=== PATIENT | female | born 1970 | race Two or more races ===

== ENCOUNTER 2022-06-27 11:02 | Outpatient (REF) | payer OTHER, SELFPAY ==
--- NOTE | ~2022-06-27 | MR_ITS ---
EXAMINATION: MR BRAIN WITHOUT CONTRAST CLINICAL INFORMATION: Headaches and left-sided weakness with numbness. COMPARISON: None. TECHNIQUE: Multiplanar, multisequence imaging of the brain was performed without contrast. FINDINGS: No diffusion abnormalities are identified to suggest an acute infarct. The ventricles are normal in size. No mass effect or midline shift is seen. Minimal signal changes in the left frontal centrum semiovale are nonspecific. No extra-axial fluid collections are seen. The brainstem and cerebellum are normal. The gradient refocused acquisition is normal. The craniovertebral junction, marrow signal, and midline structures are normal. The major intracranial flow voids at the level of the hopi of Javed are preserved. The dural venous sinus flow voids are maintained. The mastoid air cells are well aerated. There is mild mucosal thickening in the left maxillary antrum and in the ethmoid air cells. MR/MR head/brain wo con IMPRESSION: No acute process. Very mild nonspecific mild signal changes in the left frontal centrum semiovale. Otherwise, relatively normal MRI of the brain.
== END 2022-06-27 11:03 | disposition home or self-care (01) ==
LOC: HO.MRI 11:02
PROVIDERS: Visit Provider Psychiatry & Neurology Neurology
DX: G20 Parkinson's disease (principal)
CPT/HCPCS: 70551

== ENCOUNTER 2022-12-02 07:35 | Outpatient (REF) | payer OTHER, SELFPAY ==
[2022-12-02 09:34] LABS: Albumin Level 3.8 g/dL (3.5-5.0); Calcium 9.3 mg/dL (8.4-10.2); Phosphorus 3.7 mg/dL (2.7-4.5)
[2022-12-02 09:56] LABS: Free T4 (Free Thyroxine) 1.38 ng/dL (0.71-1.85); Thyroid Stimulating Hormone 1.08 uIU/mL (0.32-4.0); Vitamin D 25-OH Total 19.3 ng/mL (>30)
[2022-12-03 13:28] LABS: Thyroglobulin Antibodies <1 IU/mL (< or = 1); Thyroid Peroxidase Antibodies 1 IU/mL (<9)
[2022-12-03 16:25] LABS: Calcium (PTHI) 9.2 mg/dL (8.6-10.4); PTHI 90 pg/mL (16-77)
[2022-12-06 18:18] LABS: Thyroid Stimulating Immunoglob <89 % baseline (<140)
[2022-12-06 19:08] LABS: Thyrotropin Receptor Antibody <1.00 IU/L (<=2.00)
== END 2022-12-02 07:36 | disposition home or self-care (01) ==
LOC: HO.LAB 07:35
PROVIDERS: PCP Hospitalist; Visit Provider Internal Medicine
DX: E04.2 Nontoxic multinodular goiter (principal); E55.9 Vitamin D deficiency, unspecified
CPT/HCPCS: 36415; 82040; 82306; 82310; 83520; 83970; 84100; 84439; 84443; 84445; 86376; 86800; 99202

== ENCOUNTER 2022-12-19 13:59 | Outpatient (REF) | payer OTHER, SELFPAY ==
--- NOTE | ~2022-12-19 | CT_ITS ---
EXAMINATION: CT SOFT TISSUE NECK WITH CONTRAST CLINICAL INFORMATION: Nontoxic multinodular goiter COMPARISON: None. TECHNIQUE: Following the administration of 100 mL of Omnipaque 300 intravenous contrast, helical imaging was performed in the axial plane with generation of coronal and sagittal reformatted images. This CT examination was performed using dose optimization techniques as appropriate, variously including the following: *Automated exposure control. *Adjustment of mA and/or kV according to patient size (this includes techniques or standardized protocols for targeted exams where dose is matched to indication/reason for exam; i.e. extremities or head). *Use of iterative reconstruction technique. DLP: 454.93 mGy-cm FINDINGS: Enlarged, heterogeneous, multinodular appearance of the thyroid gland compatible with known history of goiter. Substernal extension into the anterior mediastinum abutting the proximal great vessels. There is associated mass effect with mild luminal narrowing of the lower cervical/upper thoracic trachea. No definite extracapsular extension within the limitations of motion artifact. Enlarged symmetric bilateral level 2A and left level 1B lymph nodes without morphologically suspicious features, probably reactive. Mild likely reactive adenoidal tonsillar hyperplasia. Partially imaged right frontal sinus mucosal disease with opacified right frontal sinus drainage outflow tract and otherwise mild scattered paranasal sinus mucosal disease, most pronounced and polypoid within the left maxillary sinus alveolar recesses. The temporomandibular joints are normal. Carious posterior left mandibular molar. Unerupted left mandibular canine versus supernumerary tooth within the parasymphyseal left mandible with adjacent 8 mm heterogeneously sclerotic/lucent lesion along the medial aspect of the supernumerary tooth within the parasymphyseal left mandible may reflect an odontoma or other benign fibro-osseous lesion. Left palatine tonsillolith. The unenhanced oral cavity and hypopharynx are unremarkable. Motion artifact from patient swallowing during image acquisition limits assessment of the larynx however no gross abnormality is seen. The unenhanced submandibular and parotid glands are normal. The partially visualized lung apices are clear. Indeterminate though benign-appearing 5 mm lucent lesion within the posterior left T2 vertebral body with thin peripheral sclerotic margin. The imaged portions of the brain parenchyma are unremarkable. Bilateral lens extractions. CT/CT soft tissue neck wo IV con IMPRESSION: 1. Enlarged, heterogeneous, multinodular appearance of the thyroid gland compatible with known history of goiter. Substernal extension into the anterior mediastinum abutting the proximal great vessels. There is associated mass effect with mild luminal narrowing of the lower cervical/upper thoracic trachea. No definite extracapsular extension within the limitations of motion artifact. 2. Indeterminate though benign-appearing 5 mm lucent lesion within the posterior left T2 vertebral body with thin peripheral sclerotic margin. Consider follow-up with CT in 6-12 months to assess stability or further evaluation with contrast-enhanced MRI. 3. Partially imaged right frontal sinus mucosal disease with opacified right frontal sinus drainage outflow tract and otherwise mild scattered paranasal sinus mucosal disease, most pronounced and polypoid within the left maxillary sinus alveolar recess.
== END 2022-12-19 14:00 | disposition home or self-care (01) ==
LOC: HO.CT 13:59
PROVIDERS: Visit Provider Internal Medicine
DX: E04.2 Nontoxic multinodular goiter (principal)
CPT/HCPCS: 70490

== ENCOUNTER 2023-03-27 10:41 | Outpatient (REF) | payer OTHER, SELFPAY ==
--- NOTE | ~2023-03-27 | US_ITS ---
PROCEDURE: US BIOPSY THYROID CLINICAL INFORMATION: Multinodular thyroid COMPARISON: CT neck 12/19/2022 TECHNIQUE/FINDINGS: The patient was placed supine in the ultrasound procedure table. Preprocedure ultrasound imaging demonstrates numerous heterogeneous nodules bilaterally and within the isthmus in concordance with prior imaging. The neck was sterilely prepped and draped. 1% lidocaine was administered for local anesthesia. We began with the right mid pole thyroid nodule. The nodule was accessed with a 22-gauge needle and FNA was performed. 3 samples were obtained. We then moved onto the largest nodule within the isthmus. The nodule was accessed with a 22-gauge needle and FNA was performed. 2 samples were obtained. We then moved onto the largest nodule on the left thyroid gland. The nodule was accessed with a 22-gauge needle and FNA was performed. 3 samples were obtained. Hemostasis was readily achieved and a dressing was applied. Postprocedure imaging does not demonstrate any evidence of bleeding or other complication. The patient tolerated procedure well. US/US biopsy thyroid IMPRESSION: Ultrasound-guided FNA of right thyroid nodule, thyroid isthmic nodule and left thyroid nodule as above
--- NOTE | ~2023-03-27 | US_ITS ---
PROCEDURE: US BIOPSY THYROID CLINICAL INFORMATION: Multinodular thyroid COMPARISON: CT neck 12/19/2022 TECHNIQUE/FINDINGS: The patient was placed supine in the ultrasound procedure table. Preprocedure ultrasound imaging demonstrates numerous heterogeneous nodules bilaterally and within the isthmus in concordance with prior imaging. The neck was sterilely prepped and draped. 1% lidocaine was administered for local anesthesia. We began with the right mid pole thyroid nodule. The nodule was accessed with a 22-gauge needle and FNA was performed. 3 samples were obtained. We then moved onto the largest nodule within the isthmus. The nodule was accessed with a 22-gauge needle and FNA was performed. 2 samples were obtained. We then moved onto the largest nodule on the left thyroid gland. The nodule was accessed with a 22-gauge needle and FNA was performed. 3 samples were obtained. Hemostasis was readily achieved and a dressing was applied. Postprocedure imaging does not demonstrate any evidence of bleeding or other complication. The patient tolerated procedure well. US/US guided fine needle asp add IMPRESSION: Ultrasound-guided FNA of right thyroid nodule, thyroid isthmic nodule and left thyroid nodule as above
--- NOTE | ~2023-03-27 | US_ITS ---
PROCEDURE: US BIOPSY THYROID CLINICAL INFORMATION: Multinodular thyroid COMPARISON: CT neck 12/19/2022 TECHNIQUE/FINDINGS: The patient was placed supine in the ultrasound procedure table. Preprocedure ultrasound imaging demonstrates numerous heterogeneous nodules bilaterally and within the isthmus in concordance with prior imaging. The neck was sterilely prepped and draped. 1% lidocaine was administered for local anesthesia. We began with the right mid pole thyroid nodule. The nodule was accessed with a 22-gauge needle and FNA was performed. 3 samples were obtained. We then moved onto the largest nodule within the isthmus. The nodule was accessed with a 22-gauge needle and FNA was performed. 2 samples were obtained. We then moved onto the largest nodule on the left thyroid gland. The nodule was accessed with a 22-gauge needle and FNA was performed. 3 samples were obtained. Hemostasis was readily achieved and a dressing was applied. Postprocedure imaging does not demonstrate any evidence of bleeding or other complication. The patient tolerated procedure well. US/US guided fine needle asp add IMPRESSION: Ultrasound-guided FNA of right thyroid nodule, thyroid isthmic nodule and left thyroid nodule as above
[2023-03-27] MEDS: Lidocaine HCl 1 % MPF 5 ML VIAL SUBCUT (13:10)
== END 2023-03-27 10:42 | disposition home or self-care (01) ==
LOC: HO.US 10:41
PROVIDERS: PCP Hospitalist; Visit Provider Internal Medicine
DX: E04.2 Nontoxic multinodular goiter (principal)
CPT/HCPCS: 10005; 10006; 88172; 88173; 88305

== ENCOUNTER → 2023-03-27 10:45 | Outpatient (BNV) | payer OTHER, SELFPAY | PROVIDERS: PCP Hospitalist; Visit Provider Student in an Organized Health Care Education/Training Program | DX: E04.2 Nontoxic multinodular goiter (principal) | CPT/HCPCS: 10005; 10006 ==

== ENCOUNTER 2023-04-09 12:48 | Outpatient (REF) | payer OTHER, SELFPAY ==
[2023-04-09 14:58] LABS: Albumin Level 3.5 g/dL (3.5-5.0)
[2023-04-09 15:21] LABS: Vitamin D 25-OH Total 24.2 ng/mL (>30)
[2023-04-10 12:04] LABS: PTHI 100 pg/mL (16-77)
== END 2023-04-09 12:49 | disposition home or self-care (01) ==
LOC: HO.LAB 12:48
PROVIDERS: PCP Hospitalist; Visit Provider Internal Medicine Endocrinology, Diabetes & Metabolism
DX: E04.2 Nontoxic multinodular goiter (principal); E55.9 Vitamin D deficiency, unspecified
CPT/HCPCS: 36415; 82040; 82306; 83970; 99212

== ENCOUNTER 2023-04-09 12:48 | Outpatient (AMB) | payer OTHER, SELFPAY ==
--- NOTE | 2023-04-09 13:05 | A.OFFVIS_ITS ---
Intake Vital Signs 04/09/23 13:06 Height 5 ft 6 in Weight 220 lb 3.869 oz BMI 35.5 BP 90/40 L Blood Pressure Location Lt brachial Position Sitting Pulse 64 Pulse Source Pulse Oximeter Intake Visit Reasons: Follow up FNA/LVM Intake Note: Patient present for FNA results. New patient to Dr. Christopher, previously followed by Dr. Castaneda. Jockey Agent Required: No Accompanied by: Spouse Allergies moxifloxacin Allergy (Mild, Verified 04/09/23 13:12) Unknown rifabutin Allergy (Mild, Verified 04/09/23 13:12) Unknown HPI HPI Comments History of Present Illness Details 53 YO Female with a PMHx of Grave's Dise ase now S/P I131 ablation in 2010 and a multinodular thyroid who is seen in consultation at the request of her PCP. She reports in 2010 she was diagnosed with Grave's disease as well as a large multinodular thyroid. She was followed by Dr. Henderson at [place], [place]. She reports she was treated with I131 ablation, which did cure the hyperthyroidism. She remained euthyroid thereafter. She also reports she had FNA biopsy a the time of diagnosis, but does not recall the results or which nodules were biopsied. She has been complaining of compressive symptoms with dysphagia as well as hoarseness of voice. She reports pressure in her neck while lying flat. She also reports occasional tenderness in the neck. She reports tremors but otherwise denies any symptoms fo hyper or hypothyroidism. She underwent jessica en y gastric bypass in early 2022. No pertinent labs to review today. She is status post FNA on 03/27/2023 with benign cytology of right, isthmus and left thyroid nodule A. Thyroid, right, fine needle aspiration: Benign ([place] category II). COMMENT: Review of the cytology preparation demonstrates a cellular specimen composed of groups of benign appearing follicular cells arranged in a macrofollicular pattern, few oncocytes and abundant histiocytes, in keeping with a benign follicular nodule. The cell block shows similar findings. B. Thyroid, isthmus, fine needle aspiration: Benign ([place] category II). COMMENT: Review of the cytology preparation demonstrates a cellular specimen composed of groups of benign appearing follicular cells arranged in a macrofollicular pattern and abundant histiocytes, in keeping with a benign follicular nodule. The cell block shows similar findings. C. Thyroid, left, fine needle aspiration: Benign ([place] category II). COMMENT: Review of the cytology preparation demonstrates a cellular specimen composed of groups of benign appearing follicular cells arranged in a macrofollicular pattern, oncocytes/Hurthle cells and histiocytes, in keeping with a benign follicular nodule. The cell block shows similar findings. Saw Dr. Short . Plan is for total thyroidectomy several months She also has secondary hyperparathyroidism and is currently on vitamin-D ergocalciferol 50,000-units once a week. She has had a history of bariatric surgery PFSH Medical History Asthma History of Graves' disease Multinodular thyroid Vitamin D deficiency Surgical History Hx of section Hx of cholecystectomy Hx of gastric bypass Hx of hand surgery Family History Father Medical history unknown Mother Medical history unknown Social History Alcohol intake: never Patient Tobacco Use Status: Never used Tobacco Physical Exam Const Other: Thyroid gland is large in size weighs about 100 g. There are no discrete nodules palpated. There is positive Bri sign Assessment & Plan Assessment & Plan (1) Vitamin D deficiency: Code(s): E55.9 - Vitamin D deficiency, unspecified Plan: History of secondary hyperparathyroidism due to vitamin-D deficiency after bariatric surgery. Currently on high-dose vitamin-D replacement. Plan is to check 25 hydroxy vitamin-D, calcium, albumin, PTH adjust vitamin-D accordingly (2) Multinodular thyroid: Code(s): E04.2 - Nontoxic multinodular goiter Plan: This is 53-year-old female with history of multinodular goiter status post FNA of left, right and isthmus nodule benign cytology. She appears to be clinically biochemically euthyroid. Plan is for proceed with total thyroidectomy Orders: Orders Vitamin D 25-OH Total Today E55.9 - Vitamin D deficiency, unspecified PTHI Today E55.9 - Vitamin D deficiency, unspecified Albumin Level Today E55.9 - Vitamin D deficiency, unspecified Coding Level of Care Code Est Pt Level 3 (62681) Diagnoses Vitamin D deficiency E55.9 Multinodular thyroid E04.2
[2023-04-09 13:06] VITALS: BP 90/40; PULSE 64; BMI 35.5
== END 2023-04-09 13:20 | disposition home or self-care (01) ==
PROVIDERS: PCP Hospitalist; Visit Provider Internal Medicine Endocrinology, Diabetes & Metabolism
DX: E55.9 Vitamin D deficiency, unspecified (principal); E04.2 Nontoxic multinodular goiter
CPT/HCPCS: 99213

== ENCOUNTER 2025-06-01 14:19 | Outpatient (AMB) | payer OTHER, SELFPAY ==
--- OUTSIDE RECORDS SUMMARY | 2025-02-10 08:30 | XMS_ITS ---
Author Organization [facility] Address [address] [place] [id number] Care Team Providers Care Floor Scraper Name Role Phone RAMON LEWIS Primary Care Provider [phone] Petey Preston Unavailable [phone] REASON FOR VISIT WM f/up Encounters Encounter Location Date Provider Diagnosis [address] [address] 02/10/2025 Petey Preston Plan Of Treatment Next Appt Details Provider Name:Petey valentine, 06/02/2025 01:00:00 PM, [address] [place] [address], [phone], Provider Name:Petey Bereketloida valentine, 06/21/2025 01:00:00 PM, [address] [place] [address], [phone], Progress Notes * Parul GUILLAUMEbDOB:1970 (55 yo F)Acc No.[id number]:02/10/2025 Patient: Karyn Romana NEWTON Appointment Provider: Linda Preston :1970 A ge:54 Y S ex:Female Date:02/10/2025 Address:[address] [place], [place] [id number] Pcp:RAMON LEWIS Subjective: * Chief Complaints: * 1 . WM f/up. * Medical History: Objective: * Vitals: Assessment: Plan: * Treatment: * Procedure Codes: N OSHO NO SHOW FEE * Images: * Electronic signature of Cassi Preston PA-C on 06/01/2025 at 05:44 PM EST Sign off status: Pending * Appointment Provider: Linda Preston Date: 0 02/10/2025 Generated for Gabriela howe/Hanna/Jeremiah on: 1 08/01/2024 05:44 PM EST
--- NOTE | 2025-06-01 14:50 | MHC.OFFVIS ---
Intake Visit Reasons: 6 mo f/u PD migraine Allergies moxifloxacin Allergy (Mild, Verified 04/09/23 13:12) Unknown rifabutin Allergy (Mild, Verified 04/09/23 13:12) Unknown HPI Comments Details: 55 years old woman with h/o obesity s/p gastric by-pass surgery, Parkinson disease and migraine headaches. She is presenting wtih an episode of dizziness and palpitations. She experienced symptoms beginning two days ago, primarily involving dizziness severe enough to make her feel faint and needing assistance from her to seek medical evaluation. She additionally noted palpitations, describing them as her heart beating too rapidly. She also perceived her visual field as yellow-tinted during the episode, indicating the severity of her disorientation. While she went to urgent care, she offered no detailed account of the medical interventions or specific diagnoses given during that visit. She mentioned a belief that her sinus may have been discussed, but did not elaborate on details or relevance to her current symptoms. The patient denies prior heart disease, expressed concern about potential thyroid issues, and has an upcoming appointment with her primary care physician for further investigation. [facility] Medical History Asthma History of Graves' disease Multinodular thyroid Vitamin D deficiency Surgical History Hx of hand surgery Hx of gastric bypass Hx of section Hx of cholecystectomy Family History Father Medical history unknown Mother Medical history unknown Social History Alcohol intake: never Patient Tobacco Use Status: Never used Tobacco Review of Systems Narrative - Cardiovascular: Reports palpitations. - Neurological: Reports dizziness and near-fainting episodes. - Visual: Reports perception of a yellow tint to her surroundings during episodes. - Respiratory: Denies symptoms. - Endocrine: Reports potential thyroid concerns without prior diagnosis. Physical Exam Neuro Other: Mental Status: Alert and oriented to person, place, and time. Normal attention. Normal spontaneous speech, fluency, and comprehension. No obvious issues with mood and memory. Affect is appropriate. Cranial Nerves: CN II: Visual keith full to confrontation, visual acuity intact. CN III, IV, : Pupils equal, round, reactive to light and accommodation. Extraocular movements are normal. CN V: Facial sensation is normal. CN VII: Facial movements symmetrical. CN VIII: Hearing intact to bedside conversation is normal. CN IX, X: Palate elevates symmetrically. CN XI: Shoulder shrug and head turn symmetrical. CN XII: Tongue midline without atrophy or fasciculations. Extrapyramidal: Full facial expressions and blinking. No rigidity. Movements are appropriate with no tremor or abnormality. Speech: Normal; no dysarthria or tremor. 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 01/12/24. MRI brain WO at [facility] in Jun 2022: minimal atrophy, minimal MVD EMG/NCS UEs at [facility] in Aug 2019: Mild left med neuropathy across CT, mild R lower radiculopathy MRI LS at [facility] in 2014: Mild degen disease Code(s): G20 - Parkinson's disease Category: Medical (2) Migraine without aura: Code(s): G43.009 - Migraine without aura, not intractable, without status migrainosus Category: Medical Qualifiers: Status migrainosus presence: without status migrainosus Intractability: not intractable Qualified Code(s): G43.009 - Migraine without aura, not intractable, without status migrainosus Plan Impression: 1. Parkinson's disease 2. Migraine without aura 3. Syncope Recommendations: 1. Carbidopa/levodopa extended release 50/200 mg, 1 tablet at bedtime 2. Carbidopa/levodopa 25/100, 1 tablet, 3 times a day 3. Amantadine 100 mg tablet, 1 twice a day morning and noontime 4. Sumatriptan 50 mg 1 a day as needed for headaches 5. Amitriptyline 10 mg at bedtime for migraine control 6. She is advised to see her PCP for cardiac testing to investigate syncope. I am also ordering an EEG. Orders: Orders EEG Routine Today R55 - Syncope and collapse Coding Level of Care Code Est Pt Level 3 (25409) Diagnoses Parkinson disease G20 Migraine without aura and without status migrainosus, not intractable G43.009 Status migrainosus presence: without status migrainosus Intractability: not intractable
--- OUTSIDE RECORDS SUMMARY | 2025-06-01 17:44 | XMS_ITS | Data Portability ---
Author Organization [place] - [facility] Formerly [facility], Allergy Address [address] [place] [id number] Care Team Providers Care Campaign Specialist Name Role Phone RAMON LEWIS Primary Care Provider [phone] Assessment Encounter Date Assessment Date Assessment LastModified by Organization Details LastModified Time 05/18/2024 05/18/2024 Physical examination today is benign. I do not believe she has any acute sinus infection despite her sensation between the eyes. Her intranasal examination showed no significant edema. She has no additional Flonase or loratadine at home and we discussed holding these medications for a bit longer as they may have been part of the discomfort she was experiencing in the nose. Her pulmonary condition has been better controlled and she may resume SCIT. I will see her again in 6 months [email or web address] Not available 05/18/2024 14:30:59 11/16/2024 11/16/2024 Patient describes left-sided facial headaches along with posterior neck pain on the left side radiating to shoulder. 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 She has tenderness to palpation with crepitus of her left TMJ. Suspect she is experiencing tension headaches. Discussed use of warm compress, gentle massage. She has difficulty tolerating anti-inflammato ry secondary to her previous stomach surgeries. Secondary concern of fluctuating nasal congestion is likely related to blood flow consistent with vasomotor rhinitis. Nasal endoscopy was performed with no evidence of sinus infection, nasal polyps. Reassurance was given [email or web address] Not available 11/16/2024 13:25:16 Plan of Treatment Reminders Order Date Submit Date Provider Last Modified By Organization Details Last Modified Time Details Appointments None record ed. Lab None record ed. Referral None record ed. Procedures None record ed. Surgeries None record ed. Imaging None record ed. Medication Orders None record ed. Patient TargetsNo targets recorded. Patient InstructionsNo instructions recorded. Reason for Referral None Reported. 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 Active 2013 [facility] Unilatera lly; Note: Date Diagnosed : 04/26/2014 4:29 PM (389.15) Not Available [facility] 4 03:09:00 Otalgia 07147971 Active 2014 Otalgia; Note: Date Diagnosed : 12/19/2014 3:57 PM (388.70) Not Available [facility] 4 03:08:59 Nasal congestio n 10588080 Active 2018 Nasal congestio n; Note: Date Diagnosed : 9 11:23 AM (R09.81) Not Available [facility] 4 03:09:01 Bleeding from nose 200441988 Active 2019 Epistaxis ; Note: Date Diagnosed : 08/18/2019 1:30 PM (R04.0) Not Available [facility] 4 03:08:59 History of SARS-CoV- 2 [id number] 0725501 Active 2021 Personal history of COVID-19; Note: Date Diagnosed : 12/13/2021 2:30 PM (Z86.16) Not Available [facility] 4 03:09:00 Uncomplic ated severe persisten t asthma 571141915 Active 2021 Severe persisten t asthma, uncomplic ated; Note: Date Diagnosed : 2 4:18 PM (J45.50) Not Available [facility] 4 03:09:00 Cough 61746294 Active 2021 Cough, unspecifi ed; Note: Changed from R05 to R05.9 ( 2 12:11 PM) , Date Diagnosed : 2 4:17 PM (R05) Not Available [facility] 4 03:09:01 Tension-t ype headache 520019027 Active 2022 Tension headache NOS; Note: Date Diagnosed : 10/24/2022 2:11 PM (G44.209) Not Available [facility] 4 03:09:00 Allergic rhinitis 84070372 Active 2022 SCIT 09/2019-, resumed 10/2022, then break from 11/14/22- resumed 12/19/22- ISABEL RENE MD [address] [facility],[place] [address], [place], [phone] , [facility] - [facility] 4 09:23:47 Acute maxillary sinusitis 11276150 Active 2022 Acute maxillary sinusitis , unspecifi ed; Note: Date Diagnosed : 04/22/2023 2:26 PM (J01.00) Not Available [facility] 4 03:08:59 Vasomotor rhinitis 0408748 Active 2024 ISABEL RENE MD [address] [facility],[place] [address], [place], [phone] , [facility] 5 13:23:30 Problem Notes None recorded. Procedures Surgical History Date Name Laterality Status Provider Name and Address Organization Details Recorded Time 11/16/2024 NasalEndos copy_DP completed ISABEL RENE MD [address] [place] [address],[place] [address], [place], [phone], [facility] 11/16/2024 13:23:11 Imaging Results None recorded. Procedure Notes None recorded. Medical Equipment None Reported. Medications Name Sig Start Date Stop Date Status Note LastModified by Organization Details LastModified Time Prescript ion - Prior Authoriza tion Request active Script Copy/Neena or Auth^Scr ipt Copy/Neena or Auth_ [id number] Not Available Not Available Not Available amantadin e HCl 100 mg tablet TAKE 1 TABLET BY MOUTH MORNING AND NOONTIME active Not Available Not Available No t Available celecoxib 200 mg capsule 05/20 completed Medicati on ID: [id number] D uration Value: 30 Brand Name: celecoxi b Send Method: E-Prescr ibed Sub s Allowed: subs OK Speci al Instruct ion: TAKE 1 CAPSULE BY MOUTH TWICE A DAY NEEDED Baljit [place] Name: celecoxi b Not Available Not Available Not Available cyclobenz aprine 10 mg tablet TAKE 1 TABLET BY MOUTH TWICE A DAY NEEDED FOR MUSCLE SPASM active Not Available Not Available No t Available venlafaxi ne ER 37.5 mg capsule,e xtended release 24 hr TAKE 1 CAPSULE BY MOUTH DAILY NEEDED FOR PAIN. active Not Available Not Available No t Available Saline Mist 0.65 % nasal spray aerosol 11/16 completed Medicati on ID: [id number] B rand Name: Saline Mist Sen d Method: E-Prescr ibed Sub s Allowed: subs OK Medic ationGen ericName : Saline Mist Not Available Not Available Not Available ammonium lactate 12 % lotion APPLY TO SOLES OF FEET DAILY. AT NIGHT WEAR SOCKS TO BED *NC BY INS* active Not Available Not Available No t Available polyethyl ramses glycol 3350 17 gram oral powder packet TAKE 1 PACKET BY MOUTH DAILY NEEDED FOR CONSTIPA TION FOR UP TO 14 DAYS. active Not Available Not Available No t Available sucralfat e 100 mg/mL oral suspensio n TAKE 10 ML (1 G TOTAL) 3 (THREE) TIMES A DAY BEFORE MEALS. TAKE 1 HOUR BEFORE MEALS AND AT BEDTIME active Not Available Not Available No t Available ondansetr on HCl 4 mg tablet TAKE 1 TABLET (4MG TOTAL) BY MOUTH EVERY 8 HOURS NEEDED FOR NAUSEA active Not Available Not Available No t Available prednison e 20 mg tablet TAKE 1 TABLET BY MOUTH DAILY FOR 3 DAYS THEN A 1/2 TABLET DAILY X6 DAYS active Not Available Not Available No t Available propranol ol ER 60 mg capsule,2 4 hr,extend ed release TAKE 1 CAPSULE (60 MG) BY MOUTH AT BEDTIME active Not Available Not Available No t Available carbidopa ER 50 mg-levodo pa 200 mg tablet,ex tended release TAKE 1 TABLET BY MOUTH EVERYDAY AT BEDTIME active Not Available Not Available No t Available phentermi ne 15 mg capsule TAKE 1 CAPSULE BY MOUTH EVERY DAY FOR 30 DAYS active Not Available Not Available No t Available sumatript an 50 mg tablet TAKE 1 TABLET BY MOUTH EVERY DAY NEEDED active Not Available Not Available No t Available topiramat e 25 mg tablet TAKE 1 TABLET BY MOUTH EVERY DAY AT BEDTIME FOR 90 DAYS active Not Available Not Available No t Available phentermi ne 37.5 mg tablet TAKE 1 TABLET BY MOUTH EVERY DAY BEFORE BREAKFAS T active Not Available Not Available No t Available valacyclo vir 500 mg tablet 11/16 completed Medicati on ID: [id number] B rand Name: valacycl ovir Sen d Method: E-Prescr ibed Sub s Allowed: subs OK Medic ationGen ericName : valacycl ovir Not Available Not Available Not Available acetamino phen 500 mg tablet 05/18 completed Medicati on ID: [id number] B rand Name: acetamin ophen Se nd Method: E-Prescr ibed Sub s Allowed: subs OK Medic ationGen ericName : acetamin ophen Not Available Not Available Not Available phentermi ne 30 mg capsule TAKE 1 CAPSULE BY MOUTH EVERY DAY FOR 30 DAYS active Not Available Not Available No t Available acetamino phen ER 650 mg tablet,ex tended release TAKE 2 TABLETS BY MOUTH EVERY 8 HOURS NEEDED active Not Available Not Available No t Available meloxicam 7.5 mg tablet 11/16 completed Medicati on ID: [id number] B rand Name: meloxica m Send Method: E-Prescr ibed Sub s Allowed: subs OK Medic ationGen ericName : meloxica m Not Available Not Available Not Available hydrocort isone 2.5 % topical cream with perineal applicato r APPLY 1 APPLICAT ION TWICE A DAY FOR 30 DAYS active Not Available Not Available No t Available prednisol one acetate 1 % eye drops,viridiana pension INSTILL 1 DROP INTO LEFT EYE EVERY EVENING DIRECTED active Not Available Not Available No t Available vitamin A 3,000 mcg (10,000 unit) capsule TAKE 1 CAPSULE BY MOUTH EVERY DAY active Not Available Not Available No t Available zinc gluconate 30 mg tablet TAKE 1 TABLET BY MOUTH EVERY DAY active Not Available Not Available No t Available lorazepam 0.5 mg tablet PLEASE TAKE 1 TO 2 TABLETS BY MOUTH 1 HOUR BEFORE MRI, SEE ADMINIST RATION INSTRUCT IONS FOR 1 DAY active Not Available Not Available No t Available trazodone 100 mg tablet TAKE 1 TABLETS (100 MG) BY MOUTH DAILY AT BEDTIME active Not Available Not Available No t Available baclofen 10 mg tablet TAKE 1 TABLET BY MOUTH TWICE A DAY active Not Available Not Available No t Available pantopraz ole 40 mg tablet,de layed release TAKE 1 TABLET BY MOUTH 2 TIMES A DAY BEFORE MEALS. active Not Available Not Available No t Available trazodone 150 mg tablet TAKE 2 TABLET BY MOUTH EVERY DAY AT BEDTIME ORALLY ONCE A DAY 90 DAYS 05/18 completed Not Available Not Available Not Available olopatadi ne 0.1 % eye drops Instill 1 drop twice a day 2023 active Medicati on ID: [id number] B rand Name: Patanol Send Method: E-Prescr ibed Sub s Allowed: subs OK Medic ationGen ericName : Patanol Not Available Not Available Not Available lidocaine 5 % topical patch APPLY 1 PATCH ONCE DAILY FOR 12 HOURS AND REMOVE FOR 12 HOURS active Not Available Not Available No t Available Advair Diskus 250 mcg-50 mcg/dose powder for inhalatio n 11/16 completed Medicati on ID: [id number] B rand Name: Advair Diskus S end Method: E-Prescr ibed Sub s Allowed: subs OK Medic ationGen ericName : Advair Diskus Not Available Not Available Not Available Gas Relief Extra Strength 125 mg capsule TAKE 1 CAPSULE BY MOUTH 4 TIMES DAILY NEEDED (ABDOMIN AL BLOATING ). active Not Available Not Available No t Available gabapenti n 300 mg capsule 11/16 completed Medicati on ID: [id number] B rand Name: gabapent in Send Method: E-Prescr ibed Sub s Allowed: subs OK Medic ationGen ericName : gabapent in Not Available Not Available Not Available monteluka st 10 mg tablet 11/16 completed Medicati on ID: [id number] B rand Name: monteluk ast Send Method: E-Prescr ibed Sub s Allowed: subs OK Medic ationGen ericName : monteluk ast Not Available Not Available Not Available topiramat e 200 mg tablet 11/16 completed Medicati on ID: [id number] B rand Name: topirama te Send Method: E-Prescr ibed Sub s Allowed: subs OK Medic ationGen ericName : topirama te Not Available Not Available Not Available mupirocin 2 % topical ointment 1 a small amount 05/18 completed Medicati on ID: [id number] D uration Value: 14 Prescri bed By Name: EVA Abreu nd Name: fabienbernardinopietro n Send Method: E-Prescr ibed Sub s Allowed: subs OK Medic ationGen ericName : eli n Not Available Not Available Not Available diclofena c sodium 50 mg tablet,de layed release 11/16 completed Medicati on ID: [id number] B rand Name: diclofen ac sodium S end Method: E-Prescr ibed Sub s Allowed: subs OK Medic ationGen ericName : diclofen ac sodium Not Available Not Available Not Available ergocalci ferol (vitamin D2) 1,250 mcg (50,000 unit) capsule TAKE 1 CAPSULE BY MOUTH WEEKLY FOR 30 DAYS active Not Available Not Available No t Available lorazepam 1 mg tablet TAKE 1 TAB, 1 HOUR PRIOR TO MRI SCAN, MAY REPEAT ONCE active Not Available Not Available No t Available epinephri ne 0.3 mg/0.3 mL injection , auto-inje ctor INJECT 1 PEN INJECTOR SINGLE DOSE NEEDED active Not Available Not Available No t Available estradiol 0.01% (0.1 mg/gram) vaginal cream active Medicati on ID: [id number] B rand Name: estradio l Send Method: E-Prescr ibed Sub s Allowed: subs OK Medic ationGen ericName : estradio l Not Available Not Available Not Available zolpidem 10 mg tablet TAKE 1 TABLET BY MOUTH EVERY DAY AT BEDTIME NEEDED active Not Available Not Available No t Available propranol ol 20 mg tablet active Medicati on ID: [id number] B rand Name: proprano lol Send Method: E-Prescr ibed Sub s Allowed: subs OK Medic ationGen ericName : proprano lol Not Available Not Available Not Available carbidopa 25 mg-levodo pa 100 mg tablet TAKE 1 TABLET BY MOUTH THREE TIMES A DAY FOR 30 DAYS active Not Available Not Available No t Available fluoxetin e 20 mg capsule TAKE 2 CAPSULES BY MOUTH EVERY DAY 05/18 completed Not Available Not Available Not Available fluticaso ne propionat e 50 mcg/actua tion nasal spray,viridiana pension INSTILL 2 SPRAYS IN EACH NOSTRIL TWICE A DAY active Not Available Not Available No t Available clotrimaz ole 1 % topical cream APPLY TO SKIN AND TOENAILS DAILY FOR 12 WEEKS active Not Available Not Available No t Available dicyclomi ne 10 mg capsule TAKE 1 CAPSULE (10 MG TOTAL) BY MOUTH 3 (THREE) TIMES A DAY IF NEEDED FOR ABDOMINA L PAIN active Not Available Not Available No t Available loratadin e 10 mg tablet TAKE 1 TABLET BY MOUTH EVERY DAY FOR 30 DAYS active Not Available Not Available No t Available amoxicill in 875 mg-potass ium clavulana te 125 mg tablet by mouth 11/16 completed Medicati on ID: [id number] Mansoor swiftrideidre [place] By Name: Daxa Green nd Name: amoxicil janey-pot clavulan ate Send Method: E-Prescr ibed Sub s Allowed: subs OK Speci al Instruct ion: Take 1 tablet by mouth every 12 hours Me dication GenericN cheryl: amoxicil janey-pot clavulan ate Not Available Not Available Not Available Ventolin HFA 90 mcg/actua tion aerosol inhaler INHALE TWO PUFFS INTO THE LUNGS EVERY 4 HOURS NEEDED FOR WHEEZING FOR UP TO 30 DAYS active Not Available Not Available No t Available simethico ne 80 mg chewable tablet CHEW 1 TABLET BY MOUTH EVERY 6 HOURS NEEDED FOR FLATULEN CE FOR UP TO 30 DAYS. active Not Available Not Available No t Available oxycodone 5 mg tablet TAKE 1 TABLET BY MOUTH EVERY DAY NEEDED active Not Available Not Available No t Available Laxative (bisacody l) 5 mg tablet,de layed release TAKE 2 TABLETS BY MOUTH RIGHT BEFORE BEGINNIN G BOWEL PREP. SEE INSTRUCT IONS PROVIDED BY THE OFFICE active Not Available Not Available No t Available magnesium 200 mg tablet 11/16 completed Medicati on ID: [id number] Ashleigh rand Name: judy valentine Send Method: E-Prescr ibed Sub s Allowed: subs OK Medic ationGen ericName : judy valentine Not Available Not Available Not Available Restasis 0.05 % eye drops in a dropperet te INSTILL 1 DROP INTO BOTH EYES TWICE A DAY DIRECTED 05/18 completed Not Available Not Available Not Available Symbicort 160 mcg-4.5 mcg/actua tion HFA aerosol inhaler PLEASE SEE ATTACHED FOR DETAILED DIRECTIO NS active Not Available Not Available No t Available Flovent Diskus 50 mcg/actua tion powder for inhalatio n 2023 active Medicati on ID: [id number] B rand Name: Flonase Send Method: E-Prescr ibed Sub s Allowed: subs OK Speci al Instruct ion: 2 spray each nostril BID Medi cationGe nericNam e: Flonase Not Available Not Available Not Available diclofena c 1 % topical gel APPLY 1 APPLICAT ION TOPICALL Y ON THE SKIN TWICE A DAY NEEDED active Not Available Not Available No t Available cholecalc iferol (vitamin D3) 50 mcg (2,000 unit) capsule TAKE 1 CAPSULE (2,000 UNITS TOTAL) BY MOUTH ONCE DAILY active Not Available Not Available No t Available GaviLyte- G 236 gram-22.7 4 gram-6.74 gram-5.86 gram oral solution PLEASE SEE ATTACHED FOR DETAILED DIRECTIO NS active Not Available Not Available No t Available lidocaine 5 % topical ointment APPLY TOPICALL Y IF NEEDED FOR MILD PAIN (APPLY TO PERIANAL SKIN NEEDED FOR PAIN). active Not Available Not Available No t Available Linzess 72 mcg capsule TAKE 1 CAPSULE BY MOUTH EVERY DAY active Not Available Not Available No t Available albuterol sulf 90 mcg/actua tion breath activated powder inhaler,s ensor 11/16 completed Medicati on ID: [id number] B rand Name: ProAir HFA Send Method: E-Prescr ibed Sub s Allowed: subs OK Medic ationGen ericName : ProAir HFA Not Available Not Available Not Available Vitals Date Recorded Body height Provider Name an d Address Organization Details Last Updated DateTime 11/16/2024 167.64 cm FABIO CEBALLOS [place] [facility] 11/16/2024 13:00:52 Date Recorded Body height Body mass index (BMI) Body weight Provider Name and Address Organization Details Last Updated DateTime 05/18/2024 167.64 cm 29.1 kg/m2 52795.63 g Swapna Adler [place] - [facility] 05/18/2024 14:06:43 Social History None recorded. Functional Status None recorded. Mental Status None recorded. Family History Nothing Reported. Medical History No medical history recorded. Gynecological HistoryNo gynecological history recorded. Obstetrics History GPAL:G 0 P 0 0 0 0 Past Encounters Encounter ID Performer Location Encounter Start Date Encounter Closed Date Diagnosis/Indication Diagnosis SNOMED-CT Code Diagnosis ICD10 Code Diagnosis IMO Codes Diagnosis Note [id number] ISABEL RENE MD [facility] [address] [address] 05/18/2024 13:54:09 05/18/2024 14:43:42 Allergic rhinitis 35804374 J30.89 [id number] ISABEL RENE MD [facility] [address] [address] 11/16/2024 12:58:50 11/16/2024 13:26:24 Tension-type headache 052829587 G44.209 Vasomotor rhinitis 66009 03 J30.0 Health Concerns Section Related Observation LastModified by Organization Detai ls LastModified Time None Recorded Concern Status LastModified by Organization Details LastModified Time None Recorded Advance Directives Directive None Recorded Payers Insurance Date Sequence Insurance Name Policy Number Policy Ortiz Covered Member ID Ortiz Member ID Guarantor Name 11/13/2024 1 [facility] - HEALTH NET PLAN (MEDICAID HMO) [id number] Romana Sun [id number] Romana Sun Notes Date Note Type Note Provider Name and Address Organization Details Recorded Time 05/18/2024 text/html ROS as noted in the HPI SCIT 09/2019-05/2022, resumed 10/2022, then break from 11/14/22-12/19/22 resumed 12/19/22-04/17/23epipe n feels lungs are better controlledBP has been low with weight loss - not on any HTN medsfeels some pain between eyes onset early Aprildry nose lost 150 pounds since 10/2022 PV 11/17/23 Pl[place] - hold SCIT due to bronchitis since 03/2023. manage allergy sx with patanol, flonase ISABEL RENE MD [address] [place] [address], [phone], [facility] - [facility] 05/18/2024 14:31:11 11/16/2024 text/html ROS as noted in the HPI left side facial and scalp headacheonset 1 month agogets fluctuating nasal congestionhx of frozen shoulder on left sidetylenol with temporary reliefgets sx daily and worse at nightno nasal discharge SCIT 09/2019-05/2022, resumed 10/2022, then break from 11/14/22-12/19/22 resumed 12/19/22-04/17/23epipe n lost 150 pounds since 3pulm arranging for CPAP PV 11/17/23 [place] - hold SCIT due to bronchitis since 03/2023. manage allergy sx with patanol, flonasePV 05/18/24 [place] - headache between eyes, no sign of infection. OK to resume SCIT ISABEL RENE MD [address] [place] [address], [place], [address], [place] [facility] 11/16/2024 13:25:30 OBGyn Episode No OBEpisode recorded.
--- OUTSIDE RECORDS SUMMARY | 2025-06-01 17:45 | XMS_ITS | Patient Health Record ---
Author Organization [employer] Address [address] [place] [address] Care Team Providers Care Carpet Inspector Finished Name Role Phone JOSHUA RAMON Primary Care Provider [phone] Petey Preston Unavailable [phone] Allergies Allergen (clinical drug ingredient) Drug/Non Drug Allergy documented on EMR Reaction Allergy Type Onset Date Status moxifloxacin Moxifloxacin HCl stomach pain Drug Allergy Active rifabutin Rifabutin stomach pain Drug Allergy Acti ve liraglutide Saxenda stomach upset Drug Allergy A ctive semaglutide Wegovy Unknown Drug Allergy Activ e Results Component Value Reference Range Notes CT CHEST WO CONTRAST Reviewed date:01/13/2025 01:51:07 PM Interpretation: Performing Lab: Notes/Report: Note See Note [facility], a member of [facility] Patient Name: ROMANA GUILLAUME Date of : 1970 Reason for Exam: Abnormal x-ray Exam Date: 12/22/2024 [id number] EST Report Status: Final Ordering Provider: DARIUSZ SARKAR PCP: RAMON LEWIS History: Abnormal ch est radiograph suggesting tracheal narrowing at the thoracic inlet. Comparison: Two-view chest 09/26/24 Technique: Helical volumetric imaging of the thorax was performed without IV contrast. DLP: 191.98 mGy/cm VisibleGainser Iterative reconstruc tion technique Findings: There is diffuse, multinodular enlargement of the thyroid gland, the cephalad aspect of which is excluded from the [id number]. The isthmus is thickened to at least 28 mm (normal up to 5 mm) and the transverse diameters of the left and right lobes are greater than 4 cm (normal less than 2 cm). There is associated narrowing of the transverse diameter of the trachea, accounting for the radiographic findings, with the trachea measuring approximately 9 mm at its narrowest which is at the level of the thoracic inlet. The AP diameter is preserved. The central bronchia l tree is patent. No airspace consolidations or suspicious pulmonary nodules are seen. No pleural or perica rdial effusions are identified. The heart is normal in size. Minimal atherosclerotic calcification is seen in the aortic arch. No thoracic lymphadenopathy is identified. A biopsy marker is s een in the right breast. A small portion of t he upper abdomen included on the lowest images through the thorax is remarkable for sleeve gastrectomy and cholecystectomy sequela. Minimal thoracic vertebral endplate spurring is noted. IMPRESSION: Impression: Diffusely enlarged, multinodular thyroid gland, partially imaged, associated with narrowing of the transverse diameter of the trachea at the level of the thoracic inlet, accounting for the radiographic findings reported recently. This most likely represents multinodular goiter. (Based on multiple prior chest radiographs dating back to 2018, the findings appear new from 2018 and have progressed since 2022.) Thyroid ultrasound is recommended for further evaluation. [employer] MITCHELL ([id number]) An [employer] message has b eecaren communicated to the office of DARIUSZ SARKAR via the [employer] on 12/23/2024 9:53 AM, Message ID [id number]. -------- FINAL REPOR T -------- Dictated By: Celsa Venegas i Dictated Date: 12/23 09:36 ET Assigned Physician: Celsa Shore Reviewed and Electronically Signed By: Celsa Shore Signed Date: 025 09:53 ET Workstation ID: [id number] Transcribed By: Self Edit Transcribed Date: 12/23/2024 09:36 ET THYROID STIMULATING HORMONE WITH REFLEX TO FREE T4 AND FREE T3 Reviewed date:12/01/2024 06:30:28 PM Interpretation: Performing Lab: Notes/Report: TSH 1.72 0.40-4.00 mcIU/mL COMPREHENSIVE METABOLIC PANE L Reviewed date:12/01/2024 06:30:36 PM Interpretation: Performing Lab: Notes/Report: Sodium 145 133-145 mmol/L Potassium 4.2 3.5-5.5 mmol/L Chloride 112 96-110 mmol/L CO2 31 21-32 mmol/L Anion Gap 2 3-11 Glucose 93 70-100 mg/dL BUN 11 5-25 mg/dL Creatinine 0.67 0.50-1.10 mg/dL eGFR 104 >=60 mL/min/1.73m2 Calculation based on the Chronic Kidney Disease Epidemiology Collaboration (CKD-EPI) equation refit without adjustment for race. BUN/Creatinine Ratio 16.4 Calcium 9.4 8.5-10.5 mg/dL AST (SGOT) 18 10-42 unit/L ALT (SGPT) 23 10-60 unit/L Alkaline Phosphatase 104 42-121 unit/L Total Protein 6.3 6.0-8.0 g/dL Albumin 3.5 3.2-5.0 g/dL Total Bilirubin 0.6 0.0-1.4 mg/dL CBC WITH AUTO DIFFERENTIAL Reviewed date:12/01/2024 06:30:40 PM Interpretation: Performing Lab: Notes/Report: WBC 6.0 4.8-10.8 K/mcL RBC 4.30 3.80-4.80 M/mcL Hemoglobin 13.5 11.5-16.0 g/dL Hematocrit 42.7 35.0-47.0 % MCV 99.1 79.0-98.0 FL MCH 31.3 27.0-32.0 pcg MCHC 31.6 32.0-37.0 g/dL RDW 13.7 11.0-15.0 % Platelets 213 130-400 K/mcL MPV 12.1 7.0-11.0 FL NRBC 0.0 <1.0 % NRBC Absolute 0.00 <0.10 K/mcL Neutrophils Relative 51.7 Lymphocytes Relative 39.1 Monocytes Relative 7.7 Eosinophils Relative 0.7 Basophils Relative 0.5 Immature Granulocytes Relative 0.3 Neutrophils Absolute 3.10 1.50-7.00 K/mcL Lymphocytes Absolute 2.34 1.00-5.00 K/mcL Monocytes Absolute 0.46 0.20-1.00 K/mcL Eosinophils Absolute 0.04 0.00-0.50 K/mcL Basophils Absolute 0.03 0.00-0.20 K/mcL Immature Granulocytes Absolute 0.02 0.00-0.03 K/mcL XR CHEST 2 VIEWS Reviewed date:11/26/2024 02:49:09 PM Interpretation: Performing Lab: Notes/Report: Note See Note [facility], a member of [facility] Patient Name: ROMANA GUILLAUME Date of : 1970 Reason for Exam: dyspnea Exam Date: 11/26/2024 [id number] EST Report Status: Final Ordering Provider: DARIUSZ SARKAR PCP: RAMON LEWIS EXAMINATION: CHEST CLINICAL INFORMATION: Dyspnea. Shortness o f breath COMPARISON: Frontal view 07/26/24 TECHNIQUE: 2 views of the chest FINDINGS: There is some narrow ing of the trachea at the level of the thoracic inlet. The upper mediastinum is prominent. The cardiac size is not enlarged. There is no hilar mass or vascular congestion. There is no consolidation or major zone of atelectasis. There is no pleural fluid or pneumothorax. There are surgical c lips in the abdomen. IMPRESSION: Suggestion of narrow ing of the trachea at the thoracic inlet with some fullness of the upper mediastinum. Correlate with any physical findings or clinical evidence of thyroid enlargement. The findings are not specific. -------- FINAL REPOR T -------- Dictated By: Joe Martínez Dictated Date: 11/26 13:47 ET Assigned Physician: Joe Ang Reviewed and Electronically Signed By: Joe Ang Signed Date: 025 13:50 ET Workstation ID: [id number] Transcribed By: Self Edit Transcribed Date: 11/26/2024 13:47 ET MG MAMMO DIGITAL SCREENING W MOOSE BILAT Reviewed date:09/30/2024 07:42:48 AM Interpretation: Performing Lab: Notes/Report: Note See Note [facility], a member of [facility] Patient Name: ROMANA GUILLAUME Date of : 1970 Reason for Exam: Exam Date: 09/29/2024 [id number] EST Report Status: Final Ordering Provider: SELF REFERRAL SPPL PCP: RAMON LEWIS EXAM: SCREENING MAMMOGRAPHY, BILATERAL HISTORY: SCREENING. No additional history. COMPARISON: 09/30/19 24, 04/07/2020 TECHNIQUE: Synthesiz ed CC and MLO projections of each breast. Tomosynthesis of each breast in the CC and MLO projections. ADDITIONAL IMAGING: None Computer-aided detec tion was employed with the iCAD [employer] AI 3-D. TISSUE DENSITY: Ther e are scattered areas of fibroglandular density. (BI-RADS category B) FINDINGS: RIGHT BREAST: No suspicious mass. No suspicious calcification. No distortion. No additional suspicious right breast findings LEFT BREAST: No suspicious mass. No suspicious calcification. No distortion. No additional suspicious left breast findings IMPRESSION: No mammographic evid ence of malignancy. No suspicious interv al change. A negative mammogram in the presence of a clinically suspicious palpable abnormality does not preclude the possibility of malignancy or alter the indications for biopsy. ASSESSMENT: BI-RADS 1: NEGATIVE RECOMMENDATION(S): 1: Routine screening mammogram BILATERAL in 1 year. Mammography location: [facility] at [address], [address] -------- FINAL REPOR T -------- Dictated By: Joe Martínez Dictated Date: 09/29 17:32 ET Assigned Physician: Joe Ang Reviewed and Electronically Signed By: Joe Ang Signed Date: 025 17:37 ET Workstation ID: [id number] Transcribed By: Self Edit Transcribed Date: 09/29/2024 17:32 ET VITAMIN A Reviewed date:08/24/2024 07:51:23 AM Interpretation: Performing Lab: Notes/Report: Vitamin A 28 38-106 ug/dL This test was developed and the performance characteristics determined by [facility]. It has not been cleared or approved by the FDA. The laboratory is regulated under CLIA as qualified to perform high-complexity testing. This test is used for patient testing purposes. It should not be regarded as investigational or for research. Test performed at [facility], [address] , [place] [address] Maryan Trevizo MD, PhD - [employer] COPPER, SERUM Reviewed date:08/24/2024 07:51:06 AM Interpretation: Performing Lab: Notes/Report: Copper 1638 379-1177 ug/L Copper values may be elevated to twice the normal levels in . Elevated results may be due to sample collected in a non-certified trace element-free tube. This test was developed and the performance characteristics determined by [facility]. It has not been cleared or approved by the FDA. The laboratory is regulated under CLIA as qualified to perform high-complexity testing. This test is used for patient testing purposes. It should not be regarded as investigational or for research. Test performed at [facility], [address] , [place] [address] Maryan Trevizo MD, PhD - [employer] ZINC Reviewed date:08/23/2024 05:02:10 PM Interpretation: Performing Lab: Notes/Report: Zinc 102 60-130 ug/dL Elevated results may be due to sample collected in a non-certified trace element-free tube. This test was developed and the performance characteristics determined by [facility]. It has not been cleared or approved by the FDA. The laboratory is regulated under CLIA as qualified to perform high-complexity testing. This test is used for patient testing purposes. It should not be regarded as investigational or for research. Test performed at [facility], [address] [place] [address] Maryan Trevizo MD, PhD - [employer] HEPATIC FUNCTION PANEL Reviewed date:07/29/2024 07:57:43 AM Interpretation: Performing Lab: Notes/Report: Total Protein 6.9 6.0-8.0 g/dL Albumin 3.9 3.2-5.0 g/dL Total Bilirubin 0.7 0.0-1.4 mg/dL Bilirubin, Direct 0.2 0.0-0.3 mg/dL Bilirubin, Indirect 0.5 0.0-1.1 mg/dL ALT (SGPT) 13 10-60 unit/L AST (SGOT) 12 10-42 unit/L Alkaline Phosphatase 102 42-121 unit/L XR CHEST 2 VIEWS Reviewed date:07/27/2024 05:42:24 PM Interpretation: Performing Lab: Notes/Report: Note See Note [facility], a member of [facility] Patient Name: ROMANA GUILLAUME Date of : 1970 Reason for Exam: cough Exam Date: 07/26/2024 [id number] EST Report Status: Final Ordering Provider: DARIUSZ SARKAR PCP: RAMON LEWIS History: Productive cough for several weeks. Comparison: 11/18/22 Findings: PA and lateral views . The cardiomediastinal silhouette, hilar contours and pulmonary vascularity are within normal limits. The lungs are clear. The costophrenic angles are sharp. Thoracic vertebral endplate spurring is seen. Cholecystectomy clips are noted. IMPRESSION: Impression: Stable radiographic appearance of the chest. No active pulmonary process identified. [employer] [place] ([id number]) -------- FINAL REPOR T -------- Dictated By: Celsa Venegas i Dictated Date: 07/26 14:18 ET Assigned Physician: Celsa Shore Reviewed and Electronically Signed By: Celsa Shore Signed Date: 025 14:19 ET Workstation ID: [id number] Transcribed By: Self Edit Transcribed Date: 07/26/2024 14:18 ET HEPATITIS B VIRUS MOLECULAR STUDY QUANTITATIVE Reviewed date:05/26/2025 08:27:25 AM Interpretation: Performing Lab: Notes/Report: Hepatitis B Virus DNA Qualitative DETECTED Not detected Hepatitis B Virus DNA, Quantitative 1,843 <10 IU/mL Log Hepatitis B Virus DNA 3.27 <1.00 Log (10) IU/mL This procedure utilizes a real-time polymerase chain reaction test from [employer]. The amplification target is a conserved region in the terminal third of the hepatitis B surface antigen gene. The lower limit of quantitation is 10 IU/mL (1.00 Log IU/mL) and the uppper limit of quantitation is 1 billion IU/mL (9.00 Log IU/mL). The qualitative limit of detection is 10 IU/mL (1.00 Log IU/mL). A Not detected result does not rule out infection. Test performed at [facility], [address], [place] [address] Maryan Trevizo MD, PhD - [employer] HEPATIC FUNCTION PANEL Reviewed date:05/23/2025 05:07:35 PM Interpretation: Performing Lab: Notes/Report: Total Protein 6.4 6.0-8.0 g/dL Albumin 3.5 3.2-5.0 g/dL Total Bilirubin 0.8 0.0-1.4 mg/dL Bilirubin, Direct 0.2 0.0-0.3 mg/dL Bilirubin, Indirect 0.6 0.0-1.1 mg/dL ALT (SGPT) 13 10-60 unit/L AST (SGOT) 12 10-42 unit/L Alkaline Phosphatase 93 42-121 unit/L HEPATITIS B VIRUS MOLECULAR STUDY QUANTITATIVE Reviewed date:08/05/2024 09:54:26 AM Interpretation: Performing Lab: Notes/Report: Hepatitis B Virus DNA Qualitative DETECTED Not detected Hepatitis B Virus DNA, Quantitative 2,024 <10 IU/mL Log Hepatitis B Virus DNA 3.31 <1.00 Log (10) IU/mL This procedure utilizes a real-time polymerase chain reaction test from [employer]. The amplification target is a conserved region in the terminal third of the hepatitis B surface antigen gene. The lower limit of quantitation is 10 IU/mL (1.00 Log IU/mL) and the uppper limit of quantitation is 1 billion IU/mL (9.00 Log IU/mL). The qualitative limit of detection is 10 IU/mL (1.00 Log IU/mL). A Not detected result does not rule out infection. Test performed at [facility], [facility] [place] [address] Maryan Trevizo MD, PhD - Slurry Man SELENIUM SERUM Reviewed date:08/27/2024 09:05:21 AM Interpretation: Performing Lab: Notes/Report: Selenium 82 63-160 mcg/L (Note) This test was developed and its analytical performance characteristics have been determined by [employer]. It has not been cleared or approved by the FDA. This assay has been validated pursuant to the CLIA regulations and is used for clinical purposes. [facility] [address] [address],[address] [facility] [address] Martina Neely MD, PhD Test Performed at: [facility] [address], [address] [place] [address] Troy Neely MD, PhD VITAMIN B6 Reviewed date:08/24/2024 03:26:12 PM Interpretation: Performing Lab: Notes/Report: Vitamin B6 (Pyridoxine) Level 9 5-50 ug/L This test was developed and the performance characteristics determined by [facility]. It has not been cleared or approved by the FDA. The laboratory is regulated under CLIA as qualified to perform high-complexity testing. This test is used for patient testing purposes. It should not be regarded as investigational or for research. Test performed at [facility], [address] , [place] [address] Maryan Trevizo MD, PhD - [employer] VITAMIN B1 Reviewed date:08/24/2024 03:26:20 PM Interpretation: Performing Lab: Notes/Report: Vitamin B1 Whole Blood 82 38-122 ug/L This test was developed and the performance characteristics determined by [facility]. It has not been cleared or approved by the FDA. The laboratory is regulated under CLIA as qualified to perform high-complexity testing. This test is used for patient testing purposes. It should not be regarded as investigational or for research. Test performed at [facility], [address], [place] [address] Maryan Trevizo MD, PhD - [employer] XR UGI W SINGLE CONTRAST Reviewed date:01/31/2025 05:22:26 PM Interpretation: Performing Lab: Notes/Report: Note See Note [facility], a member of [employer] Patient Name: ROMANA GUILLAUME Date of : 1970 Reason for Exam: Abd pain, unspecified Exam Date: 01/31/2025 [id number] EST Report Status: Final Ordering Provider: EVENS LUNSFORD PCP: RAMON LEWIS FINDINGS: Double con trast UGI performed. COMPARISON: Upper GI imaging September 22, 2023 HISTORY: Patient is a 54-year-old female with history of generalized abdominal discomfort, gastric bypass in November 2022. FIELD SECRETARY radiographs: S cout AP radiograph of the abdomen obtained. Bowel gas pattern is nonobstructive. Visualized lung bases appear clear. There are surgical suture chains noted in the left upper quadrant, consistent with known history of gastric bypass. Cholecystectomy clips are noted in the right upper quadrant. There is levoscoliosis of the lumbar spine. There is a 5 mm rounded, radiopaque opacity overlying the area of the left kidney which may represent nonobstructing renal calculi also seen on CT abdomen and pelvis imaging from August 2020. FINDINGS: Effervesce nt crystals were administered orally. Thick and thin barium was then administered orally under fluoroscopic control. Esophagus: Mild esophageal dysmotility, improved when compared to prior. Normal distensibility and mucosal pattern. There is no evidence of obstruction or hiatal hernia. Stomach: Gastric estefany kira is consistent with history of bypass. Widely patent gastrojejunal anastomosis. Prompt passage of contrast from the stomach into the jejunum. No grossly evident gastric mass or ulceration. Visualization of proximal small bowel is within normal limits. Gastroesophageal ref lux: Not visualized DAP: 6.79 Gycm^2 IMPRESSION: Mild esophageal dysmotility, improved when compared to prior imaging from September 22, 2023. Otherwise, unremarkable single contrast UGI exam status post gastric bypass. -------- FINAL REPOR T -------- Dictated By: Lesa De Leon Dictated Date: 01/31 12:59 ET Assigned Physician: Marcella Weeks Reviewed and Electronically Signed By: Marcella Weeks Signed Date: 025 15:18 ET Workstation ID: [id number] Transcribed By: Self Edit Transcribed Date: 01/31/2025 13:15 ET Resident/PA/WINDOWS VMWARE ENGINEER: Lesa Ramirez HEAD NECK SOFT TISSUE Reviewed date:01/31/2025 08:03:08 AM Interpretation: Performing Lab: Notes/Report: Note See Note [facility], a member of [employer] Patient Name: ROMANA GUILLAUME Date of : 1970 Reason for Exam: dyspnea Exam Date: 01/27/2025 [id number] EST Report Status: Final Ordering Provider: DARIUSZ SARKAR PCP: RAMON LEWIS HISTORY: Multinodula r goiter TECHNIQUE: Grayscale assessment of the thyroid was performed with a high frequency linear transducer. COMPARISON: Portions of chest CT 12/22/24 FINDINGS: The thyroid is marke dly enlarged and heterogeneous. The right lobe of th e thyroid measures: Approximately 8.3 x 4.5 x 3.8 cm Previous measurement : No previous available Right lobe contour: Lobular Right lobe echogenic ity: Markedly heterogeneous Right lobe vasculari ty: Hypervascular The left lobe of the thyroid measures: Approximately 8.1 x 4.4 x 4.7 cm Previous measurement : No previous available Left lobe contour: Lobular Left lobe echogenici ty: Markedly heterogeneous Left lobe vascularit y: Hypervascular Isthmus measures (AP ): Approximately 1.9 cm Previous measurement : No previous available Isthmus contour: Lobular Isthmus echogenicity : Heterogeneous Isthmus vascularity: Hypervascular Masses: Markedly enlarged heterogeneous gland makes assessment for individual nodules difficult. A fairly reproducibl e slightly echogenic mostly solid nodule in the periphery of the upper pole measures 2.0 x 1.4 x 1.7 cm I suspect innumerabl e essentially confluent/adjacent nodules throughout the gland. There are cystic components. OTHER: Extrathyroidal exten daly: None Regional lymph nodes : No enlarged lymph nodes demonstrated IMPRESSION: Markedly enlarged heterogeneous thyroid Suspect innumerable nearly confluent nodules bilaterally. This may be causing respiratory symptoms. I cannot confirm long-term stability. Consider tissue diag nosis of one of the larger areas of altered echotexture on each side TI-RADS Assessment (updated October 2016) Composition: cystic or spongiform : 0 pt mixed cystic and nila id: 1 pt solid or almost completely solid: 2 pts Echogenicity: anechoic: 0 pt hyperechoic or isoec hoic: 1 pt hypoechoic: 2 pts very hypoechoic: 3 pt Shape: wider than tall: 0 pt taller than wide: 3 pts Margin: smooth: 0 pt ill-defined: 0 pt lobulated/irregular: 2 pts extra-thyroidal extension: 3 pts Echogenic foci none or large comet tail artifact: 0 pt macro-calcification: 1 pt peripheral/rim ca++: 2 pts punctate echogenic f oci: 3 pts TR1: 0 pts; benign; no follow-up TR2: 2 pts; not suspicious; no FNA TR3: 3 pts; mildly suspicious; < or = 1.5 cm f/u; > or = 2.5 cm FNA TR4: 4-6 pts; modera tely suspicious; < or = 1.0 cm follow-up; 1.5 cm FNA TR5: 7 or > pts; hig hly suspicious; .5-.9 cm f/u; 1.0 cm or > FNA -------- FINAL REPOR T -------- Dictated By: Joe Martínez Dictated Date: 01/28 08:21 ET Assigned Physician: Joe Ang Reviewed and Electronically Signed By: Joe Ang Signed Date: 08:33 ET Workstation ID: [id number] Transcribed By: Self Edit Transcribed Date: 01/28/2025 08:21 ET US ABDOMEN COMPLETE Reviewed date:09/07/2024 07:46:31 AM Interpretation: Performing Lab: Notes/Report: Note See Note [facility], a member of [facility] Patient Name: ROMANA GUILLAUME Date of : 1970 Reason for Exam: chronic hep B Exam Date: 09/03/2024 [id number] EST Report Status: Final Ordering Provider: EVENS LUNSFORD PCP: RAMON LEWIS CLINICAL HISTORY: ch ronic hep B. TECHNIQUE: US ABDOME N COMPLETE. COMPARISON: No prior imaging available for comparison.. FINDINGS: Pancreas: Partially obscured by bowel gas however visualized portions are within normal limits. Liver: The liver callie ears homogeneous without evidence for focal mass lesion or biliary duct dilatation. Hepatopedal flow in the main portal vein. Gallbladder: Status post cholecystectomy. Common bile duct: 10 mm Kidneys: In greatest length, the RIGHT kidney measures 11.1 cm. No focal renal mass lesions, hydronephrosis or calculi are seen. Spleen: The spleen s hows a normal homogeneous appearance and is normal in size, measuring 10.4 cm in greatest dimension. IVC: Within normal limits. Additional: There is no evidence of ascites IMPRESSION: No liver mass sonographically evident. -------- FINAL REPOR T -------- Dictated By: Anneliese Griffin Dictated Date: 09/06 17:38 ET Assigned Physician: Anneliese Griffin Reviewed and Electronically Signed By: Anneliese Griffin Signed Date: 17:40 ET Workstation ID: [id number] Transcribed By: Self Edit Transcribed Date: 09/06/2024 17:38 ET PARATHYROID HORMONE INTACT Reviewed date:08/19/2024 07:45:26 AM Interpretation: Performing Lab: Notes/Report: PTH 144.6 18.5-88.0 pcg/mL IRON AND TIBC Reviewed date:08/19/2024 07:45:38 AM Interpretation: Performing Lab: Notes/Report: Iron 84 40-150 mcg/dL TIBC 284 250-450 mcg/dL Iron Saturation 30 15-50 % VITAMIN D 25 HYDROXY Reviewed date:08/19/2024 07:45:34 AM Interpretation: Performing Lab: Notes/Report: Vit D, 25-Hydroxy 23.5 30.0-80.0 ng/mL COMPREHENSIVE METABOLIC PANE L Reviewed date:08/19/2024 07:45:14 AM Interpretation: Performing Lab: Notes/Report: Sodium 140 133-145 mmol/L Potassium 4.2 3.5-5.5 mmol/L Chloride 109 96-110 mmol/L CO2 28 21-32 mmol/L Anion Gap 3 3-11 Glucose 97 70-100 mg/dL BUN 13 5-25 mg/dL Creatinine 0.60 0.50-1.10 mg/dL eGFR 107 >=60 mL/min/1.73m2 Calculation based on the Chronic Kidney Disease Epidemiology Collaboration (CKD-EPI) equation refit without adjustment for race. BUN/Creatinine Ratio 21.7 Calcium 9.0 8.5-10.5 mg/dL AST (SGOT) 13 10-42 unit/L ALT (SGPT) 14 10-60 unit/L Alkaline Phosphatase 94 42-121 unit/L Total Protein 6.4 6.0-8.0 g/dL Albumin 3.6 3.2-5.0 g/dL Total Bilirubin 0.7 0.0-1.4 mg/dL FOLATE Reviewed date:08/19/2024 07:45:03 AM Interpretation: Performing Lab: Notes/Report: Folate 19.3 2.8-17.0 ng/ml VITAMIN B12 Reviewed date:08/19/2024 07:45:07 AM Interpretation: Performing Lab: Notes/Report: Vitamin B-12 585 250-900 pcg/mL Reason For Referral Reason LEFT HAND PAIN - ATI RUSSELL Diagnosis 1 Pain in left hand (M 79.642) Referral Organization [facility] Referring Provider First Name RAMON Referring Provider Last Name JOSHUA Referring Provider Speciality Internal M edicine Referred Provider Specialty Occupational Medicine General Notes Referral faxed to [facility] . 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 Referring Provider First Name Petey Referring Provider Last Name Kary Referred Provider Specialty Ophthalmolog y General Notes Referral faxed to [facility]. Please call patient to schedule.Samira Christy 09/10/2024 11:02:27 AM > Referral Priority Urgent Reason Please evaluate and treat Diagnosis 1 Unspecified viral he patitis B without hepatic coma (B19.10) Referral Organization [facility] Referring Provider First Name NAVARRO Referring Provider Last Name [facility] Referring Provider Speciality Internal M edicine Referred Provider Specialty Gastroentero logy General Notes Referral faxed to [facility]. Please contact the patient to schedule., Marimar Watson 08/05/2024 09:49:01 AM > Referral Priority Routine Reason Please evaluate and treat Dr. Rl Tatum Please evaluate and treat Dr. Rl Tatum Diagnosis 1 Other seasonal aller gic rhinitis (J30.2) Referral Organization [facility] Referring Provider First Name Petey Referring Provider Last Name Kary Referred Provider Specialty Ear, nose an d throat surgeon General Notes Please call the [facility] to schedule the appointment. Referral Priority Routine Reason please evaluate and treat Please evaluate and treat Diagnosis 1 Polyosteoarthritis, unspecified (M15.9) Referral Organization [facility] Referring Provider First Name Petey Referring Provider Last Name Kary Referred Provider Specialty Pain Medicin e General Notes Please call the [facility] ent to schedule the appointment, Encounter created and SMS sent to the pt.Nawaf Charmain 02/18/2025 01:36:34 PM > Referral Priority Routine Medications Medication SIG (Take, Route, Frequency, Duration) Notes Start Date End Date Status Amoxicillin 500 MG 1 capsule Orally eliza ry 8 hrs; Duration: 7 days 05/12/2025 Active predniSONE 20 MG 1 tablet Orally Once a day; Duration: 7 days 05/12/2025 Active Ketorolac Tromethamine Not-Taking Oxymetazoline HCl 0.05 % 2 sprays in eac h nostril as needed Nasally Once a day; Duration: 3 Not-Taking Carbidopa-Levodopa ER 50-200 MG 1 tablet as needed Orally once a day 04/16/2023 Active Saline Nasal [place] 0.65 % 2 sprays in ea ch nostril as needed Nasally every 2 hrs; Duration: 20 Active Fluticasone Propionate 50 MCG/ACT 1 spray in each nostril Nasally Twice a day; Duration: 30 days 10/12/2024 Active Tylenol 8 Hour Arthritis Pain 650 MG 2 tablets as needed Orally every 8 hrs; Duration: 30 days Active Phentermine HCl 37.5 MG 1 tablet before breakfast Orally Once a day; Duration: 30 days 09/14/2024 Not-Taking Albuterol Sulfate HFA 108 (90 Base) MCG/ACT 2 puffs as needed Inhalation every 6 hrs; Duration: 25 Active Phentermine HCl 30 MG 1 capsule Orally O nce a day; Duration: 30 days 05/12/2025 Active clonazePAM 0.5 MG 1 tablet at bedtime Orally Once a day; Duration: 5 days PSYCH 08/30/2020 Active Tylenol 8 Hour Arthritis Pain 650 MG 2 tablets as needed Orally every 8 hrs; Duration: 30 days 12/16/2023 Active Amantadine HCl 100 MG 1 capsule Orally t wice a day 04/16/2023 Active FLUoxetine HCl 20 MG 2 tablet in the morning Orally Once a day; Duration: 30 day(s) Active Claritin 10 MG 1 tablet Orally Once a day; Duration: 30 day(s) Active Vitamin D 2000 UNIT 1 tablet Orally Once a day Active buPROPion HCl ER (XL) 150 MG 1 tablet in the morning Orally Once a day; Duration: 30 days 02/17/2025 Active Visine 0.05 % 1 drop into affected eye as needed Ophthalmic Four times a day; Duration: 28 days 01/06/2019 Active Metoclopramide HCl 5 MG 1 tablet before meals Orally three times a day; Duration: 30 day(s) Active Symbicort 160-4.5 MCG/ACT 2 puffs Inhala tion Twice a day Active Dicyclomine HCl 10 MG 1 capsule Orally T hree times a day; Duration: 30 day(s) Not-Taking Restasis 0.05 % 1 drop into each eye Ophthalmic Twice a day Active traZODone HCl 150 MG TAKE 2 TABLET BY [facility] EVERY DAY AT BEDTIME Orally Once a day; Duration: 90 days Not-Taking EPINEPHrine (Anaphylaxis) Active Pantoprazole Sodium 40 MG 1 tablet Orall y Once a day Not-Taking SUMAtriptan Succinate 100 MG 1 tablet as needed Orally Once a day Active Gas Relief 80 MG 1 tablet after meals and at bedtime as needed Orally Four times a day; Duration: 30 Active Cyclobenzaprine HCl 5 MG 1 tablet at bed time as needed Orally 3 times a day; Duration: 30 days 05/12/2025 Active Sucralfate 1 GM/10ML TAKE 10 ML BY MOUTH ON AN EMPTY STOMACH TWICE A DAY FOR 30 DAYS; Duration: 30 Not-Taking Omeprazole 40 MG 1 capsule 1/2 to 1 hour before morning meal Orally Once a day; Duration: 30 days 06/22/2024 Not-Takin g Carbidopa-Levodopa 25-100 MG 1 tablet as needed Orally Three times a day Active Phentermine HCl 30 MG 1 capsule Orally O nce a day; Duration: 30 days 07/20/2024 Not-Taking Propranolol HCl 20 MG 1 tablet Orally On ce a day Not-Taking Anusol-HC 2.5 % 1 application Externally Twice a day; Duration: 30 days 01/07/2023 Not-Takdixon g Immunizations Vaccine Route Administration Date Status Comme nts COVID 19 Pfizer Unknown 09/28/2020 Administered COVID 19 Pfizer Unknown 10/19/2020 Administered Flu Shot Unknown 04/11/2018 Administered Fluzone QD IM Intramuscular 05/20/2023 Administered Fluzone QD IM Intramuscular 04/14/2025 Administered TDAP ID Intradermal 05/25/2024 Administered Social History Tobacco Use: Social History Observation Description Date Details (start date - stop date) Never Smoker NA - NA Tobacco Use/Smoking Question Answer Notes Are you a nonsmoker Alcohol Screen (Audit-C) Question Answer Notes Did you have a drink containing alcohol in the p ast year? 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 Problem Viral hepatitis B without hepatic coma (162448908) Unspecified viral hepatitis B without hepatic coma (B19.10) Active confirmed Problem Tinea cruris (043415068) Tinea cruris (B35.6) Active confirmed Problem Pernicious anemia (05539996) Vitamin B12 deficiency anemia due to intrinsic factor deficiency (D51.0) Active confirmed Problem Non-toxic multinodular goiter (31892729) Nontoxic multinodular goiter (E04.2) Active confirmed Problem Vitamin D deficiency (18473085) Vitamin D deficiency, unspecified (E55.9) Active confirmed Problem Morbid obesity (disorder) (636527035) Morbid (severe) obesity due to excess calories (E66.01) Active confirmed Problem Obesity due to excess calories (842029790) Other obesity due to excess calories (E66.09) Active confirmed Problem Mixed hyperlipidemia (638171167) Mixed hyperlipidemia (E78.2) Active confirmed Problem Generalized anxiety disorder (38255666) Generalized anxiety disorder (F41.1) Active confirmed Problem Parkinson's disease (44412601) Parkinson's disease (G20) Active confirmed Problem Chronic migraine without aura, non-refractory (disorder) (300110421209264) Migraine without aura, not intractable, without status migrainosus (G43.009) Active confirmed Problem Obstructive sleep apnea syndrome (disorder) (87025287) Obstructive sleep apnea (adult) (pediatric) (G47.33) Active confirmed Problem Carpal tunnel syndrome (55549118) Carpal tunnel syndrome, left upper limb (G56.02) Active confirmed Problem Chronic pain syndrome (245341680) Chronic pain syndrome (G89.4) Active confirmed Problem Pain co-occurrent and due to varicose veins of bilateral legs (9715953078339488 0) Varicose veins of bilateral lower extremities with pain (I83.813) Active confirmed Problem Seasonal allergic rhinitis (838185869) Other seasonal allergic rhinitis (J30.2) Active confirmed Problem Uncomplicated moderate persistent asthma (922410695) Moderate persistent asthma, uncomplicated (J45.40) Active confirmed Problem Uncomplicated asthma (disorder) (150636528) Unspecified asthma, uncomplicated (J45.909) Active confirmed Problem Gastro-esophageal reflux disease without esophagitis (883084482) Gastro-esophageal reflux disease without esophagitis (K21.9) Active confirmed Problem Dermatitis (462206726) Dermatitis, unspecified (L30.9) Active confirmed Problem Polyarthritis (679459739) Other polyosteoarthritis (M15.8) Active confirmed Problem Osteoarthritis (240687112) Polyosteoarthritis, unspecified (M15.9) Active confirmed Problem Calculus of kidney (32869046) Calculus of kidney (N20.0) Active confirmed Problem Paresthesia (finding) (28145658) Paresthesia of skin (R20.2) Active confirmed Problem Abnormal gait (07094642) Unsteadiness on feet (R26.81) Active confirmed Problem Impaired fasting glucose (629591496) Impaired fasting glucose (R73.01) Active confirmed Problem History of bariatric surgical procedure (091638395) Bariatric surgery status (Z98.84) Active confirmed Problem Irritable bowel syndrome characterized by constipation (285515211) Irritable bowel syndrome with constipation (K58.1) Active confirmed Problem Body mass index 30.00 to 34.99 (681578706121907) Body mass index [BMI] 33.0-33.9, adult (Z68.33) Active confirmed Problem Hepatitis B carrier (374442821) Hepatitis B carrier (B18.1) Active confirmed Problem History of disease caused by Severe acute respiratory syndrome coronavirus 2 (situation) (3012212822307829 05) Personal history of COVID-19 (Z86.16) Active confirmed Problem Chronic fqai-UZSDA-53 syndrome (disorder) (7982341398) 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 Vital Signs Heart Rate 90 /min 05/12/2025 Temperature 97.3 degrees Fahrenheit 05/12/2025 Blood pressure diastolic 70 mm Hg 05/12/2025 Oximetry 98 % 05/12/2025 Height 65.51 in 05/12/2025 Blood pressure systolic 100 mm Hg 05/12/2025 Weight 183.8 lbs 05/12/2025 BMI 30.11 kg/m2 05/12/2025 Encounters Encounter Location Date Provider Diagnosis [address] [address] 02/10/2025 Petey Preston [address] [address] 06/22/2024 RAMON DIXONL Other obesity due to excess calories E66.09 ; Dietary counseling and surveillance Z71.3 and Gastro-esophageal reflux disease without esophagitis K21.[address] [address] 07/20/2024 Petey Preston Other obesity due to excess calories E66.09 and Dietary counseling and surveillance Z71.[address] [address] 08/17/2024 Ghadeer Mazloum Other obesity due to excess calories E66.09 ; Dietary counseling and surveillance Z71.3 and Other hemorrhoids K64.[address] [place] [address] 09/14/2024 Ghadeer Mazloum Other seasonal allergic rhinitis J30.2 ; Other obesity due to excess calories E66.09 and Dietary counseling and surveillance Z71.[address] [place] [address] 10/12/2024 Ghadeer Mazloum Other obesity due to excess calories E66.09 ; Other seasonal allergic rhinitis J30.2 and Dietary counseling and surveillance Z71.[address] [place] [address] 11/09/2024 Ghadeer Mazloum Other obesity due to excess calories E66.09 and Dietary counseling and surveillance Z71.[address] [place] [address] 12/16/2024 Ghadeer Mazloum Other obesity due to excess calories E66.09 and Dietary counseling and surveillance Z71.[address] [place] [address] 01/13/2025 Ghadeer Mazloum Other obesity due to excess calories E66.09 ; Dietary counseling and surveillance Z71.3 ; Nontoxic multinodular goiter E04.2 ; Obstructive sleep apnea (adult) (pediatric) G47.33 and Moderate persistent asthma, uncomplicated J45.[address] [place] [address] 02/17/2025 Ghadeer Mazloum Other obesity due to excess calories E66.09 ; Dietary counseling and surveillance Z71.3 ; Nontoxic multinodular goiter E04.2 ; Obstructive sleep apnea (adult) (pediatric) G47.33 ; Moderate persistent asthma, uncomplicated J45.40 and Polyosteoarthritis, unspecified M15.[address] [place] [address] 03/17/2025 Ghadeer Mazloum Other obesity due to excess calories E66.09 ; Dietary counseling and surveillance Z71.3 ; Nontoxic multinodular goiter E04.2 ; Obstructive sleep apnea (adult) (pediatric) G47.33 ; Moderate persistent asthma, uncomplicated J45.40 and Polyosteoarthritis, unspecified M15.[address] [place] [address] 04/14/2025 Ghadeer Mazloum Other obesity due to excess calories E66.09 ; Dietary counseling and surveillance Z71.3 ; Nontoxic multinodular goiter E04.2 ; Obstructive sleep apnea (adult) (pediatric) G47.33 ; Moderate persistent asthma, uncomplicated J45.40 ; Polyosteoarthritis, unspecified M15.9 and Encounter for immunization Z23 [address] [place] [address] 05/12/2025 Ghadeer Bereketloum Other obesity due to excess calories E66.09 ; Dietary counseling and surveillance Z71.3 ; Nontoxic multinodular goiter E04.2 ; Obstructive sleep apnea (adult) (pediatric) G47.33 ; Moderate persistent asthma, uncomplicated J45.40 ; Polyosteoarthritis, unspecified M15.9 and Acute maxillary sinusitis, unspecified J01.[address] [place] [address] 06/10/2024 NAVARRO GUL Other obesity due to excess calories E66.[address] [place] [address] 06/11/2024 NAVARRO GUL Other obesity due to excess calories E66.[address] [place] [address] 07/12/[address] [place] [address] 08/02/[address] [place] [address] 08/05/[address] [place] [address] 09/10/2024 [facility] [address] [place] [address] 11/03/2024 [facility] [address] [place] [address] 02/10/2025 Petey Preston [facility] [address] [place] [address] 02/18/2025 [facility] [address] [place] [address] 05/31/2025 [facility] Assessments Encounter Date Diagnosis (ICD Code) Assessment Notes Treatment Notes Treatment Clinical Notes Section Notes 06/10/2024 Other obesity due to excess calories (ICD-10 - E66.09) 06/11/2024 Other obesity due to excess calories (ICD-10 - E66.09) CancelRx Response got Denied on 2024-07-20 14:36:50 for 'Phentermine HCl 15 MG Capsule'Pharmac y Notes: Prescription not found. Contact Pharmacy by other means 06/22/2024 Other obesity due to excess calories (ICD-10 - E66.09) Mrs. Guillaume is a 54-year-old lady here for follow up. S/p bariatric surgery in November 2022. We saw her in May. She lost 100 lbs in total and no weight loss since last visit. Plan is as follows: Bariatric surgery status. She is status post gastric bypass by Dr. Goodman last November 25. Continue taking vitamins. Avoid NSAIDs as much as possible. Dietary recommendations. Food recall was done today and patient advised to be on low calorie, low carbohydrate diet. Restrict calories to less than 1500 kcal in 24 hours. Low glycemic index foods and encouraged. Meal replacements were recommended. Advised to use gzjk-vqa-cytdneu multivitamins and vitamin D. Advised to use calorie counter and adhere to portion control. Monthly goal is to lose 4-6 pounds Pharmacotherapy. Continue Phentermine 15 MG once a day. Exercise. Patient encouraged to increase frequency, intensity and duration of exercise. Encouraged to burn at least 250-500 kcal in one session. Also encouraged to do weight training Assess. Different risk factors discussed with the patient and addressed Advise. Patient was given clear And specific advise that she will comply with Low-calorie diet and try not to exceed more than 1300 kcal in 24 hours. Agree. Mutually agreed to work together to achieve appropriate goals Assist. Motivational interviewing done. Arrange. Follow-up appointment arranged. Counseling. 15 minutes spent Face to face with the patient more than 50% of time was spent counseling Gait instability. Referred to Physical therapy. Scribe services used to formulate this note under HIPAA compliance and under [place] law mandated for scribe services. Patient aware of service. Verbal consent and written consent taken from the patient. Patient understands and verbalizes understanding of the scribes services and all questions answered regarding scribes services. Patient agrees to use of scribes services. 06/22/2024 Dietary counseling and surveillance (ICD-10 - Z71.3) Mrs. Guillaume is a 54-year-old lady here for follow up. S/p bariatric surgery in November 2022. We saw her in May. She lost 100 lbs in total and no weight loss since last visit. Plan is as follows: Bariatric surgery status. She is status post gastric bypass by Dr. Goodman last November 25. Continue taking vitamins. Avoid NSAIDs as much as possible. Dietary recommendations. Food recall was done today and patient advised to be on low calorie, low carbohydrate diet. Restrict calories to less than 1500 kcal in 24 hours. Low glycemic index foods and encouraged. Meal replacements were recommended. Advised to use osfp-afz-pwcjhxe multivitamins and vitamin D. Advised to use calorie counter and adhere to portion control. Monthly goal is to lose 4-6 pounds Pharmacotherapy. Continue Phentermine 15 MG once a day. Exercise. Patient encouraged to increase frequency, intensity and duration of exercise. Encouraged to burn at least 250-500 kcal in one session. Also encouraged to do weight training Assess. Different risk factors discussed with the patient and addressed Advise. Patient was given clear And specific advise that she will comply with Low-calorie diet and try not to exceed more than 1300 kcal in 24 hours. Agree. Mutually agreed to work together to achieve appropriate goals Assist. Motivational interviewing done. Arrange. Follow-up appointment arranged. Counseling. 15 minutes spent Face to face with the patient more than 50% of time was spent counseling Gait instability. Referred to Physical therapy. Scribe services used to formulate this note under HIPAA compliance and under [place] law mandated for scribe services. Patient aware of service. Verbal consent and written consent taken from the patient. Patient understands and verbalizes understanding of the scribes services and all questions answered regarding scribes services. Patient agrees to use of scribes services. 07/20/2024 Other obesity due to excess calories (ICD-10 - E66.09) Mrs. Guillaume is a 54-year-old lady here for follow up. S/p bariatric surgery in November 2022. We saw her in May. She lost 103 lbs in total and 3 lbs since the last visit. Plan is as follows: Bariatric surgery status. She is status post gastric bypass by Dr. Goodman last November 25. Continue taking vitamins. Avoid NSAIDs as much as possible. Dietary recommendations. Food recall was done today and patient advised to be on low calorie, low carbohydrate diet. Restrict calories to less than 1500 kcal in 24 hours. Low glycemic index foods and encouraged. Meal replacements were recommended. Advised to use yfro-zye-fbndbix multivitamins and vitamin D. Advised to use calorie counter and adhere to portion control. Monthly goal is to lose 4-6 pounds Pharmacotherapy. Increased Phentermine 30 MG once a day. Exercise. Patient encouraged to increase frequency, intensity and duration of exercise. Encouraged to burn at least 250-500 kcal in one session. Also encouraged to do weight training Assess. Different risk factors discussed with the patient and addressed Advise. Patient was given clear And specific advise that she will comply with Low-calorie diet and try not to exceed more than 1300 kcal in 24 hours. Agree. Mutually agreed to work together to achieve appropriate goals Assist. Motivational interviewing done. Arrange. Follow-up appointment arranged. Counseling. 15 minutes spent Face to face with the patient more than 50% of time was spent counseling Herpes Simplex keratitis: [facility] I have rendered the services for this patient under direct supervision of Dr. Lewis, who did not see the patient but was available upon request 07/20/2024 Dietary counseling and surveillance (ICD-10 - Z71.3) Mrs. Guillaume is a 54-year-old lady here for follow up. S/p bariatric surgery in November 2022. We saw her in May. She lost 103 lbs in total and 3 lbs since the last visit. Plan is as follows: Bariatric surgery status. She is status post gastric bypass by Dr. Goodman last November 25. Continue taking vitamins. Avoid NSAIDs as much as possible. Dietary recommendations. Food recall was done today and patient advised to be on low calorie, low carbohydrate diet. Restrict calories to less than 1500 kcal in 24 hours. Low glycemic index foods and encouraged. Meal replacements were recommended. Advised to use gpve-jtd-hmgxesy multivitamins and vitamin D. Advised to use calorie counter and adhere to portion control. Monthly goal is to lose 4-6 pounds Pharmacotherapy. Increased Phentermine 30 MG once a day. Exercise. Patient encouraged to increase frequency, intensity and duration of exercise. Encouraged to burn at least 250-500 kcal in one session. Also encouraged to do weight training Assess. Different risk factors discussed with the patient and addressed Advise. Patient was given clear And specific advise that she will comply with Low-calorie diet and try not to exceed more than 1300 kcal in 24 hours. Agree. Mutually agreed to work together to achieve appropriate goals Assist. Motivational interviewing done. Arrange. Follow-up appointment arranged. Counseling. 15 minutes spent Face to face with the patient more than 50% of time was spent counseling Herpes Simplex keratitis: - [facility] I have rendered the services for this patient under direct supervision of Dr. Lewis, who did not see the patient but was available upon request 08/17/2024 Other obesity due to excess calories (ICD-10 - E66.09) Mrs. Guillaume is a 54-year-old lady here for follow up. S/p bariatric surgery in November 2022. We saw her in May. She lost 103 lbs in total, his weight has been stable since the last visit. Plan is as follows: Bariatric surgery status. She is status post gastric bypass by Dr. Goodman last November 25. Continue taking vitamins. Avoid NSAIDs as much as possible. Dietary recommendations. Food recall was done today and patient advised to be on low calorie, low carbohydrate diet. Restrict calories to less than 1500 kcal in 24 hours. Low glycemic index foods and encouraged. Meal replacements were recommended. Advised to use xjjd-laq-fglqazp multivitamins and vitamin D. Advised to use calorie counter and adhere to portion control. Monthly goal is to lose 4-6 pounds Pharmacotherapy. Increased Phentermine 37.5 MG once a day. Exercise. Patient encouraged to increase frequency, intensity and duration of exercise. Encouraged to burn at least 250-500 kcal in one session. Also encouraged to do weight training Assess. Different risk factors discussed with the patient and addressed Advise. Patient was given clear And specific advise that she will comply with Low-calorie diet and try not to exceed more than 1300 kcal in 24 hours. Agree. Mutually agreed to work together to achieve appropriate goals Assist. Motivational interviewing done. Arrange. Follow-up appointment arranged. Counseling. 15 minutes spent Face to face with the patient more than 50% of time was spent counseling Hemorrhoids - She states that she felt the hemorrhoid protruding. No BRPR. Could not appreciate internal hemorrhoid as patient was in pain. She has history of internal hemorrhoids due to constipation. Started patient on anusol, sitz baths, Miralax and increase fiber recommended. Patient is to follow-up with GI. She has an appt tomorrow I have rendered the services for this patient under direct supervision of Dr. Lewis, who did not see the patient but was available upon request 08/17/2024 Dietary counseling and surveillance (ICD-10 - Z71.3) Mrs. Guillaume is a 54-year-old lady here for follow up. S/p bariatric surgery in November 2022. We saw her in May. She lost 103 lbs in total, his weight has been stable since the last visit. Plan is as follows: Bariatric surgery status. She is status post gastric bypass by Dr. Goodman last November 25. Continue taking vitamins. Avoid NSAIDs as much as possible. Dietary recommendations. Food recall was done today and patient advised to be on low calorie, low carbohydrate diet. Restrict calories to less than 1500 kcal in 24 hours. Low glycemic index foods and encouraged. Meal replacements were recommended. Advised to use sksu-jhr-hsdvftv multivitamins and vitamin D. Advised to use calorie counter and adhere to portion control. Monthly goal is to lose 4-6 pounds Pharmacotherapy. Increased Phentermine 37.5 MG once a day. Exercise. Patient encouraged to increase frequency, intensity and duration of exercise. Encouraged to burn at least 250-500 kcal in one session. Also encouraged to do weight training Assess. Different risk factors discussed with the patient and addressed Advise. Patient was given clear And specific advise that she will comply with Low-calorie diet and try not to exceed more than 1300 kcal in 24 hours. Agree. Mutually agreed to work together to achieve appropriate goals Assist. Motivational interviewing done. Arrange. Follow-up appointment arranged. Counseling. 15 minutes spent Face to face with the patient more than 50% of time was spent counseling Hemorrhoids - She states that she felt the hemorrhoid protruding. No BRPR. Could not appreciate internal hemorrhoid as patient was in pain. She has history of internal hemorrhoids due to constipation. Started patient on anusol, sitz baths, Miralax and increase fiber recommended. Patient is to follow-up with GI. She has an appt tomorrow I have rendered the services for this patient under direct supervision of Dr. Lewis, who did not see the patient but was available upon request 09/14/2024 Other obesity due to excess calories (ICD-10 - E66.09) Mrs. Guillaume is a 54-year-old lady here for follow up. S/p bariatric surgery in November 2022. We saw her in May. She lost 103 lbs in total, Lost 4 pounds since her last visit. Plan is as follows: Bariatric surgery status. She is status post gastric bypass by Dr. Goodman last November 25. Continue taking vitamins. Avoid NSAIDs as much as possible. Dietary recommendations. Food recall was done today and patient advised to be on low calorie, low carbohydrate diet. Restrict calories to less than 1500 kcal in 24 hours. Low glycemic index foods and encouraged. Meal replacements were recommended. Advised to use cjty-jii-sgypfkm multivitamins and vitamin D. Advised to use calorie counter and adhere to portion control. Monthly goal is to lose 4-6 pounds Pharmacotherapy. Continue on Phentermine 37.5 MG once a day. Side effects have been discussed Exercise. Patient encouraged to increase frequency, intensity and duration of exercise. Encouraged to burn at least 250-500 kcal in one session. Also encouraged to do weight training Assess. Different risk factors discussed with the patient and addressed Advise. Patient was given clear And specific advise that she will comply with Low-calorie diet and try not to exceed more than 1300 kcal in 24 hours. Agree. Mutually agreed to work together to achieve appropriate goals Assist. Motivational interviewing done. Arrange. Follow-up appointment arranged. Counseling. 15 minutes spent Face to face with the patient more than 50% of time was spent counseling Allergic rhinitis - She currently follows with [facility], however she would like a second opinion for the [facility] practice. Referred patient. I have rendered the services for this patient under direct supervision of Dr. Lewis, who did not see the patient but was available upon request 09/14/2024 Other seasonal allergic rhinitis (ICD-10 - J30.2) Mrs. Guillaume is a 54-year-old lady here for follow up. S/p bariatric surgery in November 2022. We saw her in May. She lost 103 lbs in total, Lost 4 pounds since her last visit. Plan is as follows: Bariatric surgery status. She is status post gastric bypass by Dr. Goodman last November 25. Continue taking vitamins. Avoid NSAIDs as much as possible. Dietary recommendations. Food recall was done today and patient advised to be on low calorie, low carbohydrate diet. Restrict calories to less than 1500 kcal in 24 hours. Low glycemic index foods and encouraged. Meal replacements were recommended. Advised to use fiug-wxs-eanwtib multivitamins and vitamin D. Advised to use calorie counter and adhere to portion control. Monthly goal is to lose 4-6 pounds Pharmacotherapy. Continue on Phentermine 37.5 MG once a day. Side effects have been discussed Exercise. Patient encouraged to increase frequency, intensity and duration of exercise. Encouraged to burn at least 250-500 kcal in one session. Also encouraged to do weight training Assess. Different risk factors discussed with the patient and addressed Advise. Patient was given clear And specific advise that she will comply with Low-calorie diet and try not to exceed more than 1300 kcal in 24 hours. Agree. Mutually agreed to work together to achieve appropriate goals Assist. Motivational interviewing done. Arrange. Follow-up appointment arranged. Counseling. 15 minutes spent Face to face with the patient more than 50% of time was spent counseling Allergic rhinitis - She currently follows with [facility], however she would like a second opinion for the [facility] practice. Referred patient. I have rendered the services for this patient under direct supervision of Dr. Lewis, who did not see the patient but was available upon request 10/12/2024 Other obesity due to excess calories (ICD-10 - E66.09) Mrs. Guillaume is a 54-year-old lady here for follow up. S/p bariatric surgery in November 2022. We saw her in May. She lost 103 lbs in total, gained 1 pound since her last visit. Plan is as follows: Bariatric surgery status. She is status post gastric bypass by Dr. Goodman last November 25. Continue taking vitamins. Avoid NSAIDs as much as possible. Dietary recommendations. Food recall was done today and patient advised to be on low calorie, low carbohydrate diet. Restrict calories to less than 1500 kcal in 24 hours. Low glycemic index foods and encouraged. Meal replacements were recommended. Advised to use nlor-lwa-vbusayz multivitamins and vitamin D. Advised to use calorie counter and adhere to portion control. Monthly goal is to lose 4-6 pounds Pharmacotherapy. She has been experiencing dry eyes and mouth with the increased dosage of phentermine. Decreased to phentermine 30mg. Side effects have been discussed Exercise. Patient encouraged to increase frequency, intensity and duration of exercise. Encouraged to burn at least 250-500 kcal in one session. Also encouraged to do weight training Assess. Different risk factors discussed with the patient and addressed Advise. Patient was given clear And specific advise that she will comply with Low-calorie diet and try not to exceed more than 1300 kcal in 24 hours. Agree. Mutually agreed to work together to achieve appropriate goals Assist. Motivational interviewing done. Arrange. Follow-up appointment arranged. Counseling. 15 minutes spent Face to face with the patient more than 50% of time was spent counseling Allergic rhinitis - Refilled claritin, she can also start taking flonase as needed. I have rendered the services for this patient under direct supervision of Dr. Lewis, who did not see the patient but was available upon request 10/12/2024 Other seasonal allergic rhinitis (ICD-10 - J30.2) Mrs. Guillaume is a 54-year-old lady here for follow up. S/p bariatric surgery in November 2022. We saw her in May. She lost 103 lbs in total, gained 1 pound since her last visit. Plan is as follows: Bariatric surgery status. She is status post gastric bypass by Dr. Goodman last November 25. Continue taking vitamins. Avoid NSAIDs as much as possible. Dietary recommendations. Food recall was done today and patient advised to be on low calorie, low carbohydrate diet. Restrict calories to less than 1500 kcal in 24 hours. Low glycemic index foods and encouraged. Meal replacements were recommended. Advised to use qzhl-pvd-wrdgwom multivitamins and vitamin D. Advised to use calorie counter and adhere to portion control. Monthly goal is to lose 4-6 pounds Pharmacotherapy. She has been experiencing dry eyes and mouth with the increased dosage of phentermine. Decreased to phentermine 30mg. Side effects have been discussed Exercise. Patient encouraged to increase frequency, intensity and duration of exercise. Encouraged to burn at least 250-500 kcal in one session. Also encouraged to do weight training Assess. Different risk factors discussed with the patient and addressed Advise. Patient was given clear And specific advise that she will comply with Low-calorie diet and try not to exceed more than 1300 kcal in 24 hours. Agree. Mutually agreed to work together to achieve appropriate goals Assist. Motivational interviewing done. Arrange. Follow-up appointment arranged. Counseling. 15 minutes spent Face to face with the patient more than 50% of time was spent counseling Allergic rhinitis - Refilled claritin, she can also start taking flonase as needed. I have rendered the services for this patient under direct supervision of Dr. Lewis, who did not see the patient but was available upon request 11/09/2024 Other obesity due to excess calories (ICD-10 - E66.09) Mrs. Guillaume is a 54-year-old lady here for follow up. S/p bariatric surgery in November 2022. We saw her in May. She lost 103 lbs in total, losy 3lbs pound since her last visit. Plan is as follows: Bariatric surgery status. She is status post gastric bypass by Dr. Goodman last November 25. Continue taking vitamins. Avoid NSAIDs as much as possible. Dietary recommendations. Food recall was done today and patient advised to be on low calorie, low carbohydrate diet. Restrict calories to less than 1500 kcal in 24 hours. Low glycemic index foods and encouraged. Meal replacements were recommended. Advised to use khmw-iky-fkirsmg multivitamins and vitamin D. Advised to use calorie counter and adhere to portion control. Monthly goal is to lose 4-6 pounds Pharmacotherapy. Continue on phentermine 30mg. Side effects have been discussed Exercise. Patient encouraged to increase frequency, intensity and duration of exercise. Encouraged to burn at least 250-500 kcal in one session. Also encouraged to do weight training Assess. Different risk factors discussed with the patient and addressed Advise. Patient was given clear And specific advise that she will comply with Low-calorie diet and try not to exceed more than 1300 kcal in 24 hours. Agree. Mutually agreed to work together to achieve appropriate goals Assist. Motivational interviewing done. Arrange. Follow-up appointment arranged. Counseling. 15 minutes spent Face to face with the patient more than 50% of time was spent counseling I have rendered the services for this patient under direct supervision of Dr. Lewis, who did not see the patient but was available upon request 12/16/2024 Other obesity due to excess calories (ICD-10 - E66.09) Mrs. Guillaume is a 54-year-old lady here for follow up. S/p bariatric surgery in November 2022. We saw her in May. She lost 103 lbs in total, gained 5lbs since her last visit. Plan is as follows: Bariatric surgery status. She is status post gastric bypass by Dr. Goodman last November 25. Continue taking vitamins. Avoid NSAIDs as much as possible. Dietary recommendations. Food recall was done today and patient advised to be on low calorie, low carbohydrate diet. Restrict calories to less than 1500 kcal in 24 hours. Low glycemic index foods and encouraged. Meal replacements were recommended. Advised to use nfxa-lzl-btpsjsb multivitamins and vitamin D. Advised to use calorie counter and adhere to portion control. Monthly goal is to lose 4-6 pounds Pharmacotherapy. Continue on phentermine 30mg. Side effects have been discussed Exercise. Patient encouraged to increase frequency, intensity and duration of exercise. Encouraged to burn at least 250-500 kcal in one session. Also encouraged to do weight training Assess. Different risk factors discussed with the patient and addressed Advise. Patient was given clear And specific advise that she will comply with Low-calorie diet and try not to exceed more than 1300 kcal in 24 hours. Agree. Mutually agreed to work together to achieve appropriate goals Assist. Motivational interviewing done. Arrange. Follow-up appointment arranged. Counseling. 15 minutes spent Face to face with the patient more than 50% of time was spent counseling I have rendered the services for this patient under direct supervision of Dr. Lewis, who did not see the patient but was available upon request 01/13/2025 Other obesity due to excess calories (ICD-10 - E66.09) Mrs. Guillaume is a 54-year-old lady here for follow up. S/p bariatric surgery in November 2022. We saw her in May. She lost 103 lbs in total, gained 2lbs since her last visit. Plan is as follows: Bariatric surgery status. She is status post gastric bypass by Dr. Goodman last November 25. Continue taking vitamins. Avoid NSAIDs as much as possible. Dietary recommendations. Food recall was done today and patient advised to be on low calorie, low carbohydrate diet. Restrict calories to less than 1500 kcal in 24 hours. Low glycemic index foods and encouraged. Meal replacements were recommended. Advised to use vqub-ecm-jtxuvnt multivitamins and vitamin D. Advised to use calorie counter and adhere to portion control. Monthly goal is to lose 4-6 pounds Pharmacotherapy. Continue on phentermine 30mg. Side effects have been discussed Exercise. Patient encouraged to increase frequency, intensity and duration of exercise. Encouraged to burn at least 250-500 kcal in one session. Also encouraged to do weight training Assess. Different risk factors discussed with the patient and addressed Advise. Patient was given clear And specific advise that she will comply with Low-calorie diet and try not to exceed more than 1300 kcal in 24 hours. Agree. Mutually agreed to work together to achieve appropriate goals Assist. Motivational interviewing done. Arrange. Follow-up appointment arranged. Counseling. 15 minutes spent Face to face with the patient more than 50% of time was spent counseling She recently had a CT of the chest by her Pulmonolgist and Enlarged goiter is noted, patient was referred to endocrinology and awaiting surgical consult. Sleep apnea. Per record, patient is holding off on Sleep study until resolution of the goiter. Moderate Persistent asthma: Continue with Symbicort 160/4.5, 2 puff BID and albuterol. Latent TB: Stable. Continues to monitor with [employer] Cutting Machine Operator. I have rendered the services for this patient under direct supervision of Dr. Lewis, who did not see the patient but was available upon request 02/17/2025 Other obesity due to excess calories (ICD-10 - E66.09) Mrs. Guillaume is a 54-year-old lady here for follow up. S/p bariatric surgery in November 2022. We saw her in May. She lost 103 lbs in total, gained 2lbs since her last visit. Plan is as follows: Bariatric surgery status. She is status post gastric bypass by Dr. Goodman last November 25. Continue taking vitamins. Avoid NSAIDs as much as possible. Dietary recommendations. Food recall was done today and patient advised to be on low calorie, low carbohydrate diet. Restrict calories to less than 1500 kcal in 24 hours. Low glycemic index foods and encouraged. Meal replacements were recommended. Advised to use majk-btx-ezfxyyg multivitamins and vitamin D. Advised to use calorie counter and adhere to portion control. Monthly goal is to lose 4-6 pounds Pharmacotherapy. Continue on phentermine 30mg. I have added Wellbutrin. Side effects have been discussed Exercise. Patient encouraged to increase frequency, intensity and duration of exercise. Encouraged to burn at least 250-500 kcal in one session. Also encouraged to do weight training Assess. Different risk factors discussed with the patient and addressed Advise. Patient was given clear And specific advise that she will comply with Low-calorie diet and try not to exceed more than 1300 kcal in 24 hours. Agree. Mutually agreed to work together to achieve appropriate goals Assist. Motivational interviewing done. Arrange. Follow-up appointment arranged. Counseling. 15 minutes spent Face to face with the patient more than 50% of time was spent counseling She recently had a CT of the chest by her Pulmonolgist and Enlarged goiter is noted, She does follow with [facility] and she has a surgery consultation on March 04. Sleep apnea. Per record, patient is holding off on Sleep study until resolution of the goiter. Moderate Persistent asthma: Continue with Symbicort 160/4.5, 2 puff BID and albuterol. Latent TB: Stable. Continues to monitor with Fur Cutting Machine Operator. I have rendered the services for this patient under direct supervision of Dr. Lewis, who did not see the patient but was available upon request 03/17/2025 Other obesity due to excess calories (ICD-10 - E66.09) Mrs. Guillaume is a 54-year-old lady here for follow up. S/p bariatric surgery in November 2022. We saw her in May. She lost 103 lbs in total, lost 2lbs since her last visit. Plan is as follows: Bariatric surgery status. She is status post gastric bypass by Dr. Goodman last November 25. Continue taking vitamins. Avoid NSAIDs as much as possible. Dietary recommendations. Food recall was done today and patient advised to be on low calorie, low carbohydrate diet. Restrict calories to less than 1500 kcal in 24 hours. Low glycemic index foods and encouraged. Meal replacements were recommended. Advised to use llpo-ooe-ztsazeq multivitamins and vitamin D. Advised to use calorie counter and adhere to portion control. Monthly goal is to lose 4-6 pounds Pharmacotherapy. Continue on phentermine 30mg. I have added Wellbutrin. Side effects have been discussed Exercise. Patient encouraged to increase frequency, intensity and duration of exercise. Encouraged to burn at least 250-500 kcal in one session. Also encouraged to do weight training Assess. Different risk factors discussed with the patient and addressed Advise. Patient was given clear And specific advise that she will comply with Low-calorie diet and try not to exceed more than 1300 kcal in 24 hours. Agree. Mutually agreed to work together to achieve appropriate goals Assist. Motivational interviewing done. Arrange. Follow-up appointment arranged. Counseling. 15 minutes spent Face to face with the patient more than 50% of time was spent counseling She recently had a CT of the chest by her Pulmonolgist and Enlarged goiter is noted, She is a surgery coming up in August 2024 Sleep apnea. Per record, patient is holding off on Sleep study until resolution of the goiter. Moderate Persistent asthma: Continue with Symbicort 160/4.5, 2 puff BID and albuterol. Latent TB: Stable. Continues to monitor with Fur Cutting Machine Operator. I have rendered the services for this patient under direct supervision of Dr. Lewis, who did not see the patient but was available upon request 04/14/2025 Other obesity due to excess calories (ICD-10 - E66.09) Mrs. Guillaume is a 54-year-old lady here for follow up. S/p bariatric surgery in November 2022. We saw her in May. She lost 99 lbs in total, gained 4lbs since her last visit. Plan is as follows: Bariatric surgery status. She is status post gastric bypass by Dr. Goodman last November 25. Continue taking vitamins. Avoid NSAIDs as much as possible. Dietary recommendations. Food recall was done today and patient advised to be on low calorie, low carbohydrate diet. Restrict calories to less than 1500 kcal in 24 hours. Low glycemic index foods and encouraged. Meal replacements were recommended. Advised to use efve-fez-elvbvbl multivitamins and vitamin D. Advised to use calorie counter and adhere to portion control. Monthly goal is to lose 4-6 pounds Pharmacotherapy. Continue on phentermine 30mg. I have added Wellbutrin. Side effects have been discussed Exercise. Patient encouraged to increase frequency, intensity and duration of exercise. Encouraged to burn at least 250-500 kcal in one session. Also encouraged to do weight training Assess. Different risk factors discussed with the patient and addressed Advise. Patient was given clear And specific advise that she will comply with Low-calorie diet and try not to exceed more than 1300 kcal in 24 hours. Agree. Mutually agreed to work together to achieve appropriate goals Assist. Motivational interviewing done. Arrange. Follow-up appointment arranged. Counseling. 15 minutes spent Face to face with the patient more than 50% of time was spent counseling Enlarged goiter is noted, She is a surgery coming up in August 2024 Sleep apnea. Per record, patient is holding off on Sleep study until resolution of the goiter. Moderate Persistent asthma: Continue with Symbicort 160/4.5, 2 puff BID and albuterol. Latent TB: Stable. PFTs were repeated after the thyroid surgery, Continues to monitor with [employer] Cutting Machine Operator. Plantar fasciitis/chronic Dermatophytosis: patient is to continue on clotrimazole and ammonium lactate prescribed by the electrical and instrument technician. Osteoarthritis. She has an appointment for a consultation with pain management next month. Flu vaccine is given in the office today I have rendered the services for this patient under direct supervision of Dr. Lewis, who did not see the patient but was available upon request 05/12/2025 Other obesity due to excess calories (ICD-10 - E66.09) Mrs. Guillaume is a 55-year-old lady here for follow up. S/p bariatric surgery in November 2022. We saw her in May. She lost 99 lbs in total, gained 1lbs since her last visit. Plan is as follows: Bariatric surgery status. She is status post gastric bypass by Dr. Goodman last November 25. Continue taking vitamins. Avoid NSAIDs as much as possible. Dietary recommendations. Food recall was done today and patient advised to be on low calorie, low carbohydrate diet. Restrict calories to less than 1500 kcal in 24 hours. Low glycemic index foods and encouraged. Meal replacements were recommended. Advised to use qlxe-suj-opcvayr multivitamins and vitamin D. Advised to use calorie counter and adhere to portion control. Monthly goal is to lose 4-6 pounds Pharmacotherapy. Continue on phentermine 30mg. I have added Wellbutrin. Side effects have been discussed Exercise. Patient encouraged to increase frequency, intensity and duration of exercise. Encouraged to burn at least 250-500 kcal in one session. Also encouraged to do weight training Assess. Different risk factors discussed with the patient and addressed Advise. Patient was given clear And specific advise that she will comply with Low-calorie diet and try not to exceed more than 1300 kcal in 24 hours. Agree. Mutually agreed to work together to achieve appropriate goals Assist. Motivational interviewing done. Arrange. Follow-up appointment arranged. Counseling. 15 minutes spent Face to face with the patient more than 50% of time was spent counseling Enlarged goiter is noted, She is a surgery coming up in August 2024 Sleep apnea. Per record, patient is holding off on Sleep study until resolution of the goiter. Moderate Persistent asthma: Continue with Symbicort 160/4.5, 2 puff BID and albuterol. Latent TB: Stable. PFTs were repeated after the thyroid surgery, Continues to monitor with Fur Cutting Machine Operator. Plantar fasciitis/chronic Dermatophytosis: patient is to continue on clotrimazole and ammonium lactate prescribed by the electrical and instrument technician. Osteoarthritis. She has an appointment for a consultation with pain management next month. Acute sinuisits. Will start patient on prednisone and amoxicillin. Continue using flonase and tylenol as needed I have rendered the services for this patient under direct supervision of Dr. Lewis, who did not see the patient but was available upon request 05/12/2025 Dietary counseling and surveillance (ICD-10 - Z71.3) Mrs. Guillaume is a 55-year-old lady here for follow up. S/p bariatric surgery in November 2022. We saw her in May. She lost 99 lbs in total, gained 1lbs since her last visit. Plan is as follows: Bariatric surgery status. She is status post gastric bypass by Dr. Goodman last November 25. Continue taking vitamins. Avoid NSAIDs as much as possible. Dietary recommendations. Food recall was done today and patient advised to be on low calorie, low carbohydrate diet. Restrict calories to less than 1500 kcal in 24 hours. Low glycemic index foods and encouraged. Meal replacements were recommended. Advised to use qalo-xlv-kualrcs multivitamins and vitamin D. Advised to use calorie counter and adhere to portion control. Monthly goal is to lose 4-6 pounds Pharmacotherapy. Continue on phentermine 30mg. I have added Wellbutrin. Side effects have been discussed Exercise. Patient encouraged to increase frequency, intensity and duration of exercise. Encouraged to burn at least 250-500 kcal in one session. Also encouraged to do weight training Assess. Different risk factors discussed with the patient and addressed Advise. Patient was given clear And specific advise that she will comply with Low-calorie diet and try not to exceed more than 1300 kcal in 24 hours. Agree. Mutually agreed to work together to achieve appropriate goals Assist. Motivational interviewing done. Arrange. Follow-up appointment arranged. Counseling. 15 minutes spent Face to face with the patient more than 50% of time was spent counseling Enlarged goiter is noted, She is a surgery coming up in August 2024 Sleep apnea. Per record, patient is holding off on Sleep study until resolution of the goiter. Moderate Persistent asthma: Continue with Symbicort 160/4.5, 2 puff BID and albuterol. Latent TB: Stable. PFTs were repeated after the thyroid surgery, Continues to monitor with [employer] Cut[employer] Operator. Plantar fasciitis/chronic Dermatophytosis: patient is to continue on clotrimazole and ammonium lactate prescribed by the electrical and instrument technician. Osteoarthritis. She has an appointment for a consultation with pain management next month. Acute sinuisits. Will start patient on prednisone and amoxicillin. Continue using flonase and tylenol as needed I have rendered the services for this patient under direct supervision of Dr. Lewis, who did not see the patient but was available upon request 04/14/2025 Dietary counseling and surveillance (ICD-10 - Z71.3) Mrs. Guillaume is a 54-year-old lady here for follow up. S/p bariatric surgery in November 2022. We saw her in May. She lost 99 lbs in total, gained 4lbs since her last visit. Plan is as follows: Bariatric surgery status. She is status post gastric bypass by Dr. Goodman last November 25. Continue taking vitamins. Avoid NSAIDs as much as possible. Dietary recommendations. Food recall was done today and patient advised to be on low calorie, low carbohydrate diet. Restrict calories to less than 1500 kcal in 24 hours. Low glycemic index foods and encouraged. Meal replacements were recommended. Advised to use clba-yma-jfgdqmf multivitamins and vitamin D. Advised to use calorie counter and adhere to portion control. Monthly goal is to lose 4-6 pounds Pharmacotherapy. Continue on phentermine 30mg. I have added Wellbutrin. Side effects have been discussed Exercise. Patient encouraged to increase frequency, intensity and duration of exercise. Encouraged to burn at least 250-500 kcal in one session. Also encouraged to do weight training Assess. Different risk factors discussed with the patient and addressed Advise. Patient was given clear And specific advise that she will comply with Low-calorie diet and try not to exceed more than 1300 kcal in 24 hours. Agree. Mutually agreed to work together to achieve appropriate goals Assist. Motivational interviewing done. Arrange. Follow-up appointment arranged. Counseling. 15 minutes spent Face to face with the patient more than 50% of time was spent counseling Enlarged goiter is noted, She is a surgery coming up in August 2024 Sleep apnea. Per record, patient is holding off on Sleep study until resolution of the goiter. Moderate Persistent asthma: Continue with Symbicort 160/4.5, 2 puff BID and albuterol. Latent TB: Stable. PFTs were repeated after the thyroid surgery, Continues to monitor with [employer] Cutting Machine Operator. Plantar fasciitis/chronic Dermatophytosis: patient is to continue on clotrimazole and ammonium lactate prescribed by the electrical and instrument technician. Osteoarthritis. She has an appointment for a consultation with pain management next month. Flu vaccine is given in the office today I have rendered the services for this patient under direct supervision of Dr. Lewis, who did not see the patient but was available upon request 05/12/2025 Nontoxic multinodular goiter (ICD-10 - E04.2) Mrs. Guillaume is a 55-year-old lady here for follow up. S/p bariatric surgery in November 2022. We saw her in May. She lost 99 lbs in total, gained 1lbs since her last visit. Plan is as follows: Bariatric surgery status. She is status post gastric bypass by Dr. Goodman last November 25. Continue taking vitamins. Avoid NSAIDs as much as possible. Dietary recommendations. Food recall was done today and patient advised to be on low calorie, low carbohydrate diet. Restrict calories to less than 1500 kcal in 24 hours. Low glycemic index foods and encouraged. Meal replacements were recommended. Advised to use sszq-dzu-ozvucug multivitamins and vitamin D. Advised to use calorie counter and adhere to portion control. Monthly goal is to lose 4-6 pounds Pharmacotherapy. Continue on phentermine 30mg. I have added Wellbutrin. Side effects have been discussed Exercise. Patient encouraged to increase frequency, intensity and duration of exercise. Encouraged to burn at least 250-500 kcal in one session. Also encouraged to do weight training Assess. Different risk factors discussed with the patient and addressed Advise. Patient was given clear And specific advise that she will comply with Low-calorie diet and try not to exceed more than 1300 kcal in 24 hours. Agree. Mutually agreed to work together to achieve appropriate goals Assist. Motivational interviewing done. Arrange. Follow-up appointment arranged. Counseling. 15 minutes spent Face to face with the patient more than 50% of time was spent counseling Enlarged goiter is noted, She is a surgery coming up in August 2024 Sleep apnea. Per record, patient is holding off on Sleep study until resolution of the goiter. Moderate Persistent asthma: Continue with Symbicort 160/4.5, 2 puff BID and albuterol. Latent TB: Stable. PFTs were repeated after the thyroid surgery, Continues to monitor with [employer] Cutting Machine Operator. Plantar fasciitis/chronic Dermatophytosis: patient is to continue on clotrimazole and ammonium lactate prescribed by the electrical and instrument technician. Osteoarthritis. She has an appointment for a consultation with pain management next month. Acute sinuisits. Will start patient on prednisone and amoxicillin. Continue using flonase and tylenol as needed I have rendered the services for this patient under direct supervision of Dr. Lewis, who did not see the patient but was available upon request 02/17/2025 Dietary counseling and surveillance (ICD-10 - Z71.3) Mrs. Guillaume is a 54-year-old lady here for follow up. S/p bariatric surgery in November 2022. We saw her in May. She lost 103 lbs in total, gained 2lbs since her last visit. Plan is as follows: Bariatric surgery status. She is status post gastric bypass by Dr. Goodman last November 25. Continue taking vitamins. Avoid NSAIDs as much as possible. Dietary recommendations. Food recall was done today and patient advised to be on low calorie, low carbohydrate diet. Restrict calories to less than 1500 kcal in 24 hours. Low glycemic index foods and encouraged. Meal replacements were recommended. Advised to use ubog-hvc-qpeyase multivitamins and vitamin D. Advised to use calorie counter and adhere to portion control. Monthly goal is to lose 4-6 pounds Pharmacotherapy. Continue on phentermine 30mg. I have added Wellbutrin. Side effects have been discussed Exercise. Patient encouraged to increase frequency, intensity and duration of exercise. Encouraged to burn at least 250-500 kcal in one session. Also encouraged to do weight training Assess. Different risk factors discussed with the patient and addressed Advise. Patient was given clear And specific advise that she will comply with Low-calorie diet and try not to exceed more than 1300 kcal in 24 hours. Agree. Mutually agreed to work together to achieve appropriate goals Assist. Motivational interviewing done. Arrange. Follow-up appointment arranged. Counseling. 15 minutes spent Face to face with the patient more than 50% of time was spent counseling She recently had a CT of the chest by her Pulmonolgist and Enlarged goiter is noted, She does follow with stunt man and she has a surgery consultation on March 04. Sleep apnea. Per record, patient is holding off on Sleep study until resolution of the goiter. Moderate Persistent asthma: Continue with Symbicort 160/4.5, 2 puff BID and albuterol. Latent TB: Stable. Continues to monitor with [employer] Cutting Machine Operator. I have rendered the services for this patient under direct supervision of Dr. Lewis, who did not see the patient but was available upon request 03/17/2025 Dietary counseling and surveillance (ICD-10 - Z71.3) Mrs. Guillaume is a 54-year-old lady here for follow up. S/p bariatric surgery in November 2022. We saw her in May. She lost 103 lbs in total, lost 2lbs since her last visit. Plan is as follows: Bariatric surgery status. She is status post gastric bypass by Dr. Goodman last November 25. Continue taking vitamins. Avoid NSAIDs as much as possible. Dietary recommendations. Food recall was done today and patient advised to be on low calorie, low carbohydrate diet. Restrict calories to less than 1500 kcal in 24 hours. Low glycemic index foods and encouraged. Meal replacements were recommended. Advised to use idlv-beb-jcplxon multivitamins and vitamin D. Advised to use calorie counter and adhere to portion control. Monthly goal is to lose 4-6 pounds Pharmacotherapy. Continue on phentermine 30mg. I have added Wellbutrin. Side effects have been discussed Exercise. Patient encouraged to increase frequency, intensity and duration of exercise. Encouraged to burn at least 250-500 kcal in one session. Also encouraged to do weight training Assess. Different risk factors discussed with the patient and addressed Advise. Patient was given clear And specific advise that she will comply with Low-calorie diet and try not to exceed more than 1300 kcal in 24 hours. Agree. Mutually agreed to work together to achieve appropriate goals Assist. Motivational interviewing done. Arrange. Follow-up appointment arranged. Counseling. 15 minutes spent Face to face with the patient more than 50% of time was spent counseling She recently had a CT of the chest by her Pulmonolgist and Enlarged goiter is noted, She is a surgery coming up in August 2024 Sleep apnea. Per record, patient is holding off on Sleep study until resolution of the goiter. Moderate Persistent asthma: Continue with Symbicort 160/4.5, 2 puff BID and albuterol. Latent TB: Stable. Continues to monitor with [employer] Cutting Machine Operator. I have rendered the services for this patient under direct supervision of Dr. Lewis, who did not see the patient but was available upon request 01/13/2025 Dietary counseling and surveillance (ICD-10 - Z71.3) Mrs. Guillaume is a 54-year-old lady here for follow up. S/p bariatric surgery in November 2022. We saw her in May. She lost 103 lbs in total, gained 2lbs since her last visit. Plan is as follows: Bariatric surgery status. She is status post gastric bypass by Dr. Goodman last November 25. Continue taking vitamins. Avoid NSAIDs as much as possible. Dietary recommendations. Food recall was done today and patient advised to be on low calorie, low carbohydrate diet. Restrict calories to less than 1500 kcal in 24 hours. Low glycemic index foods and encouraged. Meal replacements were recommended. Advised to use arye-uca-lqijuzk multivitamins and vitamin D. Advised to use calorie counter and adhere to portion control. Monthly goal is to lose 4-6 pounds Pharmacotherapy. Continue on phentermine 30mg. Side effects have been discussed Exercise. Patient encouraged to increase frequency, intensity and duration of exercise. Encouraged to burn at least 250-500 kcal in one session. Also encouraged to do weight training Assess. Different risk factors discussed with the patient and addressed Advise. Patient was given clear And specific advise that she will comply with Low-calorie diet and try not to exceed more than 1300 kcal in 24 hours. Agree. Mutually agreed to work together to achieve appropriate goals Assist. Motivational interviewing done. Arrange. Follow-up appointment arranged. Counseling. 15 minutes spent Face to face with the patient more than 50% of time was spent counseling She recently had a CT of the chest by her Pulmonolgist and Enlarged goiter is noted, patient was referred to endocrinology and awaiting surgical consult. Sleep apnea. Per record, patient is holding off on Sleep study until resolution of the goiter. Moderate Persistent asthma: Continue with Symbicort 160/4.5, 2 puff BID and albuterol. Latent TB: Stable. Continues to monitor with [employer] Cutting Machine Operator. I have rendered the services for this patient under direct supervision of Dr. Lewis, who did not see the patient but was available upon request 12/16/2024 Dietary counseling and surveillance (ICD-10 - Z71.3) Mrs. Guillaume is a 54-year-old lady here for follow up. S/p bariatric surgery in November 2022. We saw her in May. She lost 103 lbs in total, gained 5lbs since her last visit. Plan is as follows: Bariatric surgery status. She is status post gastric bypass by Dr. Goodman last November 25. Continue taking vitamins. Avoid NSAIDs as much as possible. Dietary recommendations. Food recall was done today and patient advised to be on low calorie, low carbohydrate diet. Restrict calories to less than 1500 kcal in 24 hours. Low glycemic index foods and encouraged. Meal replacements were recommended. Advised to use vnkx-dhi-jtvqfme multivitamins and vitamin D. Advised to use calorie counter and adhere to portion control. Monthly goal is to lose 4-6 pounds Pharmacotherapy. Continue on phentermine 30mg. Side effects have been discussed Exercise. Patient encouraged to increase frequency, intensity and duration of exercise. Encouraged to burn at least 250-500 kcal in one session. Also encouraged to do weight training Assess. Different risk factors discussed with the patient and addressed Advise. Patient was given clear And specific advise that she will comply with Low-calorie diet and try not to exceed more than 1300 kcal in 24 hours. Agree. Mutually agreed to work together to achieve appropriate goals Assist. Motivational interviewing done. Arrange. Follow-up appointment arranged. Counseling. 15 minutes spent Face to face with the patient more than 50% of time was spent counseling I have rendered the services for this patient under direct supervision of Dr. Lewis, who did not see the patient but was available upon request 11/09/2024 Dietary counseling and surveillance (ICD-10 - Z71.3) Mrs. Guillaume is a 54-year-old lady here for follow up. S/p bariatric surgery in November 2022. We saw her in May. She lost 103 lbs in total, losy 3lbs pound since her last visit. Plan is as follows: Bariatric surgery status. She is status post gastric bypass by Dr. Goodman last November 25. Continue taking vitamins. Avoid NSAIDs as much as possible. Dietary recommendations. Food recall was done today and patient advised to be on low calorie, low carbohydrate diet. Restrict calories to less than 1500 kcal in 24 hours. Low glycemic index foods and encouraged. Meal replacements were recommended. Advised to use vyls-woe-okpfgul multivitamins and vitamin D. Advised to use calorie counter and adhere to portion control. Monthly goal is to lose 4-6 pounds Pharmacotherapy. Continue on phentermine 30mg. Side effects have been discussed Exercise. Patient encouraged to increase frequency, intensity and duration of exercise. Encouraged to burn at least 250-500 kcal in one session. Also encouraged to do weight training Assess. Different risk factors discussed with the patient and addressed Advise. Patient was given clear And specific advise that she will comply with Low-calorie diet and try not to exceed more than 1300 kcal in 24 hours. Agree. Mutually agreed to work together to achieve appropriate goals Assist. Motivational interviewing done. Arrange. Follow-up appointment arranged. Counseling. 15 minutes spent Face to face with the patient more than 50% of time was spent counseling I have rendered the services for this patient under direct supervision of Dr. Lewis, who did not see the patient but was available upon request 10/12/2024 Dietary counseling and surveillance (ICD-10 - Z71.3) Mrs. Guillaume is a 54-year-old lady here for follow up. S/p bariatric surgery in November 2022. We saw her in May. She lost 103 lbs in total, gained 1 pound since her last visit. Plan is as follows: Bariatric surgery status. She is status post gastric bypass by Dr. Goodman last November 25. Continue taking vitamins. Avoid NSAIDs as much as possible. Dietary recommendations. Food recall was done today and patient advised to be on low calorie, low carbohydrate diet. Restrict calories to less than 1500 kcal in 24 hours. Low glycemic index foods and encouraged. Meal replacements were recommended. Advised to use osdh-aie-gxfvxzb multivitamins and vitamin D. Advised to use calorie counter and adhere to portion control. Monthly goal is to lose 4-6 pounds Pharmacotherapy. She has been experiencing dry eyes and mouth with the increased dosage of phentermine. Decreased to phentermine 30mg. Side effects have been discussed Exercise. Patient encouraged to increase frequency, intensity and duration of exercise. Encouraged to burn at least 250-500 kcal in one session. Also encouraged to do weight training Assess. Different risk factors discussed with the patient and addressed Advise. Patient was given clear And specific advise that she will comply with Low-calorie diet and try not to exceed more than 1300 kcal in 24 hours. Agree. Mutually agreed to work together to achieve appropriate goals Assist. Motivational interviewing done. Arrange. Follow-up appointment arranged. Counseling. 15 minutes spent Face to face with the patient more than 50% of time was spent counseling Allergic rhinitis - Refilled claritin, she can also start taking flonase as needed. I have rendered the services for this patient under direct supervision of Dr. Lewis, who did not see the patient but was available upon request 09/14/2024 Dietary counseling and surveillance (ICD-10 - Z71.3) Mrs. Guillaume is a 54-year-old lady here for follow up. S/p bariatric surgery in November 2022. We saw her in May. She lost 103 lbs in total, Lost 4 pounds since her last visit. Plan is as follows: Bariatric surgery status. She is status post gastric bypass by Dr. Goodman last November 25. Continue taking vitamins. Avoid NSAIDs as much as possible. Dietary recommendations. Food recall was done today and patient advised to be on low calorie, low carbohydrate diet. Restrict calories to less than 1500 kcal in 24 hours. Low glycemic index foods and encouraged. Meal replacements were recommended. Advised to use etrq-kcf-ehyviqz multivitamins and vitamin D. Advised to use calorie counter and adhere to portion control. Monthly goal is to lose 4-6 pounds Pharmacotherapy. Continue on Phentermine 37.5 MG once a day. Side effects have been discussed Exercise. Patient encouraged to increase frequency, intensity and duration of exercise. Encouraged to burn at least 250-500 kcal in one session. Also encouraged to do weight training Assess. Different risk factors discussed with the patient and addressed Advise. Patient was given clear And specific advise that she will comply with Low-calorie diet and try not to exceed more than 1300 kcal in 24 hours. Agree. Mutually agreed to work together to achieve appropriate goals Assist. Motivational interviewing done. Arrange. Follow-up appointment arranged. Counseling. 15 minutes spent Face to face with the patient more than 50% of time was spent counseling Allergic rhinitis - She currently follows with [facility], however she would like a second opinion for the for practice. Referred patient. I have rendered the services for this patient under direct supervision of Dr. Lewis, who did not see the patient but was available upon request 08/17/2024 Other hemorrhoids (ICD-10 - K64.8) Mrs. Guillaume is a 54-year-old lady here for follow up. S/p bariatric surgery in November 2022. We saw her in May. She lost 103 lbs in total, his weight has been stable since the last visit. Plan is as follows: Bariatric surgery status. She is status post gastric bypass by Dr. Goodman last November 25. Continue taking vitamins. Avoid NSAIDs as much as possible. Dietary recommendations. Food recall was done today and patient advised to be on low calorie, low carbohydrate diet. Restrict calories to less than 1500 kcal in 24 hours. Low glycemic index foods and encouraged. Meal replacements were recommended. Advised to use qviy-gag-jsbimrs multivitamins and vitamin D. Advised to use calorie counter and adhere to portion control. Monthly goal is to lose 4-6 pounds Pharmacotherapy. Increased Phentermine 37.5 MG once a day. Exercise. Patient encouraged to increase frequency, intensity and duration of exercise. Encouraged to burn at least 250-500 kcal in one session. Also encouraged to do weight training Assess. Different risk factors discussed with the patient and addressed Advise. Patient was given clear And specific advise that she will comply with Low-calorie diet and try not to exceed more than 1300 kcal in 24 hours. Agree. Mutually agreed to work together to achieve appropriate goals Assist. Motivational interviewing done. Arrange. Follow-up appointment arranged. Counseling. 15 minutes spent Face to face with the patient more than 50% of time was spent counseling Hemorrhoids - She states that she felt the hemorrhoid protruding. No BRPR. Could not appreciate internal hemorrhoid as patient was in pain. She has history of internal hemorrhoids due to constipation. Started patient on anusol, sitz baths, Miralax and increase fiber recommended. Patient is to follow-up with GI. She has an appt tomorrow I have rendered the services for this patient under direct supervision of Dr. Lewis, who did not see the patient but was available upon request 06/22/2024 Gastro-esophagea l reflux disease without esophagitis (ICD-10 - K21.9) Mrs. Guillaume is a 54-year-old lady here for follow up. S/p bariatric surgery in November 2022. We saw her in May. She lost 100 lbs in total and no weight loss since last visit. Plan is as follows: Bariatric surgery status. She is status post gastric bypass by Dr. Goodman last November 25. Continue taking vitamins. Avoid NSAIDs as much as possible. Dietary recommendations. Food recall was done today and patient advised to be on low calorie, low carbohydrate diet. Restrict calories to less than 1500 kcal in 24 hours. Low glycemic index foods and encouraged. Meal replacements were recommended. Advised to use yynk-xct-uzhpnrs multivitamins and vitamin D. Advised to use calorie counter and adhere to portion control. Monthly goal is to lose 4-6 pounds Pharmacotherapy. Continue Phentermine 15 MG once a day. Exercise. Patient encouraged to increase frequency, intensity and duration of exercise. Encouraged to burn at least 250-500 kcal in one session. Also encouraged to do weight training Assess. Different risk factors discussed with the patient and addressed Advise. Patient was given clear And specific advise that she will comply with Low-calorie diet and try not to exceed more than 1300 kcal in 24 hours. Agree. Mutually agreed to work together to achieve appropriate goals Assist. Motivational interviewing done. Arrange. Follow-up appointment arranged. Counseling. 15 minutes spent Face to face with the patient more than 50% of time was spent counseling Gait instability. Referred to Physical therapy. Scribe services used to formulate this note under HIPAA compliance and under [place] law mandated for scribe services. Patient aware of service. Verbal consent and written consent taken from the patient. Patient understands and verbalizes understanding of the scribes services and all questions answered regarding scribes services. Patient agrees to use of scribes services. 01/13/2025 Nontoxic multinodular goiter (ICD-10 - E04.2) Mrs. Guillaume is a 54-year-old lady here for follow up. S/p bariatric surgery in November 2022. We saw her in May. She lost 103 lbs in total, gained 2lbs since her last visit. Plan is as follows: Bariatric surgery status. She is status post gastric bypass by Dr. Goodman last November 25. Continue taking vitamins. Avoid NSAIDs as much as possible. Dietary recommendations. Food recall was done today and patient advised to be on low calorie, low carbohydrate diet. Restrict calories to less than 1500 kcal in 24 hours. Low glycemic index foods and encouraged. Meal replacements were recommended. Advised to use qmlu-adt-cphuust multivitamins and vitamin D. Advised to use calorie counter and adhere to portion control. Monthly goal is to lose 4-6 pounds Pharmacotherapy. Continue on phentermine 30mg. Side effects have been discussed Exercise. Patient encouraged to increase frequency, intensity and duration of exercise. Encouraged to burn at least 250-500 kcal in one session. Also encouraged to do weight training Assess. Different risk factors discussed with the patient and addressed Advise. Patient was given clear And specific advise that she will comply with Low-calorie diet and try not to exceed more than 1300 kcal in 24 hours. Agree. Mutually agreed to work together to achieve appropriate goals Assist. Motivational interviewing done. Arrange. Follow-up appointment arranged. Counseling. 15 minutes spent Face to face with the patient more than 50% of time was spent counseling She recently had a CT of the chest by her Pulmonolgist and Enlarged goiter is noted, patient was referred to endocrinology and awaiting surgical consult. Sleep apnea. Per record, patient is holding off on Sleep study until resolution of the goiter. Moderate Persistent asthma: Continue with Symbicort 160/4.5, 2 puff BID and albuterol. Latent TB: Stable. Continues to monitor with Fur Cutting Machine Operator. I have rendered the services for this patient under direct supervision of Dr. Lewis, who did not see the patient but was available upon request 02/17/2025 Nontoxic multinodular goiter (ICD-10 - E04.2) Mrs. Guillaume is a 54-year-old lady here for follow up. S/p bariatric surgery in November 2022. We saw her in May. She lost 103 lbs in total, gained 2lbs since her last visit. Plan is as follows: Bariatric surgery status. She is status post gastric bypass by Dr. Goodman last November 25. Continue taking vitamins. Avoid NSAIDs as much as possible. Dietary recommendations. Food recall was done today and patient advised to be on low calorie, low carbohydrate diet. Restrict calories to less than 1500 kcal in 24 hours. Low glycemic index foods and encouraged. Meal replacements were recommended. Advised to use mftb-uod-ixbwuxc multivitamins and vitamin D. Advised to use calorie counter and adhere to portion control. Monthly goal is to lose 4-6 pounds Pharmacotherapy. Continue on phentermine 30mg. I have added Wellbutrin. Side effects have been discussed Exercise. Patient encouraged to increase frequency, intensity and duration of exercise. Encouraged to burn at least 250-500 kcal in one session. Also encouraged to do weight training Assess. Different risk factors discussed with the patient and addressed Advise. Patient was given clear And specific advise that she will comply with Low-calorie diet and try not to exceed more than 1300 kcal in 24 hours. Agree. Mutually agreed to work together to achieve appropriate goals Assist. Motivational interviewing done. Arrange. Follow-up appointment arranged. Counseling. 15 minutes spent Face to face with the patient more than 50% of time was spent counseling She recently had a CT of the chest by her Pulmonolgist and Enlarged goiter is noted, She does follow with stunt man and she has a surgery consultation on March 04. Sleep apnea. Per record, patient is holding off on Sleep study until resolution of the goiter. Moderate Persistent asthma: Continue with Symbicort 160/4.5, 2 puff BID and albuterol. Latent TB: Stable. Continues to monitor with Fur Cutting Machine Operator. I have rendered the services for this patient under direct supervision of Dr. Lewis, who did not see the patient but was available upon request 04/14/2025 Nontoxic multinodular goiter (ICD-10 - E04.2) Mrs. Guillaume is a 54-year-old lady here for follow up. S/p bariatric surgery in November 2022. We saw her in May. She lost 99 lbs in total, gained 4lbs since her last visit. Plan is as follows: Bariatric surgery status. She is status post gastric bypass by Dr. Goodman last November 25. Continue taking vitamins. Avoid NSAIDs as much as possible. Dietary recommendations. Food recall was done today and patient advised to be on low calorie, low carbohydrate diet. Restrict calories to less than 1500 kcal in 24 hours. Low glycemic index foods and encouraged. Meal replacements were recommended. Advised to use iilf-gzn-wywidyz multivitamins and vitamin D. Advised to use calorie counter and adhere to portion control. Monthly goal is to lose 4-6 pounds Pharmacotherapy. Continue on phentermine 30mg. I have added Wellbutrin. Side effects have been discussed Exercise. Patient encouraged to increase frequency, intensity and duration of exercise. Encouraged to burn at least 250-500 kcal in one session. Also encouraged to do weight training Assess. Different risk factors discussed with the patient and addressed Advise. Patient was given clear And specific advise that she will comply with Low-calorie diet and try not to exceed more than 1300 kcal in 24 hours. Agree. Mutually agreed to work together to achieve appropriate goals Assist. Motivational interviewing done. Arrange. Follow-up appointment arranged. Counseling. 15 minutes spent Face to face with the patient more than 50% of time was spent counseling Enlarged goiter is noted, She is a surgery coming up in August 2024 Sleep apnea. Per record, patient is holding off on Sleep study until resolution of the goiter. Moderate Persistent asthma: Continue with Symbicort 160/4.5, 2 puff BID and albuterol. Latent TB: Stable. PFTs were repeated after the thyroid surgery, Continues to monitor with Fur Cutting Machine Operator. Plantar fasciitis/chronic Dermatophytosis: patient is to continue on clotrimazole and ammonium lactate prescribed by the electrical and instrument technician. Osteoarthritis. She has an appointment for a consultation with pain management next month. Flu vaccine is given in the office today I have rendered the services for this patient under direct supervision of Dr. Lewis, who did not see the patient but was available upon request 03/17/2025 Nontoxic multinodular goiter (ICD-10 - E04.2) Mrs. Guillaume is a 54-year-old lady here for follow up. S/p bariatric surgery in November 2022. We saw her in May. She lost 103 lbs in total, lost 2lbs since her last visit. Plan is as follows: Bariatric surgery status. She is status post gastric bypass by Dr. Goodman last November 25. Continue taking vitamins. Avoid NSAIDs as much as possible. Dietary recommendations. Food recall was done today and patient advised to be on low calorie, low carbohydrate diet. Restrict calories to less than 1500 kcal in 24 hours. Low glycemic index foods and encouraged. Meal replacements were recommended. Advised to use kalw-kvn-msjnuou multivitamins and vitamin D. Advised to use calorie counter and adhere to portion control. Monthly goal is to lose 4-6 pounds Pharmacotherapy. Continue on phentermine 30mg. I have added Wellbutrin. Side effects have been discussed Exercise. Patient encouraged to increase frequency, intensity and duration of exercise. Encouraged to burn at least 250-500 kcal in one session. Also encouraged to do weight training Assess. Different risk factors discussed with the patient and addressed Advise. Patient was given clear And specific advise that she will comply with Low-calorie diet and try not to exceed more than 1300 kcal in 24 hours. Agree. Mutually agreed to work together to achieve appropriate goals Assist. Motivational interviewing done. Arrange. Follow-up appointment arranged. Counseling. 15 minutes spent Face to face with the patient more than 50% of time was spent counseling She recently had a CT of the chest by her Pulmonolgist and Enlarged goiter is noted, She is a surgery coming up in August 2024 Sleep apnea. Per record, patient is holding off on Sleep study until resolution of the goiter. Moderate Persistent asthma: Continue with Symbicort 160/4.5, 2 puff BID and albuterol. Latent TB: Stable. Continues to monitor with Fur Cutting Machine Operator. I have rendered the services for this patient under direct supervision of Dr. Lewis, who did not see the patient but was available upon request 05/12/2025 Obstructive sleep apnea (adult) (pediatric) (ICD-10 - G47.33) Mrs. Guillaume is a 55-year-old lady here for follow up. S/p bariatric surgery in November 2022. We saw her in May. She lost 99 lbs in total, gained 1lbs since her last visit. Plan is as follows: Bariatric surgery status. She is status post gastric bypass by Dr. Goodman last November 25. Continue taking vitamins. Avoid NSAIDs as much as possible. Dietary recommendations. Food recall was done today and patient advised to be on low calorie, low carbohydrate diet. Restrict calories to less than 1500 kcal in 24 hours. Low glycemic index foods and encouraged. Meal replacements were recommended. Advised to use gjvr-wxf-vyeiptb multivitamins and vitamin D. Advised to use calorie counter and adhere to portion control. Monthly goal is to lose 4-6 pounds Pharmacotherapy. Continue on phentermine 30mg. I have added Wellbutrin. Side effects have been discussed Exercise. Patient encouraged to increase frequency, intensity and duration of exercise. Encouraged to burn at least 250-500 kcal in one session. Also encouraged to do weight training Assess. Different risk factors discussed with the patient and addressed Advise. Patient was given clear And specific advise that she will comply with Low-calorie diet and try not to exceed more than 1300 kcal in 24 hours. Agree. Mutually agreed to work together to achieve appropriate goals Assist. Motivational interviewing done. Arrange. Follow-up appointment arranged. Counseling. 15 minutes spent Face to face with the patient more than 50% of time was spent counseling Enlarged goiter is noted, She is a surgery coming up in August 2024 Sleep apnea. Per record, patient is holding off on Sleep study until resolution of the goiter. Moderate Persistent asthma: Continue with Symbicort 160/4.5, 2 puff BID and albuterol. Latent TB: Stable. PFTs were repeated after the thyroid surgery, Continues to monitor with Fur Cutting Machine Operator. Plantar fasciitis/chronic Dermatophytosis: patient is to continue on clotrimazole and ammonium lactate prescribed by the electrical and instrument technician. Osteoarthritis. She has an appointment for a consultation with pain management next month. Acute sinuisits. Will start patient on prednisone and amoxicillin. Continue using flonase and tylenol as needed I have rendered the services for this patient under direct supervision of Dr. Lewis, who did not see the patient but was available upon request 05/12/2025 Moderate persistent asthma, uncomplicated (ICD-10 - J45.40) Mrs. Guillaume is a 55-year-old lady here for follow up. S/p bariatric surgery in November 2022. We saw her in May. She lost 99 lbs in total, gained 1lbs since her last visit. Plan is as follows: Bariatric surgery status. She is status post gastric bypass by Dr. Goodman last November 25. Continue taking vitamins. Avoid NSAIDs as much as possible. Dietary recommendations. Food recall was done today and patient advised to be on low calorie, low carbohydrate diet. Restrict calories to less than 1500 kcal in 24 hours. Low glycemic index foods and encouraged. Meal replacements were recommended. Advised to use xnih-aku-awmampd multivitamins and vitamin D. Advised to use calorie counter and adhere to portion control. Monthly goal is to lose 4-6 pounds Pharmacotherapy. Continue on phentermine 30mg. I have added Wellbutrin. Side effects have been discussed Exercise. Patient encouraged to increase frequency, intensity and duration of exercise. Encouraged to burn at least 250-500 kcal in one session. Also encouraged to do weight training Assess. Different risk factors discussed with the patient and addressed Advise. Patient was given clear And specific advise that she will comply with Low-calorie diet and try not to exceed more than 1300 kcal in 24 hours. Agree. Mutually agreed to work together to achieve appropriate goals Assist. Motivational interviewing done. Arrange. Follow-up appointment arranged. Counseling. 15 minutes spent Face to face with the patient more than 50% of time was spent counseling Enlarged goiter is noted, She is a surgery coming up in August 2024 Sleep apnea. Per record, patient is holding off on Sleep study until resolution of the goiter. Moderate Persistent asthma: Continue with Symbicort 160/4.5, 2 puff BID and albuterol. Latent TB: Stable. PFTs were repeated after the thyroid surgery, Continues to monitor with Fur Cutting Machine Operator. Plantar fasciitis/chronic Dermatophytosis: patient is to continue on clotrimazole and ammonium lactate prescribed by the electrical and instrument technician. Osteoarthritis. She has an appointment for a consultation with pain management next month. Acute sinuisits. Will start patient on prednisone and amoxicillin. Continue using flonase and tylenol as needed I have rendered the services for this patient under direct supervision of Dr. Lewis, who did not see the patient but was available upon request 04/14/2025 Obstructive sleep apnea (adult) (pediatric) (ICD-10 - G47.33) Mrs. Guillaume is a 54-year-old lady here for follow up. S/p bariatric surgery in November 2022. We saw her in May. She lost 99 lbs in total, gained 4lbs since her last visit. Plan is as follows: Bariatric surgery status. She is status post gastric bypass by Dr. Goodman last November 25. Continue taking vitamins. Avoid NSAIDs as much as possible. Dietary recommendations. Food recall was done today and patient advised to be on low calorie, low carbohydrate diet. Restrict calories to less than 1500 kcal in 24 hours. Low glycemic index foods and encouraged. Meal replacements were recommended. Advised to use jlpj-oah-zfwecfz multivitamins and vitamin D. Advised to use calorie counter and adhere to portion control. Monthly goal is to lose 4-6 pounds Pharmacotherapy. Continue on phentermine 30mg. I have added Wellbutrin. Side effects have been discussed Exercise. Patient encouraged to increase frequency, intensity and duration of exercise. Encouraged to burn at least 250-500 kcal in one session. Also encouraged to do weight training Assess. Different risk factors discussed with the patient and addressed Advise. Patient was given clear And specific advise that she will comply with Low-calorie diet and try not to exceed more than 1300 kcal in 24 hours. Agree. Mutually agreed to work together to achieve appropriate goals Assist. Motivational interviewing done. Arrange. Follow-up appointment arranged. Counseling. 15 minutes spent Face to face with the patient more than 50% of time was spent counseling Enlarged goiter is noted, She is a surgery coming up in August 2024 Sleep apnea. Per record, patient is holding off on Sleep study until resolution of the goiter. Moderate Persistent asthma: Continue with Symbicort 160/4.5, 2 puff BID and albuterol. Latent TB: Stable. PFTs were repeated after the thyroid surgery, Continues to monitor with Fur Cutting Machine Operator. Plantar fasciitis/chronic Dermatophytosis: patient is to continue on clotrimazole and ammonium lactate prescribed by the electrical and instrument technician. Osteoarthritis. She has an appointment for a consultation with pain management next month. Flu vaccine is given in the office today I have rendered the services for this patient under direct supervision of Dr. Lewis, who did not see the patient but was available upon request 03/17/2025 Obstructive sleep apnea (adult) (pediatric) (ICD-10 - G47.33) Mrs. Guillaume is a 54-year-old lady here for follow up. S/p bariatric surgery in November 2022. We saw her in May. She lost 103 lbs in total, lost 2lbs since her last visit. Plan is as follows: Bariatric surgery status. She is status post gastric bypass by Dr. Goodman last November 25. Continue taking vitamins. Avoid NSAIDs as much as possible. Dietary recommendations. Food recall was done today and patient advised to be on low calorie, low carbohydrate diet. Restrict calories to less than 1500 kcal in 24 hours. Low glycemic index foods and encouraged. Meal replacements were recommended. Advised to use pthu-juo-urzwlhd multivitamins and vitamin D. Advised to use calorie counter and adhere to portion control. Monthly goal is to lose 4-6 pounds Pharmacotherapy. Continue on phentermine 30mg. I have added Wellbutrin. Side effects have been discussed Exercise. Patient encouraged to increase frequency, intensity and duration of exercise. Encouraged to burn at least 250-500 kcal in one session. Also encouraged to do weight training Assess. Different risk factors discussed with the patient and addressed Advise. Patient was given clear And specific advise that she will comply with Low-calorie diet and try not to exceed more than 1300 kcal in 24 hours. Agree. Mutually agreed to work together to achieve appropriate goals Assist. Motivational interviewing done. Arrange. Follow-up appointment arranged. Counseling. 15 minutes spent Face to face with the patient more than 50% of time was spent counseling She recently had a CT of the chest by her Pulmonolgist and Enlarged goiter is noted, She is a surgery coming up in August 2024 Sleep apnea. Per record, patient is holding off on Sleep study until resolution of the goiter. Moderate Persistent asthma: Continue with Symbicort 160/4.5, 2 puff BID and albuterol. Latent TB: Stable. Continues to monitor with Fur Cutting Machine Operator. I have rendered the services for this patient under direct supervision of Dr. Lewis, who did not see the patient but was available upon request 02/17/2025 Obstructive sleep apnea (adult) (pediatric) (ICD-10 - G47.33) Mrs. Guillaume is a 54-year-old lady here for follow up. S/p bariatric surgery in November 2022. We saw her in May. She lost 103 lbs in total, gained 2lbs since her last visit. Plan is as follows: Bariatric surgery status. She is status post gastric bypass by Dr. Goodman last November 25. Continue taking vitamins. Avoid NSAIDs as much as possible. Dietary recommendations. Food recall was done today and patient advised to be on low calorie, low carbohydrate diet. Restrict calories to less than 1500 kcal in 24 hours. Low glycemic index foods and encouraged. Meal replacements were recommended. Advised to use dhaa-cqq-imhtitj multivitamins and vitamin D. Advised to use calorie counter and adhere to portion control. Monthly goal is to lose 4-6 pounds Pharmacotherapy. Continue on phentermine 30mg. I have added Wellbutrin. Side effects have been discussed Exercise. Patient encouraged to increase frequency, intensity and duration of exercise. Encouraged to burn at least 250-500 kcal in one session. Also encouraged to do weight training Assess. Different risk factors discussed with the patient and addressed Advise. Patient was given clear And specific advise that she will comply with Low-calorie diet and try not to exceed more than 1300 kcal in 24 hours. Agree. Mutually agreed to work together to achieve appropriate goals Assist. Motivational interviewing done. Arrange. Follow-up appointment arranged. Counseling. 15 minutes spent Face to face with the patient more than 50% of time was spent counseling She recently had a CT of the chest by her Pulmonolgist and Enlarged goiter is noted, She does follow with stunt man and she has a surgery consultation on March 04. Sleep apnea. Per record, patient is holding off on Sleep study until resolution of the goiter. Moderate Persistent asthma: Continue with Symbicort 160/4.5, 2 puff BID and albuterol. Latent TB: Stable. Continues to monitor with Fur Cutting Machine Operator. I have rendered the services for this patient under direct supervision of Dr. Lewis, who did not see the patient but was available upon request 01/13/2025 Obstructive sleep apnea (adult) (pediatric) (ICD-10 - G47.33) Mrs. Guillaume is a 54-year-old lady here for follow up. S/p bariatric surgery in November 2022. We saw her in May. She lost 103 lbs in total, gained 2lbs since her last visit. Plan is as follows: Bariatric surgery status. She is status post gastric bypass by Dr. Goodman last November 25. Continue taking vitamins. Avoid NSAIDs as much as possible. Dietary recommendations. Food recall was done today and patient advised to be on low calorie, low carbohydrate diet. Restrict calories to less than 1500 kcal in 24 hours. Low glycemic index foods and encouraged. Meal replacements were recommended. Advised to use pctl-yqa-tsymiiz multivitamins and vitamin D. Advised to use calorie counter and adhere to portion control. Monthly goal is to lose 4-6 pounds Pharmacotherapy. Continue on phentermine 30mg. Side effects have been discussed Exercise. Patient encouraged to increase frequency, intensity and duration of exercise. Encouraged to burn at least 250-500 kcal in one session. Also encouraged to do weight training Assess. Different risk factors discussed with the patient and addressed Advise. Patient was given clear And specific advise that she will comply with Low-calorie diet and try not to exceed more than 1300 kcal in 24 hours. Agree. Mutually agreed to work together to achieve appropriate goals Assist. Motivational interviewing done. Arrange. Follow-up appointment arranged. Counseling. 15 minutes spent Face to face with the patient more than 50% of time was spent counseling She recently had a CT of the chest by her Pulmonolgist and Enlarged goiter is noted, patient was referred to endocrinology and awaiting surgical consult. Sleep apnea. Per record, patient is holding off on Sleep study until resolution of the goiter. Moderate Persistent asthma: Continue with Symbicort 160/4.5, 2 puff BID and albuterol. Latent TB: Stable. Continues to monitor with Fur Cutting Machine Operator. I have rendered the services for this patient under direct supervision of Dr. Lewis, who did not see the patient but was available upon request 01/13/2025 Moderate persistent asthma, uncomplicated (ICD-10 - J45.40) Mrs. Guillaume is a 54-year-old lady here for follow up. S/p bariatric surgery in November 2022. We saw her in May. She lost 103 lbs in total, gained 2lbs since her last visit. Plan is as follows: Bariatric surgery status. She is status post gastric bypass by Dr. Goodman last November 25. Continue taking vitamins. Avoid NSAIDs as much as possible. Dietary recommendations. Food recall was done today and patient advised to be on low calorie, low carbohydrate diet. Restrict calories to less than 1500 kcal in 24 hours. Low glycemic index foods and encouraged. Meal replacements were recommended. Advised to use joqb-jnp-whlfsft multivitamins and vitamin D. Advised to use calorie counter and adhere to portion control. Monthly goal is to lose 4-6 pounds Pharmacotherapy. Continue on phentermine 30mg. Side effects have been discussed Exercise. Patient encouraged to increase frequency, intensity and duration of exercise. Encouraged to burn at least 250-500 kcal in one session. Also encouraged to do weight training Assess. Different risk factors discussed with the patient and addressed Advise. Patient was given clear And specific advise that she will comply with Low-calorie diet and try not to exceed more than 1300 kcal in 24 hours. Agree. Mutually agreed to work together to achieve appropriate goals Assist. Motivational interviewing done. Arrange. Follow-up appointment arranged. Counseling. 15 minutes spent Face to face with the patient more than 50% of time was spent counseling She recently had a CT of the chest by her Pulmonolgist and Enlarged goiter is noted, patient was referred to endocrinology and awaiting surgical consult. Sleep apnea. Per record, patient is holding off on Sleep study until resolution of the goiter. Moderate Persistent asthma: Continue with Symbicort 160/4.5, 2 puff BID and albuterol. Latent TB: Stable. Continues to monitor with Fur Cutting Machine Operator. I have rendered the services for this patient under direct supervision of Dr. Lewis, who did not see the patient but was available upon request 02/17/2025 Moderate persistent asthma, uncomplicated (ICD-10 - J45.40) Mrs. Guillaume is a 54-year-old lady here for follow up. S/p bariatric surgery in November 2022. We saw her in May. She lost 103 lbs in total, gained 2lbs since her last visit. Plan is as follows: Bariatric surgery status. She is status post gastric bypass by Dr. Goodman last November 25. Continue taking vitamins. Avoid NSAIDs as much as possible. Dietary recommendations. Food recall was done today and patient advised to be on low calorie, low carbohydrate diet. Restrict calories to less than 1500 kcal in 24 hours. Low glycemic index foods and encouraged. Meal replacements were recommended. Advised to use uydk-lcr-iayjuul multivitamins and vitamin D. Advised to use calorie counter and adhere to portion control. Monthly goal is to lose 4-6 pounds Pharmacotherapy. Continue on phentermine 30mg. I have added Wellbutrin. Side effects have been discussed Exercise. Patient encouraged to increase frequency, intensity and duration of exercise. Encouraged to burn at least 250-500 kcal in one session. Also encouraged to do weight training Assess. Different risk factors discussed with the patient and addressed Advise. Patient was given clear And specific advise that she will comply with Low-calorie diet and try not to exceed more than 1300 kcal in 24 hours. Agree. Mutually agreed to work together to achieve appropriate goals Assist. Motivational interviewing done. Arrange. Follow-up appointment arranged. Counseling. 15 minutes spent Face to face with the patient more than 50% of time was spent counseling She recently had a CT of the chest by her Pulmonolgist and Enlarged goiter is noted, She does follow with stunt man and she has a surgery consultation on March 04. Sleep apnea. Per record, patient is holding off on Sleep study until resolution of the goiter. Moderate Persistent asthma: Continue with Symbicort 160/4.5, 2 puff BID and albuterol. Latent TB: Stable. Continues to monitor with Fur Cutting Machine Operator. I have rendered the services for this patient under direct supervision of Dr. Lewis, who did not see the patient but was available upon request 03/17/2025 Moderate persistent asthma, uncomplicated (ICD-10 - J45.40) Mrs. Guillaume is a 54-year-old lady here for follow up. S/p bariatric surgery in November 2022. We saw her in May. She lost 103 lbs in total, lost 2lbs since her last visit. Plan is as follows: Bariatric surgery status. She is status post gastric bypass by Dr. Goodman last November 25. Continue taking vitamins. Avoid NSAIDs as much as possible. Dietary recommendations. Food recall was done today and patient advised to be on low calorie, low carbohydrate diet. Restrict calories to less than 1500 kcal in 24 hours. Low glycemic index foods and encouraged. Meal replacements were recommended. Advised to use jxbv-ktz-jsvkljm multivitamins and vitamin D. Advised to use calorie counter and adhere to portion control. Monthly goal is to lose 4-6 pounds Pharmacotherapy. Continue on phentermine 30mg. I have added Wellbutrin. Side effects have been discussed Exercise. Patient encouraged to increase frequency, intensity and duration of exercise. Encouraged to burn at least 250-500 kcal in one session. Also encouraged to do weight training Assess. Different risk factors discussed with the patient and addressed Advise. Patient was given clear And specific advise that she will comply with Low-calorie diet and try not to exceed more than 1300 kcal in 24 hours. Agree. Mutually agreed to work together to achieve appropriate goals Assist. Motivational interviewing done. Arrange. Follow-up appointment arranged. Counseling. 15 minutes spent Face to face with the patient more than 50% of time was spent counseling She recently had a CT of the chest by her Pulmonolgist and Enlarged goiter is noted, She is a surgery coming up in August 2024 Sleep apnea. Per record, patient is holding off on Sleep study until resolution of the goiter. Moderate Persistent asthma: Continue with Symbicort 160/4.5, 2 puff BID and albuterol. Latent TB: Stable. Continues to monitor with Fur Cutting Machine Operator. I have rendered the services for this patient under direct supervision of Dr. Lewis, who did not see the patient but was available upon request 04/14/2025 Moderate persistent asthma, uncomplicated (ICD-10 - J45.40) Mrs. Guillaume is a 54-year-old lady here for follow up. S/p bariatric surgery in November 2022. We saw her in May. She lost 99 lbs in total, gained 4lbs since her last visit. Plan is as follows: Bariatric surgery status. She is status post gastric bypass by Dr. Goodman last November 25. Continue taking vitamins. Avoid NSAIDs as much as possible. Dietary recommendations. Food recall was done today and patient advised to be on low calorie, low carbohydrate diet. Restrict calories to less than 1500 kcal in 24 hours. Low glycemic index foods and encouraged. Meal replacements were recommended. Advised to use jmug-pab-wvsenbw multivitamins and vitamin D. Advised to use calorie counter and adhere to portion control. Monthly goal is to lose 4-6 pounds Pharmacotherapy. Continue on phentermine 30mg. I have added Wellbutrin. Side effects have been discussed Exercise. Patient encouraged to increase frequency, intensity and duration of exercise. Encouraged to burn at least 250-500 kcal in one session. Also encouraged to do weight training Assess. Different risk factors discussed with the patient and addressed Advise. Patient was given clear And specific advise that she will comply with Low-calorie diet and try not to exceed more than 1300 kcal in 24 hours. Agree. Mutually agreed to work together to achieve appropriate goals Assist. Motivational interviewing done. Arrange. Follow-up appointment arranged. Counseling. 15 minutes spent Face to face with the patient more than 50% of time was spent counseling Enlarged goiter is noted, She is a surgery coming up in August 2024 Sleep apnea. Per record, patient is holding off on Sleep study until resolution of the goiter. Moderate Persistent asthma: Continue with Symbicort 160/4.5, 2 puff BID and albuterol. Latent TB: Stable. PFTs were repeated after the thyroid surgery, Continues to monitor with Fur Cutting Machine Operator. Plantar fasciitis/chronic Dermatophytosis: patient is to continue on clotrimazole and ammonium lactate prescribed by the electrical and instrument technician. Osteoarthritis. She has an appointment for a consultation with pain management next month. Flu vaccine is given in the office today I have rendered the services for this patient under direct supervision of Dr. Lewis, who did not see the patient but was available upon request 05/12/2025 Polyosteoarthrit is, unspecified (ICD-10 - M15.9) Mrs. Guillaume is a 55-year-old lady here for follow up. S/p bariatric surgery in November 2022. We saw her in May. She lost 99 lbs in total, gained 1lbs since her last visit. Plan is as follows: Bariatric surgery status. She is status post gastric bypass by Dr. Goodman last November 25. Continue taking vitamins. Avoid NSAIDs as much as possible. Dietary recommendations. Food recall was done today and patient advised to be on low calorie, low carbohydrate diet. Restrict calories to less than 1500 kcal in 24 hours. Low glycemic index foods and encouraged. Meal replacements were recommended. Advised to use mlic-btc-wnzclcf multivitamins and vitamin D. Advised to use calorie counter and adhere to portion control. Monthly goal is to lose 4-6 pounds Pharmacotherapy. Continue on phentermine 30mg. I have added Wellbutrin. Side effects have been discussed Exercise. Patient encouraged to increase frequency, intensity and duration of exercise. Encouraged to burn at least 250-500 kcal in one session. Also encouraged to do weight training Assess. Different risk factors discussed with the patient and addressed Advise. Patient was given clear And specific advise that she will comply with Low-calorie diet and try not to exceed more than 1300 kcal in 24 hours. Agree. Mutually agreed to work together to achieve appropriate goals Assist. Motivational interviewing done. Arrange. Follow-up appointment arranged. Counseling. 15 minutes spent Face to face with the patient more than 50% of time was spent counseling Enlarged goiter is noted, She is a surgery coming up in August 2024 Sleep apnea. Per record, patient is holding off on Sleep study until resolution of the goiter. Moderate Persistent asthma: Continue with Symbicort 160/4.5, 2 puff BID and albuterol. Latent TB: Stable. PFTs were repeated after the thyroid surgery, Continues to monitor with Fur Cutting Machine Operator. Plantar fasciitis/chronic Dermatophytosis: patient is to continue on clotrimazole and ammonium lactate prescribed by the electrical and instrument technician. Osteoarthritis. She has an appointment for a consultation with pain management next month. Acute sinuisits. Will start patient on prednisone and amoxicillin. Continue using flonase and tylenol as needed I have rendered the services for this patient under direct supervision of Dr. Lewis, who did not see the patient but was available upon request 05/12/2025 Acute maxillary sinusitis, unspecified (ICD-10 - J01.00) Mrs. Guillaume is a 55-year-old lady here for follow up. S/p bariatric surgery in November 2022. We saw her in May. She lost 99 lbs in total, gained 1lbs since her last visit. Plan is as follows: Bariatric surgery status. She is status post gastric bypass by Dr. Goodman last November 25. Continue taking vitamins. Avoid NSAIDs as much as possible. Dietary recommendations. Food recall was done today and patient advised to be on low calorie, low carbohydrate diet. Restrict calories to less than 1500 kcal in 24 hours. Low glycemic index foods and encouraged. Meal replacements were recommended. Advised to use hpnf-cog-nantgkq multivitamins and vitamin D. Advised to use calorie counter and adhere to portion control. Monthly goal is to lose 4-6 pounds Pharmacotherapy. Continue on phentermine 30mg. I have added Wellbutrin. Side effects have been discussed Exercise. Patient encouraged to increase frequency, intensity and duration of exercise. Encouraged to burn at least 250-500 kcal in one session. Also encouraged to do weight training Assess. Different risk factors discussed with the patient and addressed Advise. Patient was given clear And specific advise that she will comply with Low-calorie diet and try not to exceed more than 1300 kcal in 24 hours. Agree. Mutually agreed to work together to achieve appropriate goals Assist. Motivational interviewing done. Arrange. Follow-up appointment arranged. Counseling. 15 minutes spent Face to face with the patient more than 50% of time was spent counseling Enlarged goiter is noted, She is a surgery coming up in August 2024 Sleep apnea. Per record, patient is holding off on Sleep study until resolution of the goiter. Moderate Persistent asthma: Continue with Symbicort 160/4.5, 2 puff BID and albuterol. Latent TB: Stable. PFTs were repeated after the thyroid surgery, Continues to monitor with Fur Cutting Machine Operator. Plantar fasciitis/chronic Dermatophytosis: patient is to continue on clotrimazole and ammonium lactate prescribed by the electrical and instrument technician. Osteoarthritis. She has an appointment for a consultation with pain management next month. Acute sinuisits. Will start patient on prednisone and amoxicillin. Continue using flonase and tylenol as needed I have rendered the services for this patient under direct supervision of Dr. Lewis, who did not see the patient but was available upon request 04/14/2025 Polyosteoarthrit is, unspecified (ICD-10 - M15.9) Mrs. Guillaume is a 54-year-old lady here for follow up. S/p bariatric surgery in November 2022. We saw her in May. She lost 99 lbs in total, gained 4lbs since her last visit. Plan is as follows: Bariatric surgery status. She is status post gastric bypass by Dr. Goodman last November 25. Continue taking vitamins. Avoid NSAIDs as much as possible. Dietary recommendations. Food recall was done today and patient advised to be on low calorie, low carbohydrate diet. Restrict calories to less than 1500 kcal in 24 hours. Low glycemic index foods and encouraged. Meal replacements were recommended. Advised to use uqhd-pjm-xrazrpp multivitamins and vitamin D. Advised to use calorie counter and adhere to portion control. Monthly goal is to lose 4-6 pounds Pharmacotherapy. Continue on phentermine 30mg. I have added Wellbutrin. Side effects have been discussed Exercise. Patient encouraged to increase frequency, intensity and duration of exercise. Encouraged to burn at least 250-500 kcal in one session. Also encouraged to do weight training Assess. Different risk factors discussed with the patient and addressed Advise. Patient was given clear And specific advise that she will comply with Low-calorie diet and try not to exceed more than 1300 kcal in 24 hours. Agree. Mutually agreed to work together to achieve appropriate goals Assist. Motivational interviewing done. Arrange. Follow-up appointment arranged. Counseling. 15 minutes spent Face to face with the patient more than 50% of time was spent counseling Enlarged goiter is noted, She is a surgery coming up in August 2024 Sleep apnea. Per record, patient is holding off on Sleep study until resolution of the goiter. Moderate Persistent asthma: Continue with Symbicort 160/4.5, 2 puff BID and albuterol. Latent TB: Stable. PFTs were repeated after the thyroid surgery, Continues to monitor with Fur Cutting Machine Operator. Plantar fasciitis/chronic Dermatophytosis: patient is to continue on clotrimazole and ammonium lactate prescribed by the electrical and instrument technician. Osteoarthritis. She has an appointment for a consultation with pain management next month. Flu vaccine is given in the office today I have rendered the services for this patient under direct supervision of Dr. Lewis, who did not see the patient but was available upon request 03/17/2025 Polyosteoarthrit is, unspecified (ICD-10 - M15.9) Mrs. Guillaume is a 54-year-old lady here for follow up. S/p bariatric surgery in November 2022. We saw her in May. She lost 103 lbs in total, lost 2lbs since her last visit. Plan is as follows: Bariatric surgery status. She is status post gastric bypass by Dr. Goodman last November 25. Continue taking vitamins. Avoid NSAIDs as much as possible. Dietary recommendations. Food recall was done today and patient advised to be on low calorie, low carbohydrate diet. Restrict calories to less than 1500 kcal in 24 hours. Low glycemic index foods and encouraged. Meal replacements were recommended. Advised to use xapz-pzf-cejmbwv multivitamins and vitamin D. Advised to use calorie counter and adhere to portion control. Monthly goal is to lose 4-6 pounds Pharmacotherapy. Continue on phentermine 30mg. I have added Wellbutrin. Side effects have been discussed Exercise. Patient encouraged to increase frequency, intensity and duration of exercise. Encouraged to burn at least 250-500 kcal in one session. Also encouraged to do weight training Assess. Different risk factors discussed with the patient and addressed Advise. Patient was given clear And specific advise that she will comply with Low-calorie diet and try not to exceed more than 1300 kcal in 24 hours. Agree. Mutually agreed to work together to achieve appropriate goals Assist. Motivational interviewing done. Arrange. Follow-up appointment arranged. Counseling. 15 minutes spent Face to face with the patient more than 50% of time was spent counseling She recently had a CT of the chest by her Pulmonolgist and Enlarged goiter is noted, She is a surgery coming up in August 2024 Sleep apnea. Per record, patient is holding off on Sleep study until resolution of the goiter. Moderate Persistent asthma: Continue with Symbicort 160/4.5, 2 puff BID and albuterol. Latent TB: Stable. Continues to monitor with Fur Cutting Machine Operator. I have rendered the services for this patient under direct supervision of Dr. Lewis, who did not see the patient but was available upon request 02/17/2025 Polyosteoarthrit is, unspecified (ICD-10 - M15.9) Mrs. Guillaume is a 54-year-old lady here for follow up. S/p bariatric surgery in November 2022. We saw her in May. She lost 103 lbs in total, gained 2lbs since her last visit. Plan is as follows: Bariatric surgery status. She is status post gastric bypass by Dr. Goodman last November 25. Continue taking vitamins. Avoid NSAIDs as much as possible. Dietary recommendations. Food recall was done today and patient advised to be on low calorie, low carbohydrate diet. Restrict calories to less than 1500 kcal in 24 hours. Low glycemic index foods and encouraged. Meal replacements were recommended. Advised to use qfce-tqb-uolyqfn multivitamins and vitamin D. Advised to use calorie counter and adhere to portion control. Monthly goal is to lose 4-6 pounds Pharmacotherapy. Continue on phentermine 30mg. I have added Wellbutrin. Side effects have been discussed Exercise. Patient encouraged to increase frequency, intensity and duration of exercise. Encouraged to burn at least 250-500 kcal in one session. Also encouraged to do weight training Assess. Different risk factors discussed with the patient and addressed Advise. Patient was given clear And specific advise that she will comply with Low-calorie diet and try not to exceed more than 1300 kcal in 24 hours. Agree. Mutually agreed to work together to achieve appropriate goals Assist. Motivational interviewing done. Arrange. Follow-up appointment arranged. Counseling. 15 minutes spent Face to face with the patient more than 50% of time was spent counseling She recently had a CT of the chest by her Pulmonolgist and Enlarged goiter is noted, She does follow with stunt man and she has a surgery consultation on March 04. Sleep apnea. Per record, patient is holding off on Sleep study until resolution of the goiter. Moderate Persistent asthma: Continue with Symbicort 160/4.5, 2 puff BID and albuterol. Latent TB: Stable. Continues to monitor with Fur Cutting Machine Operator. I have rendered the services for this patient under direct supervision of Dr. Lewis, who did not see the patient but was available upon request 04/14/2025 Encounter for immunization (ICD-10 - Z23) Mrs. Guillaume is a 54-year-old lady here for follow up. S/p bariatric surgery in November 2022. We saw her in May. She lost 99 lbs in total, gained 4lbs since her last visit. Plan is as follows: Bariatric surgery status. She is status post gastric bypass by Dr. Goodman last November 25. Continue taking vitamins. Avoid NSAIDs as much as possible. Dietary recommendations. Food recall was done today and patient advised to be on low calorie, low carbohydrate diet. Restrict calories to less than 1500 kcal in 24 hours. Low glycemic index foods and encouraged. Meal replacements were recommended. Advised to use jvef-bth-kmbxlje multivitamins and vitamin D. Advised to use calorie counter and adhere to portion control. Monthly goal is to lose 4-6 pounds Pharmacotherapy. Continue on phentermine 30mg. I have added Wellbutrin. Side effects have been discussed Exercise. Patient encouraged to increase frequency, intensity and duration of exercise. Encouraged to burn at least 250-500 kcal in one session. Also encouraged to do weight training Assess. Different risk factors discussed with the patient and addressed Advise. Patient was given clear And specific advise that she will comply with Low-calorie diet and try not to exceed more than 1300 kcal in 24 hours. Agree. Mutually agreed to work together to achieve appropriate goals Assist. Motivational interviewing done. Arrange. Follow-up appointment arranged. Counseling. 15 minutes spent Face to face with the patient more than 50% of time was spent counseling Enlarged goiter is noted, She is a surgery coming up in August 2024 Sleep apnea. Per record, patient is holding off on Sleep study until resolution of the goiter. Moderate Persistent asthma: Continue with Symbicort 160/4.5, 2 puff BID and albuterol. Latent TB: Stable. PFTs were repeated after the thyroid surgery, Continues to monitor with Fur Cutting Machine Operator. Plantar fasciitis/chronic Dermatophytosis: patient is to continue on clotrimazole and ammonium lactate prescribed by the electrical and instrument technician. Osteoarthritis. She has an appointment for a consultation with pain management next month. Flu vaccine is given in the office today I have rendered the services for this patient under direct supervision of Dr. Lewis, who did not see the patient but was available upon request Plan Of Treatment Pending Test Test Name Order Date X ray : Foot, right 02/04/2019 TSH 11/17/2017 Vitamin D, 25-Hydroxy 11/17/2017 Vitamin D, 25-Hydroxy 02/16/2018 CCP IgG Antibodies 02/16/2018 CCP IgG Antibodies 09/02/2018 ESTEFANY Comprehensive Panel 02/16/2018 ESTEFANY Comprehensive Panel 09/02/2018 CBC 09/02/2018 CBC 11/17/2017 ESR 02/16/2018 ESR 09/02/2018 25 HYDROXY VITAMIN D2 D3 08/12/2022 COMPREHENSIVE METABOLIC PANEL 08/12/2022 LIPID PANEL 08/12/2022 MICROALBUMIN, URINE 08/12/2022 VITAMIN B12 02/16/2018 COMPREHENSIVE METABOLIC PANEL 11/17/2017 C-reactive protein (CRP) 02/16/2018 C-reactive protein (CRP) 09/02/2018 Electromyography 09/01/2019 RHEUMATOID FACTOR 02/16/2018 URIC ACID 09/02/2018 Rheumatoid Factor (RF) 09/02/2018 Next Appt Details Provider Name:Baltajarrett Apple valentine, 06/02/2025 01:00:00 PM, [address] [place] [address], [phone], Provider Name:Baltajarrett Apple valentine, 06/21/2025 01:00:00 PM, [address] [place] [address], [phone], Insurance Providers Payer Name Payer Address Payer Phone Subscriber Number Group Number Insured Name Patient Relationship to Insured Coverage Start Date Coverage End Date [facility]) [address] [address] [place] [address] [id number] Romana Guillaume Self - patient is the insured Medications Administered Medication Instructions Date of Administration Dosage Notes Vitamin B-12 02/16/2018 1 mL Medical (General) History Medical History History ICD Code acid reflux Osteoarthritis Anxiety and depression see Dr Quang Quiroga therapist Asthma, sees Dr. Sarkar at [facility] CTS Left Hand and s/p surgery Left Tarsal syndrome and see Dr Quijano S/p COVID-19 x2, 11/2021 lumbar/cervical radiculopathy and she go es to physiatry Dr. Singh migraine headaches and follows up with Maria Esther Talavera bilateral venous insufficiency status po st vein stripping and sees Dr. Cheek hepatitis B carrier and she follows up w ith Dr. Mitchell CKD sees accounts payables clerk kidney stones sees urologist obesity s/p gastric bypass 11/25/2022, w as [address] Talavera Surgical History Surgery Date(Month/Year) section x2 kidney surgery cholecystectomy broken right arm vascular surgery on legs. bilateral varicose vein stripping by Dr. Cheek bilateral CTS decompression gastric bypass, Dr. Goodman 11/2022 Hospitalization History Reason Date(Month/Year)
--- OUTSIDE RECORDS SUMMARY | 2025-06-01 17:45 | XMS_ITS | Encounter Summary ---
Author Organization [facility] [place] [address] Care Team Providers Care Photographic Equipment Mechanic Name Role Phone Raj Maldonado MD Primary Care Provider [phone] Encounter Details Date Type Department Care Team ([facility] st Contact Info) Description 05/29/2025 Results Follow-Up Gastroenterology - [address] [facility] [address] [place] [phone] Ashley Jack PA [address] [address] Social History Tobacco Use Types Packs/Day Years Used Date Smoking Tobacco: Never Smokeless Tobacco: Never Alcohol Use Standard Drinks/Week Comments No 0 (1 standard drink = 0.6 oz pur e alcohol) Interpersonal Safety Answer Date Record ed Physical Abuse Unrecognized value 11/03/2024 Verbal Abuse Unrecognized value 11/03/2024 Comments No Sex and Gender Information Value Date Recorded Sex Assigned at Female 07/26/2024 1:15 PM EST Legal Sex Female 7:03 PM EST Gender Identity Female 07/26/2024 1:15 PM EST Sexual Orientation Straight 07/26/2024 1: 15 PM EST documented as of this encounter Progress Notes * MITCHELL Dominguez - 05/29/2025 6:04 PM EST I will send msg. documented in this encounter Plan of Treatment Upcoming Encounters Date Type Department Care Team (Late st Contact Info) Description 06/29/2025 2:15 PM EST Office Visit Bariatric Surgery - [place] [address] [facility] [address] [place] [phone] Barb Traore PA [address] [place] [phone] 07/25/2025 1:00 PM EST Ancillary Procedure Pulmonology - [place] [address] [facility] [address] [place] [phone] 08/02/2025 2:30 PM EST Office Visit Pulmonology - [place] 175 [facility] [address] [place] [phone] Aster Knapp MD [address] [place] [phone] 08/08/2025 1:30 PM EST Office Visit Orthopedic Surgery - [place] 250 [address] [facility] [address] [place] [phone] Kevin Alston, DPM 175 [facility] [address] [place] [phone] 12/28/2025 2:20 PM EDT Office Visit Gastroenterology - 299 [facility] 299 [facility] [address] [place] [phone] Ashley Jack PA 299 [facility] [address] [place] [address] documented as of this encounter Visit Diagnoses Not on filedocumented in this encounter Care Teams Photographic Equipment Mechanic Relationship Specialty Start Date End Date Raj Maldonado MD [address] [place] [phone] PCP - General Internal Medicine 01/08/18 documented as of this encounter
--- OUTSIDE RECORDS SUMMARY | 2025-06-01 17:45 | XMS_ITS | Clinical Summary ---
Author Organization 175 [facility] Address [address] [place] [address] Phone Care Team Providers Care Clam Bed Laborer Name Role Phone EricaRustamAnthony A MD Primary Care Provider [phone] Allergies Active Allergy Reactions Criticality Noted Date Comments Liraglutide GI intolerance 07/23/2024 Moxifloxacin GI intolerance 04/10/2016 Moxifloxacin Hcl GI intolerance 07/23/2024 Other 04/11/2018 Pt has allergy to a medication,but she doesn't remember name of medication. She states when she takes it, it causes burning in her stomach Rifabutin GI intolerance 04/08/2016 Semaglutide (Weight Loss) Unknown 07/23/2024 Medications acetaminophen (TYLENOL) 500 mg tablet TAKE 2 TABLETS BY MOUTH EVERY 8 HOURS FOR 30 DAYS. 04/11/20 23 Active diphenhydrAMINE- acetaminophen (TYLENOL PM) 25-500 mg per tablet Active albuterol HFA (PROAIR HFA ; PROVENTIL HFA ; VENTOLIN HFA) 90 mcg/actuation inhaler Inhale 2 puffs by mouth. 01/11/20 23 Active albuterol HFA (Ventolin HFA) 90 mcg/actuation inhaler INHALE 2 PUFFS INTO THE LUNGS EVERY 4 HOURS NEEDED FOR WHEEZING FOR UP TO 30 DAYS. 11/20/19 24 Active amantadine (SYMMETREL) 100 mg capsule Take 1 capsule (100 mg total) by mouth 2 (two) times a day. Active baclofen (LIORESAL) 10 mg tablet Take 1 tablet (10 mg total) by mouth 2 (two) times a day. 09/15/19 24 Active budesonide-formo teroL (Symbicort) 160-4.5 mcg/actuation inhaler Inhale 2 puffs by mouth. 02/06/20 24 Active cloNIDine (CATAPRES) 0.2 mg tablet 1 tablet (0.2 mg total). 04/25/20 15 Active clotrimazole (LOTRIMIN) 1 % cream Apply to skin and toenails daily for 12 weeks 12/30/19 24 Active cyclobenzaprine (FLEXERIL) 10 mg tablet TAKE 1 TABLET BY MOUTH 3 TIMES A DAY NEEDED FOR MUSCLE SPASMS FOR UP TO 14 DAYS 01/05/20 21 Active diclofenac (CATAFLAM) 50 mg tablet 1 tablet (50 mg total). 01/25/20 17 Active diclofenac (VOLTAREN) 50 mg EC tablet Take 1 tablet (50 mg total) by mouth 1 (one) time each day. 09/06/19 22 Active diclofenac (Voltaren Arthritis Pain) 1 % topical gel Place on the skin. Active diclofenac (VOLTAREN) 1 % topical gel Apply 4 g topically. 10/11/19 22 Active ergocalciferol (VITAMIN D-2) 1,250 mcg (50,000 unit) capsule TAKE 1 CAPSULE BY MOUTH ONE TIME PER WEEK FOR 8 DOSES 08/20/19 23 Active FLUoxetine (PROzac) 10 mg tablet 1 tablet (10 mg total). 02/24/20 15 Active fluticasone propionate (FLONASE) 50 mcg/actuation nasal spray INHALE 1 SPRAY IN EACH NOSTRIL ONCE A DAY NASALLY FOR 7 DAYS 06/25/20 18 Active lidocaine-priloc traci (EMLA) 2.5-2.5 % cream APPLY AFFECTED AREA 2 HOURS PRIOR TO PROCEDURE APPLY CHARMAINE AND LOOSLEY COVER PLASTIC WRAP 07/07/20 18 Active melatonin 10 mg capsule Take 1 capsule (10 mg total) by mouth. 08/03/19 22 Active metoclopramide (REGLAN) 5 mg tablet TAKE 1 TABLET BY MOUTH 4 TIMES DAILY FOR 10 DAYS. 07/29/19 23 Active omeprazole (PriLOSEC) [address] capsule Take 1 capsule (40 mg total) by mouth. Active polyethylene glycol (Purelax) 17 gram packet TAKE 1 PACKET BY MOUTH DAILY NEEDED FOR CONSTIPATION FOR UP TO 14 DAYS. 10/22/19 24 Active senna-docusate (PERICOLACE) 8.6-50 mg per tablet TAKE 1 TABLET BY MOUTH 3 TIMES DAILY NEEDED FOR CONSTIPATION 01/05/20 21 Active silver sulfADIAZINE (SILVADENE, SSD) 1 % cream Apply topically to nail bed daily 01/16/20 23 Active sodium chloride (AYR) 0.65 % nasal drops Administer 1 spray into affected nostril(s). 07/29/19 20 Active SUMAtriptan (IMITREX) 50 mg tablet Take 1 tablet (50 mg total) by mouth 1 (one) time each day. 09/14/19 22 Active traZODone (DESYREL) 100 mg tablet Take 1 tablet (100 mg total) by mouth. Active triamcinolone (NASACORT) 55 mcg nasal inhaler Administer 1 spray into affected nostril(s). 01/23/20 18 Active ursodioL (ACTIGALL) 300 mg capsule Take 2 capsules (600 mg total) by mouth. 11/21/19 23 Active wheat dextrin (Benefiber Clear SF, dextrin,) 3 gram/3.5 gram powder in packet Take 4 g by mouth. 11/20 23 Active zolpidem (AMBIEN) 10 mg tablet 1 tablet (10 mg total). 08/17/19 16 Active glycerin/hyaluro lana sodium (OCEAN WITH HYALURONAN TOP) 30 mg/mL. 05/22/20 16 Active vitamin A 3,000 mcg (10,000 unit) tablet Take 1 tablet (10,000 Units total) by mouth 1 (one) time each day. 07/18/20 23 Active topiramate (TOPAMAX) 25 mg tablet Take 1 tablet (25 mg total) by mouth 1 (one) time each day. at bedtime for 30 days 07/14/20 24 Active budesonide-formo teroL (Symbicort) 160-4.5 mcg/actuation inhaler Inhale 2 puffs by mouth 2 (two) times a day. Rinse mouth with water after use to reduce aftertaste and incidence of candidiasis. Do not swallow. 1 each 12 07/23/19 25 026 Active carbidopa-levodo pa CR (SINEMET CR) 50-200 mg per CR tablet Take 1 tablet by mouth at bedtime. Active EPINEPHrine (EPIPEN) 0.3 mg/0.3 mL injection Inject 0.3 mL (0.3 mg total) under the skin 1 (one) time. Active dicyclomine (BENTYL) 10 mg capsule Take 1 capsule (10 mg total) by mouth 3 (three) times a day if needed (abd pain). 90 capsule 3 07/28/19 25 Active pantoprazole (PROTONIX) 40 mg EC tablet Take 1 tablet (40 mg total) by mouth 2 (two) times a day before meals. 60 tablet 3 07/28/19 25 Active ammonium lactate (LAC-HYDRIN) 12 % lotion Apply topically 1 (one) time each day. 400 g 2 08/04/19 25 Active Gas Relief Extra Strength 125 mg capsuleIndicatio ns:Erosive gastritis TAKE 1 CAPSULE BY MOUTH 3 TIMES DAILY NEEDED (GAS). 90 capsule 3 08/30/19 25 Active Linzess 72 mcg capsuleIndicatio ns:Erosive gastritis TAKE 1 CAPSULE BY MOUTH EVERY DAY 30 capsule 3 08/30/19 25 Active ammonium lactate (AmLactin) 12 % lotion Apply topically if needed for dry skin. 400 g 10/05/19 25 026 Active sucralfate (CARAFATE) 100 mg/mL suspension Take 10 mL (1 g total) by mouth 3 (three) times a day before meals. Take 1 hour before meals and at bedtime 900 mL 3 10/28/19 25 026 Active polyethylene glycol (Golytely) 236-22.74-6.74 -5.86 gram solution Take 4L by mouth once for one dose. May substitue any PEG. Starting at 6PM the night before your procedure drink 1 8oz glasses at your own pace until you complete half of the gallon. Finish 2nd half of the gallon 5 hours before your procedure. 4000 mL 10/28/19 25 Active bisacodyL (DULCOLAX) 5 mg EC tablet Take 2 tablets by mouth right before beginning bowel prep. See instructions provided by the office 2 tablet 10/28/19 25 Active LORazepam (ATIVAN) 0.5 mg tablet Take 1 tablet (0.5 mg total) by mouth See administration instructions for 1 day. Please take 1 to 2 tablets by mouth 1 hour before MRI 2 tablet 10/28/19 25 Active zinc gluconate 30 mg tablet TAKE 1 TABLET BY MOUTH EVERY DAY 28 tablet 1 11/23/19 25 Active ammonium lactate (AmLactin) 12 % lotion Apply topically if needed for dry skin. 400 g 03/10/20 25 026 Active diclofenac (Voltaren Arthritis Pain) 1 % topical gel Apply 4 g topically 2 (two) times a day. 240 g 1 03/10/20 25 025 Active Problems Problem Noted Date Diagnosed Date Asthma 11/03/2024 Overweight (BMI 25.0-29.9) 08/18/2024 Bariatric surgery status 08/18/2024 Snoring 10/15/2021 Overview (04/20/2024): 09/2021 Home Sleep Study did not reveal sleep apnea or nocturnal hypoxia. Bennett's esophagus without dysplasia 08/23/2021 Depression 08/12/2018 Erosive gastritis 10/21/2017 GERD (gastroesophageal reflux disease) 8 Primary insomnia 10/07/2017 Overview (04/20/2024): 01/2018 Home Sleep Study did not reveal sleep apnea. Vitamin D deficiency 10/07/2017 Achalasia 08/12/2017 Anxiety 07/22/2017 Hep B w/o coma, chronic, w/o delta (CMS/HCC V24, CMS/HCC V28) 07/22/2017 Claustrophobia 01/24/2017 Headache, migraine 01/24/2017 Varicose veins of calf 06/18/2016 Allergic rhinitis 06/18/2016 Herpes simplex 06/18/2016 Hypothyroidism 06/18/2016 Generalized osteoarthritis of multiple sites 08/2015 Overview (04/20/2024): Comments: Involving both hands, knees, cervical and lumbar spine and feet. 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 Overview (04/20/2024): Seen at TB clinic Microscopic hematuria 05/24/2015 Spinal stenosis 05/24/2015 Colon polyp 02/23/2015 Thyroid nodule 10/17/2014 Internal hemorrhoids 10/12/2014 Primary amenorrhea 10/09/2013 Encounters Date Type Department Care Team Description 05/29/2025 Results Follow-Up Gastroenterology - [address] [place] [phone] Ashley Jack PA 05/23/2025 2:55 PM EST Lab Draw Station - [address] [place] [address] [phone] Chronic hepatitis B (CMS/HCC V24, CMS/HCC V28); Bennett's esophagus without dysplasia; Gastroesophageal reflux disease with esophagitis without hemorrhage; Hx of colonic polyps; RUQ abdominal pain 05/23/2025 2:00 PM EST Office Visit Gastroenterology - [address] [place] [address] [phone] Ashley Jack PA Chronic hepatitis B (CMS/HCC V24, CMS/HCC V28) (Primary Dx); Bennett's esophagus without dysplasia; Gastroesophageal reflux disease with esophagitis without hemorrhage; Hx of colonic polyps; RUQ abdominal pain 04/21/2025 2:45 PM EDT Office Visit Orthopedic Surgery [facility] [address] [phone] Kevin Alston DPM Plantar fascial fibromatosis (Primary Dx); Dermatophytosis of nail; Verruca plantaris; Ingrowing nail 03/31/2025 11:15 AM EDT Office Visit Pulmonology [facility] 175 [facility] [address] [place] [phone] Aster Knapp MD Dyspnea, unspecified type (Primary Dx); Moderate persistent asthma, unspecified whether complicated; Upper airway cough syndrome; LA (obstructive sleep apnea) 03/10/2025 1:45 PM EDT Office Visit Orthopedic [facility] [address] [phone] Kevin Alston DPM Dermatophytosis of nail (Primary Dx); Verruca plantaris; Plantar fascial fibromatosis from Last 3 Months Immunizations Immunization Administration Dates Next Due PPD Test 06/26/2015 Surgical History Surgery Date Site/Laterality Comments UPPER GASTROINTESTINAL ENDOSCOPY 10/07/2017 PROCEDURE: [place] UPPER GI ENDOSCOPY PERFORMED CHOLECYSTECTOMY PROCEDURE: HISTORICAL CHOLECYSTECTOMY OTHER SURGICAL HISTORY PROCEDURE: REMOVAL OF LEG VEIN SECTION PROCEDURE: HISTORICAL DELIVERY; COMMENT: x2 OTHER SURGICAL HISTORY 11/24/2007 PROCEDURE: HISTORY OTHER; COMMENT: 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 TUBAL LIGATION PROCEDURE: HISTORICAL TUBAL LIGATION Medical History Medical History Date Comments Achalasia 08/12/2017 DX:Achalasia Allergic rhinitis 06/18/2016 DX:Allergic rh initis Anxiety 07/22/2017 DX:Anxiety Carpal tunnel syndrome 09/15/2015 DX:Carpal tunnel syndrome Claustrophobia 01/24/2017 DX:Claustrophobi a Colon polyp 02/23/2015 DX:Colon polyp Depression 08/12/2018 DX:Depression Erosive gastritis 10/21/2017 DX:Erosive gas tritis Generalized osteoarthritis o f multiple sites 05/22/2016 DX:Generalized osteoarthriti s of multiple sites; COMMENT: Comments: Involving both hands, knees, cervical and lumbar spine and feet. GERD (gastroesophageal reflu x disease) 10/07/2017 DX:GERD (gastroesophageal re flux disease) Headache, migraine 01/24/2017 DX:Headache, migraine Hep B w/o coma, chronic, w/o delta ([facility] V24, [facility] V28) 07/22/2017 DX:Hep B w/o coma, chronic, w/o delta ([facility]) Herpes simplex 06/18/2016 DX:Herpes simple x History of Helicobacter pylo ri infection 04/24/2016 DX:History of Helicobacter p ylori infection Hypothyroidism 06/18/2016 DX:Hypothyroidis m Internal hemorrhoids 10/12/2014 DX:Internal hemorrhoids Microscopic hematuria 05/24/2015 DX:Microsc opic hematuria Morbid obesity with BMI of 4 5.0-49.9, adult ([facility] V24, [facility] V28) 09/30/2017 DX:Morbid obesity wit h BMI of 45.0-49.9, adult ([facility]) 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 Raynaud's disease 10/12/2015 DX:Raynaud's d isease Spinal stenosis 05/24/2015 DX:Spinal stenos is Thyroid nodule 10/17/2014 DX:Thyroid nodul e Varicose veins 06/18/2016 DX:Varicose vein s Vitamin D deficiency 10/07/2017 DX:Vitamin D deficiency Social History Tobacco Use Types Packs/Day Years Used Date Smoking Tobacco: Never Smokeless Tobacco: Never Tobacco Cessation:Counseling Given: Not Answered Alcohol Use Standard Drinks/Week Comments No 0 [...] Orientation Straight 07/26/2024 1: 15 PM EST Obstetrics History Para Term AB IAB SAB Ectopic Multiple Livin g Live Births 6 Last Filed Vital Signs Vital Sign Reading Time Taken Comments Blood Pressure 98/52 05/23/2025 2:06 PM EST Pulse 92 05/23/2025 2:06 PM EST Temperature 36.1 C (97 F) 03/31/2025 11:10 AM EDT Respiratory Rate 14 11/03/2024 11:28 AM EDT Oxygen Saturation 98% 05/23/2025 2:06 PM EST Inhaled Oxygen Concentration - - Weight 80.7 kg (178 lb) 05/23/2025 2:06 PM EST Height 167.6 cm (5' 6 ) 05/23/2025 2:06 PM EST Body Mass Index 28.73 05/23/2025 2:06 PM EST Plan of Treatment Upcoming Encounters Date Type Department Care Team (Late st Contact Info) Description 06/29/2025 2:15 PM EST Office Visit Bariatric Surgery - [address] [place] [phone] Barb Traore PA [address] [place] [phone] 07/25/2025 1:00 PM EST Ancillary Procedure Pulmonology - [place] 175 [facility] [address] [place] [phone] 08/02/2025 2:30 PM EST Office Visit Pulmonology - [place] 175 [facility] [address] [place] [phone] Aster Knapp MD [address] [place] [phone] 08/08/2025 1:30 PM EST Office Visit Orthopedic Surgery - [place] [address] [facility] [address] [place] [phone] Kevin Alston DPM 175 [facility] [address] [place] [phone] 12/28/2025 2:20 PM EDT Office Visit Gastroenterology - [address] [place] [address] [address] [facility] [address] [place] [phone] Ashley Jack PA [address] [facility] [address] [place] [address] Health Maintenance Due Date Last Done Comments Hepatitis A Vaccines (1 of 2 - Risk 2-dose series) 1989 Hepatitis B Vaccines (1 of 3 - 19+ 3-dose series) 1989 Pneumococcal Vaccine: 50+ Years (1 of 2 - PCV) 1989 Cervical Cancer Screening: Pap Smear 1991 RSV Immunization Adult Patients (1 - Risk 50-74 years 1-dose series) 2020 Zoster Vaccines (1 of 2) 2020 HIV Screening 06/29/2022 Hepatitis C Screening 06/29/2022 Social Influencers of Health Screening 06/29/2022 Depression Screening 07/21/2024 COVID-19 Vaccine ( season) 2025 10/19/2020, 09/28/2020 Breast Cancer Screening 09/29/2026 09/30/19 25, 09/30/2023, 04/07/2020, Additional history exists Cholesterol Screening (Lipid Panel) 02/27/2027 02/27/2022 DTaP,Tdap,and Td Vaccines (3 - Td or Tdap) 05/25/2034 05/25/2024, 04/11/2011 Colorectal Cancer Screening: Colonoscopy 11/03/2034 11/03/2024 Influenza Vaccine Completed 04/14/2025, , 05/20/2023, Additional history exists HIB Vaccines Aged Out No longer eligi ble based on patient's age to complete this topic HPV Vaccines Aged Out No longer eligi ble based on patient's age to complete this topic IPV Vaccines Aged Out No longer eligi ble based on patient's age to complete this topic MMR Vaccines Aged Out No longer eligi ble based on patient's age to complete this topic Meningococcal ACWY Vaccine Aged Out N o longer eligible based on patient's age to complete this topic Meningococcal B Vaccine Aged Out No l onger eligible based on patient's age to complete this topic RSV Immunization Patients Under 20 months Aged Out No longer eligible based on patient's age to complete this topic Varicella Vaccines Aged Out No longer eligible based on patient's age to complete this topic Procedures Procedure Name Priority Date/Time Associated Diagnosis Comments HEPATIC FUNCTION PANEL Routine 05/23/2025 2:59 PM EST Chronic hepatitis B (CMS/HCC V24, CMS/HCC V28) Bennett's esophagus without dysplasia Gastroesophageal reflux disease with esophagitis without hemorrhage Hx of colonic polyps RUQ abdominal pain HEPATITIS B VIRUS PCR QUANTITATIVE Routine 05/23/2025 2:59 PM EST Chronic hepatitis B (CMS/HCC V24, CMS/HCC V28) Bennett's esophagus without dysplasia Gastroesophageal reflux disease with esophagitis without hemorrhage Hx of colonic polyps RUQ abdominal pain COLONOSCOPY Routine 11/03/2024 11:07 AM EDT Rectal pain Hx of colonic polyps MG MAMMO DIGITAL SCREENING W OSWALDO BILAT Routine 09/29/2024 2:54 PM EDT Encounter for screening mammogram for breast cancer LIPID PANEL Routine 02/27/2022 from Last 3 Months or Most Recently Relevant to Health Maintenance Results * (ABNORMAL) Hepatitis B virus molecular study quantitative (05/23/2025 2:59 PM EST) Hepatitis B Virus DNA Qualitative DETECTED( A) Not detected 05/26/2025 8:12 AM EST [facility] Hepatitis B Virus DNA, Quantitative 1,843(H) <10 IU/mL 05/26/2025 8:12 AM EST [facility] Log Hepatitis B Virus DNA 3.27(H) <1.00 Log (10) IU/mL 05/26/2025 8:12 AM EST [facility] Comment: This procedure utilizes a real-time polymerase chain reaction test from [employer]. The amplification target is a conserved region [...] not rule out infection. Test performed at [facility], [address], [place] [address] Maryan Trevizo MD, PhD - [employer] Hand Blood Venous blood specimen / Unknown Venipuncture / Unknown 05/23/2025 2:59 PM EST 05/23/2025 4:09 PM EST Ashley MEDRANO LAB BLOOD ORDERABLES Final Re sult [facility] [address] [place] [address] * Hepatic function panel (05/23/2025 2:59 PM EST) Pathologist [facility] Total Protein 6.4 6.0 - 8.0 g/dL LAB CHEMISTRY METHOD 05/23/2025 4:[address] [facility] Albumin 3.5 3.2 - 5.0 g/dL LAB CHEMISTRY METHOD 05/23/2025 4:[address] [facility] Total Bilirubin 0.8 0.0 - 1.4 mg/dL LAB CHEMISTRY METHOD 05/23/2025 4:[address] [facility] Bilirubin, Direct 0.2 0.0 - 0.3 mg/dL LAB CHEMISTRY METHOD 05/23/2025 4:57 PM [facility] Bilirubin, Indirect 0.6 0.0 - 1.1 mg/dL LAB CHEMISTRY METHOD 05/23/2025 4:57 PM [facility] ALT (SGPT) 13 10 - 60 unit/L LAB CHEMISTRY METHOD 05/23/2025 4:57 PM [facility] AST (SGOT) 12 10 - 42 unit/L LAB CHEMISTRY METHOD 05/23/2025 4:57 PM [facility] Alkaline Phosphatase 93 42 - 121 unit/L LAB CHEMISTRY METHOD 05/23/2025 4:57 PM [facility] Blood Venous blood specimen / Unknown Venipuncture / Unknown 05/23/2025 2:59 PM EST 05/23/2025 4:09 PM EST Ashley MEDRANO LAB BLOOD ORDERABLES Final Re sult [facility] [address] [place] [address], * [place]OS[place] [facility] ENDOSCOPY (11/03/2024 11:07 AM EDT) Anatomical Region Laterality Modality Endoscopy 11/03/2024 10:4 6 AM EDT Impressions 11/03/2024 11:12 AM EDT - The entire examined colon is normal on direct and retroflexion views. - No specimens collected. Recommendation: - Discharge patient to home. - Repeat colonoscopy in 10 years for screening purposes. Narrative 11/03/2024 11:12 AM EDT [facility] GI Patient Name: Romana Guillaume Procedure Date: 11/03/2024 10:46 AM Date of : 1970 Age: 54 Gender: Female Note Status: Finalized Attending MD: Lonnie Faustin MD, Procedure Date No Time: 11/03/2024 Procedure: Colonoscopy Indications: Screening for colorectal malignant neoplasm Providers: Lonnie Faustin MD Referring MD: Lonnie Faustin MD Medicines: Monitored Anesthesia Care Complications: No immediate complications. Estimated Blood Loss: Estimated blood loss: none. Procedure: Pre-Anesthesia Assessment: - Prior to the procedure, a History and Physical was performed, and patient medications and allergies were reviewed. The patient is competent. The risks and benefits of the procedure and the sedation options and risks were discussed with the patient. All questions were answered and informed consent was obtained. Patient identification and proposed procedure were verified by the physician, the nurse, the leather production machine operator and the thermoplastic technician in the pre-procedure area in the endoscopy suite. Mental Status Examination: alert and oriented. Airway Examination: normal oropharyngeal airway and neck mobility. Respiratory Examination: clear to auscultation. CV Examination: normal. Prophylactic Antibiotics: The patient does not require prophylactic antibiotics. Prior Anticoagulants: The patient has taken no anticoagulant or antiplatelet agents. ASA Grade Assessment: II - A patient with mild systemic disease. After reviewing the risks and benefits, the patient was deemed in satisfactory condition to undergo the procedure. The anesthesia plan was to use monitored anesthesia care (MAC). Immediately prior to administration of medications, the patient was re-assessed for adequacy to receive sedatives. The heart rate, respiratory rate, oxygen saturations, blood pressure, adequacy of pulmonary ventilation, and response to care were monitored throughout the procedure. The physical status of the patient was re-assessed after the procedure. After I obtained informed consent, the scope was passed under direct vision. Throughout the procedure, the patient's blood pressure, pulse, and oxygen saturations were monitored continuously. The Olympus Pediatric Colonosocpe was introduced through the anus and advanced to the cecum, identified by appendiceal orifice and ileocecal valve. The colonoscopy was performed without difficulty. The patient tolerated the procedure well. The quality of the bowel preparation was good. Findings: The perianal and digital rectal examinations were normal. The entire examined colon appeared normal on direct and retroflexion views. Procedure Code(s): --- Professional --- G0121, Colorectal cancer screening; colonoscopy on individual not meeting criteria for high risk Diagnosis Code(s): --- Professional --- Z12.11, Encounter for screening for malignant neoplasm of colon CPT copyright 2020 [employer]. All rights reserved. The codes documented in this report are preliminary and upon manager credit review may be revised to meet current compliance requirements. Lonnie Faustin MD 11/03/2024 11:11:55 AM This report has been signed electronically.Lonnie Faustin MD Number of Addenda: 0 Note Initiated On: 11/03/2024 10:46 AM Scope Withdrawal Time: 0 hours 6 minutes 58 seconds Scope In: 10:51:52 AM Scope Out: 11:07:22 AM Endoscopy Department at [facility] - [address] [place] [phone] Procedure Note Lonnie Faustin MD - 11/03/2024 [facility] GI Patient Name: Romana Guillaume Procedure Date: 11/03/2024 10:46 AM Date of : 1970 Age: 54 Gender: Female Note Status: Finalized Attending MD: Lonnie Faustin MD, Procedure Date No Time: 11/03/2024 Procedure: Colonoscopy Indications: Screening for colorectal malignant neoplasm Providers: Lonnie Faustin MD Referring MD: Lonnie Faustin MD Medicines: Monitored Anesthesia Care Complications: No immediate complications. Estimated Blood Loss: Estimated blood loss: none. Procedure: Pre-Anesthesia Assessment: - Prior to the procedure, a History and Physicalwas performed, and patient medications and allergieswere reviewed. The patient is competent. The risks and benefits of the procedure and the sedation optionsand risks were discussed with the patient. Allquestions were answered and informed consent was obtained. Patient identification and proposed procedure were verified by the physician, the nurse, theanesthetist and the thermoplastic technician in the pre-procedure area in the endoscopy suite. Mental Status Examination: alertand oriented. Airway Examination: normal oropharyngeal airway and neck mobility. Respiratory Examination: clear to auscultation. CV Examination: normal. Prophylactic Antibiotics: The patient does notrequire prophylactic antibiotics. Prior Anticoagulants: The patient has taken no anticoagulant or antiplatelet agents. ASA Grade Assessment: II - A patient withmild systemic disease. After reviewing the risks and benefits, the patient was deemed in satisfactory condition to undergo the procedure. The anesthesia plan was to use monitored anesthesia care (MAC). Immediately prior to administration of medications, the patient was re-assessed for adequacy to receive sedatives. The heart rate, respiratory rate, oxygen saturations, blood pressure, adequacy of pulmonary ventilation, and response to care were monitored throughout the procedure. The physical status ofthe patient was re-assessed after the procedure. After I obtained informed consent, the scope was passed under direct vision. Throughout theprocedure, the patient's blood pressure, pulse, and oxygen saturations were monitored continuously. TheOlympus Pediatric Colonosocpe was introduced through theanus and advanced to the cecum, identified byappendiceal orifice and ileocecal valve. The colonoscopy was performed without difficulty. The patient tolerated the procedure well. The quality of the bowel preparation was good. Findings: The perianal and digital rectal examinations were normal. The entire examined colon appeared normal on direct and retroflexion views. Procedure Code(s): --- Professional --- G0121, Colorectal cancer screening; colonoscopy on individual not meeting criteria for high risk Diagnosis Code(s): --- Professional --- Z12.11, Encounter for screening for malignantneoplasm of colon CPT copyright 2020 [employer]. All rights reserved. The codes documented in this report are preliminary and upon manager credit reviewmay be revised to meet current compliance requirements. Lonnie Faustin MD 11/03/2024 11:11:55 AM This report has been signed electronically.Lonnie Faustin MD Number of Addenda: 0 Note Initiated On: 11/03/2024 10:46 AM Scope Withdrawal Time: 0 hours 6 minutes 58 seconds Scope In: 10:51:52 AM Scope Out: 11:07:22 AM Endoscopy Department at [facility] - [address] [place] [id number] IMPRESSION: - The entire examined colon is normal on direct and retroflexion views. - No specimens collected. Recommendation: - Discharge patient to home. - Repeat colonoscopy in 10 years for screening purposes. us Lonnie Faustin MD GI~PROCEDURE ORDERABLES Fin al Result * MG Mammo Digital Screening w Oswaldo bilat (09/29/2024 2:54 PM EDT) Anatomical Region Laterality Modality Breast Bilateral Mammography 09/29/2024 5:32 PM EDT Impressions 09/29/2024 5:37 PM EDT No mammographic evidence of malignancy. No suspicious interval change. A negative mammogram in the presence of a clinically suspicious palpable abnormality does not preclude the possibility of malignancy or alter the indications for biopsy. ASSESSMENT: BI-RADS 1: NEGATIVE RECOMMENDATION(S): 1: Routine screening mammogram BILATERAL in 1 year. [facility] location[facility] [address], [address] -------- FINAL REPORT -------- Dictated By: Joe Ang Dictated Date: 09/29/2024 17:32 ET Assigned Physician: Joe Ang Reviewed and Electronically Signed By: Joe Ang Signed Date: 09/29/2024 17:37 ET Workstation ID: [id number] Transcribed By: Self Edit Transcribed Date: 09/29/2024 17:32 ET Narrative 09/29/2024 5:37 PM EDT EXAM: SCREENING MAMMOGRAPHY, BILATERAL HISTORY: SCREENING. No additional history. COMPARISON: 09/30/2023, 04/07/2020 TECHNIQUE: Synthesized CC and MLO projections of each breast. Tomosynthesis of each breast in the CC and MLO projections. ADDITIONAL IMAGING: None Computer-aided detection was employed with the [employer] AI 3-D. TISSUE DENSITY: There are scattered areas of fibroglandular density. (BI-RADS category B) FINDINGS: RIGHT BREAST: No suspicious mass. No suspicious calcification. No distortion. No additional suspicious right breast findings LEFT BREAST: No suspicious mass. No suspicious calcification. No distortion. No additional suspicious left breast findings Procedure Note Joe Ang MD - 09/29/2024 EXAM: SCREENING MAMMOGRAPHY, BILATERAL HISTORY: SCREENING. No additional history. COMPARISON: 09/30/2023, 04/07/2020 TECHNIQUE: Synthesized CC and MLO projections of each breast.Tomosynthesis of each breast in the CC and MLO projections. ADDITIONAL IMAGING: None Computer-aided detection was employed with the [employer] AI 3-D. TISSUE DENSITY: There are scattered areas of fibroglandular density.(BI-RADS category B) FINDINGS: RIGHT BREAST: No suspicious mass. No suspicious calcification. No distortion. Noadditional suspicious right breast findings LEFT BREAST: No suspicious mass. No suspicious calcification. No distortion. Noadditional suspicious left breast findings IMPRESSION: No mammographic evidence of malignancy. No suspicious interval change. A negative mammogram in the presence of a clinically suspicious palpableabnormality does not preclude the possibility of malignancy or alter theindications for biopsy. ASSESSMENT: BI-RADS 1: NEGATIVE RECOMMENDATION(S): 1: Routine screening mammogram BILATERAL in 1 year. [facility]amm[facility] location: [facility] at [address], [address] -------- FINAL REPORT -------- Dictated By: Joe Ang Dictated Date: 09/29/2024 17:32 ET Assigned Physician: Joe Ang Reviewed and Electronically Signed By: Joe Ang Signed Date: 09/29/2024 17:37 ET Workstation ID: [id number] Transcribed By: Self Edit Transcribed Date: 09/29/2024 17:32 ET us Self Referral [facility] IMG BI PROCEDURES Final Resul t * Lipid panel (02/27/2022) LDL/HDL Ratio 3 0 - 4 Triglycerides 83 0 - 150 mg/dL Cholesterol 150 0 - 200 mg/dL HDL 49 >=40 mg/dL LDL Cholesterol 85 0 - 100 mg/dL Blood Venous blood specimen / Unknown us Historical Provider LAB BLOOD ORDERABLES Taniya l Result from Last 3 Months or Most Recently Relevant to Health Maintenance Insurance [facility] 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
--- OUTSIDE RECORDS SUMMARY | 2025-06-01 17:45 | XMS_ITS | Clinical Summary ---
Author Organization [facility] Address [address] [place] [address] Care Team Providers Care Bilingual Speech Language Pathologist Name Role Phone Marisol Castellano NP Primary Care Provider [phone] Source Comments PLEASE NOTE, if this patient is a minor, it may be UNLAWFUL to discuss sensitive information that is contained in these records (such as FAMILY PLANNING, MENTAL HEALTH or SUBSTANCE ABUSE) with the minor patient's parent or other person without the patient's specific authorization.[facility] Allergies No known active allergies Medications ofloxacin (FLOXIN) 0.3 % otic solutionIndications :Otitis externa Place 10 Drops into the left ear once daily. 10 mL 0 4 Active traMADol (ULTRAM) 50 mg tabletIndications:D egenerative disc disease, lumbar Take 1 Tab by mouth 4 (four) times daily as needed for pain. 120 Tab 0 4 Active loratadine (CLARITIN) 10 mg tabletIndications:A nnual physical exam Take 1 Tab by mouth once daily as needed for allergies. 30 Tab 3 4 Active ergocalciferol, vitamin D2, (VITAMIN D2) 50,000 unit capsule Take 1 Cap by mouth once a week. 4 Cap 3 4 Active omeprazole (PRILOSEC) 20 mg tablet Take 20 mg by mouth once daily. 30 Tab 3 4 Active COMP.STOCKING,THIGH ,REG,LARGE (COMPRESSION STOCKING)Indication s:Varicose veins DX 454.8 4 Each 3 4 Active ranitidine (ZANTAC) 300 mg tabletIndications:A dulce maria reflux Take 1 Tab by mouth nightly at bedtime. 30 Tab 3 4 Active baclofen (LIORESAL) 10 mg tabletIndications:D egenerative disc disease, lumbar Take 1 Tab by mouth 3 (three) times daily. 90 Tab 0 4 Active ondansetron (ZOFRAN ODT) 4 mg disintegrating tabletIndications:N ausea Take 1 Tab by mouth 2 (two) times daily as needed for nausea. 30 Tab 0 5 Active polyethylene glycol (GLYCOLAX, MIRALAX) 17 gram/dose powderIndications:C onstipation Take 17 g by mouth once daily. Dissolve in a glass (8 oz) of water. 255 g 1 5 Active azithromycin (ZITHROMAX Z-EUGENE) 250 mg tabletIndications:C ough Take two tablets on Day 1, and one tablet on Days 2-5. 6 Tab 0 5 Active dextromethorphan-gu aiFENesin (ROBITUSSIN DM) 10-100 mg/5 mL liquidIndications:C ough Take 5 mL by mouth every 4 to 6 (four to six) hours as needed for cough. 1 Bottle 1 5 Active fluticasone (FLONASE) 50 mcg/actuation nasal spray PLACE 1 SPRAY INTO THE NOSTRIL(S) ONCE DAILY. 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 Family History Medical History Relation Name Comments Heart Problems Father Hypertension Father Diabetes Mother Hypertension Mother Asthma Sister 1 Arthritis Sister 2 Relation Name Status Comments Brother 1 Alive Brother 2 Alive Brother 3 Alive Brother 4 (Age 40) war Father Alive Mother Alive Sister 1 Alive Sister 2 Alive Social History Tobacco Use Types Packs/Day Years Used Date Smoking Tobacco: Never Alcohol Use Standard Drinks/Week Comments No 0 (1 standard drink = 0.6 oz pur e alcohol) Comments No Sex and Gender Information Value Date Recorded Sex Assigned at Not on file Legal Sex Female 1:49 PM PST Gender Identity Not on file Sexual Orientation Not on file Last Filed Vital Signs Vital Sign Reading Time Taken Comments Blood Pressure 133/69 08/05/2014 3:09 PM EST Pulse 78 08/05/2014 3:09 PM EST Temperature 36.9 C (98.4 F) 08/05/2014 3:09 PM EST Respiratory Rate 16 08/05/2014 3:09 PM EST Oxygen Saturation - - Inhaled Oxygen Concentration - - Weight 131.1 kg (289 lb) 08/05/2014 3:09 PM EST Height 165.1 cm (5' 5 ) 08/05/2014 3:09 PM EST Body Mass Index 48.09 08/05/2014 3:09 PM EST Plan of Treatment Not on file Insurance [facility] Care Teams Bilingual Speech Language Pathologist Relationship Specialty Start Date End Date Marisol Castellano NP [address] [place] [address] PCP - General Internal Medicine 11/22/14
--- OUTSIDE RECORDS SUMMARY | 2025-06-01 17:45 | XMS_ITS | Data Portability ---
Author Organization [facility] Francesco Segura [facility], [facility] Address [address] [place] [address] Care Team Providers Care Line Dancer Name Role Phone RAMON LEWIS Primary Care Provider [phone] Assessment No assessment recorded. Plan of Treatment Reminders Order Date Submit Date Provider Last Modified By Organization Details Last Modified Time Details Appointments INJECTION ONLY 15 2024 02:15P Baljit APARICIO PA-C Not available Not available Not available INJECTION ONLY 15 2024 02:15P Baljit APARICIO PA-C Not available Not available Not available INJECTION ONLY 15 2024 02:15P Baljit APARICIO PA-C Not available Not available Not available Lab None recorded. Referral None recorded. Procedures None recorded. Surgeries None recorded. Imaging None recorded. Medication Orders None recorded. Patient TargetsNo targets recorded. Patient InstructionsNo instructions recorded. Reason for Referral None Reported. Problems Name Problem SNOMED Code Status Onset Date Resolution Date Notes Provider Name and Address Organization Details Recorded Time No complaint s [id number] Active Status: 'I'; Not Available [facility] 4 09:26:24 Carpal tunnel syndrome of left wrist 236911518370 102 Active 2015 Problem Code: G56.02; Problem Code Type: ICD-10; Status: 'A'; Not Available [facility] 4 11:43:47 Carpal tunnel syndrome of right wrist 168864861015 108 Active 2015 Problem Code: G56.01; Problem Code Type: ICD-10; Status: 'A'; Not Available [facility] 4 11:43:47 Acquired pes planus of right foot 553965399212 106 Active 2015 Problem Code: M21.41; Problem Code Type: ICD-10; Status: 'A'; Not Available [facility] 4 11:43:47 Pain of right knee joint 648585636875 100 Active 2023 STANLEY JACOB oh [facility] 4 14:45:10 Bilateral osteoarth ritis of knees 783825218626 107 Active 2023 STANLEY JACOB oh [facility] 4 14:45:53 Primary gonarthro sis, bilateral 542202097 Active 2024 Sweta Clemens PA-C [address], [place], [address] , [facility] 5 11:14:21 Problem Notes None recorded. Procedures Surgical History Date Name Laterality Status Provider Name and Address Organization Details Recorded Time 5 Knee Kenalog 40 1cc Injection, Bilateral completed Contreras Watkins PA-C [address], [place], [address], [facility] 02/24/2025 12:30:55 5 Sports Shoulder 4&1 completed Teja Thrasher PA-C [address], [place], [address], [facility] 12/16/2024 20:56:59 5 Knee Kenalog 40 1cc Injection, Bilateral completed Sweta Clemens PA-C [address], [place], [address], [facility] 10/26/2024 11:12:06 5 Euflexxa Knee Injection completed Manuela Han PA-C [address], [place], [address], [facility] 09/21/2024 14:53:59 5 Euflexxa Knee Injection completed Manuela Han PA-C [address], [place], [address], [facility] 09/15/2024 10:37:21 5 Euflexxa Knee Injection completed Manuela Han PA-C [address], [place], [address], [facility] 09/06/2024 10:43:10 5 Knee Kenalog 40 1cc Injection, Bilateral completed Manuela Han PA-C [address], [place], [address], [facility] 07/28/2024 07:33:25 4 Knee Kenalog 40 1cc Injection, Bilateral completed Manuela Han PA-C [address], [place], [address], [facility] 04/28/2024 15:26:18 4 Sports Shoulder 4&1 completed Teja Thrasher PA-C [address], [place], [address], [facility] 02/25/2024 14:10:51 4 Knee Kenalog 40 1cc Injection, Bilateral completed Manuela Han PA-C [address], [place], [address], [facility] 01/15/2024 17:33:29 4 Euflexxa Knee Injection completed Manuela Han PA-C [address], [place], [address], [facility] 01/15/2024 17:33:14 4 Euflexxa Knee Injection completed Manuela Han PA-C [address], [place], [address], [facility] 01/08/2024 17:07:06 4 Euflexxa Knee Injection completed Manuela Han PA-C [address], [place], [address], [facility] 01/02/2024 14:45:29 4 Knee Kenalog 40 1cc Injection, Bilateral completed Manuela Han PA-C [address] [facility] [address], [place], [address], [facility] 10/16/2023 13:27:41 Imaging Results None recorded. Procedure Notes None recorded. Medical Equipment None Reported. Allergies No known drug allergies Medications Name Sig Start Date Stop Date Status Note LastModified by Organization Details LastModified Time amantadine HCl 100 mg tablet TAKE 1 TABLET BY MOUTH MORNING AND NOONTIME active Not Available Not Available No t Available cyclobenzap rine 10 mg tablet TAKE 1 TABLET BY MOUTH TWICE A DAY NEEDED FOR MUSCLE SPASM active Not Available Not Available No t Available silver sulfadiazin e 1 % topical cream APPLY TOPICALLY TO NAIL BED DAILY 09/21 completed Not Available Not Available Not Available metformin 500 mg tablet TAKE 1 TABLET BY MOUTH TWICE A DAY WITH MEALS 09/21 completed Not Available Not Available Not Available venlafaxine ER 37.5 mg capsule,ext ended release 24 hr TAKE 1 CAPSULE BY MOUTH DAILY NEEDED FOR PAIN. active Not Available Not Available No t Available ammonium lactate 12 % lotion APPLY TO SOLES OF FEET DAILY. AT NIGHT WEAR SOCKS TO BED *NC BY INS* active Not Available Not Available No t Available polyethylen e glycol 3350 17 gram oral powder packet TAKE 1 PACKET BY MOUTH DAILY NEEDED FOR CONSTIPAT ION FOR UP TO 14 DAYS. 09/21 completed Not Available Not Available Not Available sucralfate 100 mg/mL oral suspension TAKE 10 ML (1 G TOTAL) 3 (THREE) TIMES A DAY BEFORE MEALS. TAKE 1 HOUR BEFORE MEALS AND AT BEDTIME active Not Available Not Available No t Available ondansetron HCl 4 mg tablet TAKE 1 TABLET (4MG TOTAL) BY MOUTH EVERY 8 HOURS NEEDED FOR NAUSEA active Not Available Not Available No t Available prednisone 20 mg tablet 09/21 completed Not Available Not Available Not Available propranolol ER 60 mg capsule,24 hr,extended release TAKE 1 CAPSULE (60 MG) BY MOUTH AT BEDTIME active Not Available Not Available No t Available carbidopa ER 50 mg-levodopa 200 mg tablet,exte nded release TAKE 1 TABLET BY MOUTH EVERYDAY AT BEDTIME active Not Available Not Available No t Available phentermine 15 mg capsule TAKE 1 CAPSULE BY MOUTH EVERY DAY FOR 30 DAYS 09/21 completed Not Available Not Available Not Available sumatriptan 50 mg tablet TAKE 1 TABLET BY MOUTH ONCE DAILY NEEDED 30 DAYS active Not Available Not Available No t Available topiramate 25 mg tablet TAKE 1 TABLET BY MOUTH EVERY DAY AT BEDTIME FOR 90 DAYS active Not Available Not Available No t Available phentermine 37.5 mg tablet TAKE 1 TABLET BY MOUTH EVERY DAY BEFORE BREAKFAST active Not Available Not Available No t Available valacyclovi r 500 mg tablet TAKE 1 TABLET BY MOUTH TWICE A DAY DIRECTED 09/21 completed Not Available Not Available Not Available amantadine HCl 100 mg capsule TAKE 1 CAPSULE BY MOUTH EVERY MORNING AND AT NOONTIME active Not Available Not Available No t Available acetaminoph en 500 mg tablet TAKE 1-2 TABLETS BY MOUTH TWICE A DAY NEEDED FOR PAIN 10/15 completed Not Available Not Available Not Available phentermine 30 mg capsule TAKE 1 CAPSULE BY MOUTH EVERY DAY active Not Available Not Available No t Available acetaminoph en ER 650 mg tablet,exte nded release TAKE 2 TABLETS BY MOUTH EVERY 8 HOURS NEEDED active Not Available Not Available No t Available ciclopirox 8 % topical solution PLEASE SEE ATTACHED FOR DETAILED DIRECTION S active Not Available Not Available No t Available hydrocortis one 2.5 % topical cream with perineal applicator APPLY 1 APPLICATI ON TWICE A DAY FOR 30 DAYS 09/21 completed Not Available Not Available Not Available prednisolon e acetate 1 % eye drops,suspe nsion INSTILL 1 DROP INTO LEFT EYE ONCE A DAY active Not Available Not Available No t Available vitamin A 3,000 mcg (10,000 unit) capsule TAKE 1 CAPSULE BY MOUTH EVERY DAY 09/21 completed Not Available Not Available Not Available zinc gluconate 30 mg tablet TAKE 1 TABLET BY MOUTH EVERY DAY active Not Available Not Available No t Available lorazepam 0.5 mg tablet PLEASE TAKE 1 TO 2 TABLETS BY MOUTH 1 HOUR BEFORE MRI, SEE ADMINISTR ATION INSTRUCTI ONS FOR 1 DAY active Not Available Not Available No t Available trazodone 100 mg tablet TAKE 1 TABLETS (100 MG) BY MOUTH DAILY AT BEDTIME active Not Available Not Available No t Available amitriptyli ne 10 mg tablet TAKE 1 TABLET BY MOUTH EVERY DAY AT BEDTIME FOR 90 DAYS active Not Available Not Available No t Available baclofen 10 mg tablet TAKE 1 TABLET BY MOUTH TWICE A DAY 09/21 completed Not Available Not Available Not Available cephalexin 500 mg capsule TAKE 1 CAPSULE BY MOUTH THREE TIMES A DAY FOR 10 DAYS 09/07 completed Not Available Not Available Not Available pantoprazol e 40 mg tablet,ani yed release TAKE 1 TABLET BY MOUTH 2 TIMES A DAY BEFORE MEALS. active Not Available Not Available No t Available trazodone 150 mg tablet TAKE 2 TABLET BY MOUTH EVERY DAY AT BEDTIME ORALLY ONCE A DAY 90 DAYS 09/21 completed Not Available Not Available Not Available lidocaine 5 % topical patch APPLY 1 PATCH ONCE DAILY FOR 12 HOURS AND REMOVE FOR 12 HOURS active Not Available Not Available No t Available ursodiol 300 mg capsule TAKE 2 CAPSULES BY MOUTH DAILY 09/21 completed Not Available Not Available Not Available Advair Diskus 250 mcg-50 mcg/dose powder for inhalation INHALE 1 PUFF TWICE A DAY FOR 90 DAYS 04/27 completed Not Available Not Available Not Available Gas Relief Extra Strength 125 mg capsule TAKE 1 CAPSULE BY MOUTH 4 TIMES DAILY NEEDED (ABDOMINA L BLOATING) . active Not Available Not Available No t Available montelukast 10 mg tablet TAKE 1 TABLET BY MOUTH EVERY DAY AT BEDTIME FOR 30 DAYS active Not Available Not Available No t Available furosemide 20 mg tablet TAKE 1 TABLET BY MOUTH 3 TIMES A WEEK FOR 30 DAYS 09/21 completed Not Available Not Available Not Available ergocalcife rol (vitamin D2) 1,250 mcg (50,000 unit) capsule TAKE 1 CAPSULE BY MOUTH WEEKLY FOR 30 DAYS active Not Available Not Available No t Available lorazepam 1 mg tablet 09/21 completed Not Available Not Available Not Available epinephrine 0.3 mg/0.3 mL injection, auto-inject or INJECT 1 PEN INJECTOR SINGLE DOSE NEEDED active Not Available Not Available No t Available estradiol 0.01% (0.1 mg/gram) vaginal cream INSERT 1 GRAM VAGINALLY TWICE WEEKLY 09/21 completed Not Available Not Available Not Available zolpidem 10 mg tablet TAKE 1 TABLET BY MOUTH EVERY DAY AT BEDTIME NEEDED active Not Available Not Available No t Available propranolol 20 mg tablet TAKE 1 TABLET BY MOUTH EVERY DAY FOR 30 DAYS 09/21 completed Not Available Not Available Not Available carbidopa 25 mg-levodopa 100 mg tablet TAKE 1 TABLET BY MOUTH THREE TIMES A DAY FOR 90 DAYS active Not Available Not Available No t Available fluoxetine 20 mg capsule TAKE 2 CAPSULES BY MOUTH EVERY DAY active Not Available Not Available No t Available fluticasone propionate 50 mcg/actuati on nasal spray,suspe nsion 1 SPRAY INTO INTO EACH NOSTRIL TWICE A DAY active Not Available Not Available No t Available clotrimazol e 1 % topical cream APPLY TO AFFECTED AREA TWICE A DAY active Not Available Not Available No t Available dicyclomine 10 mg capsule TAKE 1 CAPSULE (10 MG TOTAL) BY MOUTH 3 (THREE) TIMES A DAY IF NEEDED FOR ABDOMINAL PAIN active Not Available Not Available No t Available loratadine 10 mg tablet TAKE 1 TABLET BY MOUTH EVERY DAY active Not Available Not Available No t Available amoxicillin 875 mg-potassiu m clavulanate 125 mg tablet TAKE 1 TABLET BY MOUTH EVERY 12 HOURS 10/15 completed Not Available Not Available Not Available Ventolin HFA 90 mcg/actuati on aerosol inhaler INHALE TWO PUFFS INTO THE LUNGS EVERY 4 HOURS NEEDED FOR WHEEZING FOR UP TO 30 DAYS 09/21 completed Not Available Not Available Not Available simethicone 80 mg chewable tablet TAKE 1 TABLET BY MOUTH AT BEDTIME NEEDED 4 TIMES A DAY active Not Available Not Available No t Available oxycodone 5 mg tablet TAKE 1 TO 2 TABLETS BY MOUTH EVERY 4 HOURS NEEDED FOR SEVERE PAIN SCALE 7-10 09/21 completed Not Available Not Available Not Available Laxative (bisacodyl) 5 mg tablet,ani yed release TAKE 2 TABLETS BY MOUTH RIGHT BEFORE BEGINNING BOWEL PREP. SEE INSTRUCTI ONS PROVIDED BY THE OFFICE active Not Available Not Available No t Available Restasis 0.05 % eye drops in a dropperette INSTILL 1 DROP INTO BOTH EYES TWICE A DAY DIRECTED 09/21 completed Not Available Not Available Not Available bupropion HCl XL 150 mg 24 hr tablet, extended release TAKE 1 TABLET BY MOUTH EVERY DAY IN THE MORNING active Not Available Not Available No t Available Symbicort 160 mcg-4.5 mcg/actuati on HFA aerosol inhaler PLEASE SEE ATTACHED FOR DETAILED DIRECTION S active Not Available Not Available No t Available diclofenac 1 % topical gel APPLY 1 APPLICATI ON TOPICALLY ON THE SKIN TWICE A DAY NEEDED active Not Available Not Available No t Available cholecalcif mendel (vitamin D3) 50 mcg (2,000 unit) capsule TAKE 1 CAPSULE (2,000 UNITS TOTAL) BY MOUTH ONCE DAILY active Not Available Not Available No t Available oxycodone HCl-oxycodo ne-ASA oxyCODONE HCl 5MG Tablet 10/15 completed Statu s: 'Curr ent'; Not Available Not Available Not Available GaviLyte-G 236 gram-22.74 gram-6.74 gram-5.86 gram oral solution PLEASE SEE ATTACHED FOR DETAILED DIRECTION S active Not Available Not Available No t Available lidocaine 5 % topical ointment APPLY TOPICALLY IF NEEDED FOR MILD PAIN (APPLY TO PERIANAL SKIN NEEDED FOR PAIN). active Not Available Not Available No t Available Linzess 72 mcg capsule TAKE 1 CAPSULE BY MOUTH EVERY DAY active Not Available Not Available No t Available Vitals Date Recorded Body height Body mass index (BMI) Body weight Provider Name and Address Organization Details Last Updated DateTime 09/15/2024 165.1 cm 30.6 kg/m2 90285 g [facility] 09/15/2024 12:57:42 Date Recorded Body height Body mass index (BMI) Body weight Provider Name and Address Organization Details Last Updated DateTime 09/21/2024 165.1 cm 30.6 kg/m2 48159 g [facility] 09/21/2024 11:26:10 Date Recorded Body height Body mass index (BMI) Body weight Provider Name and Address Organization Details Last Updated DateTime 10/26/2024 165.1 cm 30.6 kg/m2 15496 g Salas Roy [facility] 10/26/2024 13:11:38 Date Recorded Body height Body mass index (BMI) Body weight Provider Name and Address Organization Details Last Updated DateTime 12/17/2024 165.1 cm 30.6 kg/m2 44404 g Teja Thrasher PA-C [address] [facility] [address], [place], [address], [facility] 12/17/2024 14:36:50 Date Recorded Body height Provider Name an d Address Organization Details Last Updated DateTime 02/24/2025 165.1 cm MILY VIZCAINO [facility] 02/24/2025 10:38:59 Social History None recorded. Functional Status None recorded. Mental Status None recorded. Family History Nothing Reported. Medical History No medical history recorded. Gynecological HistoryNo gynecological history recorded. Obstetrics History GPAL:G 0 P 0 0 0 0 Past Encounters Encounter ID Performer Location Encounter Start Date Encounter Closed Date Diagnosis/Indication Diagnosis SNOMED-CT Code Diagnosis ICD10 Code Diagnosis IMO Codes Diagnosis Note [id number] Manuela Han PA-C [address] [place], [place] [address] 10/16/2023 12:48:26 10/16/2023 13:28:05 Bilateral osteoarthritis of knees 4219917407 98399 M17.0 [id number] Manuela Han PA-C [address] [place] [address] 01/02/2024 14:03:57 02/02/2024 11:47:33 Bilateral osteoarthritis of knees 8887314235 39130 M17.0 [id number] Manuela Han PA-C [address] [place] [address] 01/08/2024 15:17:19 02/09/2024 09:07:50 Bilateral osteoarthritis of knees 3777439136 29213 M17.0 [id number] Manuela Han PA-C [address] [place] [address] 01/15/2024 15:10:34 02/11/2024 10:14:45 Bilateral osteoarthritis of knees 9368073914 74501 M17.0 [id number] Teja Thrasher PA-C [address] [place] [address] 03/03/2024 11:11:43 03/28/2024 20:30:24 Impingement syndrome of left shoulder region 2334396013 44734 M75.42 [id number] [facility] [address] [place] [address] 04/27/2024 10:44:01 05/21/2024 09:18:32 Bilateral osteoarthritis of knees 1166217739 15436 M17.0 [id number] Manuela Han PA-C [facility] [address] [place] [address] 07/27/2024 12:44:03 08/09/2024 10:45:46 Primary gonarthrosis, bilateral 348391437 M17.0 [id number] Manuela Han PA-C [facility] [address] [place] [address] 09/07/2024 09:06:24 09/20/2024 15:32:39 Primary gonarthrosis, bilateral 483524117 M17.0 [id number] Manuela Han PA-C [facility] [address] [place] [address] 09/15/2024 12:42:49 09/27/2024 13:27:40 Primary gonarthrosis, bilateral 541304281 M17.0 8503131 [id number] Manuela Han PA-C [facility] [address] [place] [address] 09/21/2024 10:52:02 10/04/2024 11:22:21 Primary gonarthrosis, bilateral 026720238 M17.0 [id number] Sweta Clemens PA-C [facility] [address] [place] [address] 10/26/2024 13:04:25 11/05/2024 13:30:32 Primary gonarthrosis, bilateral 101283020 M17.0 [id number] Teja Thrasher PA-C [facility] [address] [place] [address] 12/17/2024 14:34:51 12/30/2024 15:19:30 Impingement syndrome of left shoulder region 5451185085 34325 M75.42 [id number] Contreras Watkins PA-C [facility] [address] [place] [address] 02/24/2025 10:04:30 03/02/2025 13:41:26 Osteoarthritis of left knee joint 9325962826 35020 M17.12 [id number] Osteoarthr itis of right knee joint 1925454385 33311 M17.11 [id number] Health Concerns Section Related Observation LastModified by Organization Detai ls LastModified Time None Recorded Concern Status LastModified by Organization Details LastModified Time None Recorded Advance Directives Directive None Recorded Payers Insurance Date Sequence Insurance Name Policy Number Policy Ortiz Covered Member ID Ortiz Member ID Guarantor Name 03/30/2025 1 [facility] PLAN (MEDICAID HMO) [id number] Romana Sun [id number] Romana Sun Notes Date Note Type Note Provider Name and Address Organization Details Recorded Time 09/15/2024 text/html I am seeing the patient today under the supervision of Dr. Bello who was available but who did not see the patient. HPI: Patient presenting today with known osteoarthritis of bilateral knees. Not happy with pain level and function of the knees. Is authorized for Euflexxa injections #2 today. No new injury. Past family, medical, social history and review of systems has been reviewed, updated, and is located in the patient s chart. Examination: Examination of the bilateral knees have no effusion, erythema, or warmth. Injection site benign. Decreased range of motion. Point tender medial joint line. Calf is soft and nontender. 5/5 strength knee flexion and extension. Impression: Bilateral knee osteoarthritis Plan: Nature of the diagnosis discussed with the patient today. Patient agreed to proceed with injections. Utilizing sterile technique, bilateral knees were injected with Euflexxa 1 unit. Patient tolerated the procedure well. Postinjection precautions reviewed. Recommended ice and rest for the next 24-48 hours. Follow-up as scheduled. [facility] speech recognition oracle brm developer software was used to create portions of this document. An attempt at proofreading has been made to minimize errors. Please call for corrections. Manuela Han PA-C [address] [facility] [address], [place], [address], [facility] 09/15/2024 13:09:33 09/21/2024 text/html I am seeing the patient today under the supervision of Dr. Mayers who was available but who did not see the patient. HPI: Patient presenting today with known osteoarthritis of bilateral knees. Not happy with pain level and function of the knees. Is authorized for Euflexxa injections #3 today. No new injury. Past family, medical, social history and review of systems has been reviewed, updated, and is located in the patient s chart. Examination: Examination of the bilateral knees have no effusion, erythema, or warmth. Injection site benign. Decreased range of motion. Point tender medial joint line. Calf is soft and nontender. 5/5 strength knee flexion and extension. Impression: Bilateral knee osteoarthritis Plan: Nature of the diagnosis discussed with the patient today. Patient agreed to proceed with injections. Utilizing sterile technique, bilateral knees were injected with Euflexxa 1 unit. Patient tolerated the procedure well. Postinjection precautions reviewed. Recommended ice and rest for the next 24-48 hours. Follow-up as scheduled. [facility] speech recognition oracle brm developer software was used to create portions of this document. An attempt at proofreading has been made to minimize errors. Please call for corrections. Manuela Han PA-C [address] [place] [address] [address] [facility], [place], [address], [facility] 09/21/2024 14:54:30 10/26/2024 text/html ROS as noted in the HPI I am seeing the patient today under the supervision of Dr. Mayers who was available but who did not see the patient. HPI: Patient presenting today with known osteoarthritis of bilateral knees. Has been responding favorably to conservative treatment. Here today for a cortisone injection. Denies recent injury. No new systemic complaints. Last injections were with my colleague Manuela Han on 07/27/24. Past family, medical, social history and review of systems has been reviewed, updated, and is located in the patient s chart. Examination: Examination of bilateral knees reveals no effusion, erythema, or warmth. Injection site benign. Decreased range of motion. Point tender medial joint line. Calf is soft and nontender. 5/5 strength knee flexion and extension. Impression: Bilateral knee osteoarthritis Plan: The patient was thoroughly counseled today regarding their knee condition, its natural history, and conservative versus surgical treatment options. The patient is interested in receiving an injection with corticosteroid. Bilateral knees were prepped sterilely and an injection was administered utilizing 40mg of Kenalog and 4cc of 0.25% Marcaine. The patient tolerated the procedure well. Post-injection precautions were discussed. Recommended avoiding strenuous activity over the next 24-48 hours. Encouraged elevation of the leg, applying ice, and taking over the counter medication as needed. The patient is aware that the injection can be repeated as often as every 3 months. Sweta Clemens PA-C [address], [place], [address], [facility] 10/26/2024 13:27:20 12/17/2024 text/html I am seeing the patient today under the supervision of Dr. Newton who was available but who did not see the patient. HPI: Patient returns for follow-up of left shoulder pain. Patient has noted degenerative rotator cuff disease of the left shoulder. Patient has been doing well with conservative management. Past family, medical, social history and review of systems has been reviewed, updated and is located in the patient s chart. Examination: The patient is well appearing and in no apparent distress. Alert and oriented x3. Gait is symmetric. No significant swelling warmth or erythema of the left shoulder. Range of motion of the shoulder: Decreased in all planes with pain and crepitus. 4-5 strength of the right shoulder. Peripheral, vascular, lymphatic examination, skin, neurological, coordination, reflexes, sensation are within normal limits. Impression: Degenerative rotator cuff disease of the left shoulder. Plan: Reviewed diagnosis with the patient today in the office. Discussed role of conservative management. Reviewed home exercise program. Activity modification discussed. P.r.n. Tylenol or NSAIDs can be used. Discussed the role of injection therapies. Injected the subacromial space of the left shoulder. Follow up p.r.n. Teja Thrasher PA-C [address], [place], [address], [facility] 12/17/2024 14:56:50 02/24/2025 text/html I am seeing the patient today under the supervision of who was available but who did not see the patient. Chief Complaint The patient presents today for recheck of bilateral knee osteoarthritis. Is known to have knee arthritis treated conservatively to this point with 2 months relief of symptoms. Presents today for recheck secondary to increased knee pain. History of Present Illness Allergy list reviewed Medication list reviewed Past Medical/Surgical History Reviewed today, otherwise unchanged per intake sheet. Physical Findings General Appearance: Well developed. In no acute distress. Musculoskeletal System: Knee: General/bilateral: No laxity of the knee. Right Knee: Medial aspect was tender on palpation. No erythema. No warmth. Left Knee: Medial aspect was tender on palpation. No erythema. No warmth. Musculoskeletal Scales: General/bilateral: Mild effusion noted. Neurological: Oriented to time, place, and person. Gait And Stance: Normal. Psychiatric: Mood was appropriate to the affect. Left knee 0-120 degrees of flexion with discomfort. Right knee 0-120 degrees of flexion with discomfort. Assessment Osteoarthritis of knee -bilateral knees Plan More than 50% of todays visit was spent on direct patient counseling regarding their knee condition and treatment options both operative with knee arthroplasty and non-operative, including oral medications and injection therapy. After discussion, my clinical decision was to go forth with an intra-articular cortisone injection. After explaining risks and benefits, under meticulous aseptic technique, each knee was injected with, 1cc of Kenalog 40mgs and 4 cc of Marcaine 1/4%. They tolerated the procedures well. Post injection precautions reviewed. Would recommend follow-up with me in 3 months. I had a long discussion with her today regarding total knee arthroplasty and if she wishes to further pursue recommend follow-up with Dr. Bello for consideration and booking of total knee arthroplasty. Contreras Watkins PA-C [address], [place], [address], [place] [facility] 02/24/2025 12:31:19 OBGyn Episode No OBEpisode recorded.
== END 2025-06-01 15:02 | disposition home or self-care (01) ==
LOC: HO.HSM 14:19
PROVIDERS: PCP Hospitalist; Referring Provider Hospitalist; Visit Provider Psychiatry & Neurology Neurology
DX: G20.C Parkinsonism, unspecified (principal); G43.009 Migraine without aura, not intractable, without status migrainosus
CPT/HCPCS: 99213

== ENCOUNTER → 2025-06-01 14:19 | Outpatient (BNVA) | payer OTHER, SELFPAY | PROVIDERS: PCP Hospitalist; Referring Provider Hospitalist; Visit Provider Psychiatry & Neurology Neurology | DX: G43.009 Migraine without aura, not intractable, without status migrainosus (principal); G20.C Parkinsonism, unspecified; R55 Syncope and collapse | CPT/HCPCS: 99212 ==

== ENCOUNTER 2025-07-15 08:14 | Outpatient (REF) | payer OTHER, SELFPAY ==
--- OUTSIDE RECORDS SUMMARY | 2025-06-09 08:30 | XMS_ITS ---
Author Organization [facility] Address [address] [address] Care Team Providers Care Building Official Name Role Phone RAMON LEWIS Primary Care Provider REASON FOR VISIT Heart Monitor Removal Encounters Encounter Location Date Provider Diagnosis [facility] [address] [address] 06/09/2025 RAMON LEWIS Plan Of Treatment Next Appt Details Provider Name:Petey valentine, 08/18/2025 03:00:00 PM, [address] [address], [place], [address], Progress Notes * Erick GUILLAUMEOB:1970 (55 yo F)Acc No.[id number]:06/09/2025 Progress Note Patient: Yareli WEINERinab Provider: Baljit LEWIS MD :1970 A ge:55 Y S ex:Female Date:06/09/2025 Address:[address] [place] [id number] Subjective: * Chief Complaints: * 1 . Heart Monitor Removal. * Medical History: Objective: * Vitals: Assessment: Plan: * Treatment: * Images: * Electronic signature of CASSIE LEWIS MD on 07/15/2025 at 08:16 AM EST Sign off status: Pending * Provider: Baljit LEWIS MD Date: 08/09/2024 Generated for Gabriela howe/Hanna/Jeremiah on: 1 09/15/2024 08:16 AM EST
--- OUTSIDE RECORDS SUMMARY | 2025-07-12 10:00 | XMS_ITS ---
Author Organization [facility] Address [address] [place] [address] Care Team Providers Care Workers Compensation Examiner Name Role Phone RAMON LEWIS Primary Care Provider Petey Preston Unavailable [phone] Allergies Allergen (clinical drug ingredient) Drug/Non Drug Allergy documented on EMR Reaction Allergy Type Onset Date Status moxifloxacin Moxifloxacin HCl stomach pain Drug Allergy Active rifabutin Rifabutin stomach pain Drug Allergy Acti ve liraglutide Saxenda stomach upset Drug Allergy A ctive semaglutide Wegovy Unknown Drug Allergy Activ e Reason For Referral Reason please evaluate and treat Please evaluate and treat Diagnosis 1 Palpitation (R00.2) Referral Organization [facility] ter Referring Provider First Name Petey Referring Provider Last Name Kary Referred Provider Specialty Cardiology General Notes Please call the [place] ent to schedule the appointment, Encounter created and SMS sent to the pt.Nawaf Charmain 07/13/2025 08:57:20 AM > Referral Priority Routine REASON FOR VISIT WM f/up Medications Medication SIG (Take, Route, Frequency, Duration) Notes Start Date End Date Status Phentermine HCl 30 MG 1 capsule Orally O nce a day; Duration: 30 days 07/20/2024 Not-Taking Pantoprazole Sodium 40 MG 1 tablet Orall y Once a day Not-Taking traZODone HCl 150 MG TAKE 2 TABLET BY MO UTH EVERY DAY AT BEDTIME Orally Once a day; Duration: 90 days Not-Taking Dicyclomine HCl 10 MG 1 capsule Orally T hree times a day; Duration: 30 day(s) Not-Taking Anusol-HC 2.5 % 1 application Externally Twice a day; Duration: 30 days 01/07/2023 Not-Takin g Ketorolac Tromethamine Not-Taking Omeprazole 40 MG 1 capsule 1/2 to 1 hour before morning meal Orally Once a day; Duration: 30 days 06/22/2024 Not-Takin g Sucralfate 1 GM/10ML TAKE 10 ML BY MOUTH ON AN EMPTY STOMACH TWICE A DAY FOR 30 DAYS; Duration: 30 Not-Taking Oxymetazoline HCl 0.05 % 2 sprays in eac h nostril as needed Nasally Once a day; Duration: 3 Not-Taking Phentermine HCl 37.5 MG 1 tablet before breakfast Orally Once a day; Duration: 30 days 09/14/2024 Not-Taking predniSONE 20 MG 1 tablet Orally Once a day; Duration: 7 days 05/12/2025 Not-Taking Amoxicillin 500 MG 1 capsule Orally eliza ry 8 hrs; Duration: 7 05/12/2025 Not-Taking Cyclobenzaprine HCl 5 MG 1 tablet at bed time as needed Orally 3 times a day; Duration: 30 days 05/12/2025 Not-Taking Acetaminophen ER 650 MG TAKE 2 TABLETS B Y MOUTH EVERY 8 HOURS NEEDED; Duration: 30 Active Propranolol HCl 20 MG 1 tablet Orally On a day Not-Taking Ergocalciferol 1.25 MG (58626 UT) 1 capsule Orally once a week; Duration: 90 days 06/07/2025 Active buPROPion HCl ER (XL) 150 MG 1 tablet in the morning Orally Once a day; Duration: 30 days 02/17/2025 Active Claritin 10 MG 1 tablet Orally Once a day; Duration: 30 day(s) Active Gas Relief 80 MG 1 tablet after meals and at bedtime as needed Orally Four times a day; Duration: 30 Active Tylenol 8 Hour Arthritis Pain 650 MG 2 tablets as needed Orally every 8 hrs; Duration: 30 days 12/16/2023 Active clonazePAM 0.5 MG 1 tablet at bedtime Orally Once a day; Duration: 5 days PSYCH 08/30/2020 Active Albuterol Sulfate HFA 108 (90 Base) MCG/ACT 2 puffs as needed Inhalation every 6 hrs; Duration: 25 Active Fluticasone Propionate 50 MCG/ACT 1 spray in each nostril Nasally Twice a day; Duration: 30 days 10/12/2024 Active Saline Nasal [place] 0.65 % 2 sprays in ea ch nostril as needed Nasally every 2 hrs; Duration: 20 Active Visine 0.05 % 1 drop into affected eye as needed Ophthalmic Four times a day; Duration: 28 days 01/06/2019 Active Vitamin D 2000 UNIT 1 tablet Orally Once a day Active FLUoxetine HCl 20 MG 2 tablet in the morning Orally Once a day; Duration: 30 day(s) Active Metoclopramide HCl 5 MG 1 tablet before meals Orally three times a day; Duration: 30 day(s) Active SUMAtriptan Succinate 100 MG 1 tablet as needed Orally Once a day Active Carbidopa-Levodopa 25-100 MG 1 tablet as needed Orally Three times a day Active Amantadine HCl 100 MG 1 capsule Orally t wice a day 04/16/2023 Active EPINEPHrine (Anaphylaxis) Active Restasis 0.05 % 1 drop into each eye Ophthalmic Twice a day Active Symbicort 160-4.5 MCG/ACT 2 puffs Inhala tion Twice a day Active Carbidopa-Levodopa ER 50-200 MG 1 tablet as needed Orally once a day 04/16/2023 Active Doxycycline Hyclate 100 MG 1 capsule Ora lly Once a day Not-Taking Vital Signs Temperature 96.7 degrees Fahrenheit 07/12/20 25 Oximetry 99 % 07/12/2025 Heart Rate 82 /min 07/12/2025 Blood pressure systolic 110 mm Hg 07/12/20 25 Blood pressure diastolic 72 mm Hg 025 Weight 182.5 lbs 07/12/2025 BMI 29.9 kg/m2 07/12/2025 Height 65.51 in 07/12/2025 Encounters Encounter Location Date Provider Diagnosis [facility] [address] [address] 07/12/2025 Petey Preston Other obesity due to excess calories E66.09 ; Dietary counseling and surveillance Z71.3 ; Nontoxic multinodular goiter E04.2 ; Obstructive sleep apnea (adult) (pediatric) G47.33 ; Moderate persistent asthma, uncomplicated J45.40 ; Polyosteoarthritis, unspecified M15.9 and Palpitation R00.2 Assessments Encounter Date Diagnosis (ICD Code) Assessment Notes Treatment Notes Treatment Clinical Notes Section Notes 07/12/2025 Other obesity due to excess calories (ICD-10 - E66.09) Mrs. Sun is a 55-year-old lady here for follow up. S/p bariatric surgery in November 2022. We saw her in May. She lost 99 lbs in total, Lost 1lbs since her last visit. Plan is [...] Meal replacements were recommended. Advised to use dihg-qea-dacjjes multivitamins and vitamin D. Advised to use calorie counter and adhere to portion control. Monthly goal is to lose 4-6 pounds Pharmacotherapy. Continue on Wellbutrin, we have discontinued phentermine due to symptoms of palpitation. She has tried GLP-1 before but due to abdominal pain medication was discontinued.. Side effects have been discussed Exercise. Patient [...] the thyroid surgery, Continues to monitor with Litigation Legal Secretary. Palpitation. She recently had a Holter monitor showing 2 episodes of tachycardia. She is currently off of phentermine and she does endorse improvement with palpitations though she does continue to experience infrequent episodes. She has an upcoming stress echo and given that she had a syyncope and collapse prior to having the Holter monitor her neurologist has ordered EEG which is also coming up. We have discussed low dose metoprolol however she does usually experience hypotension with a level of 100 over low 60s, Thus have referred patient to cardiology for further evaluation and discussion. I have rendered the services for this patient under direct supervision of Dr. Lewis, who did not see the patient but was available upon request 07/12/2025 Dietary counseling and surveillance (ICD-10 - Z71.3) Mrs. Sun is a 55-year-old lady here for follow up. S/p bariatric surgery in November 2022. We saw her in May. She lost 99 lbs in total, Lost 1lbs since her last visit. Plan is [...] Meal replacements were recommended. Advised to use mhoo-pxm-ijqzpnz multivitamins and vitamin D. Advised to use calorie counter and adhere to portion control. Monthly goal is to lose 4-6 pounds Pharmacotherapy. Continue on Wellbutrin, we have discontinued phentermine due to symptoms of palpitation. She has tried GLP-1 before but due to abdominal pain medication was discontinued.. Side effects have been discussed Exercise. Patient [...] the thyroid surgery, Continues to monitor with Litigation Legal Secretary. Palpitation. She recently had a Holter monitor showing 2 episodes of tachycardia. She is currently off of phentermine and she does endorse improvement with palpitations though she does continue to experience infrequent episodes. She has an upcoming stress echo and given that she had a syyncope and collapse prior to having the Holter monitor her neurologist has ordered EEG which is also coming up. We have discussed low dose metoprolol however she does usually experience hypotension with a level of 100 over low 60s, Thus have referred patient to cardiology for further evaluation and discussion. I have rendered the services for this patient under direct supervision of Dr. Lewis, who did not see the patient but was available upon request 07/12/2025 Nontoxic multinodular goiter (ICD-10 - E04.2) Mrs. Sun is a 55-year-old lady here for follow up. S/p bariatric surgery in November 2022. We saw her in May. She lost 99 lbs in total, Lost 1lbs since her last visit. Plan is [...] Meal replacements were recommended. Advised to use zaox-dbm-irqdnzh multivitamins and vitamin D. Advised to use calorie counter and adhere to portion control. Monthly goal is to lose 4-6 pounds Pharmacotherapy. Continue on Wellbutrin, we have discontinued phentermine due to symptoms of palpitation. She has tried GLP-1 before but due to abdominal pain medication was discontinued.. Side effects have been discussed Exercise. Patient [...] the thyroid surgery, Continues to monitor with Litigation Legal Secretary. Palpitation. She recently had a Holter monitor showing 2 episodes of tachycardia. She is currently off of phentermine and she does endorse improvement with palpitations though she does continue to experience infrequent episodes. She has an upcoming stress echo and given that she had a syyncope and collapse prior to having the Holter monitor her neurologist has ordered EEG which is also coming up. We have discussed low dose metoprolol however she does usually experience hypotension with a level of 100 over low 60s, Thus have referred patient to cardiology for further evaluation and discussion. I have rendered the services for this patient under direct supervision of Dr. Lewis, who did not see the patient but was available upon request 07/12/2025 Obstructive sleep apnea (adult) (pediatric) (ICD-10 - G47.33) Mrs. Sun is a 55-year-old lady here for follow up. S/p bariatric surgery in November 2022. We saw her in May. She lost 99 lbs in total, Lost 1lbs since her last visit. Plan is [...] Meal replacements were recommended. Advised to use iqlc-ona-mhtclcw multivitamins and vitamin D. Advised to use calorie counter and adhere to portion control. Monthly goal is to lose 4-6 pounds Pharmacotherapy. Continue on Wellbutrin, we have discontinued phentermine due to symptoms of palpitation. She has tried GLP-1 before but due to abdominal pain medication was discontinued.. Side effects have been discussed Exercise. Patient [...] the thyroid surgery, Continues to monitor with Litigation Legal Secretary. Palpitation. She recently had a Holter monitor showing 2 episodes of tachycardia. She is currently off of phentermine and she does endorse improvement with palpitations though she does continue to experience infrequent episodes. She has an upcoming stress echo and given that she had a syyncope and collapse prior to having the Holter monitor her neurologist has ordered EEG which is also coming up. We have discussed low dose metoprolol however she does usually experience hypotension with a level of 100 over low 60s, Thus have referred patient to cardiology for further evaluation and discussion. I have rendered the services for this patient under direct supervision of Dr. Lewis, who did not see the patient but was available upon request 07/12/2025 Moderate persistent asthma, uncomplicated (ICD-10 - J45.40) Mrs. Sun is a 55-year-old lady here for follow up. S/p bariatric surgery in November 2022. We saw her in May. She lost 99 lbs in total, Lost 1lbs since her last visit. Plan is [...] Meal replacements were recommended. Advised to use csow-est-wrcbqvm multivitamins and vitamin D. Advised to use calorie counter and adhere to portion control. Monthly goal is to lose 4-6 pounds Pharmacotherapy. Continue on Wellbutrin, we have discontinued phentermine due to symptoms of palpitation. She has tried GLP-1 before but due to abdominal pain medication was discontinued.. Side effects have been discussed Exercise. Patient [...] the thyroid surgery, Continues to monitor with Litigation Legal Secretary. Palpitation. She recently had a Holter monitor showing 2 episodes of tachycardia. She is currently off of phentermine and she does endorse improvement with palpitations though she does continue to experience infrequent episodes. She has an upcoming stress echo and given that she had a syyncope and collapse prior to having the Holter monitor her neurologist has ordered EEG which is also coming up. We have discussed low dose metoprolol however she does usually experience hypotension with a level of 100 over low 60s, Thus have referred patient to cardiology for further evaluation and discussion. I have rendered the services for this patient under direct supervision of Dr. Lewis, who did not see the patient but was available upon request 07/12/2025 Polyosteoarthriti s, unspecified (ICD-10 - M15.9) Mrs. Sun is a 55-year-old lady here for follow up. S/p bariatric surgery in November 2022. We saw her in May. She lost 99 lbs in total, Lost 1lbs since her last visit. Plan is [...] Meal replacements were recommended. Advised to use gtpj-fvg-ordcfko multivitamins and vitamin D. Advised to use calorie counter and adhere to portion control. Monthly goal is to lose 4-6 pounds Pharmacotherapy. Continue on Wellbutrin, we have discontinued phentermine due to symptoms of palpitation. She has tried GLP-1 before but due to abdominal pain medication was discontinued.. Side effects have been discussed Exercise. Patient [...] the thyroid surgery, Continues to monitor with Litigation Legal Secretary. Palpitation. She recently had a Holter monitor showing 2 episodes of tachycardia. She is currently off of phentermine and she does endorse improvement with palpitations though she does continue to experience infrequent episodes. She has an upcoming stress echo and given that she had a syyncope and collapse prior to having the Holter monitor her neurologist has ordered EEG which is also coming up. We have discussed low dose metoprolol however she does usually experience hypotension with a level of 100 over low 60s, Thus have referred patient to cardiology for further evaluation and discussion. I have rendered the services for this patient under direct supervision of Dr. Lewis, who did not see the patient but was available upon request 07/12/2025 Palpitation (ICD-10 - R00.2) Mrs. Sun is a 55-year-old lady here for follow up. S/p bariatric surgery in November 2022. We saw her in May. She lost 99 lbs in total, Lost 1lbs since her last visit. Plan is [...] Meal replacements were recommended. Advised to use eawq-ryz-jgnjjov multivitamins and vitamin D. Advised to use calorie counter and adhere to portion control. Monthly goal is to lose 4-6 pounds Pharmacotherapy. Continue on Wellbutrin, we have discontinued phentermine due to symptoms of palpitation. She has tried GLP-1 before but due to abdominal pain medication was discontinued.. Side effects have been discussed Exercise. Patient [...] the thyroid surgery, Continues to monitor with Litigation Legal Secretary. Palpitation. She recently had a Holter monitor showing 2 episodes of tachycardia. She is currently off of phentermine and she does endorse improvement with palpitations though she does continue to experience infrequent episodes. She has an upcoming stress echo and given that she had a syyncope and collapse prior to having the Holter monitor her neurologist has ordered EEG which is also coming up. We have discussed low dose metoprolol however she does usually experience hypotension with a level of 100 over low 60s, Thus have referred patient to cardiology for further evaluation and discussion. I have rendered the services for this patient under direct supervision of Dr. Lewis, who did not see the patient but was available upon request Plan Of Treatment Referrals Referral Date Details 07/12/2025 07/12/2025, please e valuate and treat Please evaluate and treat Next Appt Details Follow Up: 6 Weeks-f/up, [place] son: Provider Name:Petey Apple valentine, 08/18/2025 03:00:00 PM, [address] [place] [address], [phone], Progress Notes * AUNDREA ParlubDOB:1970 (55 yo F)Acc No.[id number]:07/12/2025 Patient: Romana WEINER Appointment Provider: Linda Preston :1970 A ge:55 Y S ex:Female Supervising Provider:RAMON LEWIS MD Date:07/12/2025 Address:[address] [place], [place] [id number] Pcp:RAMON LEWIS Subjective: * Chief Complaints: * W M f/up * HPI: F /U Obesity: 55 year old female presents with c/o Patient is here for f/u on weight management. Patient has lost weight S /p bariatric surgery in November 2022. We saw her in May. She lost 99lbs, She Lost 1 pounds since the last visit. patient is on Meal replacement l ow-calorie diet. Patient is exercising D enies, mobility is restricted due to left knee pain. frequency of exercise N ot exercising due to knee pain.? patient on pharmacotherapy P hentermine has been discontinued due to episodes of palpitation.. tolerating medication . Sleep pattern s noring, difficulty sleeping. She endorses overall improvement with palpitation after discontinuing phentermine. She does have an appointment coming up for a stress echo and EEG through her neurologist. Though she does continue to experience palpitation which it is infrequent. * ROS: G eneral/Constitutional: Overall health G ood. C hange in appetite d enies.?Chills d enies. F ever d enies. N ight sweats d enies. S leep disturbance d enies. W eight gain d enies. W eight loss d enies. N eurologic: Difficulty speaking d enies. D izziness d enies.?Gait abnormality , admits. H eadache d enies. L oss of strength d enies. M chad loss d enies. S eizures d enies. T ingling/Numbness d enies . O phthalmologic: Blurred vision d enies. D ischarge d enies. D ry eye d enies. R ed eye d enies. E NT: Change in Voice D enies. C old Symptoms D enies.?Cough D enies. D izziness D enies. N yue Congestion D enies. O talgia?Denies. p ostnasal drip D enies. B locked ear d enies. N osebleed d enies. S noring d enies. C ardiovascular: Diaphoresis D enies. P edal Edema D enies. P ND (Paroxsymal nocturnal dyspnea) D enies. C hest pain d enies. D ifficulty laying flat d enies. D yspnea on exertion d enies. H eart murmur d enies. O rthopnea?denies. P alpitations a dmits. R espiratory: Snoring d enies. A sthma d enies. C ough d enies. S hortness of breath with exertion d enies. S putum production d enies. W heezing d enies. G astrointestinal: Change in bowel habits d enies. C onstipation d enies. D ecreased appetite d enies. D iarrhea d enies. H eartburn d enies. N ausea d enies. V omiting d enies. M usculoskeletal: tingling/numbness D enies upper extremity tremors. m yalgias , Admits. J oint Swelling D enies. e xtremeties n ormal. A rthritis b ilateral knee joints and back. B ack problems d enies. C arpal tunnel d enies. J oint stiffness d enies.?Muscle aches , admits. E ndocrine: Bowel Changes D enies. B reast Discharge D enies.?poor libido D enies. C old intolerance d enies. E xcessive sweating d enies.?Excessive thirst d enies. F requent urination d enies. T hyroid problems d enies. S kin: Bruising D enies. E czema d enies. H air changes d enies. R beata d enies. S kin lesion(s) d enies. P sychiatric: Anxiety admits. D epressed mood d enies.?Difficulty sleeping d enies. N ervous breakdown d enies. S ubstance abuse d enies. U rology: abnormal menstrual bleeding d enies. b lood in urine?denies. b urning on urination d enies. d ifficulty urinating d enies. d ischarge d enies. d ysuria d enies. * Medical History: * Medications: T akingCarbidopa-Levodopa ER 50-200 MG Tablet Extended Release 1 tablet as needed Orally once a day Amantadine HCl 100 MG Capsule 1 capsule Orally twice a day Carbidopa-Levodopa 25-100 MG Tablet 1 tablet as needed Orally Three times a day Symbicort 160-4.5 MCG/ACT Aerosol 2 puffs Inhalation Twice a day Restasis 0.05 % Emulsion 1 drop into each eye Ophthalmic Twice a day EPINEPHrine (Anaphylaxis) SUMAtriptan Succinate 100 MG Tablet 1 tablet as needed Orally Once a day FLUoxetine HCl 20 MG Tablet 2 tablet in the morning Orally Once a day Vitamin D 2000 UNIT Tablet 1 tablet Orally Once a day Visine 0.05 % Solution 1 drop into affected eye as needed Ophthalmic Four times a day Metoclopramide HCl 5 MG Tablet 1 tablet before meals Orally three times a day Albuterol Sulfate HFA 108 (90 Base) MCG/ACT Aerosol Solution 2 puffs as needed Inhalation every 6 hrs clonazePAM 0.5 MG Tablet 1 tablet at bedtime Orally Once a day , Notes to Pharmacist: PSYCHTylenol 8 Hour Arthritis Pain 650 MG Tablet Extended Release 2 tablets as needed Orally every 8 hrs Saline Nasal [place] 0.65 % Solution 2 sprays in each nostril as needed Nasally every 2 hrs Fluticasone Propionate 50 MCG/ACT Suspension 1 spray in each nostril Nasally Twice a day Gas Relief 80 MG Tablet Chewable 1 tablet after meals and at bedtime as needed Orally Four times a day Claritin 10 MG Tablet 1 tablet Orally Once a day buPROPion HCl ER (XL) 150 MG Tablet Extended Release 24 Hour 1 tablet in the morning Orally Once a day Ergocalciferol 1.25 MG (70689 UT) Capsule 1 capsule Orally once a week Acetaminophen ER 650 MG Tablet Extended Release TAKE 2 TABLETS BY MOUTH EVERY 8 HOURS NEEDED Taking Carbidopa-Levodopa ER 50-200 MG Tablet Extended Release 1 tablet as needed Orally once a day Taking Amantadine HCl 100 MG Capsule 1 capsule Orally twice a day Taking Carbidopa-Levodopa 25-100 MG Tablet 1 tablet as needed Orally Three times a day Taking Symbicort 160-4.5 MCG/ACT Aerosol 2 puffs Inhalation Twice a day Taking Restasis 0.05 % Emulsion 1 drop into each eye Ophthalmic Twice a day Taking EPINEPHrine (Anaphylaxis) Taking SUMAtriptan Succinate 100 MG Tablet 1 tablet as needed Orally Once a day Taking FLUoxetine HCl 20 MG Tablet 2 tablet in the morning Orally Once a day Taking Vitamin D 2000 UNIT Tablet 1 tablet Orally Once a day Taking Visine 0.05 % Solution 1 drop into affected eye as needed Ophthalmic Four times a day Taking Metoclopramide HCl 5 MG Tablet 1 tablet before meals Orally three times a day Taking Albuterol Sulfate HFA 108 (90 Base) MCG/ACT Aerosol Solution 2 puffs as needed Inhalation every 6 hrs Taking clonazePAM 0.5 MG Tablet 1 tablet at bedtime Orally Once a day , Notes to Pharmacist: PSYCHTaking Tylenol 8 Hour Arthritis Pain 650 MG Tablet Extended Release 2 tablets as needed Orally every 8 hrs Taking Saline Nasal [place] 0.65 % Solution 2 sprays in each nostril as needed Nasally every 2 hrs Taking Fluticasone Propionate 50 MCG/ACT Suspension 1 spray in each nostril Nasally Twice a day Taking Gas Relief 80 MG Tablet Chewable 1 tablet after meals and at bedtime as needed Orally Four times a day Taking Claritin 10 MG Tablet 1 tablet Orally Once a day Taking buPROPion HCl ER (XL) 150 MG Tablet Extended Release 24 Hour 1 tablet in the morning Orally Once a day Taking Ergocalciferol 1.25 MG (57209 UT) Capsule 1 capsule Orally once a week Taking Acetaminophen ER 650 MG Tablet Extended Release TAKE 2 TABLETS BY MOUTH EVERY 8 HOURS NEEDED Not-TakingDoxycycline Hyclate 100 MG Capsule 1 capsule Orally Once a day Cyclobenzaprine HCl 5 MG Tablet 1 tablet at bedtime as needed Orally 3 times a day Amoxicillin 500 MG Capsule 1 capsule Orally every 8 hrs predniSONE 20 MG Tablet 1 tablet Orally Once a day Propranolol HCl 20 MG Tablet 1 tablet Orally Once a day Phentermine HCl 37.5 MG Tablet 1 tablet before breakfast Orally Once a day Ketorolac Tromethamine Oxymetazoline HCl 0.05 % Solution 2 sprays in each nostril as needed Nasally Once a day Sucralfate 1 GM/10ML Suspension TAKE 10 ML BY MOUTH ON AN EMPTY STOMACH TWICE A DAY FOR 30 DAYS Omeprazole 40 MG Capsule Delayed Release 1 capsule 1/2 to 1 hour before morning meal Orally Once a day Phentermine HCl 30 MG Capsule 1 capsule Orally Once a day Anusol-HC 2.5 % Cream 1 application Externally Twice a day Dicyclomine HCl 10 MG Capsule 1 capsule Orally Three times a day traZODone HCl 150 MG Tablet TAKE 2 TABLET BY MOUTH EVERY DAY AT BEDTIME Orally Once a day Pantoprazole Sodium 40 MG Tablet Delayed Release 1 tablet Orally Once a day Not-Taking Doxycycline Hyclate 100 MG Capsule 1 capsule Orally Once a day Not-Taking Cyclobenzaprine HCl 5 MG Tablet 1 tablet at bedtime as needed Orally 3 times a day Not-Taking Amoxicillin 500 MG Capsule 1 capsule Orally every 8 hrs Not-Taking predniSONE 20 MG Tablet 1 tablet Orally Once a day Not-Taking Propranolol HCl 20 MG Tablet 1 tablet Orally Once a day Not-Taking Phentermine HCl 37.5 MG Tablet 1 tablet before breakfast Orally Once a day Not-Taking Ketorolac Tromethamine Not-Taking Oxymetazoline HCl 0.05 % Solution 2 sprays in each nostril as needed Nasally Once a day Not-Taking Sucralfate 1 GM/10ML Suspension TAKE 10 ML BY MOUTH ON AN EMPTY STOMACH TWICE A DAY FOR 30 DAYS Not-Taking Omeprazole 40 MG Capsule Delayed Release 1 capsule 1/2 to 1 hour before morning meal Orally Once a day Not-Taking Phentermine HCl 30 MG Capsule 1 capsule Orally Once a day Not-Taking Anusol-HC 2.5 % Cream 1 application Externally Twice a day Not-Taking Dicyclomine HCl 10 MG Capsule 1 capsule Orally Three times a day Not-Taking traZODone HCl 150 MG Tablet TAKE 2 TABLET BY MOUTH EVERY DAY AT BEDTIME Orally Once a day Not-Taking Pantoprazole Sodium 40 MG Tablet Delayed Release 1 tablet Orally Once a day DiscontinuedPhentermine HCl 30 MG Capsule 1 capsule Orally Once a day Discontinued Phentermine HCl 30 MG Capsule 1 capsule Orally Once a day * Allergies: R ifabutin: stomach pain - Side Effects - Criticality LowMoxifloxacin HCl: stomach pain - Side Effects - Criticality LowWegovy: Side EffectsSaxenda: stomach upset - Side Effectsno[Allergies Verified] Objective: * Vitals: T emp:96.7F, Oxygen sat %:99%, HR:82/min, BP:110/72mm Hg, Wt:182.5lbs, BMI:29.9Index, Ht: 65.51 in. * Examination: G eneral Examination: GENERAL APPEARANCE: W ell developed, well nourished, in no acute distress. MUSCULOSKELETAL: b ilateral hands mild tremors. Osteoarthritis bilateral knee joints. Crepitus bilateral knee joints. HEAD: N ormocephalic, atraumatic. EYES: P upils equal, round, reactive to light and accommodation, sclera non-icteric. EARS: N ormal. ORAL CAVITY: N ormal. THROAT: C lear. OROPHARYNX N ormal. SINUSES f acial tenderness. NECK/THYROID: N lilia supple,large goiter is present no bruit neck supple, full range of motion,, no carotid bruit, no cervical lymphadenopathy. SKIN: W arm and dry, no suspicious lesions. HEART: S 1, S2 normal, regular rate and rhythm, no murmurs, rubs, gallops . LUNGS: c lear anteriorly and posteriorly, no wheezes, rales, rhonchi good air movement . BREASTS: n ormal, no discharge, no masses palpable bilaterally. ABDOMEN: S oft, nontender, nondistended, bowel sounds present, normal. EXTREMITIES: N ormal b ilateral hand tremors.? PERIPHERAL PULSES: N ormal. NEUROLOGIC: N onfocal, appropriate m otor strength normal upper and lower extremities, sensory exam intact. Psychiatry N ormal. MALE GENITOURINARY: _ _. PODIATRIC: N ormal. Assessment: * Assessment: 1. O ther obesity due to excess calories - E66.09 (Primary) 2 . D ietary counseling and surveillance - Z71.3 3 . N ontoxic multinodular goiter - E04.2 4 . O bstructive sleep apnea (adult) (pediatric) - G47.33 5 . M oderate persistent asthma, uncomplicated - J45.40 6 . P olyosteoarthritis, unspecified - M15.9 7 . P alpitation - R00.2 Mrs. Sun is a 55-year-old lady here for follow up. S/p bariatric surgery in November 2022. We saw her in May. She lost 99 lbs in total, Lost 1lbs s ubaldo her last visit. Plan is as follows: [...] Meal replacements were recommended. Advised to use ixfy-lbc-hlktagt multivitamins and vitamin D. Advised to use calorie counter and adhere to portion control. Monthly goal is to lose 4-6 pounds Pharmacotherapy. Continue on Wellbutrin, we have discontinued phentermine due to symptoms of palpitation. She has tried GLP-1 before but due to abdominal pain medication was discontinued.. Side effects have been discussed Exercise. Patient [...] the thyroid surgery, Continues to monitor with Litigation Legal Secretary. Palpitation. She recently had a Holter monitor showing 2 episodes of tachycardia. She is currently off of phentermine and she does endorse improvement with palpitations though she does continue to experience infrequent episodes. She has an upcoming stress echo and given that she had a syyncope and collapse prior to having the Holter monitor her neurologist has ordered EEG which is also coming up. We have discussed low dose metoprolol however she does usually experience hypotension with a level of 100 over low 60s, Thus have referred patient to cardiology for further evaluation and discussion. I have rendered the services for this patient under direct supervision of Dr. Lewis, who did not see the patient but was available upon request Plan: * Treatment: * Procedure Codes: 3 074F SYST BP LT 130 MM [id number] DIAST BP < 80 MM HG * Follow Up: 6 Weeks-f/up * Images: Review Notes: RAMON LEWIS 2025-07-13 13:22:10* Electronically co-signed by RAMON LEWIS MD on 07/13/2025 at 01:22 PM EST Sign off status: Completed true * Appointment Provider: Linda Preston Date: 09/12/2024 Generated for Gabriela Costa/Jeremiah on: 09/15/2024 08:16 AM EST History and Physical Notes * HPI (History of Present Illness) Category Sub-Category Detail Notes Category Not es F/U Obesity Patient is here for f/u on weight management She endorses overall improvement with palpitation after discontinuing phentermine. She does have an appointment coming up for a stress echo and EEG through her neurologist. Though she does continue to experience palpitation which it is infrequent. Patient has lost weight S/p bariatric foster rgery in November 2022. We saw her in May. She lost 99lbs, She Lost 1 pounds since the last visit patient is on Meal replacement low-calor ie diet Patient is exercising Denies, mobility i s restricted due to left knee pain frequency of exercise Not exercising due to knee pain patient on pharmacotherapy Phentermine h as been discontinued due to episodes of palpitation. tolerating medication Sleep pattern snoring, difficulty sleeping Examination Category Sub-Category Detail Notes Category Not es General Examination GENERAL APPEARANCE: Well dev eloped, well nourished, in no acute distress HEAD: Normocephalic, atrau matic EYES: Pupils equal, round, reactive to light and accommodation, sclera non-icteric EARS: Normal THROAT: Clear NECK/THYROID: Neck supple, large g oiter is present no bruit neck supple, full range of motion,, no carotid bruit, no cervical lymphadenopathy HEART: S1, S2 normal, regul ar rate and rhythm, no murmurs, rubs, gallops LUNGS: clear anteriorly and posteriorly, no wheezes, rales, rhonchi good air movement ABDOMEN: Soft, nontender, non distended, bowel sounds present, normal NEUROLOGIC: Nonfocal, appropriat e motor strength normal upper and lower extremities, sensory exam intact SKIN: Warm and dry, no viridiana picious lesions EXTREMITIES: Normal bilateral steiner d tremors PERIPHERAL PULSES: Normal BREASTS: normal, no discharge , no masses palpable bilaterally MUSCULOSKELETAL: bilateral hands mild tremors. Osteoarthritis bilateral knee joints. 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
--- OUTSIDE RECORDS SUMMARY | 2025-07-15 08:16 | XMS_ITS | Data Portability ---
Author Organization [place] - [facility], Allergy Address [address] [place] [address] Care Team Providers Care Director Inpatient Headache Program Name Role Phone RAMON LEWIS Primary Care Provider Assessment Encounter Date Assessment Date Assessment LastModified [...] : 04/26/2014 4:29 PM (389.15) Not Available [facility] 4 03:09:00 Otalgia 89351683 Active 2014 Otalgia; Note: Date Diagnosed : 12/19/2014 3:57 PM (388.70) Not Available [facility] 4 03:08:59 Nasal congestio n 87478813 Active 2018 Nasal congestio n; Note: Date Diagnosed : 9 11:23 AM (R09.81) Not Available [facility] 4 03:09:01 Bleeding from nose 956856431 Active 2019 Epistaxis ; Note: Date Diagnosed : 08/18/2019 1:30 PM (R04.0) Not Available [facility] 4 03:08:59 History of SARS-CoV- 2 [id number] 8384031 Active 2021 Personal history of COVID-19; Note: Date Diagnosed : 12/13/2021 2:30 PM (Z86.16) Not Available [facility] 4 03:09:00 Uncomplic ated severe persisten t asthma 175168037 Active 2021 Severe persisten t asthma, uncomplic ated; Note: Date Diagnosed : 2 4:18 PM (J45.50) Not Available [facility] 4 03:09:00 Cough 80121240 Active 2021 Cough, unspecifi ed; Note: Changed from R05 to R05.9 ( 2 12:11 PM) , Date Diagnosed : 2 4:17 PM (R05) Not Available [facility] 4 03:09:01 Tension-t ype headache 488842556 Active 2022 Tension headache NOS; Note: Date Diagnosed : 10/24/2022 2:11 PM (G44.209) Not Available [facility] 4 03:09:00 Allergic rhinitis 09334914 Active 2022 SCIT 09/2019-, resumed 10/2022, then break from 11/14/22- resumed 12/19/22- ISABEL RENE MD [address] [facility],[place] [address], [place], [address] , [facility] - [facility] 4 09:23:47 Acute maxillary sinusitis 06186837 Active 2022 Acute maxillary sinusitis , unspecifi ed; Note: Date Diagnosed : 04/22/2023 2:26 PM (J01.00) Not Available [facility] 4 03:08:59 Vasomotor rhinitis 3484867 Active 2024 ISABEL RENE MD [address] [facility],[place] [address], [place], [address] , [facility] 5 13:23:30 Problem Notes None recorded. Procedures Surgical History Date Name Laterality Status Provider Name and Address Organization Details Recorded Time 11/16/2024 NasalEndos copy_DP completed ISABEL RENE MD [address] [place] [address],[place] [address], [place], [address], [facility] 11/16/2024 13:23:11 Imaging Results None recorded. Procedure Notes None recorded. Medical Equipment None Reported. Medications Name Sig Start Date Stop Date Status Note LastModified by Organization Details LastModified Time Prescript ion - Prior Authoriza tion Request active Script Copy/Neena or Auth^Scr ipt Copy/Neena or Auth_ [id number] Not Available Not Available Not Available amantadin e HCl 100 mg tablet TAKE 1 TABLET BY MOUTH MORNING AND NOONTIME active Not Available Not Available No t Available celecoxib 200 mg capsule 05/20 completed Medicati on ID: [id number] D uration Value: 30 Brand Name: celecoxi [...] spray aerosol 11/16 completed Medicati on ID: [id number] B rand Name: Saline Mist Sen d [...] mg tablet 11/16 completed Medicati on ID: [id number] B rand Name: valacycl ovir Sen d Method: E-Prescr ibed Sub s Allowed: subs OK Medic ationGen ericName : valacycl ovir Not Available Not Available Not Available acetamino phen 500 mg tablet 05/18 completed Medicati on ID: [id number] B rand Name: acetamin ophen Se nd [...] mg tablet 11/16 completed Medicati on ID: [id number] B rand Name: meloxica m Send Method: [...] a day 2023 active Medicati on ID: [id number] B rand Name: Patanol Send Method: E-Prescr [...] inhalatio n 11/16 completed Medicati on ID: [id number] B rand Name: Advair Diskus S end [...] mg capsule 11/16 completed Medicati on ID: [id number] B rand Name: gabapent in Send Method: E-Prescr ibed Sub s Allowed: subs OK Medic ationGen ericName : gabapent in Not Available Not Available Not Available monteluka st 10 mg tablet 11/16 completed Medicati on ID: [id number] B rand Name: monteluk ast Send Method: E-Prescr ibed Sub s Allowed: subs OK Medic ationGen ericName : monteluk ast Not Available Not Available Not Available topiramat e 200 mg tablet 11/16 completed Medicati on ID: [id number] B rand Name: topirama te Send Method: E-Prescr ibed Sub s Allowed: subs OK Medic ationGen ericName : topirama te Not Available Not Available Not Available mupirocin 2 % topical ointment 1 a small amount 05/18 completed Medicati on ID: [id number] D uration Value: 14 Prescri bed By Name: EVA Abreu nd Name: fabienbernardinopietro n Send Method: E-Prescr ibed Sub s Allowed: subs OK Medic ationGen ericName : eli n Not Available Not Available Not Available diclofena c sodium 50 mg tablet,de layed release 11/16 completed Medicati on ID: [id number] B rand Name: diclofen ac sodium S [...] mg/gram) vaginal cream active Medicati on ID: [id number] B rand Name: estradio l Send Method: E-Prescr ibed Sub s Allowed: subs OK Medic ationGen ericName : estradio l Not Available Not Available Not Available zolpidem 10 mg tablet TAKE 1 TABLET BY MOUTH EVERY DAY AT BEDTIME NEEDED active Not Available Not Available No t Available propranol ol 20 mg tablet active Medicati on ID: [id number] B rand Name: proprano lol Send Method: [...] by mouth 11/16 completed Medicati on ID: [id number] Mansoor swiftrideidre [place] By Name: Daxa Green [...] mg tablet 11/16 completed Medicati on ID: [id number] Ashleigh rand Name: judy valentine Send Method: [...] inhalatio n 2023 active Medicati on ID: [id number] B rand Name: Flonase Send Method: E-Prescr [...] inhaler,s ensor 11/16 completed Medicati on ID: [id number] B rand Name: ProAir HFA Send Method: E-Prescr ibed Sub s Allowed: subs OK Medic ationGen ericName : ProAir HFA Not Available Not Available Not Available Vitals Date Recorded Body height Provider Name an d Address Organization Details Last Updated DateTime 11/16/2024 167.64 cm FABIO CEBALLOS [place] [facility] 11/16/2024 13:00:52 Date Recorded Body height Body mass index (BMI) Body weight Provider Name and Address Organization Details Last Updated DateTime 05/18/2024 167.64 cm 29.1 kg/m2 03810.63 g Swapna Adler [place] - [facility] 05/18/2024 14:06:43 Social History None recorded. Functional Status None recorded. Mental Status None recorded. Family History Nothing Reported. Medical History No medical history recorded. Gynecological HistoryNo gynecological history recorded. Obstetrics History GPAL:G 0 P 0 0 0 0 Past Encounters Encounter ID Performer Location Encounter Start Date Encounter Closed Date Diagnosis/Indication Diagnosis SNOMED-CT Code Diagnosis ICD10 Code Diagnosis IMO Codes Diagnosis Note [id number] ISABEL RENE MD [facility] [address] [address] 05/18/2024 13:54:09 05/18/2024 14:43:42 Allergic rhinitis 86385311 J30.89 [id number] ISABEL RENE MD [facility] [address] [address] 11/16/2024 12:58:50 11/16/2024 13:26:24 Tension-type headache 464347246 G44.209 Vasomotor rhinitis 44952 03 J30.0 Health Concerns Section Related Observation LastModified by Organization Detai ls LastModified Time None Recorded Concern Status LastModified by Organization Details LastModified Time None Recorded Advance Directives Directive None Recorded Payers Insurance Date Sequence Insurance Name Policy Number Policy Ortiz Covered Member ID Ortiz Member ID Guarantor Name 11/13/2024 1 [facility] (MEDICAID HMO) [id number] Romana Sun [id number] Romana Sun Notes Date Note Type [...] sx with patanol, flonase ISABEL RENE MD [address] [place] [address], [phone], [facility] - [facility] 05/18/2024 14:31:11 11/16/2024 text/html ROS as noted [...] OK to resume SCIT ISABEL RENE MD [address] [place] [address], [place], [address], [place] - [facility] 11/16/2024 13:25:30 OBGyn Episode No OBEpisode recorded.
--- OUTSIDE RECORDS SUMMARY | 2025-07-15 08:16 | XMS_ITS | Clinical Summary ---
Author Organization 175 [facility] Address [address] [place] [address] Phone Care Team Providers Care Pattern Wheel Maker Name Role Phone EricaRustamAnthony A MD Primary Care Provider [phone] Allergies Active Allergy Reactions Criticality Noted Date [...] in packet Take 4 g by mouth. 11/21/19 23 Active zolpidem (AMBIEN) 10 mg tablet 1 tablet (10 mg total). 08/17/19 16 Active glycerin/hyaluro lana sodium (OCEAN WITH HYALURONAN TOP) 30 mg/mL. 05/22/20 16 Active topiramate (TOPAMAX) 25 mg tablet Take 1 tablet (25 mg total) by mouth 1 (one) time each day. at bedtime for 30 days 07/14/20 24 Active budesonide-formo teroL (Symbicort) 160-4.5 mcg/actuation inhaler Inhale 2 puffs by mouth 2 (two) times a day. Rinse mouth with water after use to reduce aftertaste and incidence of candidiasis. Do not swallow. 1 each 07/23/19 25 026 Active carbidopa-levodo pa CR [...] skin. 400 g 03/10/20 25 026 Active vitamin A 3,000 mcg (10,000 unit) tabletIndication s:Intestinal malabsorption following gastrectomy Take 1 tablet (10,000 Units total) by mouth 1 (one) time each day. 90 tablet 1 07/12/20 25 026 Active calcium carbonate-vitami n D3 1,000 mg-20 mcg (800 unit) tabletIndication s:Intestinal malabsorption following gastrectomy Take 1 tablet by mouth 1 (one) time each day. 270 tablet 3 07/12/20 25 026 Active vitamin A 3,000 mcg (10,000 unit) tablet Take 1 tablet (10,000 Units total) by mouth 1 (one) time each day. 07/18/20 23 025 Discontin ued(Reord er) Active Problems Problem Noted Date Diagnosed Date [...] Hep B w/o coma, chronic, w/o delta 07/22/2017 Claustrophobia 01/24/2017 Headache, migraine 01/24/2017 Varicose [...] Encounters Date Type Department Care Team Description 07/11/2025 Results Follow-Up Bariatric Surgery - [address] [phone] Barb Traore PA 06/29/2025 2:40 PM EST Lab Draw Station - [address] [place] [phone] Overweight (BMI 25.0-29.9); Bariatric surgery status 06/29/2025 2:15 PM EST Office Visit Bariatric Surgery - [address] [phone] Barb Traore PA Overweight (BMI 25.0-29.9) (Primary Dx); Bariatric surgery status 05/29/2025 Results Follow-Up Gastroenterology - [address] [phone] Ashley Jack PA 05/23/2025 2:55 PM EST Lab Draw Station - [address] [place] [phone] Chronic hepatitis B (CMS/HCC V24, CMS/HCC V28); Bennett's esophagus without dysplasia; Gastroesophageal reflux disease with esophagitis without hemorrhage; Hx of colonic polyps; RUQ abdominal pain 05/23/2025 2:00 PM EST Office Visit Gastroenterology - [address] [place] [phone] Ashley Jack PA Chronic hepatitis B (CMS/HCC V24, CMS/HCC V28) (Primary Dx); Bennett's esophagus without dysplasia; Gastroesophageal reflux disease with esophagitis without hemorrhage; Hx of colonic polyps; RUQ abdominal pain 04/21/2025 2:45 PM EDT Office Visit Orthopedic Surgery - [place] [address] [place] [address] [address] [place] [address] Kevin Alston, DPM Plantar fascial fibromatosis (Primary Dx); Dermatophytosis of nail; Verruca plantaris; Ingrowing nail from Last 3 Months Immunizations Immunization Administration Dates Next Due PPD Test 06/26/2015 Surgical History Surgery Date Site/Laterality Comments UPPER GASTROINTESTINAL ENDOSCOPY 10/07/2017 PROCEDURE: [place] UPPER GI ENDOSCOPY PERFORMED CHOLECYSTECTOMY PROCEDURE: HISTORICAL [...] w/o delta (CMS/HCC V24, CMS/HCC V28) 07/22/2017 DX:Hep B w/o coma, chronic, w/o delta (HCC) Herpes simplex 06/18/2016 DX:Herpes simple x History of Helicobacter pylo ri infection 04/24/2016 DX:History of Helicobacter p ylori infection Hypothyroidism 06/18/2016 DX:Hypothyroidis m Internal hemorrhoids 10/12/2014 DX:Internal hemorrhoids Microscopic hematuria 05/24/2015 DX:Microsc opic hematuria Morbid obesity with BMI of 4 5.0-49.9, adult (CMS/HCC V24, CMS/HCC V28) 09/30/2017 DX:Morbid obesity wit h BMI of 45.0-49.9, adult (HCC) 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 Primary amenorrhea [...] Sign Reading Time Taken Comments Blood Pressure 107/71 06/29/2025 2:12 PM EST Pulse 82 06/29/2025 2:12 PM EST Temperature 36.1 C (97 F) 03/31/2025 11:10 AM EDT Respiratory Rate 14 11/03/2024 11:28 AM EDT Oxygen Saturation 98% 05/23/2025 2:06 PM EST Inhaled Oxygen Concentration - - Weight 82.1 kg (181 lb) 06/29/2025 2:12 PM EST Height 167.6 cm (5' 6 ) 06/29/2025 2:12 PM EST Body Mass Index 29.21 06/29/2025 2:12 PM EST Plan of Treatment Upcoming Encounters Date Type Department Care Team (Late st Contact Info) Description 07/25/2025 1:00 PM EST Ancillary Procedure Pulmonology - [place] [address] [facility] [address] [place] [address] 07/28/2025 2:30 PM EST Ancillary Procedure [facility] - [address] [place] [address] 08/02/2025 2:30 PM EST Office Visit Pulmonology - [place] [address] [facility] [address] [place] [phone] Aster Knapp MD [address] [place] [phone] 08/08/2025 1:30 PM EST Office Visit Orthopedic Surgery - [place] [address] [facility] 250 [place] [phone] Kevin Alston DPM 175 [facility] [address] [place] [phone] 12/05/2025 1:15 PM EDT Office Visit Bariatric Surgery - [place] [address] [facility] 120 [place] [phone] Barb Traore PA [address] [place] [phone] 12/28/2025 2:20 PM EDT Office Visit Gastroenterology - 299 [facility] 299 [facility] [address] [place] [address] Ashley Jack PA 299 [facility] [address] [place] [address] Health Maintenance Due Date Last Done Comments Drug Screen 1970 Non-Opioid Controlled Substance Agreement 1970 Hepatitis A Vaccines (1 of 2 - Risk 2-dose series) 1989 Hepatitis B Vaccines (1 of 3 - 19+ 3-dose series) 1989 Pneumococcal Vaccine: 50+ Years (1 of 2 - PCV) 1989 Cervical Cancer Screening: Pap Smear 1991 RSV Immunization Adult Patients (1 - Risk 50-74 years 1-dose series) 2020 HIV Screening 06/29/2022 Hepatitis C Screening 06/29/2022 Social Influencers of Health Screening 06/29/2022 Depression Screening 07/21/2024 COVID-19 Vaccine (3 - season) 2025 10/19/2020, 09/28/2020 Zoster Vaccines (2 of 2) 07/28/2025 06/02/2025 Breast Cancer Screening 09/29/2026 09/30/19, 09/30/2023, 04/07/2020, Additional history exists Cholesterol Screening [...] Procedure Name Priority Date/Time Associated Diagnosis Comments ZINC Routine 06/29/2025 2:45 PM EST Overweight (BMI 25.0-29.9) Bariatric surgery status VITAMIN A Routine 06/29/2025 2:45 PM EST Overweight (BMI 25.0-29.9) Bariatric surgery status VITAMIN B1 Routine 06/29/2025 2:45 PM EST Overweight (BMI 25.0-29.9) Bariatric surgery status VITAMIN B12 Routine 06/29/2025 2:45 PM EST Overweight (BMI 25.0-29.9) Bariatric surgery status VITAMIN B6 Routine 06/29/2025 2:45 PM EST Overweight (BMI 25.0-29.9) Bariatric surgery status VITAMIN D 25 HYDROXY Routine 06/29/2025 2:45 PM EST Overweight (BMI 25.0-29.9) Bariatric surgery status PARATHYROID HORMONE INTACT Routine 06/29/2025 2:45 PM EST Overweight (BMI 25.0-29.9) Bariatric surgery status IRON AND TIBC Routine 06/29/2025 2:45 PM EST Overweight (BMI 25.0-29.9) Bariatric surgery status FOLATE Routine 06/29/2025 2:45 PM EST Overweight (BMI 25.0-29.9) Bariatric surgery status COMPREHENSIVE METABOLIC PANEL Routine 06/29/2025 2:45 PM EST Overweight (BMI 25.0-29.9) Bariatric surgery status SELENIUM Routine 06/29/2025 2:45 PM EST Overweight (BMI 25.0-29.9) Bariatric surgery status HEPATIC FUNCTION PANEL Routine 2:59 PM EST Chronic hepatitis B (CMS/HCC [...] Recently Relevant to Health Maintenance Results * Zinc (06/29/2025 2:45 PM EST) Zinc, Serum/Plasma 61.7 50.0 - 150.0 ug/dL 07/05/2025 11:44 AM EST [facility] Comment: Elevated results may be due to sample collected in a non-certified trace element-free tube. This test was developed and the performance characteristics determined by [facility]. It has not been cleared or approved by the FDA. The laboratory is regulated under CLIA as qualified to perform high-complexity testing. This test is used for patient testing purposes. It should not be regarded as investigational or for research. Test performed at [facility], [address] , [place] [address] Maryan Trevizo MD, PhD - Director Post Blood Venous blood specimen / Unknown Venipuncture / Unknown 06/29/2025 2:45 PM EST 06/29/2025 4:06 PM EST Barb MEDRANO LAB BLOOD ORDERABLES Final R esult [facility] [address] [place] [address] * Selenum (06/29/2025 2:45 PM EST) Pathologist [facility] Selenium, Serum/Plasma 9.61 5.0 - 16.0 ug/dL 07/11/2025 2:27 PM EST [facility] Comment: Elevated results may be due to sample collected in a non-certified trace element-free tube. This test was developed and the performance characteristics determined by [facility]. It has not been cleared or approved by the FDA. The laboratory is regulated under CLIA as qualified to perform high-complexity testing. This test is used for patient testing purposes. It should not be regarded as investigational or for research. Test performed at [facility], [address] , [place] [address] Maryan Trevizo MD, PhD - Director Post Blood Venous blood specimen / Unknown Venipuncture / Unknown 06/29/2025 2:45 PM EST 06/29/2025 4:06 PM EST Barb MEDRANO LAB BLOOD ORDERABLES Edited Result - Final [facility] [address] [place] [address] * Iron and TIBC (06/29/2025 2:45 PM EST) Iron 97 40 - 150 mcg/dL 06/29/2025 4:53 PM EST [facility] TIBC 303 250 - 450 mcg/dL 06/29/2025 4:53 PM EST [facility] Iron Saturation 32 15 - 50 % 4:53 PM EST [facility] Blood Venous blood specimen / Unknown Venipuncture / Unknown 06/29/2025 2:45 PM EST 06/29/2025 4:04 PM EST Barb MEDRANO LAB BLOOD ORDERABLES Final R esult [facility] [address] [place] [address], * (ABNORMAL) Vitamin A (06/29/2025 2:45 PM EST) Vitamin A 28(L) 38 - 106 ug/dL 07/05/2025 6:27 AM EST [facility] Comment: This test was developed and the performance characteristics determined by [facility]. It has not been cleared or approved by the FDA. The laboratory is regulated under CLIA as qualified to perform high-complexity testing. This test is used for patient testing purposes. It should not be regarded as investigational or for research. Test performed at [facility], [address] , [place] [address] Maryan Trevizo MD, PhD - Director Post Blood Venous blood specimen / Unknown Venipuncture / Unknown 06/29/2025 2:45 PM EST 06/29/2025 4:06 PM EST Barb MEDRANO LAB BLOOD ORDERABLES Final R esult [facility] [address] [place] [address] * (ABNORMAL) Vitamin D 25 hydroxy (06/29/2025 2:45 PM EST) Vit D, 25-Hydroxy 27.6(L) 30.0 - 80.0 ng/mL 06/29/2025 6:17 PM EST [facility] Blood Venous blood specimen / Unknown Venipuncture / Unknown 06/29/2025 2:45 PM EST 06/29/2025 4:04 PM EST Barb MEDRANO LAB BLOOD ORDERABLES Final R esult [facility] [address] [place] [address], * Vitamin B1 (06/29/2025 2:45 PM EST) Vitamin B1 Whole Blood 69 38 - 122 ug/L 07/05/2025 8:39 AM EST [facility] Comment: This test was developed and the performance characteristics determined by [facility]. It has not been cleared or approved by the FDA. The laboratory is regulated under CLIA as qualified to perform high-complexity testing. This test is used for patient testing purposes. It should not be regarded as investigational or for research. Test performed at [facility], [address] [place] [address] Maryan Trevizo MD, PhD - Director Post Blood Venous blood specimen / Unknown Venipuncture / Unknown 06/29/2025 2:45 PM EST 06/29/2025 4:06 PM EST Barb MEDRANO LAB BLOOD ORDERABLES Final R esult Performing Organization Address City/[facility]/ZIP Co de Phone Number [facility] [address] [place] [address] * Vitamin B6 (06/29/2025 2:45 PM EST) Vitamin B6 (Pyridoxine) Level 13 5 - 50 ug/L 07/05/2025 10:59 AM EST [facility] Comment: This test was developed and the performance characteristics determined by [facility]. It has not been cleared or approved by the FDA. The laboratory is regulated under CLIA as qualified to perform high-complexity testing. This test is used for patient testing purposes. It should not be regarded as investigational or for research. Test performed at [facility], [address] [place] [address] Maryan Trevizo MD, PhD - Director Post Blood Venous blood specimen / Unknown Venipuncture / Unknown 06/29/2025 2:45 PM EST 06/29/2025 4:06 PM EST Barb MEDRANO LAB BLOOD ORDERABLES Final R esult Performing Organization Address City/[facility]/ZIP Co de Phone Number [facility] [address] [place] [address] * (ABNORMAL) Parathyroid hormone intact (06/29/2025 2:45 PM EST) PTH 180.3(H) 18.5 - 88.0 pcg/mL 06/29/2025 4:48 PM EST [facility] Blood Venous blood specimen / Unknown Venipuncture / Unknown 06/29/2025 2:45 PM EST 06/29/2025 4:04 PM EST Barb MEDRANO LAB BLOOD ORDERABLES Final R esult Performing Organization Address [facility]/ZIP Co de Phone Number [facility] [address] [place] [address], * Folate (06/29/2025 2:45 PM EST) [facility] Folate >24.0 >=5.4 ng/ml 06/29/2025 5:04 PM EST [facility] Blood Venous blood specimen / Unknown Venipuncture / Unknown 06/29/2025 2:45 PM EST 06/29/2025 4:04 PM EST Narrative [facility] - 06/29/2025 5:04 PM EST Over the counter supplements containing high doses of biotin may interfere with this assay. If interference is suspected, patients shoud be retested after refraining from biotin supplements for 72 hours. us Barb MEDRANO LAB BLOOD ORDERABLES Final R esult Performing Organization Address [facility]/RUST Co de Phone Number [facility] [address] [place] [address], * Vitamin B12 (06/29/2025 2:45 PM EST) Pathologist [facility] Vitamin B-12 509 211 - 911 pcg/mL 06/29/2025 4:50 PM EST [facility] Blood Venous blood specimen / Unknown Venipuncture / Unknown 06/29/2025 2:45 PM EST 06/29/2025 4:04 PM EST Barb MEDRANO LAB BLOOD ORDERABLES Final R esult Performing Organization Address City/[facility]/ZIP Co de Phone Number [facility] [address] [place] [address], [place] [phone] * (ABNORMAL) Comprehensive metabolic panel (06/29/2025 2:45 PM EST) Sodium 140 133 - 145 mmol/L 06/29/2025 5:04 PM [facility] Potassium 4.2 3.5 - 5.5 mmol/L 06/29/2025 5:04 PM [facility] Chloride 103 96 - 110 mmol/L 06/29/2025 5:04 PM [facility] CO2 28 21 - 32 mmol/L 06/29/2025 5:04 PM [facility] Anion Gap 9 3 - 11 06/29/2025 5:04 PM [facility] Glucose 97 70 - 100 mg/dL 06/29/2025 5:04 PM [facility] BUN 12 5 - 25 mg/dL 06/29/2025 5:04 PM [facility] Creatinine 0.66 0.50 - 1.10 mg/dL 06/29/2025 5:04 PM [facility] eGFR 104 >=60 mL/min/1. 73m2 06/29/2025 5:04 PM [facility] Comment:Calculation based on the Chronic Kidney Disease Epidemiology Collaboration (CKD-EPI) equation refit without adjustment for race. BUN/Creatinine Ratio 18.2 06/29/2025 5:04 PM [facility] Calcium 8.4(L) 8.5 - 10.5 mg/dL 06/29/2025 5:04 PM [facility] AST (SGOT) 18 10 - 42 unit/L 06/29/2025 5:04 PM [facility] ALT (SGPT) <7(L) 10 - 60 unit/L 06/29/2025 5:04 PM [facility] Alkaline Phosphatase 102 42 - 121 unit/L 06/29/2025 5:04 PM EST [facility] Total Protein 6.2 6.0 - 8.0 g/dL 06/29/2025 5:04 PM EST [facility] Albumin 4.0 3.2 - 5.0 g/dL 06/29/2025 5:04 PM [facility] Total Bilirubin 0.9 0.0 - 1.4 mg/dL 06/29/2025 5:04 PM [facility] Blood Venous blood specimen / Unknown Venipuncture / Unknown 06/29/2025 2:45 PM EST 06/29/2025 4:04 PM EST Barb MEDRANO LAB BLOOD ORDERABLES Final R esult [facility] [address] [place] [address], * (ABNORMAL) Hepatitis B virus molecular study quantitative (05/23/2025 2:59 PM EST) [facility] Hepatitis B Virus DNA Qualitative DETECTED( A) Not detected 05/26/2025 8:12 AM EST [facility] Hepatitis B Virus DNA, Quantitative 1,843(H) <10 IU/mL 05/26/2025 8:12 AM EST [facility] Log Hepatitis B Virus DNA 3.27(H) <1.00 Log (10) IU/mL 05/26/2025 8:12 AM EST [facility] Comment: This procedure utilizes a real-time polymerase chain reaction test from [employer]. The amplification target is a conserved region [...] not rule out infection. Test performed at [facility], [address], [place] [address] Maryan Trevizo MD, PhD - Director Post Blood Venous blood specimen / Unknown Venipuncture / Unknown 05/23/2025 2:59 PM EST 05/23/2025 4:09 PM EST Ashley MEDRANO LAB BLOOD ORDERABLES Final Re sult [facility] [address] [place] [address] * Hepatic function panel (05/23/2025 2:59 PM EST) Total Protein 6.4 6.0 - 8.0 g/dL LAB CHEMISTRY METHOD 05/23/2025 4:57 PM [facility] Albumin 3.5 3.2 - 5.0 g/dL LAB CHEMISTRY METHOD 05/23/2025 4:57 PM [facility] Total Bilirubin 0.8 0.0 - 1.4 mg/dL LAB CHEMISTRY METHOD 05/23/2025 4:57 PM [facility] Bilirubin, Direct 0.2 0.0 - 0.3 mg/dL LAB CHEMISTRY METHOD 05/23/2025 4:57 PM [facility] Bilirubin, Indirect 0.6 0.0 - 1.1 mg/dL LAB CHEMISTRY METHOD 05/23/2025 4:57 PM [facility] ALT (SGPT) 13 10 - 60 unit/L LAB CHEMISTRY METHOD 05/23/2025 4:57 PM [facility] AST (SGOT) 12 10 - 42 unit/L LAB CHEMISTRY METHOD 05/23/2025 4:57 PM [facility] Alkaline Phosphatase 93 42 - 121 unit/L LAB CHEMISTRY METHOD 05/23/2025 4:57 PM [facility] Blood Venous blood specimen / Unknown Venipuncture / Unknown 05/23/2025 2:59 PM EST 05/23/2025 4:09 PM EST Ashley MEDRANO LAB BLOOD ORDERABLES Final Re sult [facility] [address] [place] [address], * COLONOSCOPY Anesthesia - MAC; [facility] ENDOSCOPY (11/03/2024 11:07 AM EDT) Anatomical Region Laterality Modality Endoscopy 11/03/2024 10:4 6 AM EDT Impressions 11/03/2024 11:12 AM EDT - The entire examined colon is normal on direct and retroflexion views. - No specimens collected. Recommendation: - Discharge patient to home. - Repeat colonoscopy in 10 years for screening purposes. Narrative 11/03/2024 11:12 AM EDT [facility] GI Patient Name: Romana Guillaume Procedure [...] verified by the physician, the nurse, the mixer operator raw salt and the power plant technician in the pre-procedure area in the [...] malignant neoplasm of colon CPT copyright 2020 [employer]. All rights reserved. The codes documented in this report are preliminary and upon sanding machine operator or tender review may be revised to meet current compliance requirements. Lonnie Faustin MD 11/03/2024 11:11:55 AM This report has been signed electronically.Lonnie Faustin MD Number of Addenda: 0 Note Initiated On: 11/03/2024 10:46 AM Scope Withdrawal Time: 0 hours 6 minutes 58 seconds Scope In: 10:51:52 AM Scope Out: 11:07:22 AM Endoscopy Department at [facility] - [address] [place] [phone] Procedure Note Lonnie Faustin MD - 11/03/2024 [facility] Patient Name: Romana Guillaume Procedure [...] the physician, the nurse, theanesthetist and the power plant technician in the pre-procedure area in the [...] for malignantneoplasm of colon CPT copyright 2020 [employer]. All rights reserved. The codes documented in this report are preliminary and upon sanding machine operator or tender reviewmay be revised to meet current compliance requirements. Lonnie Faustin MD 11/03/2024 11:11:55 AM This report has been signed electronically.Lonnie Faustin MD Number of Addenda: 0 Note Initiated On: 11/03/2024 10:46 AM Scope Withdrawal Time: 0 hours 6 minutes 58 seconds Scope In: 10:51:52 AM Scope Out: 11:07:22 AM Endoscopy Department at [facility] - [address] [place] [phone] IMPRESSION: - The entire examined colon is normal on direct and retroflexion views. - No specimens collected. Recommendation: - Discharge patient to home. - Repeat colonoscopy in 10 years for screening purposes. Lonnie Faustin MD GI~PROCEDURE ORDERABLES Fin al [...] year. Mamm[facility] location: [facility] [address], [address] -------- FINAL REPORT -------- Dictated By: Joe Ang Dictated Date: 09/29/2024 17:32 ET Assigned Physician: Joe Ang Reviewed and Electronically Signed By: Joe Ang Signed Date: 09/29/2024 17:37 ET Workstation ID: [id number] Transcribed By: Self Edit Transcribed Date: 09/29/2024 17:32 ET Narrative 09/29/2024 5:37 PM EDT EXAM: SCREENING MAMMOGRAPHY, BILATERAL HISTORY: SCREENING. No additional history. COMPARISON: 09/30/2023, 04/07/2020 TECHNIQUE: Synthesized CC and MLO projections of each breast. Tomosynthesis of each breast in the CC and MLO projections. ADDITIONAL IMAGING: None Computer-aided detection was employed with the [employer] AI 3-D. TISSUE DENSITY: There are [...] None Computer-aided detection was employed with the [employer] AI 3-D. TISSUE DENSITY: There are [...] year. Mammography location: [facility] at [address], [address] -------- FINAL REPORT -------- Dictated By: Joe Ang Dictated Date: 09/29/2024 17:32 ET Assigned Physician: Sav, Joe F Reviewed and Electronically Signed By: Joe Ang Signed Date: 09/29/2024 17:37 ET Workstation ID: [id number] Transcribed By: Self Edit Transcribed Date: 09/29/2024 17:32 ET us Self Referral Sppl IMG BI PROCEDURES Final Resul t * Lipid panel (02/27/2022) LDL/HDL Ratio 3 0 - 4 Triglycerides 83 0 - 150 mg/dL Cholesterol 150 0 - 200 mg/dL HDL 49 >=40 mg/dL LDL Cholesterol 85 0 - 100 mg/dL Blood Venous blood specimen / Unknown Historical Provider LAB BLOOD ORDERABLES Taniya l Result from Last 3 Months or Most Recently Relevant to Health Maintenance Insurance [employer] Care Teams Pattern Wheel Maker Relationship Specialty Start Date End Date Raj Maldonado MD [address] [place] [phone] PCP - General Internal Medicine 01/08/18
--- OUTSIDE RECORDS SUMMARY | 2025-07-15 08:16 | XMS_ITS | Encounter Summary ---
Author Organization [facility] Address [address] [place] [address] Care Team Providers Care Boiler Coverer Name Role Phone Raj Maldonado MD Primary Care Provider [phone] Encounter Details Date Type Department Care Team (Late Contact Info) Description 07/11/2025 Results Follow-Up Bariatric Surgery - [place] [address] [facility] [address] [place] [address] Barb Traore PA [address] [place] [phone] Social History Tobacco Use Types Packs/Day Years [...] PM EST documented as of this encounter Plan of Treatment Upcoming Encounters Date Type Department Care Team (Late Contact Info) Description 07/25/2025 1:00 PM EST Ancillary Procedure Pulmonology - [place] [address] [facility] [address] [place] [phone] 07/28/2025 2:30 PM EST Ancillary Procedure [facility] - [address] [place] [address] 08/02/2025 2:30 PM EST Office Visit Pulmonology - [place] [address] [facility] [address] [place] [address] Aster Knapp MD [address] [place] [phone] 08/08/2025 1:30 PM EST Office Visit Orthopedic Surgery - [place] [address] [facility] [address] [place] [address] Kevin Alston DPM [address] [facility] [address] [place] [phone] 12/05/2025 1:15 PM EDT Office Visit Bariatric Surgery - [place] [address] [facility] [address] [place] [phone] Barb Traore PA [address] [place] [phone] 12/28/2025 2:20 PM EDT Office Visit Gastroenterology - [address] [place] [address] [facility] [address] [place] [address] Ashley Jack PA [address] [facility] [address] [place] [address] documented as of this encounter Visit Diagnoses Not on filedocumented in this encounter Care Teams Boiler Coverer Relationship Specialty Start Date End Date Raj Maldonado MD [address] [place] [phone] PCP - General Internal Medicine 01/08/18 documented as of this encounter
--- OUTSIDE RECORDS SUMMARY | 2025-07-15 08:16 | XMS_ITS | Encounter Summary ---
Author Organization [facility] [place] [address] Care Team Providers Care Nut Tapper Name Role Phone Raj Maldonado MD Primary Care Provider [phone] Encounter Details Date Type Department Care Team ([facility] st Contact Info) Description 05/29/2025 Results Follow-Up Gastroenterology - [address] [place] [address] [facility] [address] [place] [phone] Ashley Jack PA [address] [address] Social History Tobacco Use Types Packs/Day Years [...] 1:00 PM EST Ancillary Procedure Pulmonology - [place] [address] [facility] [address] [place] [address] 07/28/2025 2:30 PM EST Ancillary Procedure [facility] - [address] [place] [address] 08/02/2025 2:30 PM EST Office Visit Pulmonology - [place] [address] [facility] [address] [place] [address] Aster Knapp MD [address] [place] [phone] 08/08/2025 1:30 PM EST Office Visit Orthopedic Surgery - [place] [address] [facility] [address] [place] [phone] Kevin Alston DPM 175 [facility] [address] [place] [phone] 12/05/2025 1:15 PM EDT Office Visit Bariatric Surgery - [place] 175 [facility] [address] [place] [phone] Barb Traore PA [address] [place] [phone] 12/28/2025 2:20 PM EDT Office Visit Gastroenterology - [address] [place] [address] [facility] [address] [place] [address] Ashley Jack PA 299 [facility] [address] [place] [address] documented as of this encounter Visit Diagnoses Not on filedocumented in this encounter Care Teams Nut Tapper Relationship Specialty Start Date End Date Raj Maldonado MD [address] [place] [address] PCP - General Internal Medicine 01/08/18 documented as of this encounter
--- OUTSIDE RECORDS SUMMARY | 2025-07-15 08:17 | XMS_ITS | Patient Health Record ---
Author Organization [facility] Address [address] [place] [address] Care Team Providers Care Ota Name Role Phone RAMON LEWIS Primary Care Provider [phone] Kary Petey Unavailable [phone] Allergies Allergen (clinical drug ingredient) Drug/Non Drug Allergy documented on EMR Reaction Allergy Type Onset Date Status moxifloxacin Moxifloxacin HCl stomach pain Drug Allergy Active rifabutin Rifabutin stomach pain Drug Allergy Acti ve liraglutide Saxenda stomach upset Drug Allergy A ctive semaglutide Wegovy Unknown Drug Allergy Activ e Results Component Value Reference Range Notes HEPATIC FUNCTION PANEL Reviewed date:07/29/2024 07:57:43 AM Interpretation: Performing Lab: Notes/Report: Total Protein 6.9 6.0-8.0 g/dL Albumin 3.9 3.2-5.0 g/dL Total Bilirubin 0.7 0.0-1.4 mg/dL Bilirubin, Direct 0.2 0.0-0.3 mg/dL Bilirubin, Indirect 0.5 0.0-1.1 mg/dL ALT (SGPT) 13 10-60 unit/L AST (SGOT) 12 10-42 unit/L Alkaline Phosphatase 102 42-121 unit/L IRON AND TIBC Reviewed date:08/19/2024 07:45:38 AM Interpretation: Performing Lab: Notes/Report: Iron 84 40-150 mcg/dL TIBC 284 250-450 mcg/dL Iron Saturation 30 15-50 % IRON AND TIBC Reviewed date:06/29/2025 05:26:13 PM Interpretation: Performing Lab: Notes/Report: Iron 97 40-150 mcg/dL TIBC 303 250-450 mcg/dL Iron Saturation 32 15-50 % VITAMIN D 25 HYDROXY Reviewed date:08/19/2024 07:45:34 AM Interpretation: Performing Lab: Notes/Report: Vit D, 25-Hydroxy 23.5 30.0-80.0 ng/mL VITAMIN D 25 HYDROXY Reviewed date:06/30/2025 07:37:18 AM Interpretation: Performing Lab: Notes/Report: Vit D, 25-Hydroxy 27.6 30.0-80.0 ng/mL COMPREHENSIVE METABOLIC PANE L Reviewed [...] 3.2-5.0 g/dL Total Bilirubin 0.7 0.0-1.4 mg/dL COMPREHENSIVE METABOLIC PANE L Reviewed date:06/29/2025 05:26:06 PM Interpretation: Performing Lab: Notes/Report: Sodium 140 133-145 mmol/L Potassium 4.2 3.5-5.5 mmol/L Chloride 103 96-110 mmol/L CO2 28 21-32 mmol/L Anion Gap 9 3-11 Glucose 97 70-100 mg/dL BUN 12 5-25 mg/dL Creatinine 0.66 0.50-1.10 mg/dL eGFR 104 >=60 mL/min/1.73m2 Calculation based on the Chronic Kidney Disease Epidemiology Collaboration (CKD-EPI) equation refit without adjustment for race. BUN/Creatinine Ratio 18.2 Calcium 8.4 8.5-10.5 mg/dL AST (SGOT) 18 10-42 unit/L ALT (SGPT) <7 10-60 unit/L Alkaline Phosphatase 102 42-121 unit/L Total Protein 6.2 6.0-8.0 g/dL Albumin 4.0 3.2-5.0 g/dL Total Bilirubin 0.9 0.0-1.4 mg/dL FOLATE Reviewed date:06/29/2025 05:26:10 PM Interpretation: Performing Lab: Notes/Report: Over the counter supplements containing high doses of biotin may interfere with this assay. If interference is suspected, patients shoud be retested after refraining from biotin supplements for 72 hours. Folate >24.0 >=5.4 ng/ml FOLATE Reviewed date:08/19/2024 07:45:03 AM Interpretation: Performing Lab: Notes/Report: Folate 19.3 2.8-17.0 ng/ml VITAMIN B12 Reviewed date:08/19/2024 07:45:07 AM Interpretation: Performing Lab: Notes/Report: Vitamin B-12 585 250-900 pcg/mL PARATHYROID HORMONE INTACT Reviewed date:08/19/2024 07:45:26 AM Interpretation: Performing Lab: Notes/Report: PTH 144.6 18.5-88.0 pcg/mL PARATHYROID HORMONE INTACT Reviewed date:06/29/2025 05:26:20 PM Interpretation: Performing Lab: Notes/Report: PTH 180.3 18.5-88.0 pcg/mL VITAMIN B12 Reviewed date:06/29/2025 05:26:16 PM Interpretation: Performing Lab: Notes/Report: Vitamin B-12 509 211-911 pcg/mL XR CHEST 2 VIEWS Reviewed date:07/27/2024 05:42:24 PM Interpretation: Performing Lab: Notes/Report: Note See Note [facility], a member of [employer] Patient Name: ROMANA GUILLAUME Date of : 1970 Reason for Exam: cough Exam Date: 07/26/2024 [id number] EST Report Status: Final Ordering Provider: DARIUSZ [...] No active pulmonary process identified. Telerad PA ([id number]) -------- FINAL REPOR T -------- Dictated By: Celsa Venegas i Dictated Date: 07/26/2024 14:18 ET Assigned Physician: Celsa Shore Reviewed and Electronically Signed By: Celsa Shore Signed Date: 025 14:19 ET Workstation ID: [id number] Transcribed By: Self Edit Transcribed Date: 07/26/2024 14:18 ET Iron and TIBC-[id number] Reviewed date:06/28/2025 12:47:07 AM Interpretation: Performing Lab:Stanton Logan, [address], [address], [place], Phone - [phone], Director - [facility] Notes/Report: Test(s) 752691-Mbuxhmfxcdqtb Acid, Serum was developed and its performance characteristics determined by [facility]. It has not been cleared or approved by the Food and Drug Administration. Iron Bind.Cap.(TIBC) 276 250-450 ug/dL UIBC 178 131-425 ug/dL Iron 98 27-159 ug/dL Iron Saturation 36 15-55 % CT CHEST WO CONTRAST Reviewed date:01/13/2025 01:51:07 PM Interpretation: Performing Lab: Notes/Report: Note See Note [facility], a member of [facility] Patient Name: ROMANA GUILLAUME Date of : 1970 Reason for Exam: Abnormal x-ray Exam Date: 12/22/2024 [id number] EST Report Status: Final Ordering Provider: DARIUSZ SARKAR PCP: RAMON LEWIS History: Abnormal ch est radiograph suggesting tracheal narrowing at the thoracic inlet. Comparison: Two-view chest 09/26/24 Technique: Helical volumetric imaging of the thorax was performed without IV contrast. DLP: 191.98 mGy/cm [employer] Iterative reconstruc tion technique Findings: There is diffuse, multinodular enlargement of the thyroid gland, the cephalad aspect of which is excluded from the ycdil-fz-acnl. The isthmus is thickened to at least [...] pulmonary nodules are seen. No pleural or pericardial effusions are identified. The heart is normal [...] Thyroid ultrasound is recommended for further evaluation. Telejeffery MEDRANO ([id number]) An [employer] message has b eecaren communicated to the office of DARIUSZ SARKAR via the [employer] on 12/23/2024 9:53 AM, Message ID [id number]. -------- FINAL REPOR T -------- Dictated By: Celsa Venegas i Dictated Date: 12/23/2024 09:36 ET Assigned Physician: Celsa Shore Reviewed and Electronically Signed By: Celsa Shore Signed Date: 025 09:53 ET Workstation ID: [id number] Transcribed By: Self Edit Transcribed Date: 12/23/2024 09:36 ET CBC WITH AUTO DIFFERENTIAL Reviewed date:12/01/2024 06:30:40 [...] K/mcL Immature Granulocytes Absolute 0.02 0.00-0.03 K/mcL MG MAMMO DIGITAL SCREENING W MOOSE BILAT Reviewed date:09/30/2024 07:42:48 AM Interpretation: Performing Lab: Notes/Report: Note See Note [facility], a member of [facility] Patient Name: ROMANA GUILLAUME Date of : 1970 Reason for Exam: Exam Date: 09/29/2024 [id number] EST Report Status: Final Ordering Provider: SELF REFERRAL SPPL PCP: RAMON LEWIS EXAM: SCREENING MAMMOGRAPHY, BILATERAL HISTORY: SCREENING. No additional history. COMPARISON: 09/30/19, 04/07/2020 TECHNIQUE: Synthesiz ed CC and MLO [...] in 1 year. Mammography location: [facility] [address], [address] -------- FINAL REPOR T -------- Dictated By: Joe Martínez Dictated Date: 09/29/2024 17:32 ET Assigned Physician: Joe Ang Reviewed and Electronically Signed By: Joe Ang Signed Date: 025 17:37 ET Workstation ID: [id number] Transcribed By: Self Edit Transcribed Date: 09/29/2024 17:32 ET ZINC Reviewed date:08/23/2024 05:02:10 PM Interpretation: Performing Lab: Notes/Report: Zinc 102 60-130 ug/dL Elevated results may be due to sample collected in a non-certified trace element-free tube. This test was developed and the performance characteristics determined by [facility]. It has not been cleared or approved by the FDA. The laboratory is regulated under CLIA as qualified to perform high-complexity testing. This test is used for patient testing purposes. It should not be regarded as investigational or for research. Test performed at [facility], [facility] [place] [address] Maryan Trevizo MD, PhD - Tape Controlled Machine Stitcher HEPATITIS B VIRUS MOLECULAR STUDY QUANTITATIVE Reviewed date:05/26/2025 08:27:25 AM Interpretation: Performing Lab: Notes/Report: Hepatitis B Virus DNA Qualitative DETECTED Not detected Hepatitis B Virus DNA, Quantitative 1,843 <10 IU/mL Log Hepatitis B Virus DNA 3.27 <1.00 Log (10) IU/mL This procedure utilizes a real-time polymerase chain reaction test from [employer]. The amplification target is a conserved region [...] not rule out infection. Test performed at [facility], [address] [place] [address] Maryan Trevizo MD, PhD - Tape Controlled Machine Stitcher THYROID STIMULATING HORMONE WITH REFLEX TO FREE T4 AND FREE T3 Reviewed date:12/01/2024 06:30:28 PM Interpretation: Performing Lab: Notes/Report: TSH 1.72 0.40-4.00 mcIU/mL COPPER, SERUM Reviewed date:08/24/2024 07:51:06 AM Interpretation: Performing Lab: Notes/Report: Copper 9707 812-5583 ug/L Copper values may be elevated to twice the normal levels in . Elevated results may be due to sample collected in a non-certified trace element-free tube. This test was developed and the performance characteristics determined by [facility]. It has not been cleared or approved by the FDA. The laboratory is regulated under CLIA as qualified to perform high-complexity testing. This test is used for patient testing purposes. It should not be regarded as investigational or for research. Test performed at [facility], [address] [place] [address] Maryan Trevizo MD, PhD - Tape Controlled Machine Stitcher VITAMIN B1 Reviewed date:08/24/2024 03:26:20 PM Interpretation: Performing Lab: Notes/Report: Vitamin B1 Whole Blood 82 38-122 ug/L This test was developed and the performance characteristics determined by [facility]. It has not been cleared or approved by the FDA. The laboratory is regulated under CLIA as qualified to perform high-complexity testing. This test is used for patient testing purposes. It should not be regarded as investigational or for research. Test performed at [facility], [address] [place] [address] Maryan Trevizo MD, PhD - Tape Controlled Machine Stitcher VITAMIN B1 Reviewed date:07/05/2025 12:34:23 PM Interpretation: Performing Lab: Notes/Report: Vitamin B1 Whole Blood 69 38-122 ug/L This test was developed and the performance characteristics determined by [facility]. It has not been cleared or approved by the FDA. The laboratory is regulated under CLIA as qualified to perform high-complexity testing. This test is used for patient testing purposes. It should not be regarded as investigational or for research. Test performed at [facility], [address], [place] [address] Maryan Trevizo MD, PhD - Tape Controlled Machine Stitcher [facility] Reviewed date:12/01/2024 06:30:36 PM Interpretation: Performing Lab: [...] 3.2-5.0 g/dL Total Bilirubin 0.6 0.0-1.4 mg/dL VITAMIN B6 Reviewed date:07/05/2025 12:34:18 PM Interpretation: Performing Lab: Notes/Report: Vitamin B6 (Pyridoxine) Level 13 5-50 ug/L This test was developed and the performance characteristics determined by [facility]. It has not been cleared or approved by the FDA. The laboratory is regulated under CLIA as qualified to perform high-complexity testing. This test is used for patient testing purposes. It should not be regarded as investigational or for research. Test performed at [facility], [address], [place] [address] Maryan Trevizo MD, PhD - Tape Controlled Machine Stitcher VITAMIN B6 Reviewed date:08/24/2024 03:26:12 PM Interpretation: Performing Lab: Notes/Report: Vitamin B6 (Pyridoxine) Level 9 5-50 ug/L This test was developed and the performance characteristics determined by [facility]. It has not been cleared or approved by the FDA. The laboratory is regulated under CLIA as qualified to perform high-complexity testing. This test is used for patient testing purposes. It should not be regarded as investigational or for research. Test performed at [facility], [address] , [place] [address] Maryan Trevizo MD, PhD - Tape Controlled Machine Stitcher SELENIUM SERUM Reviewed date:08/27/2024 09:05:21 AM Interpretation: Performing Lab: Notes/Report: Selenium 82 63-160 mcg/L (Note) This test was developed and its analytical performance characteristics have been determined by [facility]. It has not been cleared or approved by the FDA. This assay has been validated pursuant to the CLIA regulations and is used for clinical purposes. [facility] [address] [place] [address],[address] [facility] [address] Martina Neely MD, PhD Test Performed at: [facility] [address] [address], [address] [place] [id number] Troy Neely MD, PhD VITAMIN A Reviewed date:07/05/2025 07:30:11 AM Interpretation: Performing Lab: Notes/Report: Vitamin A 28 38-106 ug/dL This test was developed and the performance characteristics determined by [facility]. It has not been cleared or approved by the FDA. The laboratory is regulated under CLIA as qualified to perform high-complexity testing. This test is used for patient testing purposes. It should not be regarded as investigational or for research. Test performed at [facility], [address] , [place] [address] Maryan Trevizo MD, PhD - Tape Controlled Machine Stitcher VITAMIN A Reviewed date:08/24/2024 07:51:23 AM Interpretation: Performing Lab: Notes/Report: Vitamin A 28 38-106 ug/dL This test was developed and the performance characteristics determined by [facility]. It has not been cleared or approved by the FDA. The laboratory is regulated under CLIA as qualified to perform high-complexity testing. This test is used for patient testing purposes. It should not be regarded as investigational or for research. Test performed at [facility], [address] , [place] [address] Maryan Trevizo MD, PhD - Tape Controlled Machine Stitcher XR CHEST 2 VIEWS Reviewed date:11/26/2024 02:49:09 PM Interpretation: Performing Lab: Notes/Report: Note See Note [facility], a member of [facility] [facility] Patient Name: ROMANA GUILLAUME Date of : 1970 Reason for Exam: dyspnea Exam Date: 11/26/2024 [id number] EST Report Status: Final Ordering Provider: DARIUSZ [...] -------- Dictated By: Joe Martínez Dictated Date: 11/26/2024 13:47 ET Assigned Physician: Joe Ang Reviewed and Electronically Signed By: Joe Ang Signed Date: 025 13:50 ET Workstation ID: [id number] Transcribed By: Self Edit Transcribed Date: 11/26/2024 13:47 ET Homocyst(e)ine-658065 Reviewed date:06/28/2025 12:47:47 AM Interpretation: Performing Lab:Stanton Logan, [address], [address], [place], Phone - [phone], Director - [facility] Notes/Report: Test(s) 981535-Qvwkykvulerzh Acid, Serum was developed and its performance characteristics determined by [facility]. It has not been cleared or approved by the Food and Drug Administration. Homocyst(e)ine 8.9 0.0-14.5 umol/L Methylmalonic Acid, Serum-70 6961 Reviewed date:06/28/2025 12:47:31 AM Interpretation: Performing Lab:[facility] [address], [address], [place], Phone - [phone], Director - [facility] Notes/Report: Test(s) 123475-Egnowoedqqgdd Acid, Serum was developed and its performance characteristics determined by [facility]. It has not been cleared or approved by the Food and Drug Administration. Methylmalonic Acid, Serum 122 0-378 nmol/L Comp. Metabolic Panel (13)-3 54759 Reviewed date:06/28/2025 12:47:55 AM Interpretation: Performing Lab:[facility] [address] Logan [address], [address], [place], Phone - [phone], Director - [facility] Notes/Report: Test(s) 157922-Uhamfgjxbrgtp Acid, Serum was developed and its performance characteristics determined by [facility]. It has not been cleared or approved by the Food and Drug Administration. Glucose 99 70-99 mg/dL BUN 13 6-24 mg/dL Creatinine 0.60 0.57-1.00 mg/dL eGFR 106 >59 mL/min/1.73 BUN/Creatinine Ratio 22 9-23 Sodium 142 134-144 mmol/L Potassium 4.4 3.5-5.2 mmol/L Chloride 105 96-106 mmol/L Carbon Dioxide, Total 27 20-29 mmol/L Calcium 9.3 8.7-10.2 mg/dL Protein, Total 6.2 6.0-8.5 g/dL Albumin 4.1 3.8-4.9 g/dL Globulin, Total 2.1 1.5-4.5 g/dL Bilirubin, Total 0.8 0.0-1.2 mg/dL Alkaline Phosphatase 101 49-135 IU/L AST (SGOT) 20 0-40 IU/L Lipid Panel-587980 Reviewed date:06/28/2025 12:48:02 AM Interpretation: Performing Lab:[facility] Am[address]ep Logan [address], [address], [place], Phone - [phone], Director - [facility] Notes/Report: Test(s) 829439-Hvsezysbqfupc Acid, Serum was developed and its performance characteristics determined by [facility]. It has not been cleared or approved by the Food and Drug Administration. Cholesterol, Total 145 100-199 mg/dL Triglycerides 65 0-149 mg/dL HDL Cholesterol 63 >39 mg/dL VLDL Cholesterol Uri 13 5-40 mg/dL LDL Chol Calc ([facility]) 69 0-99 mg/dL TSH+Free T4-425139 Reviewed date:06/28/2025 12:47:22 AM Interpretation: Performing Lab:[facility] [place], [address], [address], [place], Phone - [phone], Director - [facility] Notes/Report: Test(s) 579302-Tbfbvkxlhzehc Acid, Serum was developed and its performance characteristics determined by [facility]. It has not been cleared or approved by the Food and Drug Administration. TSH 1.330 0.450-4.500 uIU/mL T4,Free(Direct) 1.07 0.82-1.77 ng/dL Vitamin D, 25-Cttnwbq-026353 Reviewed date:06/28/2025 12:48:09 AM Interpretation: Performing Lab:[facility] [place], [address], [address], [place], Phone - [phone], Director - [facility] Notes/Report: Test(s) 568897-Wirkwluloqjgq Acid, Serum was developed and its performance characteristics determined by [facility]. It has not been cleared or approved by the Food and Drug Administration. Vitamin D, 25-Hydroxy 18.1 30.0-100.0 ng/mL Vitamin D deficiency has been defined by the [place] of Medicine and an Endocrine Society practice guideline as a level of serum 25-OH vitamin D less than 20 ng/mL (1,2). The Endocrine Society went on to further define vitamin D insufficiency as a level between 21 and 29 ng/mL (2). 1. IOM ([place] of [employer]). 2010. Dietary reference intakes for calcium and D. [place]: The National Academies Press. 2. Ye MF, Sharath NC, Hilda RIZO, et al. Evaluation, treatment, and prevention of vitamin D deficiency: an Endocrine Society clinical practice guideline. JCEM. 2010; 96(7):1911-30. CBC With Differential/Platel et-693845 Reviewed date:06/28/2025 12:47:15 AM Interpretation: Performing Lab:[facility] [place], [address], [address], [place], Phone - [phone], Director - [facility] Notes/Report: Test(s) 295717-Wrifemnqjonxn Acid, Serum was developed and its performance characteristics determined by [facility]. It has not been cleared or approved by the Food and Drug Administration. WBC 4.8 3.4-10.8 x10E3/uL RBC 4.22 3.77-5.28 x10E6/uL Hemoglobin 12.9 11.1-15.9 g/dL Hematocrit 40.7 34.0-46.6 % MCV 96 79-97 fL MCH 30.6 26.6-33.0 pg MCHC 31.7 31.5-35.7 g/dL RDW 12.3 11.7-15.4 % Platelets 203 150-450 x10E3/uL Neutrophils 55 Not Estab. % Lymphs 36 Not Estab. % Monocytes 7 Not Estab. % Eos 2 Not Estab. % Basos 0 Not Estab. % Neutrophils (Absolute) 2.6 1.4-7.0 x10E3/uL Lymphs (Absolute) 1.7 0.7-3.1 x10E3/uL Monocytes(Absolute) 0.4 0.1-0.9 x10E3/uL Eos (Absolute) 0.1 0.0-0.4 x10E3/uL Baso (Absolute) 0.0 0.0-0.2 x10E3/uL Immature Granulocytes 0 Not Estab. % Immature Grans (Abs) 0.0 0.0-0.1 x10E3/uL Ferritin-450279 Reviewed date:06/28/2025 12:48:15 AM Interpretation: Performing Lab:[facility] [address] Logan [address], [address], [place], Phone - [phone], Director - [facility] Notes/Report: Test(s) 933672-Eohnqmzobsszo Acid, Serum was developed and its performance characteristics determined by [facility]. It has not been cleared or approved by the Food and Drug Administration. Ferritin 101 15-150 ng/mL Magnesium-464792 Reviewed date:06/28/2025 12:48:22 AM Interpretation: Performing Lab:[facility] [address] Logan [address], [address], [place], Phone - [phone], Director - [facility] Notes/Report: Test(s) 538662-Cezvkxblltzhv Acid, Serum was developed and its performance characteristics determined by [facility]. It has not been cleared or approved by the Food and Drug Administration. Magnesium 1.9 1.6-2.3 mg/dL Vitamin B12 and Folate-47249 0 Reviewed date:06/28/2025 12:47:37 AM Interpretation: Performing Lab:[facility] [address], [address], [place], Phone - [phone], Director - [facility] Notes/Report: Test(s) 569181-Clbuzocqcuqux Acid, Serum was developed and its performance characteristics determined by [facility]. It has not been cleared or approved by the Food and Drug Administration. Vitamin B12 314 631-8363 pg/mL Folate (Folic Acid), Serum >20.0 >3.0 ng/mL A serum folate concentration of less than 3.1 ng/mL is considered to represent clinical deficiency. ZINC Reviewed date:07/05/2025 12:34:14 PM Interpretation: Performing Lab: Notes/Report: Zinc, Serum/Plasma 61.7 50.0-150.0 ug/dL Elevated results may be due to sample collected in a non-certified trace element-free tube. This test was developed and the performance characteristics determined by [facility]. It has not been cleared or approved by the FDA. The laboratory is regulated under CLIA as qualified to perform high-complexity testing. This test is used for patient testing purposes. It should not be regarded as investigational or for research. Test performed at [facility], [facility] [place] [address] Maryan Trevizo MD, PhD - Tape Controlled Machine Stitcher SELENIUM Reviewed date:07/11/2025 03:57:47 PM Interpretation: Performing Lab: Notes/Report: Selenium, Serum/Plasma 9.61 5.0-16.0 ug/dL Elevated results may be due to sample collected in a non-certified trace element-free tube. This test was developed and the performance characteristics determined by [facility]. It has not been cleared or approved by the FDA. The laboratory is regulated under CLIA as qualified to perform high-complexity testing. This test is used for patient testing purposes. It should not be regarded as investigational or for research. Test performed at [facility], [address], [place] [address] Maryan Trevizo MD, PhD - Tape Controlled Machine Stitcher HEPATIC FUNCTION PANEL Reviewed date:05/23/2025 05:07:35 PM Interpretation: Performing Lab: Notes/Report: Total Protein 6.4 6.0-8.0 g/dL Albumin 3.5 3.2-5.0 g/dL Total Bilirubin 0.8 0.0-1.4 mg/dL Bilirubin, Direct 0.2 0.0-0.3 mg/dL Bilirubin, Indirect 0.6 0.0-1.1 mg/dL ALT (SGPT) 13 10-60 unit/L AST (SGOT) 12 10-42 unit/L Alkaline Phosphatase 93 42-121 unit/L XR UGI W SINGLE CONTRAST Reviewed date:01/31/2025 05:22:26 PM Interpretation: Performing Lab: Notes/Report: Note See Note [facility], a member of [employer] Patient Name: ROMANA GUILLAUME Date of : 1970 Reason for Exam: Abd pain, unspecified Exam Date: 01/31/2025 [id number] EST Report Status: Final Ordering Provider: EVENS LUNSFORD PCP: RAMON LEWIS FINDINGS: Double contrast UGI performed. COMPARISON: Upper GI imaging September 22, 2023 HISTORY: Patient is a 54-year-old female with history of generalized abdominal discomfort, gastric bypass in November 2022. 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: S cout AP radiograph of the [...] Dictated By: Lesa De Leon Dictated Date: 01/31/2025 12:59 ET Assigned Physician: Marcella Weeks Reviewed and Electronically Signed By: Marcella Weeks Signed Date: 025 15:18 ET Workstation ID: [id number] Transcribed By: Self Edit Transcribed Date: 01/31/2025 13:15 ET Resident/PA/LABORER [employer]: Lesa Ramirez HEPATITIS B VIRUS MOLECULAR STUDY QUANTITATIVE Reviewed date:08/05/2024 09:54:26 AM Interpretation: Performing Lab: Notes/Report: Hepatitis B Virus DNA Qualitative DETECTED Not detected Hepatitis B Virus DNA, Quantitative 2,024 <10 IU/mL Log Hepatitis B Virus DNA 3.31 <1.00 Log (10) IU/mL This procedure utilizes a real-time polymerase chain reaction test from [employer]. The amplification target is a conserved region [...] not rule out infection. Test performed at [facility], [address] , [place] [address] Maryan Trevizo MD, PhD - T[employer] Stitcher US ABDOMEN COMPLETE Reviewed date:09/07/2024 07:46:31 AM Interpretation: Performing Lab: Notes/Report: Note See Note [facility], a member of [employer] Patient Name: ROMANA GUILLAUME Date of : 1970 Reason for Exam: chronic hep B Exam Date: 09/03/2024 [id number] EST Report Status: Final Ordering Provider: EVENS LUNSFORD PCP: RAMON LEWIS CLINICAL HISTORY: chronic hep B. TECHNIQUE: US ABDOME N COMPLETE. [...] -------- Dictated By: Anneliese Griffin Dictated Date: 09/06/2024 17:38 ET Assigned Physician: Anneliese Griffin Reviewed and Electronically Signed By: Anneliese Griffin Signed Date: 025 17:40 ET Workstation ID: [id number] Transcribed By: Self Edit Transcribed Date: 09/06/2024 17:38 ET US HEAD NECK SOFT TISSUE Reviewed date:01/31/2025 08:03:08 AM Interpretation: Performing Lab: Notes/Report: Note See Note [facility], a member of [employer] Patient Name: ROMANA GUILLAUME Date of : 1970 Reason for Exam: dyspnea Exam Date: 01/27/2025 [id number] EST Report Status: Final Ordering Provider: DARIUSZ [...] gland. There are cystic components. OTHER: Extrathyroidal extension: None Regional lymph nodes : No enlarged lymph nodes demonstrated IMPRESSION: Markedly enlarged heterogeneous thyroid Suspect innumerable nearly confluent nodules bilaterally. This may be causing respiratory symptoms. I cannot confirm long-term stability. Consider tissue diagnosis of one of the larger areas of altered echotexture on each side TI-RADS Assessment (updated October 2016) Composition: cystic or spongiform : 0 pt mixed cystic and nila id: 1 pt solid or almost completely solid: 2 pts Echogenicity: anechoic: 0 pt hyperechoic or isoechoic: 1 pt hypoechoic: 2 pts very hypoechoic: [...] -------- Dictated By: Joe Martínez Dictated Date: 01/28/2025 08:21 ET Assigned Physician: Joe Ang Reviewed and Electronically Signed By: Joe Ang Signed Date: 025 08:33 ET Workstation ID: [id number] Transcribed By: Self Edit Transcribed Date: 01/28/2025 08:21 ET Reason For Referral Reason Herpes Simplex kerat itis Diagnosis 1 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 Please call patient to schedule., Kimberly Hogan 09/10/2024 11:02:27 AM > Referral Priority Urgent Reason Please evaluate and treat Diagnosis 1 Unspecified viral he patitis B without hepatic coma (B19.10) Referral Organization [facility] Referring Provider First Name RAMON Referring Provider Last Name JOSHUA Referring Provider Speciality Internal M edicine Referred Provider Specialty Gastroentero logy General Notes Referral faxed to [facility]. Please contact the patient to schedule., Marimar Watson 08/05/2024 09:49:01 AM > Referral Priority Routine Reason Please evaluate and treat Dr. Rl Tatum Please evaluate and treat Dr. Rl Tatum Diagnosis 1 Other seasonal aller gic rhinitis (J30.2) Referral Organization [facility] Referring Provider First Name Adams Referring Provider Last Name Kary Referred Provider Specialty Ear, nose an d throat surgeon General Notes Please call the [place] ent to schedule the appointment. Referral Priority Routine Reason please evaluate and treat Please evaluate and treat Diagnosis 1 Polyosteoarthritis, unspecified (M15.9) Referral Organization [facility] Referring Provider Last Name Marily Referred Provider Specialty Pain Medicin e General Notes Please call the [place] ent to schedule the appointment, Encounter created and SMS sent to the pt., Cori Mccracken 02/18/2025 01:36:34 PM > Referral Priority Routine Reason [facility] Please evaluate and treat Diagnosis 1 Encounter for gyneco logical examination (general) (routine) without abnormal findings (Z01.419) Referral Organization [facility] Referring Provider First Name Adams Referring Provider Last Name Bereketchance Referred Provider Specialty Speed Belt Sander and eligibility counselor General Notes Please call the [place] ent to schedule the appointment, Encounter created and SMS sent to the pt., Nawaf Cori 06/03/2025 07:57:17 AM > Referral Priority Routine Reason please evaluate and treat Please evaluate and treat Diagnosis 1 Palpitation (R00.2) Referral Organization [facility] Referring Provider First Name Adams Referring Provider Last Name Marily Referred Provider Specialty Cardiology General Notes Please call the [place] ent to schedule the appointment, Encounter created and SMS sent to the pt., Cori Mccracken 07/13/2025 08:57:20 AM > Referral Priority Routine Medications Medication SIG (Take, Route, Frequency, Duration) Notes Start Date End Date Status Ketorolac Tromethamine Not-Taking Visine 0.05 % 1 drop into affected eye as needed Ophthalmic Four times a day; Duration: 28 days 01/06/2019 Active Phentermine HCl 30 MG 1 capsule Orally O nce a day; Duration: 30 days 07/20/2024 Not-Taking Vitamin D 2000 UNIT 1 tablet Orally Once a day Active Omeprazole 40 MG 1 capsule 1/2 to 1 hour before morning meal Orally Once a day; Duration: 30 days 06/22/2024 Not-Takin g FLUoxetine HCl 20 MG 2 tablet in the morning Orally Once a day; Duration: 30 day(s) Active Sucralfate 1 GM/10ML TAKE 10 ML BY MOUTH ON AN EMPTY STOMACH TWICE A DAY FOR 30 DAYS; Duration: 30 Not-Taking Oxymetazoline HCl 0.05 % 2 sprays in eac h nostril as needed Nasally Once a day; Duration: 3 Not-Taking Tylenol 8 Hour Arthritis Pain 650 MG 2 tablets as needed Orally every 8 hrs; Duration: 30 days 12/16/2023 Active Pantoprazole Sodium 40 MG 1 tablet Orall y Once a day Not-Taking clonazePAM 0.5 MG 1 tablet at bedtime Orally Once a day; Duration: 5 days PSYCH 08/30/2020 Active traZODone HCl 150 MG TAKE 2 TABLET BY MO UTH EVERY DAY AT BEDTIME Orally Once a day; Duration: 90 days Not-Taking Albuterol Sulfate HFA 108 (90 Base) MCG/ACT 2 puffs as needed Inhalation every 6 hrs; Duration: 25 Active Dicyclomine HCl 10 MG 1 capsule Orally T hree times a day; Duration: 30 day(s) Not-Taking Metoclopramide HCl 5 MG 1 tablet before meals Orally three times a day; Duration: 30 day(s) Active Anusol-HC 2.5 % 1 application Externally Twice a day; Duration: 30 days 01/07/2023 Not-Takin g Gas Relief 80 MG 1 tablet after meals and at bedtime as needed Orally Four times a day; Duration: 30 Active Fluticasone Propionate 50 MCG/ACT 1 spray in each nostril Nasally Twice a day; Duration: 30 days 10/12/2024 Active Saline Nasal [place] 0.65 % 2 sprays in ea ch nostril as needed Nasally every 2 hrs; Duration: 20 Active Ergocalciferol 1.25 MG (68053 UT) 1 capsule Orally once a week; Duration: 90 days 06/07/2025 Active buPROPion HCl ER (XL) 150 MG 1 tablet in the morning Orally Once a day; Duration: 30 days 02/17/2025 Active Claritin 10 MG 1 tablet Orally Once a day; Duration: 30 day(s) Active Carbidopa-Levodopa 25-100 MG 1 tablet as needed Orally Three times a day Active predniSONE 20 MG 1 tablet Orally Once a day; Duration: 7 days 05/12/2025 Not-Taking Amantadine HCl 100 MG 1 capsule Orally t wice a day 04/16/2023 Active Amoxicillin 500 MG 1 capsule Orally eliza ry 8 hrs; Duration: 7 days 05/12/2025 Not-Taking Carbidopa-Levodopa ER 50-200 MG 1 tablet as needed Orally once a day 04/16/2023 Active Cyclobenzaprine HCl 5 MG 1 tablet at bed time as needed Orally 3 times a day; Duration: 30 days 05/12/2025 Not-Taking Doxycycline Hyclate 100 MG 1 capsule Ora lly Once a day Not-Taking Acetaminophen ER 650 MG TAKE 2 TABLETS B Y MOUTH EVERY 8 HOURS NEEDED; Duration: 30 Active SUMAtriptan Succinate 100 MG 1 tablet as needed Orally Once a day Active EPINEPHrine (Anaphylaxis) Active Restasis 0.05 % 1 drop into each eye Ophthalmic Twice a day Active Phentermine HCl 37.5 MG 1 tablet before breakfast Orally Once a day; Duration: 30 days 09/14/2024 Not-Taking Symbicort 160-4.5 MCG/ACT 2 puffs Inhala tion Twice a day Active Propranolol HCl 20 MG 1 tablet Orally On ce a day Not-Taking Immunizations Vaccine Route Administration Date Status Comme nts COVID 19 Pfizer Unknown 09/28/2020 Administered COVID 19 Pfizer Unknown 10/19/2020 Administered Flu Shot Unknown 04/11/2018 Administered Fluzone QD IM Intramuscular 05/20/2023 Administered Fluzone QD IM Intramuscular 04/14/2025 Administered Shingrix IM Intramuscular 06/02/2025 Administered TDAP ID Intradermal 05/25/2024 Administered Social [...] Status Risk Notes Problem 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 Problem Viral hepatitis B without hepatic coma (005428342) Unspecified viral hepatitis B without hepatic coma (B19.10) Active confirmed Problem Tinea cruris (144941583) Tinea cruris (B35.6) Active confirmed Problem Pernicious anemia (10357249) Vitamin B12 deficiency anemia due to intrinsic factor deficiency (D51.0) Active confirmed Problem Non-toxic multinodular goiter (40862970) Nontoxic multinodular goiter (E04.2) Active confirmed Problem Morbid obesity (disorder) (444836830) Morbid (severe) obesity due to excess calories (E66.01) Active confirmed Problem Obesity due to excess calories (909084347) Other obesity due to excess calories (E66.09) Active confirmed Problem Mixed hyperlipidemia (267097586) Mixed hyperlipidemia (E78.2) Active confirmed Problem Generalized anxiety disorder (72904087) Generalized anxiety disorder (F41.1) Active confirmed Problem Parkinson's disease (75098686) Parkinson's disease (G20) Active confirmed Problem Chronic migraine without aura, non-refractory (disorder) (391073606914347) Migraine without aura, not intractable, without status migrainosus (G43.009) Active confirmed Problem Obstructive sleep apnea syndrome (disorder) (83630710) Obstructive sleep apnea (adult) (pediatric) (G47.33) Active confirmed Problem Carpal tunnel syndrome (22624004) Carpal tunnel syndrome, left upper limb (G56.02) Active confirmed Problem Chronic pain syndrome (984259733) Chronic pain syndrome (G89.4) Active confirmed Problem Pain co-occurrent and due to varicose veins of bilateral legs (9014192356221896 0) Varicose veins of bilateral lower extremities with pain (I83.813) Active confirmed Problem Seasonal allergic rhinitis (700111766) Other seasonal allergic rhinitis (J30.2) Active confirmed Problem Uncomplicated moderate persistent asthma (137336386) Moderate persistent asthma, uncomplicated (J45.40) Active confirmed Problem Uncomplicated asthma (disorder) (677439935) Unspecified asthma, uncomplicated (J45.909) Active confirmed Problem Gastro-esophageal reflux disease without esophagitis (444643415) Gastro-esophageal reflux disease without esophagitis (K21.9) Active confirmed Problem Dermatitis (122900659) Dermatitis, unspecified (L30.9) Active confirmed Problem Polyarthritis (157881176) Other polyosteoarthritis (M15.8) Active confirmed Problem Osteoarthritis (989644632) Polyosteoarthritis, unspecified (M15.9) Active confirmed Problem Calculus of kidney (25345655) Calculus of kidney (N20.0) Active confirmed Problem Paresthesia (finding) (89044608) Paresthesia of skin (R20.2) Active confirmed Problem Abnormal gait (43347979) Unsteadiness on feet (R26.81) Active confirmed Problem Impaired fasting glucose (586407143) Impaired fasting glucose (R73.01) Active confirmed Problem History of bariatric surgical procedure (063145543) Bariatric surgery status (Z98.84) Active confirmed Problem Irritable bowel syndrome characterized by constipation (101291913) Irritable bowel syndrome with constipation (K58.1) Active confirmed Problem Body mass index 30.00 to 34.99 (403842523282306) Body mass index [BMI] 33.0-33.9, adult (Z68.33) Active confirmed Problem Hepatitis B carrier (633379623) Hepatitis B carrier (B18.1) Active confirmed Problem Vitamin D deficiency (29174949) Vitamin D deficiency (E55.9) Active confirmed Problem History of disease caused by Severe acute respiratory syndrome coronavirus 2 (situation) (6328330185225041 05) Personal history of COVID-19 (Z86.16) Active confirmed Problem 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) (7346197383) Dfso-XDYIG-76 syndrome (B94.8) Active confirmed Vital Signs Heart Rate 82 /min 07/12/2025 Temperature 96.7 degrees Fahrenheit 07/12/2025 Blood pressure diastolic 72 mm Hg 07/12/2025 Oximetry 99 % 07/12/2025 Height 65.51 in 07/12/2025 Blood pressure systolic 110 mm Hg 07/12/2025 Weight 182.5 lbs 07/12/2025 BMI 29.9 kg/m2 07/12/2025 Encounters Encounter Location Date Provider Diagnosis [address] [place] [address] 02/10/2025 Ghadeer Bereketloum [address] [place] [address] 06/09/2025 RAMON LEWIS [address] [place] [address] 07/20/2024 Ghadeer Mazloum Other obesity due to excess calories E66.09 and Dietary counseling and surveillance Z71.[address] [place] [address] 08/17/2024 Ghadeer Mazloum Other obesity due to excess calories E66.09 ; Dietary counseling and surveillance Z71.3 and Other hemorrhoids K64.[address] [place] [address] 09/14/2024 Ghadeer Mazloum Other seasonal aller gic rhinitis J30.2 ; Other obesity due to excess calories E66.09 and Dietary counseling and surveillance Z71.[address] [place] [address] 10/12/2024 Ghadeer Mazloum Other obesity due to excess calories E66.09 ; Other seasonal allergic rhinitis J30.2 and Dietary counseling and surveillance Z71.[address] [place] [address] 11/09/2024 Ghadeer Mazloum Other obesity due to excess calories E66.09 and Dietary counseling and surveillance Z71.[address] [place] [address] 12/16/2024 Ghadeer Mazloum Other obesity due to excess calories E66.09 and Dietary counseling and surveillance Z71.[address] [place] [address] 01/13/2025 Ghadeer Mazloum Other obesity due to excess calories E66.09 ; Dietary counseling and surveillance Z71.3 ; Nontoxic multinodular goiter E04.2 ; Obstructive sleep apnea (adult) (pediatric) G47.33 and Moderate persistent asthma, uncomplicated J45.[address] [place] [address] 02/17/2025 Ghadeer Mazloum Other obesity due to excess calories E66.09 ; Dietary counseling and surveillance Z71.3 ; Nontoxic multinodular goiter E04.2 ; Obstructive sleep apnea (adult) (pediatric) G47.33 ; Moderate persistent asthma, uncomplicated J45.40 and Polyosteoarthritis, unspecified M15.[address] [place] [address] 03/17/2025 Ghadeer Mazloum Other obesity due to excess calories E66.09 ; Dietary counseling and surveillance Z71.3 ; Nontoxic multinodular goiter E04.2 ; Obstructive sleep apnea (adult) (pediatric) G47.33 ; Moderate persistent asthma, uncomplicated J45.40 and Polyosteoarthritis, unspecified M15.[address] [place] [address] 04/14/2025 Ghadeer Mazloum Other obesity due to excess calories E66.09 ; Dietary counseling and surveillance Z71.3 ; Nontoxic multinodular goiter E04.2 ; Obstructive sleep apnea (adult) (pediatric) G47.33 ; Moderate persistent asthma, uncomplicated J45.40 ; Polyosteoarthritis, unspecified M15.9 and Encounter for immunization Z23 [address] [place] [address] 05/12/2025 Petey Preston Other obesity due to excess calories E66.09 ; Dietary counseling and surveillance Z71.3 ; Nontoxic multinodular goiter E04.2 ; Obstructive sleep apnea (adult) (pediatric) G47.33 ; Moderate persistent asthma, uncomplicated J45.40 ; Polyosteoarthritis, unspecified M15.9 and Acute maxillary sinusitis, unspecified J01.[address] [place] [address] 06/02/2025 Petey Preston Annual visit for gen era adult medical examination without abnormal findings Z00.00 ; Syncope and collapse R55 ; Nontoxic multinodular goiter E04.2 ; Obstructive sleep apnea (adult) (pediatric) G47.33 ; Parkinson's disease G20 ; Migraine without aura, not intractable, without status migrainosus G43.009 ; Moderate persistent asthma, uncomplicated J45.40 ; Polyosteoarthritis, unspecified M15.9 ; Acute maxillary sinusitis, unspecified J01.00 ; Generalized anxiety disorder F41.1 ; Other polyosteoarthritis M15.8 ; Hepatitis B carrier B18.1 ; Other obesity due to excess calories E66.09 ; Dietary counseling and surveillance Z71.3 and Encounter for immunization Z23 [address] [address] 06/30/2025 Petey Preston Syncope and collapse R55 ; Nontoxic multinodular goiter E04.2 ; Obstructive sleep apnea (adult) (pediatric) G47.33 ; Parkinson's disease G20 ; Migraine without aura, not intractable, without status migrainosus G43.009 ; Moderate persistent asthma, uncomplicated J45.40 ; Polyosteoarthritis, unspecified M15.9 ; Acute maxillary sinusitis, unspecified J01.00 ; Generalized anxiety disorder F41.1 ; Other polyosteoarthritis M15.8 and Hepatitis B carrier B18.[address] [address] 07/12/2025 Ghadeer Mazloum Other obesity due to excess calories E66.09 ; Dietary counseling and surveillance Z71.3 ; Nontoxic multinodular goiter E04.2 ; Obstructive sleep apnea (adult) (pediatric) G47.33 ; Moderate persistent asthma, uncomplicated J45.40 ; Polyosteoarthritis, unspecified M15.9 and Palpitation R00.2 [facility] [address] [facility] [address] [place] [address] 08/02/2024 [facility] [address] [facility] [address] [place] [address] 08/05/[address] [place] [address] 09/10/2024 [facility] [address] [address] [address] [place] [address] 11/03/2024 [facility] [address] [facility] [facility] [address] [place] [address] 02/10/2025 [facility] [address] [facility] [address] [place] [address] 02/18/[address] [place] [address] 05/31/[address] [place] [address] 06/03/[address] [place] [address] 06/07/2025 [facility] Vitamin D deficiency E55.[address] [place] [address] 06/27/[address] [address] [place] [address] 06/30/2025 Ghadeer Bereketloum Syncope and collapse R55 [facility] [address] [place] [address] [address] [place] [address] 07/13/2025 Petey Preston Assessments Encounter Date Diagnosis (ICD Code) Assessment Notes Treatment Notes Treatment Clinical Notes Section Notes 07/20/2024 Other obesity due to excess calories [...] Meal replacements were recommended. Advised to use vgkg-vxs-vhsfgfb multivitamins and vitamin D. Advised to use [...] counseling Herpes Simplex keratitis: - Referred to [facility]. I have rendered the services for this [...] Meal replacements were recommended. Advised to use boae-vuf-qsaprpn multivitamins and vitamin D. Advised to use [...] counseling Herpes Simplex keratitis: - Referred to [facility]. I have rendered the services for this [...] Meal replacements were recommended. Advised to use wnye-wjv-qgidjxz multivitamins and vitamin D. Advised to use [...] is status post gastric bypass by Dr. Goodmna last November 25. Continue taking vitamins. Avoid NSAIDs as much as possible. Dietary recommendations. Food recall was done today and patient advised to be on low calorie, low carbohydrate diet. Restrict calories to less than 1500 kcal in 24 hours. Low glycemic index foods and encouraged. Meal replacements were recommended. Advised to use kmfa-dat-bpkcxmv multivitamins and vitamin D. Advised to use [...] Meal replacements were recommended. Advised to use oess-zdb-klaywhi multivitamins and vitamin D. Advised to use [...] Allergic rhinitis - She currently follows with [facility], however she would like a second opinion [...] Meal replacements were recommended. Advised to use erft-nxo-qnjbool multivitamins and vitamin D. Advised to use [...] Allergic rhinitis - She currently follows with [facility], however she would like a second opinion for the [facility]. Referred patient. I have rendered the [...] Meal replacements were recommended. Advised to use dbpb-nnv-kldrgfx multivitamins and vitamin D. Advised to use [...] Meal replacements were recommended. Advised to use zoho-lyw-ojzonmf multivitamins and vitamin D. Advised to use [...] Meal replacements were recommended. Advised to use yinq-nnx-wrdahjm multivitamins and vitamin D. Advised to use [...] Meal replacements were recommended. Advised to use sxgh-xin-leahbqq multivitamins and vitamin D. Advised to use [...] Meal replacements were recommended. Advised to use dgzk-rfd-aokbrpa multivitamins and vitamin D. Advised to use [...] Latent TB: Stable. Continues to monitor with [employer]. I have rendered the services for this [...] Meal replacements were recommended. Advised to use nhpj-kiv-uaczyce multivitamins and vitamin D. Advised to use [...] goiter is noted, She does follow with [facility] and she has a surgery consultation on March 04. Sleep apnea. Per record, patient is holding off on Sleep study until resolution of the goiter. Moderate Persistent asthma: Continue with Symbicort 160/4.5, 2 puff BID and albuterol. Latent TB: Stable. Continues to monitor with [employer]. I have rendered the services for this [...] Meal replacements were recommended. Advised to use qpib-hrx-trxxyqe multivitamins and vitamin D. Advised to use [...] Latent TB: Stable. Continues to monitor with [employer]. I have rendered the services for this [...] Meal replacements were recommended. Advised to use yucv-vtd-gudhlte multivitamins and vitamin D. Advised to use [...] the thyroid surgery, Continues to monitor with [employer]. Plantar fasciitis/chronic Dermatophytosis: patient is to continue on clotrimazole and ammonium lactate prescribed by the mathematical sciences professor. Osteoarthritis. She has an appointment for a [...] Meal replacements were recommended. Advised to use dkka-ssl-ozzzmgc multivitamins and vitamin D. Advised to use [...] the thyroid surgery, Continues to monitor with [employer]. Plantar fasciitis/chronic Dermatophytosis: patient is to continue on clotrimazole and ammonium lactate prescribed by the mathematical sciences professor. Osteoarthritis. She has an appointment for a [...] Meal replacements were recommended. Advised to use xide-jqv-rpywqhr multivitamins and vitamin D. Advised to use [...] the thyroid surgery, Continues to monitor with [employer]. Plantar fasciitis/chronic Dermatophytosis: patient is to continue on clotrimazole and ammonium lactate prescribed by the mathematical sciences professor. Osteoarthritis. She has an appointment for a consultation with pain management next month. Flu vaccine is given in the office today I have rendered the services for this patient under direct supervision of Dr. Lewis, who did not see the patient but was available upon request 06/07/2025 Vitamin D deficiency (ICD-10 - E55.9) 06/30/2025 Syncope and collapse (ICD-10 - R55) Mrs. Guillaume is a 55-year-old lady With a past medical history of GERD, obesity status post gastric bypass in 2022, hepatitis B carrier, mild asthma, Parkinson's disease, migraine, goiter, depression/GILSON is To discuss recent Holter monitor results and blood work. Visit is conducted through telehealth. Plan as follows Syncope and collapse. - Holter monitor results does show 2 episodes of tachycardia with average heart rate ranging between 109 and 110. She did experience palpitations during this episode. Denies any dizziness, shortness of breath, syncope, chest pain. She is currently on phentermine, we will hold off on this medication and reevaluate in 2 weeks if symptoms have improved given that stimulant and does play a role into tachycardia. Her recent blood work it is unremarkable for anemia, electrolytes are within normal limits, TSH is within normal limit. She recently had blood work through the welt sole layer which it is remarkable for secondary hyperparathyroidism and she has a surgery, and of August 22 for her thyroid. Pending stress echo and pending EEG from the neurologist. We will continue to monitor for now, advised reducing the caffeine intake and increase hydration and hold off on phentermine. Nontoxic multinodular goiter. - She admits to compressive symptoms of difficulty swallowing, voice hoarseness, Difficulty breathing with raising her arms up and lying on her back. She has a surgery coming up and August, I have discussed with the patient to consult with her surgeon again and they states if surgery can be done anytime soon if not then we can consider consultation with a different surgeon. Sleep apnea. - Patient will contact the sleep medicine clinic to obtain CPAP machine. Complications of LA discussed. Moderate Persistent asthma: -Stable at this point, Continue with Symbicort 160/4.5, 2 puff BID and albuterol. Latent TB: Stable. PFTs Will be repeated after the thyroid surgery, Continues to monitor with Ad Writer. Osteoarthritis. - She follows with pain management Acute sinuisits. - Continue on doxycycline 100 mg twice a day, Flonase to be taken as needed and also consider taken Tylenol Hepatitis B carrier. -She recently had a hepatic function tests and her levels are reassuring. Continue to follow with a GI Depression/GILSON. -Her mood is stable on current regimen. She follows with psychiatrist and therapist on a regular basis. We will continue to monitor symptoms Parkinson's disease/Migraine - She is currently stable on levodopa. She follows with Dr. Parks-neurologist Recent blood work discussed over the phone Screening blood work before next appointment I have rendered the services for this patient under direct supervision of Dr. Lewis, who did not see the patient but was available upon request 06/30/2025 Syncope and collapse (ICD-10 - R55) 07/12/2025 Other obesity due to excess calories [...] Meal replacements were recommended. Advised to use ygar-vse-yelfiju multivitamins and vitamin D. Advised to use [...] the thyroid surgery, Continues to monitor with Ad Writer. Palpitation. She recently had a Holter monitor [...] Meal replacements were recommended. Advised to use rith-sjd-qlepcij multivitamins and vitamin D. Advised to use [...] the thyroid surgery, Continues to monitor with Ad Writer. Palpitation. She recently had a Holter monitor [...] the patient but was available upon request 06/02/2025 Annual visit for general adult medical examination without abnormal findings (ICD-10 - Z00.00) Mrs. Guillaume is a 55-year-old lady With a past medical history of GERD, obesity status post gastric bypass in 2022, hepatitis B carrier, mild asthma, Parkinson's disease, migraine, goiter, depression/GILSON is here for annual physical examination. She also states that 3 days ago she had syncope. Plan as follows Syncope and collapse. -Reports experiencing shortness of breath and palpitations and Transient loss of consciousness for a couple of seconds. She went to the urgent care, EKG was obtained and it was normal. She was diagnosed with bacterial sinusitis and she was started on doxycycline. She did follow with her neurologist and he will obtain EEG. EKG is done in office today With a heart rate of 77 bpm, sinus rhythm. No ST elevation or depression. No bundle branch block. We will also obtain a loop recorder To rule out arrhythmia as she does have history of multinodular goiter We will obtain a stress echo To assess for cardiac function We will obtain blood work to rule out any electrolyte Imbalance, vitamin deficiencies as she has history of gastric bypass and has been experiencing loss of appetite Nontoxic multinodular goiter. - She admits to compressive symptoms of difficulty swallowing, voice hoarseness, Difficulty breathing with raising her arms up and lying on her back. She has a surgery coming up and August, I have discussed with the patient to consult with her surgeon again and they states if surgery can be done anytime soon if not then we can consider consultation with a different surgeon. Sleep apnea. - Patient will contact the sleep medicine clinic to obtain CPAP machine. Complications of LA discussed. Moderate Persistent asthma: -Stable at this point, Continue with Symbicort 160/4.5, 2 puff BID and albuterol. Latent TB: Stable. PFTs Will be repeated after the thyroid surgery, Continues to monitor with Ad Writer. Osteoarthritis. - She follows with pain management Acute sinuisits. - Continue on doxycycline 100 mg twice a day, Flonase to be taken as needed and also consider taken Tylenol Hepatitis B carrier. -She recently had a hepatic function tests and her levels are reassuring. Continue to follow with a GI Depression/GILSON. -Her mood is stable on current regimen. She follows with psychiatrist and therapist on a regular basis. We will continue to monitor symptoms Morbid obesity. - She is currently on phentermine 30 mg. Her weight is stable since the last visit. Discussed diet modification and regular exercise. Parkinson's disease/Migraine - She is currently stable on levodopa. She follows with Dr. Parks-neurologist [facility]. Up to date Dermatology. No suspicious lesions at this point She is up-to-date on age-specific screenings and vaccinations. Shingles vaccine is given office today She will also be referred to eligibility counselor for breast and pelvic examination including Pap smear She does have a MANAGER SUMMER who helps her at home with ADLS and IADLs. She uses a walker to ambulate Fall risk precautions discussed Screening blood work before next appointment I have rendered the services for this patient under direct supervision of Dr. Lewis, who did not see the patient but was available upon request 06/02/2025 Syncope and collapse (ICD-10 - R55) Mrs. Guillaume is a 55-year-old lady With a past medical history of GERD, obesity status post gastric bypass in 2022, hepatitis B carrier, mild asthma, Parkinson's disease, migraine, goiter, depression/GILSON is here for annual physical examination. She also states that 3 days ago she had syncope. Plan as follows Syncope and collapse. -Reports experiencing shortness of breath and palpitations and Transient loss of consciousness for a couple of seconds. She went to the urgent care, EKG was obtained and it was normal. She was diagnosed with bacterial sinusitis and she was started on doxycycline. She did follow with her neurologist and he will obtain EEG. EKG is done in office today With a heart rate of 77 bpm, sinus rhythm. No ST elevation or depression. No bundle branch block. We will also obtain a loop recorder To rule out arrhythmia as she does have history of multinodular goiter We will obtain a stress echo To assess for cardiac function We will obtain blood work to rule out any electrolyte Imbalance, vitamin deficiencies as she has history of gastric bypass and has been experiencing loss of appetite Nontoxic multinodular goiter. - She admits to compressive symptoms of difficulty swallowing, voice hoarseness, Difficulty breathing with raising her arms up and lying on her back. She has a surgery coming up and February, I have discussed with the patient to consult with her surgeon again and they states if surgery can be done anytime soon if not then we can consider consultation with a different surgeon. Sleep apnea. - Patient will contact the sleep medicine clinic to obtain CPAP machine. Complications of LA discussed. Moderate Persistent asthma: -Stable at this point, Continue with Symbicort 160/4.5, 2 puff BID and albuterol. Latent TB: Stable. PFTs Will be repeated after the thyroid surgery, Continues to monitor with Ad Writer. Osteoarthritis. - She follows with pain management Acute sinuisits. - Continue on doxycycline 100 mg twice a day, Flonase to be taken as needed and also consider taken Tylenol Hepatitis B carrier. -She recently had a hepatic function tests and her levels are reassuring. Continue to follow with a GI Depression/GILSON. -Her mood is stable on current regimen. She follows with psychiatrist and therapist on a regular basis. We will continue to monitor symptoms Morbid obesity. - She is currently on phentermine 30 mg. Her weight is stable since the last visit. Discussed diet modification and regular exercise. Parkinson's disease/Migraine - She is currently stable on levodopa. She follows with Dr. Parks-neurologist [facility]. Up to date Dermatology. No suspicious lesions at this point She is up-to-date on age-specific screenings and vaccinations. Shingles vaccine is given office today She will also be referred to eligibility counselor for breast and pelvic examination including Pap smear She does have a MANAGER SUMMER who helps her at home with ADLS and IADLs. She uses a walker to ambulate Fall risk precautions discussed Screening blood work before next appointment I have rendered the services for this [...] Meal replacements were recommended. Advised to use facn-tem-xepkmba multivitamins and vitamin D. Advised to use [...] the thyroid surgery, Continues to monitor with Ad Writer. Palpitation. She recently had a Holter monitor [...] the patient but was available upon request 06/30/2025 Nontoxic multinodular goiter (ICD-10 - E04.2) Mrs. Guillaume is a 55-year-old lady With a past medical history of GERD, obesity status post gastric bypass in 2022, hepatitis B carrier, mild asthma, Parkinson's disease, migraine, goiter, depression/GILSON is To discuss recent Holter monitor results and blood work. Visit is conducted through telehealth. Plan as follows Syncope and collapse. - Holter monitor results does show 2 episodes of tachycardia with average heart rate ranging between 109 and 110. She did experience palpitations during this episode. Denies any dizziness, shortness of breath, syncope, chest pain. She is currently on phentermine, we will hold off on this medication and reevaluate in 2 weeks if symptoms have improved given that stimulant and does play a role into tachycardia. Her recent blood work it is unremarkable for anemia, electrolytes are within normal limits, TSH is within normal limit. She recently had blood work through the welt sole layer which it is remarkable for secondary hyperparathyroidism and she has a surgery, and of August 22 for her thyroid. Pending stress echo and pending EEG from the neurologist. We will continue to monitor for now, advised reducing the caffeine intake and increase hydration and hold off on phentermine. Nontoxic multinodular goiter. - She admits to compressive symptoms of difficulty swallowing, voice hoarseness, Difficulty breathing with raising her arms up and lying on her back. She has a surgery coming up and August, I have discussed with the patient to consult with her surgeon again and they states if surgery can be done anytime soon if not then we can consider consultation with a different surgeon. Sleep apnea. - Patient will contact the sleep medicine clinic to obtain CPAP machine. Complications of LA discussed. Moderate Persistent asthma: -Stable at this point, Continue with Symbicort 160/4.5, 2 puff BID and albuterol. Latent TB: Stable. PFTs Will be repeated after the thyroid surgery, Continues to monitor with Ad Writer. Osteoarthritis. - She follows with pain management Acute sinuisits. - Continue on doxycycline 100 mg twice a day, Flonase to be taken as needed and also consider taken Tylenol Hepatitis B carrier. -She recently had a hepatic function tests and her levels are reassuring. Continue to follow with a GI Depression/GILSON. -Her mood is stable on current regimen. She follows with psychiatrist and therapist on a regular basis. We will continue to monitor symptoms Parkinson's disease/Migraine - She is currently stable on levodopa. She follows with Dr. Parks-neurologist Recent blood work discussed over the phone Screening blood work before next appointment I have rendered the services for this [...] Meal replacements were recommended. Advised to use zief-ysq-owvqrum multivitamins and vitamin D. Advised to use [...] the thyroid surgery, Continues to monitor with Ad Writer. Plantar fasciitis/chronic Dermatophytosis: patient is to continue on clotrimazole and ammonium lactate prescribed by the mathematical sciences professor. Osteoarthritis. She has an appointment for a consultation with pain management next month. Flu vaccine is given in the office today I have rendered the services for this patient under direct supervision of Dr. Lewis, who did not see the patient but was available upon request 06/02/2025 Nontoxic multinodular goiter (ICD-10 - E04.2) Mrs. Guillaume is a 55-year-old lady With a past medical history of GERD, obesity status post gastric bypass in 2022, hepatitis B carrier, mild asthma, Parkinson's disease, migraine, goiter, depression/GILSON is here for annual physical examination. She also states that 3 days ago she had syncope. Plan as follows Syncope and collapse. -Reports experiencing shortness of breath and palpitations and Transient loss of consciousness for a couple of seconds. She went to the urgent care, EKG was obtained and it was normal. She was diagnosed with bacterial sinusitis and she was started on doxycycline. She did follow with her neurologist and he will obtain EEG. EKG is done in office today With a heart rate of 77 bpm, sinus rhythm. No ST elevation or depression. No bundle branch block. We will also obtain a loop recorder To rule out arrhythmia as she does have history of multinodular goiter We will obtain a stress echo To assess for cardiac function We will obtain blood work to rule out any electrolyte Imbalance, vitamin deficiencies as she has history of gastric bypass and has been experiencing loss of appetite Nontoxic multinodular goiter. - She admits to compressive symptoms of difficulty swallowing, voice hoarseness, Difficulty breathing with raising her arms up and lying on her back. She has a surgery coming up and August, I have discussed with the patient to consult with her surgeon again and they states if surgery can be done anytime soon if not then we can consider consultation with a different surgeon. Sleep apnea. - Patient will contact the sleep medicine clinic to obtain CPAP machine. Complications of LA discussed. Moderate Persistent asthma: -Stable at this point, Continue with Symbicort 160/4.5, 2 puff BID and albuterol. Latent TB: Stable. PFTs Will be repeated after the thyroid surgery, Continues to monitor with Ad Writer. Osteoarthritis. - She follows with pain management Acute sinuisits. - Continue on doxycycline 100 mg twice a day, Flonase to be taken as needed and also consider taken Tylenol Hepatitis B carrier. -She recently had a hepatic function tests and her levels are reassuring. Continue to follow with a GI Depression/GILSON. -Her mood is stable on current regimen. She follows with psychiatrist and therapist on a regular basis. We will continue to monitor symptoms Morbid obesity. - She is currently on phentermine 30 mg. Her weight is stable since the last visit. Discussed diet modification and regular exercise. Parkinson's disease/Migraine - She is currently stable on levodopa. She follows with Dr. Parks-neurologist [facility]. Up to date Dermatology. No suspicious lesions at this point She is up-to-date on age-specific screenings and vaccinations. Shingles vaccine is given office today She will also be referred to eligibility counselor for breast and pelvic examination including Pap smear She does have a MANAGER SUMMER who helps her at home with ADLS and IADLs. She uses a walker to ambulate Fall risk precautions discussed Screening blood work before next appointment I have rendered the services for this [...] Meal replacements were recommended. Advised to use bnwf-vgp-jgfkvkz multivitamins and vitamin D. Advised to use [...] the thyroid surgery, Continues to monitor with Ad Writer. Plantar fasciitis/chronic Dermatophytosis: patient is to continue on clotrimazole and ammonium lactate prescribed by the mathematical sciences professor. Osteoarthritis. She has an appointment for a [...] Meal replacements were recommended. Advised to use rduf-dkc-yhmwxbl multivitamins and vitamin D. Advised to use [...] Latent TB: Stable. Continues to monitor with Ad Writer. I have rendered the services for this [...] Meal replacements were recommended. Advised to use irbc-urw-mvuiphn multivitamins and vitamin D. Advised to use [...] goiter is noted, She does follow with welt sole layer and she has a surgery consultation on March 04. Sleep apnea. Per record, patient is holding off on Sleep study until resolution of the goiter. Moderate Persistent asthma: Continue with Symbicort 160/4.5, 2 puff BID and albuterol. Latent TB: Stable. Continues to monitor with Ad Writer. I have rendered the services for this [...] Meal replacements were recommended. Advised to use vqws-grj-pfgvrje multivitamins and vitamin D. Advised to use [...] Latent TB: Stable. Continues to monitor with Ad Writer. I have rendered the services for this [...] Meal replacements were recommended. Advised to use fqei-lry-nzaztgl multivitamins and vitamin D. Advised to use [...] Meal replacements were recommended. Advised to use vlad-plr-iznmyqq multivitamins and vitamin D. Advised to use [...] Meal replacements were recommended. Advised to use nwuu-uzr-faddbmq multivitamins and vitamin D. Advised to use [...] Meal replacements were recommended. Advised to use ipdx-pfm-evfgwdu multivitamins and vitamin D. Advised to use [...] Allergic rhinitis - She currently follows with [facility], however she would like a second opinion [...] Meal replacements were recommended. Advised to use tksl-tyl-rsvoizh multivitamins and vitamin D. Advised to use [...] patient but was available upon request 01/13/2025 Nontoxic multinodular goiter (ICD-10 - E04.2) [...] Meal replacements were recommended. Advised to use jgax-msn-msukxul multivitamins and vitamin D. Advised to use [...] Latent TB: Stable. Continues to monitor with Ad Writer. I have rendered the services for this [...] Meal replacements were recommended. Advised to use eklp-btw-plpthez multivitamins and vitamin D. Advised to use [...] goiter is noted, She does follow with welt sole layer and she has a surgery consultation on March 04. Sleep apnea. Per record, patient is holding off on Sleep study until resolution of the goiter. Moderate Persistent asthma: Continue with Symbicort 160/4.5, 2 puff BID and albuterol. Latent TB: Stable. Continues to monitor with Ad Writer. I have rendered the services for this [...] Meal replacements were recommended. Advised to use ndrt-ejb-ltpzkjx multivitamins and vitamin D. Advised to use [...] Latent TB: Stable. Continues to monitor with Ad Writer. I have rendered the services for this [...] Meal replacements were recommended. Advised to use agle-vbz-xvqmlrj multivitamins and vitamin D. Advised to use [...] the thyroid surgery, Continues to monitor with Ad Writer. Plantar fasciitis/chronic Dermatophytosis: patient is to continue on clotrimazole and ammonium lactate prescribed by the mathematical sciences professor. Osteoarthritis. She has an appointment for a consultation with pain management next month. Acute sinuisits. Will start patient on prednisone and amoxicillin. Continue using flonase and tylenol as needed I have rendered the services for this patient under direct supervision of Dr. Lewis, who did not see the patient but was available upon request 06/02/2025 Obstructive sleep apnea (adult) (pediatric) (ICD-10 - G47.33) Mrs. Guillaume is a 55-year-old lady With a past medical history of GERD, obesity status post gastric bypass in 2022, hepatitis B carrier, mild asthma, Parkinson's disease, migraine, goiter, depression/GILSON is here for annual physical examination. She also states that 3 days ago she had syncope. Plan as follows Syncope and collapse. -Reports experiencing shortness of breath and palpitations and Transient loss of consciousness for a couple of seconds. She went to the urgent care, EKG was obtained and it was normal. She was diagnosed with bacterial sinusitis and she was started on doxycycline. She did follow with her neurologist and he will obtain EEG. EKG is done in office today With a heart rate of 77 bpm, sinus rhythm. No ST elevation or depression. No bundle branch block. We will also obtain a loop recorder To rule out arrhythmia as she does have history of multinodular goiter We will obtain a stress echo To assess for cardiac function We will obtain blood work to rule out any electrolyte Imbalance, vitamin deficiencies as she has history of gastric bypass and has been experiencing loss of appetite Nontoxic multinodular goiter. - She admits to compressive symptoms of difficulty swallowing, voice hoarseness, Difficulty breathing with raising her arms up and lying on her back. She has a surgery coming up and August, I have discussed with the patient to consult with her surgeon again and they states if surgery can be done anytime soon if not then we can consider consultation with a different surgeon. Sleep apnea. - Patient will contact the sleep medicine clinic to obtain CPAP machine. Complications of [place] discussed. Moderate Persistent asthma: -Stable at this point, Continue with Symbicort 160/4.5, 2 puff BID and albuterol. Latent TB: Stable. PFTs Will be repeated after the thyroid surgery, Continues to monitor with Ad Writer. Osteoarthritis. - She follows with pain management Acute sinuisits. - Continue on doxycycline 100 mg twice a day, Flonase to be taken as needed and also consider taken Tylenol Hepatitis B carrier. -She recently had a hepatic function tests and her levels are reassuring. Continue to follow with a GI Depression/GILSON. -Her mood is stable on current regimen. She follows with psychiatrist and therapist on a regular basis. We will continue to monitor symptoms Morbid obesity. - She is currently on phentermine 30 mg. Her weight is stable since the last visit. Discussed diet modification and regular exercise. Parkinson's disease/Migraine - She is currently stable on levodopa. She follows with Dr. Parks-neurologist [facility]. Up to date Dermatology. No suspicious lesions at this point She is up-to-date on age-specific screenings and vaccinations. Shingles vaccine is given office today She will also be referred to eligibility counselor for breast and pelvic examination including Pap smear She does have a MANAGER SUMMER who helps her at home with ADLS and IADLs. She uses a walker to ambulate Fall risk precautions discussed Screening blood work before next appointment I have rendered the services for this [...] Meal replacements were recommended. Advised to use zeld-sax-xjaxrqm multivitamins and vitamin D. Advised to use [...] the thyroid surgery, Continues to monitor with Ad Writer. Plantar fasciitis/chronic Dermatophytosis: patient is to continue on clotrimazole and ammonium lactate prescribed by the mathematical sciences professor. Osteoarthritis. She has an appointment for a consultation with pain management next month. Flu vaccine is given in the office today I have rendered the services for this patient under direct supervision of Dr. Lewis, who did not see the patient but was available upon request 06/30/2025 Obstructive sleep apnea (adult) (pediatric) (ICD-10 - G47.33) Mrs. Guillaume is a 55-year-old lady With a past medical history of GERD, obesity status post gastric bypass in 2022, hepatitis B carrier, mild asthma, Parkinson's disease, migraine, goiter, depression/GILSON is To discuss recent Holter monitor results and blood work. Visit is conducted through telehealth. Plan as follows Syncope and collapse. - Holter monitor results does show 2 episodes of tachycardia with average heart rate ranging between 109 and 110. She did experience palpitations during this episode. Denies any dizziness, shortness of breath, syncope, chest pain. She is currently on phentermine, we will hold off on this medication and reevaluate in 2 weeks if symptoms have improved given that stimulant and does play a role into tachycardia. Her recent blood work it is unremarkable for anemia, electrolytes are within normal limits, TSH is within normal limit. She recently had blood work through the welt sole layer which it is remarkable for secondary hyperparathyroidism and she has a surgery, and of August 22 for her thyroid. Pending stress echo and pending EEG from the neurologist. We will continue to monitor for now, advised reducing the caffeine intake and increase hydration and hold off on phentermine. Nontoxic multinodular goiter. - She admits to compressive symptoms of difficulty swallowing, voice hoarseness, Difficulty breathing with raising her arms up and lying on her back. She has a surgery coming up and August, I have discussed with the patient to consult with her surgeon again and they states if surgery can be done anytime soon if not then we can consider consultation with a different surgeon. Sleep apnea. - Patient will contact the sleep medicine clinic to obtain CPAP machine. Complications of LA discussed. Moderate Persistent asthma: -Stable at this point, Continue with Symbicort 160/4.5, 2 puff BID and albuterol. Latent TB: Stable. PFTs Will be repeated after the thyroid surgery, Continues to monitor with Ad Writer. Osteoarthritis. - She follows with pain management Acute sinuisits. - Continue on doxycycline 100 mg twice a day, Flonase to be taken as needed and also consider taken Tylenol Hepatitis B carrier. -She recently had a hepatic function tests and her levels are reassuring. Continue to follow with a GI Depression/GILSON. -Her mood is stable on current regimen. She follows with psychiatrist and therapist on a regular basis. We will continue to monitor symptoms Parkinson's disease/Migraine - She is currently stable on levodopa. She follows with Dr. Parks-neurologist Recent blood work discussed over the phone Screening blood work before next appointment I have rendered the services for this [...] Meal replacements were recommended. Advised to use xhke-cov-janicho multivitamins and vitamin D. Advised to use [...] the thyroid surgery, Continues to monitor with Ad Writer. Palpitation. She recently had a Holter monitor [...] Meal replacements were recommended. Advised to use mhlv-jnz-ucrowze multivitamins and vitamin D. Advised to use [...] the thyroid surgery, Continues to monitor with Ad Writer. Palpitation. She recently had a Holter monitor [...] the patient but was available upon request 06/30/2025 Parkinson's disease (ICD-10 - G20) Mrs. Guillaume is a 55-year-old lady With a past medical history of GERD, obesity status post gastric bypass in 2022, hepatitis B carrier, mild asthma, Parkinson's disease, migraine, goiter, depression/GILSON is To discuss recent Holter monitor results and blood work. Visit is conducted through telehealth. Plan as follows Syncope and collapse. - Holter monitor results does show 2 episodes of tachycardia with average heart rate ranging between 109 and 110. She did experience palpitations during this episode. Denies any dizziness, shortness of breath, syncope, chest pain. She is currently on phentermine, we will hold off on this medication and reevaluate in 2 weeks if symptoms have improved given that stimulant and does play a role into tachycardia. Her recent blood work it is unremarkable for anemia, electrolytes are within normal limits, TSH is within normal limit. She recently had blood work through the welt sole layer which it is remarkable for secondary hyperparathyroidism and she has a surgery, and of August 22 for her thyroid. Pending stress echo and pending EEG from the neurologist. We will continue to monitor for now, advised reducing the caffeine intake and increase hydration and hold off on phentermine. Nontoxic multinodular goiter. - She admits to compressive symptoms of difficulty swallowing, voice hoarseness, Difficulty breathing with raising her arms up and lying on her back. She has a surgery coming up and August, I have discussed with the patient to consult with her surgeon again and they states if surgery can be done anytime soon if not then we can consider consultation with a different surgeon. Sleep apnea. - Patient will contact the sleep medicine clinic to obtain CPAP machine. Complications of LA discussed. Moderate Persistent asthma: -Stable at this point, Continue with Symbicort 160/4.5, 2 puff BID and albuterol. Latent TB: Stable. PFTs Will be repeated after the thyroid surgery, Continues to monitor with Ad Writer. Osteoarthritis. - She follows with pain management Acute sinuisits. - Continue on doxycycline 100 mg twice a day, Flonase to be taken as needed and also consider taken Tylenol Hepatitis B carrier. -She recently had a hepatic function tests and her levels are reassuring. Continue to follow with a GI Depression/GILSON. -Her mood is stable on current regimen. She follows with psychiatrist and therapist on a regular basis. We will continue to monitor symptoms Parkinson's disease/Migraine - She is currently stable on levodopa. She follows with Dr. Parks-neurologist Recent blood work discussed over the phone Screening blood work before next appointment I have rendered the services for this [...] Meal replacements were recommended. Advised to use npbq-rha-rhquhln multivitamins and vitamin D. Advised to use [...] the thyroid surgery, Continues to monitor with Ad Writer. Plantar fasciitis/chronic Dermatophytosis: patient is to continue on clotrimazole and ammonium lactate prescribed by the mathematical sciences professor. Osteoarthritis. She has an appointment for a [...] Meal replacements were recommended. Advised to use avwm-ste-nqkfjaw multivitamins and vitamin D. Advised to use [...] the thyroid surgery, Continues to monitor with Ad Writer. Plantar fasciitis/chronic Dermatophytosis: patient is to continue on clotrimazole and ammonium lactate prescribed by the mathematical sciences professor. Osteoarthritis. She has an appointment for a [...] Meal replacements were recommended. Advised to use gcmh-cwr-wxcidsg multivitamins and vitamin D. Advised to use [...] Latent TB: Stable. Continues to monitor with Ad Writer. I have rendered the services for this [...] Meal replacements were recommended. Advised to use oqmh-wdx-hgsqpyl multivitamins and vitamin D. Advised to use [...] goiter is noted, She does follow with welt sole layer and she has a surgery consultation on March 04. Sleep apnea. Per record, patient is holding off on Sleep study until resolution of the goiter. Moderate Persistent asthma: Continue with Symbicort 160/4.5, 2 puff BID and albuterol. Latent TB: Stable. Continues to monitor with Ad Writer. I have rendered the services for this [...] Meal replacements were recommended. Advised to use dxvd-tzl-uzsdatl multivitamins and vitamin D. Advised to use [...] Latent TB: Stable. Continues to monitor with Ad Writer. I have rendered the services for this patient under direct supervision of Dr. Lewis, who did not see the patient but was available upon request 06/02/2025 Parkinson's disease (ICD-10 - G20) Mrs. Guillaume is a 55-year-old lady With a past medical history of GERD, obesity status post gastric bypass in 2022, hepatitis B carrier, mild asthma, Parkinson's disease, migraine, goiter, depression/GILSON is here for annual physical examination. She also states that 3 days ago she had syncope. Plan as follows Syncope and collapse. -Reports experiencing shortness of breath and palpitations and Transient loss of consciousness for a couple of seconds. She went to the urgent care, EKG was obtained and it was normal. She was diagnosed with bacterial sinusitis and she was started on doxycycline. She did follow with her neurologist and he will obtain EEG. EKG is done in office today With a heart rate of 77 bpm, sinus rhythm. No ST elevation or depression. No bundle branch block. We will also obtain a loop recorder To rule out arrhythmia as she does have history of multinodular goiter We will obtain a stress echo To assess for cardiac function We will obtain blood work to rule out any electrolyte Imbalance, vitamin deficiencies as she has history of gastric bypass and has been experiencing loss of appetite Nontoxic multinodular goiter. - She admits to compressive symptoms of difficulty swallowing, voice hoarseness, Difficulty breathing with raising her arms up and lying on her back. She has a surgery coming up and August, I have discussed with the patient to consult with her surgeon again and they states if surgery can be done anytime soon if not then we can consider consultation with a different surgeon. Sleep apnea. - Patient will contact the sleep medicine clinic to obtain CPAP machine. Complications of LA discussed. Moderate Persistent asthma: -Stable at this point, Continue with Symbicort 160/4.5, 2 puff BID and albuterol. Latent TB: Stable. PFTs Will be repeated after the thyroid surgery, Continues to monitor with Ad Writer. Osteoarthritis. - She follows with pain management Acute sinuisits. - Continue on doxycycline 100 mg twice a day, Flonase to be taken as needed and also consider taken Tylenol Hepatitis B carrier. -She recently had a hepatic function tests and her levels are reassuring. Continue to follow with a GI Depression/GILSON. -Her mood is stable on current regimen. She follows with psychiatrist and therapist on a regular basis. We will continue to monitor symptoms Morbid obesity. - She is currently on phentermine 30 mg. Her weight is stable since the last visit. Discussed diet modification and regular exercise. Parkinson's disease/Migraine - She is currently stable on levodopa. She follows with Dr. Parks-neurologist [facility]. Up to date Dermatology. No suspicious lesions at this point She is up-to-date on age-specific screenings and vaccinations. Shingles vaccine is given office today She will also be referred to eligibility counselor for breast and pelvic examination including Pap smear She does have a MANAGER SUMMER who helps her at home with ADLS and IADLs. She uses a walker to ambulate Fall risk precautions discussed Screening blood work before next appointment I have rendered the services for this patient under direct supervision of Dr. Lewis, who did not see the patient but was available upon request 06/02/2025 Migraine without aura, not intractable, without status migrainosus (ICD-10 - G43.009) Mrs. Guillaume is a 55-year-old lady With a past medical history of GERD, obesity status post gastric bypass in 2022, hepatitis B carrier, mild asthma, Parkinson's disease, migraine, goiter, depression/GILSON is here for annual physical examination. She also states that 3 days ago she had syncope. Plan as follows Syncope and collapse. -Reports experiencing shortness of breath and palpitations and Transient loss of consciousness for a couple of seconds. She went to the urgent care, EKG was obtained and it was normal. She was diagnosed with bacterial sinusitis and she was started on doxycycline. She did follow with her neurologist and he will obtain EEG. EKG is done in office today With a heart rate of 77 bpm, sinus rhythm. No ST elevation or depression. No bundle branch block. We will also obtain a loop recorder To rule out arrhythmia as she does have history of multinodular goiter We will obtain a stress echo To assess for cardiac function We will obtain blood work to rule out any electrolyte Imbalance, vitamin deficiencies as she has history of gastric bypass and has been experiencing loss of appetite Nontoxic multinodular goiter. - She admits to compressive symptoms of difficulty swallowing, voice hoarseness, Difficulty breathing with raising her arms up and lying on her back. She has a surgery coming up and August, I have discussed with the patient to consult with her surgeon again and they states if surgery can be done anytime soon if not then we can consider consultation with a different surgeon. Sleep apnea. - Patient will contact the sleep medicine clinic to obtain CPAP machine. Complications of LA discussed. Moderate Persistent asthma: -Stable at this point, Continue with Symbicort 160/4.5, 2 puff BID and albuterol. Latent TB: Stable. PFTs Will be repeated after the thyroid surgery, Continues to monitor with Ad Writer. Osteoarthritis. - She follows with pain management Acute sinuisits. - Continue on doxycycline 100 mg twice a day, Flonase to be taken as needed and also consider taken Tylenol Hepatitis B carrier. -She recently had a hepatic function tests and her levels are reassuring. Continue to follow with a GI Depression/GILSON. -Her mood is stable on current regimen. She follows with psychiatrist and therapist on a regular basis. We will continue to monitor symptoms Morbid obesity. - She is currently on phentermine 30 mg. Her weight is stable since the last visit. Discussed diet modification and regular exercise. Parkinson's disease/Migraine - She is currently stable on levodopa. She follows with Dr. Parks-neurologist [facility]. Up to date Dermatology. No suspicious lesions at this point She is up-to-date on age-specific screenings and vaccinations. Shingles vaccine is given office today She will also be referred to eligibility counselor for breast and pelvic examination including Pap smear She does have a MANAGER SUMMER who helps her at home with ADLS and IADLs. She uses a walker to ambulate Fall risk precautions discussed Screening blood work before next appointment I have rendered the services for this [...] Meal replacements were recommended. Advised to use tayj-kvb-wtawyel multivitamins and vitamin D. Advised to use [...] Latent TB: Stable. Continues to monitor with Ad Writer. I have rendered the services for this [...] Meal replacements were recommended. Advised to use gpth-qsg-rsrhzil multivitamins and vitamin D. Advised to use [...] goiter is noted, She does follow with welt sole layer and she has a surgery consultation on March 04. Sleep apnea. Per record, patient is holding off on Sleep study until resolution of the goiter. Moderate Persistent asthma: Continue with Symbicort 160/4.5, 2 puff BID and albuterol. Latent TB: Stable. Continues to monitor with Ad Writer. I have rendered the services for this [...] Meal replacements were recommended. Advised to use jqqp-uep-cgtampg multivitamins and vitamin D. Advised to use [...] Latent TB: Stable. Continues to monitor with Ad Writer. I have rendered the services for this patient under direct supervision of Dr. Lewis, who did not see the patient but was available upon request 05/12/2025 Polyosteoarthritis, unspecified (ICD-10 - M15.9) Mrs. Guillaume is [...] Meal replacements were recommended. Advised to use krzw-oyk-gsakiop multivitamins and vitamin D. Advised to use [...] the thyroid surgery, Continues to monitor with Ad Writer. Plantar fasciitis/chronic Dermatophytosis: patient is to continue on clotrimazole and ammonium lactate prescribed by the mathematical sciences professor. Osteoarthritis. She has an appointment for a [...] Meal replacements were recommended. Advised to use jkub-mbh-bdduhzz multivitamins and vitamin D. Advised to use [...] the thyroid surgery, Continues to monitor with Ad Writer. Plantar fasciitis/chronic Dermatophytosis: patient is to continue on clotrimazole and ammonium lactate prescribed by the mathematical sciences professor. Osteoarthritis. She has an appointment for a consultation with pain management next month. Flu vaccine is given in the office today I have rendered the services for this patient under direct supervision of Dr. Lewis, who did not see the patient but was available upon request 06/30/2025 Migraine without aura, not intractable, without status migrainosus (ICD-10 - G43.009) Mrs. Guillaume is a 55-year-old lady With a past medical history of GERD, obesity status post gastric bypass in 2022, hepatitis B carrier, mild asthma, Parkinson's disease, migraine, goiter, depression/GILSON is To discuss recent Holter monitor results and blood work. Visit is conducted through telehealth. Plan as follows Syncope and collapse. - Holter monitor results does show 2 episodes of tachycardia with average heart rate ranging between 109 and 110. She did experience palpitations during this episode. Denies any dizziness, shortness of breath, syncope, chest pain. She is currently on phentermine, we will hold off on this medication and reevaluate in 2 weeks if symptoms have improved given that stimulant and does play a role into tachycardia. Her recent blood work it is unremarkable for anemia, electrolytes are within normal limits, TSH is within normal limit. She recently had blood work through the welt sole layer which it is remarkable for secondary hyperparathyroidism and she has a surgery, and of August 22 for her thyroid. Pending stress echo and pending EEG from the neurologist. We will continue to monitor for now, advised reducing the caffeine intake and increase hydration and hold off on phentermine. Nontoxic multinodular goiter. - She admits to compressive symptoms of difficulty swallowing, voice hoarseness, Difficulty breathing with raising her arms up and lying on her back. She has a surgery coming up and August, I have discussed with the patient to consult with her surgeon again and they states if surgery can be done anytime soon if not then we can consider consultation with a different surgeon. Sleep apnea. - Patient will contact the sleep medicine clinic to obtain CPAP machine. Complications of LA discussed. Moderate Persistent asthma: -Stable at this point, Continue with Symbicort 160/4.5, 2 puff BID and albuterol. Latent TB: Stable. PFTs Will be repeated after the thyroid surgery, Continues to monitor with Ad Writer. Osteoarthritis. - She follows with pain management Acute sinuisits. - Continue on doxycycline 100 mg twice a day, Flonase to be taken as needed and also consider taken Tylenol Hepatitis B carrier. -She recently had a hepatic function tests and her levels are reassuring. Continue to follow with a GI Depression/GILSON. -Her mood is stable on current regimen. She follows with psychiatrist and therapist on a regular basis. We will continue to monitor symptoms Parkinson's disease/Migraine - She is currently stable on levodopa. She follows with Dr. Parks-neurologist Recent blood work discussed over the phone Screening blood work before next appointment I have rendered the services for this patient under direct supervision of Dr. Lewis, who did not see the patient but was available upon request 07/12/2025 Polyosteoarthritis, unspecified (ICD-10 - M15.9) Mrs. Guillaume is [...] Meal replacements were recommended. Advised to use jrmv-age-spakzij multivitamins and vitamin D. Advised to use [...] the thyroid surgery, Continues to monitor with Ad Writer. Palpitation. She recently had a Holter monitor [...] request 07/12/2025 Palpitation (ICD-10 - R00.2) Mrs. Guillaume is a 55-year-old lady here [...] Meal replacements were recommended. Advised to use tkte-chs-sdudrbw multivitamins and vitamin D. Advised to use [...] the thyroid surgery, Continues to monitor with Ad Writer. Palpitation. She recently had a Holter monitor [...] the patient but was available upon request 06/30/2025 Moderate persistent asthma, uncomplicated (ICD-10 - J45.40) Mrs. Guillaume is a 55-year-old lady With a past medical history of GERD, obesity status post gastric bypass in 2022, hepatitis B carrier, mild asthma, Parkinson's disease, migraine, goiter, depression/GILSON is To discuss recent Holter monitor results and blood work. Visit is conducted through telehealth. Plan as follows Syncope and collapse. - Holter monitor results does show 2 episodes of tachycardia with average heart rate ranging between 109 and 110. She did experience palpitations during this episode. Denies any dizziness, shortness of breath, syncope, chest pain. She is currently on phentermine, we will hold off on this medication and reevaluate in 2 weeks if symptoms have improved given that stimulant and does play a role into tachycardia. Her recent blood work it is unremarkable for anemia, electrolytes are within normal limits, TSH is within normal limit. She recently had blood work through the welt sole layer which it is remarkable for secondary hyperparathyroidism and she has a surgery, and of August 22 for her thyroid. Pending stress echo and pending EEG from the neurologist. We will continue to monitor for now, advised reducing the caffeine intake and increase hydration and hold off on phentermine. Nontoxic multinodular goiter. - She admits to compressive symptoms of difficulty swallowing, voice hoarseness, Difficulty breathing with raising her arms up and lying on her back. She has a surgery coming up and August, I have discussed with the patient to consult with her surgeon again and they states if surgery can be done anytime soon if not then we can consider consultation with a different surgeon. Sleep apnea. - Patient will contact the sleep medicine clinic to obtain CPAP machine. Complications of LA discussed. Moderate Persistent asthma: -Stable at this point, Continue with Symbicort 160/4.5, 2 puff BID and albuterol. Latent TB: Stable. PFTs Will be repeated after the thyroid surgery, Continues to monitor with Ad Writer. Osteoarthritis. - She follows with pain management Acute sinuisits. - Continue on doxycycline 100 mg twice a day, Flonase to be taken as needed and also consider taken Tylenol Hepatitis B carrier. -She recently had a hepatic function tests and her levels are reassuring. Continue to follow with a GI Depression/GILSON. -Her mood is stable on current regimen. She follows with psychiatrist and therapist on a regular basis. We will continue to monitor symptoms Parkinson's disease/Migraine - She is currently stable on levodopa. She follows with Dr. Parks-neurologist Recent blood work discussed over the phone Screening blood work before next appointment I have rendered the services for this patient under direct supervision of Dr. Lewis, who did not see the patient but was available upon request 04/14/2025 Polyosteoarthritis, unspecified (ICD-10 - M15.9) Mrs. Guillaume is [...] Meal replacements were recommended. Advised to use tugf-poq-tqdqgis multivitamins and vitamin D. Advised to use [...] the thyroid surgery, Continues to monitor with Ad Writer. Plantar fasciitis/chronic Dermatophytosis: patient is to continue on clotrimazole and ammonium lactate prescribed by the mathematical sciences professor. Osteoarthritis. She has an appointment for a consultation with pain management next month. Flu vaccine is given in the office today I have rendered the services for this patient under direct supervision of Dr. Lewis, who did not see the patient but was available upon request 06/02/2025 Moderate persistent asthma, uncomplicated (ICD-10 - J45.40) Mrs. Guillaume is a 55-year-old lady With a past medical history of GERD, obesity status post gastric bypass in 2022, hepatitis B carrier, mild asthma, Parkinson's disease, migraine, goiter, depression/GILSON is here for annual physical examination. She also states that 3 days ago she had syncope. Plan as follows Syncope and collapse. -Reports experiencing shortness of breath and palpitations and Transient loss of consciousness for a couple of seconds. She went to the urgent care, EKG was obtained and it was normal. She was diagnosed with bacterial sinusitis and she was started on doxycycline. She did follow with her neurologist and he will obtain EEG. EKG is done in office today With a heart rate of 77 bpm, sinus rhythm. No ST elevation or depression. No bundle branch block. We will also obtain a loop recorder To rule out arrhythmia as she does have history of multinodular goiter We will obtain a stress echo To assess for cardiac function We will obtain blood work to rule out any electrolyte Imbalance, vitamin deficiencies as she has history of gastric bypass and has been experiencing loss of appetite Nontoxic multinodular goiter. - She admits to compressive symptoms of difficulty swallowing, voice hoarseness, Difficulty breathing with raising her arms up and lying on her back. She has a surgery coming up and August, I have discussed with the patient to consult with her surgeon again and they states if surgery can be done anytime soon if not then we can consider consultation with a different surgeon. Sleep apnea. - Patient will contact the sleep medicine clinic to obtain CPAP machine. Complications of LA discussed. Moderate Persistent asthma: -Stable at this point, Continue with Symbicort 160/4.5, 2 puff BID and albuterol. Latent TB: Stable. PFTs Will be repeated after the thyroid surgery, Continues to monitor with Ad Writer. Osteoarthritis. - She follows with pain management Acute sinuisits. - Continue on doxycycline 100 mg twice a day, Flonase to be taken as needed and also consider taken Tylenol Hepatitis B carrier. -She recently had a hepatic function tests and her levels are reassuring. Continue to follow with a GI Depression/GILSON. -Her mood is stable on current regimen. She follows with psychiatrist and therapist on a regular basis. We will continue to monitor symptoms Morbid obesity. - She is currently on phentermine 30 mg. Her weight is stable since the last visit. Discussed diet modification and regular exercise. Parkinson's disease/Migraine - She is currently stable on levodopa. She follows with Dr. Parks-neurologist [facility]. Up to date Dermatology. No suspicious lesions at this point She is up-to-date on age-specific screenings and vaccinations. Shingles vaccine is given office today She will also be referred to eligibility counselor for breast and pelvic examination including Pap smear She does have a MANAGER SUMMER who helps her at home with ADLS and IADLs. She uses a walker to ambulate Fall risk precautions discussed Screening blood work before next appointment I have rendered the services for this [...] Meal replacements were recommended. Advised to use [id number] multivitamins and vitamin D. Advised to use [...] the thyroid surgery, Continues to monitor with Ad Writer. Plantar fasciitis/chronic Dermatophytosis: patient is to continue on clotrimazole and ammonium lactate prescribed by the mathematical sciences professor. Osteoarthritis. She has an appointment for a consultation with pain management next month. Acute sinuisits. Will start patient on prednisone and amoxicillin. Continue using flonase and tylenol as needed I have rendered the services for this patient under direct supervision of Dr. Lewis, who did not see the patient but was available upon request 03/17/2025 Polyosteoarthritis, unspecified (ICD-10 - M15.9) Mrs. Guillaume is [...] Meal replacements were recommended. Advised to use [id number] multivitamins and vitamin D. Advised to use [...] Latent TB: Stable. Continues to monitor with Ad Writer. I have rendered the services for this patient under direct supervision of Dr. Lewis, who did not see the patient but was available upon request 02/17/2025 Polyosteoarthritis, unspecified (ICD-10 - M15.9) Mrs. Guillaume is [...] Meal replacements were recommended. Advised to use [id number] multivitamins and vitamin D. Advised to use [...] goiter is noted, She does follow with welt sole layer and she has a surgery consultation on March 04. Sleep apnea. Per record, patient is holding off on Sleep study until resolution of the goiter. Moderate Persistent asthma: Continue with Symbicort 160/4.5, 2 puff BID and albuterol. Latent TB: Stable. Continues to monitor with Ad Writer. I have rendered the services for this patient under direct supervision of Dr. Lewis, who did not see the patient but was available upon request 06/02/2025 Polyosteoarthritis, unspecified (ICD-10 - M15.9) Mrs. Guillaume is a 55-year-old lady With a past medical history of GERD, obesity status post gastric bypass in 2022, hepatitis B carrier, mild asthma, Parkinson's disease, migraine, goiter, depression/GILSON is here for annual physical examination. She also states that 3 days ago she had syncope. Plan as follows Syncope and collapse. -Reports experiencing shortness of breath and palpitations and Transient loss of consciousness for a couple of seconds. She went to the urgent care, EKG was obtained and it was normal. She was diagnosed with bacterial sinusitis and she was started on doxycycline. She did follow with her neurologist and he will obtain EEG. EKG is done in office today With a heart rate of 77 bpm, sinus rhythm. No ST elevation or depression. No bundle branch block. We will also obtain a loop recorder To rule out arrhythmia as she does have history of multinodular goiter We will obtain a stress echo To assess for cardiac function We will obtain blood work to rule out any electrolyte Imbalance, vitamin deficiencies as she has history of gastric bypass and has been experiencing loss of appetite Nontoxic multinodular goiter. - She admits to compressive symptoms of difficulty swallowing, voice hoarseness, Difficulty breathing with raising her arms up and lying on her back. She has a surgery coming up and August, I have discussed with the patient to consult with her surgeon again and they states if surgery can be done anytime soon if not then we can consider consultation with a different surgeon. Sleep apnea. - Patient will contact the sleep medicine clinic to obtain CPAP machine. Complications of LA discussed. Moderate Persistent asthma: -Stable at this point, Continue with Symbicort 160/4.5, 2 puff BID and albuterol. Latent TB: Stable. PFTs Will be repeated after the thyroid surgery, Continues to monitor with Ad Writer. Osteoarthritis. - She follows with pain management Acute sinuisits. - Continue on doxycycline 100 mg twice a day, Flonase to be taken as needed and also consider taken Tylenol Hepatitis B carrier. -She recently had a hepatic function tests and her levels are reassuring. Continue to follow with a GI Depression/GILSON. -Her mood is stable on current regimen. She follows with psychiatrist and therapist on a regular basis. We will continue to monitor symptoms Morbid obesity. - She is currently on phentermine 30 mg. Her weight is stable since the last visit. Discussed diet modification and regular exercise. Parkinson's disease/Migraine - She is currently stable on levodopa. She follows with Dr. Parks-neurologist [facility]. Up to date Dermatology. No suspicious lesions at this point She is up-to-date on age-specific screenings and vaccinations. Shingles vaccine is given office today She will also be referred to eligibility counselor for breast and pelvic examination including Pap smear She does have a MANAGER SUMMER who helps her at home with ADLS and IADLs. She uses a walker to ambulate Fall risk precautions discussed Screening blood work before next appointment I have rendered the services for this [...] Meal replacements were recommended. Advised to use [id number] multivitamins and vitamin D. Advised to use [...] the thyroid surgery, Continues to monitor with Ad Writer. Plantar fasciitis/chronic Dermatophytosis: patient is to continue on clotrimazole and ammonium lactate prescribed by the mathematical sciences professor. Osteoarthritis. She has an appointment for a consultation with pain management next month. Flu vaccine is given in the office today I have rendered the services for this patient under direct supervision of Dr. Lewis, who did not see the patient but was available upon request 06/30/2025 Polyosteoarthritis, unspecified (ICD-10 - M15.9) Mrs. Guillaume is a 55-year-old lady With a past medical history of GERD, obesity status post gastric bypass in 2022, hepatitis B carrier, mild asthma, Parkinson's disease, migraine, goiter, depression/GILSON is To discuss recent Holter monitor results and blood work. Visit is conducted through telehealth. Plan as follows Syncope and collapse. - Holter monitor results does show 2 episodes of tachycardia with average heart rate ranging between 109 and 110. She did experience palpitations during this episode. Denies any dizziness, shortness of breath, syncope, chest pain. She is currently on phentermine, we will hold off on this medication and reevaluate in 2 weeks if symptoms have improved given that stimulant and does play a role into tachycardia. Her recent blood work it is unremarkable for anemia, electrolytes are within normal limits, TSH is within normal limit. She recently had blood work through the welt sole layer which it is remarkable for secondary hyperparathyroidism and she has a surgery, and of August 22 for her thyroid. Pending stress echo and pending EEG from the neurologist. We will continue to monitor for now, advised reducing the caffeine intake and increase hydration and hold off on phentermine. Nontoxic multinodular goiter. - She admits to compressive symptoms of difficulty swallowing, voice hoarseness, Difficulty breathing with raising her arms up and lying on her back. She has a surgery coming up and August, I have discussed with the patient to consult with her surgeon again and they states if surgery can be done anytime soon if not then we can consider consultation with a different surgeon. Sleep apnea. - Patient will contact the sleep medicine clinic to obtain CPAP machine. Complications of LA discussed. Moderate Persistent asthma: -Stable at this point, Continue with Symbicort 160/4.5, 2 puff BID and albuterol. Latent TB: Stable. PFTs Will be repeated after the thyroid surgery, Continues to monitor with Ad Writer. Osteoarthritis. - She follows with pain management Acute sinuisits. - Continue on doxycycline 100 mg twice a day, Flonase to be taken as needed and also consider taken Tylenol Hepatitis B carrier. -She recently had a hepatic function tests and her levels are reassuring. Continue to follow with a GI Depression/GILSON. -Her mood is stable on current regimen. She follows with psychiatrist and therapist on a regular basis. We will continue to monitor symptoms Parkinson's disease/Migraine - She is currently stable on levodopa. She follows with Dr. Parks-neurologist Recent blood work discussed over the phone Screening blood work before next appointment I have rendered the services for this patient under direct supervision of Dr. Lewis, who did not see the patient but was available upon request 06/30/2025 Acute maxillary sinusitis, unspecified (ICD-10 - J01.00) Mrs. Guillaume is a 55-year-old lady With a past medical history of GERD, obesity status post gastric bypass in 2022, hepatitis B carrier, mild asthma, Parkinson's disease, migraine, goiter, depression/GILSON is To discuss recent Holter monitor results and blood work. Visit is conducted through telehealth. Plan as follows Syncope and collapse. - Holter monitor results does show 2 episodes of tachycardia with average heart rate ranging between 109 and 110. She did experience palpitations during this episode. Denies any dizziness, shortness of breath, syncope, chest pain. She is currently on phentermine, we will hold off on this medication and reevaluate in 2 weeks if symptoms have improved given that stimulant and does play a role into tachycardia. Her recent blood work it is unremarkable for anemia, electrolytes are within normal limits, TSH is within normal limit. She recently had blood work through the welt sole layer which it is remarkable for secondary hyperparathyroidism and she has a surgery, and of August 22 for her thyroid. Pending stress echo and pending EEG from the neurologist. We will continue to monitor for now, advised reducing the caffeine intake and increase hydration and hold off on phentermine. Nontoxic multinodular goiter. - She admits to compressive symptoms of difficulty swallowing, voice hoarseness, Difficulty breathing with raising her arms up and lying on her back. She has a surgery coming up and August, I have discussed with the patient to consult with her surgeon again and they states if surgery can be done anytime soon if not then we can consider consultation with a different surgeon. Sleep apnea. - Patient will contact the sleep medicine clinic to obtain CPAP machine. Complications of LA discussed. Moderate Persistent asthma: -Stable at this point, Continue with Symbicort 160/4.5, 2 puff BID and albuterol. Latent TB: Stable. PFTs Will be repeated after the thyroid surgery, Continues to monitor with Ad Writer. Osteoarthritis. - She follows with pain management Acute sinuisits. - Continue on doxycycline 100 mg twice a day, Flonase to be taken as needed and also consider taken Tylenol Hepatitis B carrier. -She recently had a hepatic function tests and her levels are reassuring. Continue to follow with a GI Depression/GILSON. -Her mood is stable on current regimen. She follows with psychiatrist and therapist on a regular basis. We will continue to monitor symptoms Parkinson's disease/Migraine - She is currently stable on levodopa. She follows with Dr. Parks-neurologist Recent blood work discussed over the phone Screening blood work before next appointment I have rendered the services for this patient under direct supervision of Dr. Lewis, who did not see the patient but was available upon request 06/02/2025 Acute maxillary sinusitis, unspecified (ICD-10 - J01.00) Mrs. Guillaume is a 55-year-old lady With a past medical history of GERD, obesity status post gastric bypass in 2022, hepatitis B carrier, mild asthma, Parkinson's disease, migraine, goiter, depression/GILSON is here for annual physical examination. She also states that 3 days ago she had syncope. Plan as follows Syncope and collapse. -Reports experiencing shortness of breath and palpitations and Transient loss of consciousness for a couple of seconds. She went to the urgent care, EKG was obtained and it was normal. She was diagnosed with bacterial sinusitis and she was started on doxycycline. She did follow with her neurologist and he will obtain EEG. EKG is done in office today With a heart rate of 77 bpm, sinus rhythm. No ST elevation or depression. No bundle branch block. We will also obtain a loop recorder To rule out arrhythmia as she does have history of multinodular goiter We will obtain a stress echo To assess for cardiac function We will obtain blood work to rule out any electrolyte Imbalance, vitamin deficiencies as she has history of gastric bypass and has been experiencing loss of appetite Nontoxic multinodular goiter. - She admits to compressive symptoms of difficulty swallowing, voice hoarseness, Difficulty breathing with raising her arms up and lying on her back. She has a surgery coming up and August, I have discussed with the patient to consult with her surgeon again and they states if surgery can be done anytime soon if not then we can consider consultation with a different surgeon. Sleep apnea. - Patient will contact the sleep medicine clinic to obtain CPAP machine. Complications of LA discussed. Moderate Persistent asthma: -Stable at this point, Continue with Symbicort 160/4.5, 2 puff BID and albuterol. Latent TB: Stable. PFTs Will be repeated after the thyroid surgery, Continues to monitor with Ad Writer. Osteoarthritis. - She follows with pain management Acute sinuisits. - Continue on doxycycline 100 mg twice a day, Flonase to be taken as needed and also consider taken Tylenol Hepatitis B carrier. -She recently had a hepatic function tests and her levels are reassuring. Continue to follow with a GI Depression/GILSON. -Her mood is stable on current regimen. She follows with psychiatrist and therapist on a regular basis. We will continue to monitor symptoms Morbid obesity. - She is currently on phentermine 30 mg. Her weight is stable since the last visit. Discussed diet modification and regular exercise. Parkinson's disease/Migraine - She is currently stable on levodopa. She follows with Dr. Praks-neurologist [facility]. Up to date Dermatology. No suspicious lesions at this point She is up-to-date on age-specific screenings and vaccinations. Shingles vaccine is given office today She will also be referred to eligibility counselor for breast and pelvic examination including Pap smear She does have a MANAGER SUMMER who helps her at home with ADLS and IADLs. She uses a walker to ambulate Fall risk precautions discussed Screening blood work before next appointment I have rendered the services for this patient under direct supervision of Dr. Lewis, who did not see the patient but was available upon request 06/30/2025 Generalized anxiety disorder (ICD-10 - F41.1) Mrs. Guillaume is a 55-year-old lady With a past medical history of GERD, obesity status post gastric bypass in 2022, hepatitis B carrier, mild asthma, Parkinson's disease, migraine, goiter, depression/GILSON is To discuss recent Holter monitor results and blood work. Visit is conducted through telehealth. Plan as follows Syncope and collapse. - Holter monitor results does show 2 episodes of tachycardia with average heart rate ranging between 109 and 110. She did experience palpitations during this episode. Denies any dizziness, shortness of breath, syncope, chest pain. She is currently on phentermine, we will hold off on this medication and reevaluate in 2 weeks if symptoms have improved given that stimulant and does play a role into tachycardia. Her recent blood work it is unremarkable for anemia, electrolytes are within normal limits, TSH is within normal limit. She recently had blood work through the welt sole layer which it is remarkable for secondary hyperparathyroidism and she has a surgery, and of August 22 for her thyroid. Pending stress echo and pending EEG from the neurologist. We will continue to monitor for now, advised reducing the caffeine intake and increase hydration and hold off on phentermine. Nontoxic multinodular goiter. - She admits to compressive symptoms of difficulty swallowing, voice hoarseness, Difficulty breathing with raising her arms up and lying on her back. She has a surgery coming up and August, I have discussed with the patient to consult with her surgeon again and they states if surgery can be done anytime soon if not then we can consider consultation with a different surgeon. Sleep apnea. - Patient will contact the sleep medicine clinic to obtain CPAP machine. Complications of LA discussed. Moderate Persistent asthma: -Stable at this point, Continue with Symbicort 160/4.5, 2 puff BID and albuterol. Latent TB: Stable. PFTs Will be repeated after the thyroid surgery, Continues to monitor with Ad Writer. Osteoarthritis. - She follows with pain management Acute sinuisits. - Continue on doxycycline 100 mg twice a day, Flonase to be taken as needed and also consider taken Tylenol Hepatitis B carrier. -She recently had a hepatic function tests and her levels are reassuring. Continue to follow with a GI Depression/GILSON. -Her mood is stable on current regimen. She follows with psychiatrist and therapist on a regular basis. We will continue to monitor symptoms Parkinson's disease/Migraine - She is currently stable on levodopa. She follows with Dr. Parks-neurologist Recent blood work discussed over the phone Screening blood work before next appointment I have rendered the services for this patient under direct supervision of Dr. Lewis, who did not see the patient but was available upon request 06/02/2025 Generalized anxiety disorder (ICD-10 - F41.1) Mrs. Guillaume is a 55-year-old lady With a past medical history of GERD, obesity status post gastric bypass in 2022, hepatitis B carrier, mild asthma, Parkinson's disease, migraine, goiter, depression/GILSON is here for annual physical examination. She also states that 3 days ago she had syncope. Plan as follows Syncope and collapse. -Reports experiencing shortness of breath and palpitations and Transient loss of consciousness for a couple of seconds. She went to the urgent care, EKG was obtained and it was normal. She was diagnosed with bacterial sinusitis and she was started on doxycycline. She did follow with her neurologist and he will obtain EEG. EKG is done in office today With a heart rate of 77 bpm, sinus rhythm. No ST elevation or depression. No bundle branch block. We will also obtain a loop recorder To rule out arrhythmia as she does have history of multinodular goiter We will obtain a stress echo To assess for cardiac function We will obtain blood work to rule out any electrolyte Imbalance, vitamin deficiencies as she has history of gastric bypass and has been experiencing loss of appetite Nontoxic multinodular goiter. - She admits to compressive symptoms of difficulty swallowing, voice hoarseness, Difficulty breathing with raising her arms up and lying on her back. She has a surgery coming up and August, I have discussed with the patient to consult with her surgeon again and they states if surgery can be done anytime soon if not then we can consider consultation with a different surgeon. Sleep apnea. - Patient will contact the sleep medicine clinic to obtain CPAP machine. Complications of LA discussed. Moderate Persistent asthma: -Stable at this point, Continue with Symbicort 160/4.5, 2 puff BID and albuterol. Latent TB: Stable. PFTs Will be repeated after the thyroid surgery, Continues to monitor with Ad Writer. Osteoarthritis. - She follows with pain management Acute sinuisits. - Continue on doxycycline 100 mg twice a day, Flonase to be taken as needed and also consider taken Tylenol Hepatitis B carrier. -She recently had a hepatic function tests and her levels are reassuring. Continue to follow with a GI Depression/GILSON. -Her mood is stable on current regimen. She follows with psychiatrist and therapist on a regular basis. We will continue to monitor symptoms Morbid obesity. - She is currently on phentermine 30 mg. Her weight is stable since the last visit. Discussed diet modification and regular exercise. Parkinson's disease/Migraine - She is currently stable on levodopa. She follows with Dr. Parks-neurologist [facility]. Up to date Dermatology. No suspicious lesions at this point She is up-to-date on age-specific screenings and vaccinations. Shingles vaccine is given office today She will also be referred to eligibility counselor for breast and pelvic examination including Pap smear She does have a MANAGER SUMMER who helps her at home with ADLS and IADLs. She uses a walker to ambulate Fall risk precautions discussed Screening blood work before next appointment I have rendered the services for this patient under direct supervision of Dr. Lewis, who did not see the patient but was available upon request 06/02/2025 Other polyosteoarthritis (ICD-10 - M15.8) Mrs. Guillaume is a 55-year-old lady With a past medical history of GERD, obesity status post gastric bypass in 2022, hepatitis B carrier, mild asthma, Parkinson's disease, migraine, goiter, depression/GILSON is here for annual physical examination. She also states that 3 days ago she had syncope. Plan as follows Syncope and collapse. -Reports experiencing shortness of breath and palpitations and Transient loss of consciousness for a couple of seconds. She went to the urgent care, EKG was obtained and it was normal. She was diagnosed with bacterial sinusitis and she was started on doxycycline. She did follow with her neurologist and he will obtain EEG. EKG is done in office today With a heart rate of 77 bpm, sinus rhythm. No ST elevation or depression. No bundle branch block. We will also obtain a loop recorder To rule out arrhythmia as she does have history of multinodular goiter We will obtain a stress echo To assess for cardiac function We will obtain blood work to rule out any electrolyte Imbalance, vitamin deficiencies as she has history of gastric bypass and has been experiencing loss of appetite Nontoxic multinodular goiter. - She admits to compressive symptoms of difficulty swallowing, voice hoarseness, Difficulty breathing with raising her arms up and lying on her back. She has a surgery coming up and August, I have discussed with the patient to consult with her surgeon again and they states if surgery can be done anytime soon if not then we can consider consultation with a different surgeon. Sleep apnea. - Patient will contact the sleep medicine clinic to obtain CPAP machine. Complications of LA discussed. Moderate Persistent asthma: -Stable at this point, Continue with Symbicort 160/4.5, 2 puff BID and albuterol. Latent TB: Stable. PFTs Will be repeated after the thyroid surgery, Continues to monitor with Ad Writer. Osteoarthritis. - She follows with pain management Acute sinuisits. - Continue on doxycycline 100 mg twice a day, Flonase to be taken as needed and also consider taken Tylenol Hepatitis B carrier. -She recently had a hepatic function tests and her levels are reassuring. Continue to follow with a GI Depression/GILSON. -Her mood is stable on current regimen. She follows with psychiatrist and therapist on a regular basis. We will continue to monitor symptoms Morbid obesity. - She is currently on phentermine 30 mg. Her weight is stable since the last visit. Discussed diet modification and regular exercise. Parkinson's disease/Migraine - She is currently stable on levodopa. She follows with Dr. Parks-neurologist [facility]. Up to date Dermatology. No suspicious lesions at this point She is up-to-date on age-specific screenings and vaccinations. Shingles vaccine is given office today She will also be referred to eligibility counselor for breast and pelvic examination including Pap smear She does have a MANAGER SUMMER who helps her at home with ADLS and IADLs. She uses a walker to ambulate Fall risk precautions discussed Screening blood work before next appointment I have rendered the services for this patient under direct supervision of Dr. Lewis, who did not see the patient but was available upon request 06/30/2025 Other polyosteoarthritis (ICD-10 - M15.8) Mrs. Guillaume is a 55-year-old lady With a past medical history of GERD, obesity status post gastric bypass in 2022, hepatitis B carrier, mild asthma, Parkinson's disease, migraine, goiter, depression/GILSON is To discuss recent Holter monitor results and blood work. Visit is conducted through telehealth. Plan as follows Syncope and collapse. - Holter monitor results does show 2 episodes of tachycardia with average heart rate ranging between 109 and 110. She did experience palpitations during this episode. Denies any dizziness, shortness of breath, syncope, chest pain. She is currently on phentermine, we will hold off on this medication and reevaluate in 2 weeks if symptoms have improved given that stimulant and does play a role into tachycardia. Her recent blood work it is unremarkable for anemia, electrolytes are within normal limits, TSH is within normal limit. She recently had blood work through the welt sole layer which it is remarkable for secondary hyperparathyroidism and she has a surgery, and of August 22 for her thyroid. Pending stress echo and pending EEG from the neurologist. We will continue to monitor for now, advised reducing the caffeine intake and increase hydration and hold off on phentermine. Nontoxic multinodular goiter. - She admits to compressive symptoms of difficulty swallowing, voice hoarseness, Difficulty breathing with raising her arms up and lying on her back. She has a surgery coming up and August, I have discussed with the patient to consult with her surgeon again and they states if surgery can be done anytime soon if not then we can consider consultation with a different surgeon. Sleep apnea. - Patient will contact the sleep medicine clinic to obtain CPAP machine. Complications of LA discussed. Moderate Persistent asthma: -Stable at this point, Continue with Symbicort 160/4.5, 2 puff BID and albuterol. Latent TB: Stable. PFTs Will be repeated after the thyroid surgery, Continues to monitor with Ad Writer. Osteoarthritis. - She follows with pain management Acute sinuisits. - Continue on doxycycline 100 mg twice a day, Flonase to be taken as needed and also consider taken Tylenol Hepatitis B carrier. -She recently had a hepatic function tests and her levels are reassuring. Continue to follow with a GI Depression/GILSON. -Her mood is stable on current regimen. She follows with psychiatrist and therapist on a regular basis. We will continue to monitor symptoms Parkinson's disease/Migraine - She is currently stable on levodopa. She follows with Dr. Parks-neurologist Recent blood work discussed over the phone Screening blood work before next appointment I have rendered the services for this patient under direct supervision of Dr. Lewis, who did not see the patient but was available upon request 06/30/2025 Hepatitis B carrier (ICD-10 - B18.1) Mrs. Guillaume is a 55-year-old lady With a past medical history of GERD, obesity status post gastric bypass in 2022, hepatitis B carrier, mild asthma, Parkinson's disease, migraine, goiter, depression/GILSON is To discuss recent Holter monitor results and blood work. Visit is conducted through telehealth. Plan as follows Syncope and collapse. - Holter monitor results does show 2 episodes of tachycardia with average heart rate ranging between 109 and 110. She did experience palpitations during this episode. Denies any dizziness, shortness of breath, syncope, chest pain. She is currently on phentermine, we will hold off on this medication and reevaluate in 2 weeks if symptoms have improved given that stimulant and does play a role into tachycardia. Her recent blood work it is unremarkable for anemia, electrolytes are within normal limits, TSH is within normal limit. She recently had blood work through the welt sole layer which it is remarkable for secondary hyperparathyroidism and she has a surgery, and of August 22 for her thyroid. Pending stress echo and pending EEG from the neurologist. We will continue to monitor for now, advised reducing the caffeine intake and increase hydration and hold off on phentermine. Nontoxic multinodular goiter. - She admits to compressive symptoms of difficulty swallowing, voice hoarseness, Difficulty breathing with raising her arms up and lying on her back. She has a surgery coming up and August, I have discussed with the patient to consult with her surgeon again and they states if surgery can be done anytime soon if not then we can consider consultation with a different surgeon. Sleep apnea. - Patient will contact the sleep medicine clinic to obtain CPAP machine. Complications of LA discussed. Moderate Persistent asthma: -Stable at this point, Continue with Symbicort 160/4.5, 2 puff BID and albuterol. Latent TB: Stable. PFTs Will be repeated after the thyroid surgery, Continues to monitor with Ad Writer. Osteoarthritis. - She follows with pain management Acute sinuisits. - Continue on doxycycline 100 mg twice a day, Flonase to be taken as needed and also consider taken Tylenol Hepatitis B carrier. -She recently had a hepatic function tests and her levels are reassuring. Continue to follow with a GI Depression/GILSON. -Her mood is stable on current regimen. She follows with psychiatrist and therapist on a regular basis. We will continue to monitor symptoms Parkinson's disease/Migraine - She is currently stable on levodopa. She follows with Dr. Parks-neurologist Recent blood work discussed over the phone Screening blood work before next appointment I have rendered the services for this patient under direct supervision of Dr. Lewis, who did not see the patient but was available upon request 06/02/2025 Hepatitis B carrier (ICD-10 - B18.1) Mrs. Guillaume is a 55-year-old lady With a past medical history of GERD, obesity status post gastric bypass in 2022, hepatitis B carrier, mild asthma, Parkinson's disease, migraine, goiter, depression/GILSON is here for annual physical examination. She also states that 3 days ago she had syncope. Plan as follows Syncope and collapse. -Reports experiencing shortness of breath and palpitations and Transient loss of consciousness for a couple of seconds. She went to the urgent care, EKG was obtained and it was normal. She was diagnosed with bacterial sinusitis and she was started on doxycycline. She did follow with her neurologist and he will obtain EEG. EKG is done in office today With a heart rate of 77 bpm, sinus rhythm. No ST elevation or depression. No bundle branch block. We will also obtain a loop recorder To rule out arrhythmia as she does have history of multinodular goiter We will obtain a stress echo To assess for cardiac function We will obtain blood work to rule out any electrolyte Imbalance, vitamin deficiencies as she has history of gastric bypass and has been experiencing loss of appetite Nontoxic multinodular goiter. - She admits to compressive symptoms of difficulty swallowing, voice hoarseness, Difficulty breathing with raising her arms up and lying on her back. She has a surgery coming up and August, I have discussed with the patient to consult with her surgeon again and they states if surgery can be done anytime soon if not then we can consider consultation with a different surgeon. Sleep apnea. - Patient will contact the sleep medicine clinic to obtain CPAP machine. Complications of LA discussed. Moderate Persistent asthma: -Stable at this point, Continue with Symbicort 160/4.5, 2 puff BID and albuterol. Latent TB: Stable. PFTs Will be repeated after the thyroid surgery, Continues to monitor with Ad Writer. Osteoarthritis. - She follows with pain management Acute sinuisits. - Continue on doxycycline 100 mg twice a day, Flonase to be taken as needed and also consider taken Tylenol Hepatitis B carrier. -She recently had a hepatic function tests and her levels are reassuring. Continue to follow with a GI Depression/GILSON. -Her mood is stable on current regimen. She follows with psychiatrist and therapist on a regular basis. We will continue to monitor symptoms Morbid obesity. - She is currently on phentermine 30 mg. Her weight is stable since the last visit. Discussed diet modification and regular exercise. Parkinson's disease/Migraine - She is currently stable on levodopa. She follows with Dr. Parks-neurologist [facility]. Up to date Dermatology. No suspicious lesions at this point She is up-to-date on age-specific screenings and vaccinations. Shingles vaccine is given office today She will also be referred to eligibility counselor for breast and pelvic examination including Pap smear She does have a MANAGER SUMMER who helps her at home with ADLS and IADLs. She uses a walker to ambulate Fall risk precautions discussed Screening blood work before next appointment I have rendered the services for this patient under direct supervision of Dr. Lewis, who did not see the patient but was available upon request 06/02/2025 Other obesity due to excess calories (ICD-10 - E66.09) Mrs. Guillaume is a 55-year-old lady With a past medical history of GERD, obesity status post gastric bypass in 2022, hepatitis B carrier, mild asthma, Parkinson's disease, migraine, goiter, depression/GILSON is here for annual physical examination. She also states that 3 days ago she had syncope. Plan as follows Syncope and collapse. -Reports experiencing shortness of breath and palpitations and Transient loss of consciousness for a couple of seconds. She went to the urgent care, EKG was obtained and it was normal. She was diagnosed with bacterial sinusitis and she was started on doxycycline. She did follow with her neurologist and he will obtain EEG. EKG is done in office today With a heart rate of 77 bpm, sinus rhythm. No ST elevation or depression. No bundle branch block. We will also obtain a loop recorder To rule out arrhythmia as she does have history of multinodular goiter We will obtain a stress echo To assess for cardiac function We will obtain blood work to rule out any electrolyte Imbalance, vitamin deficiencies as she has history of gastric bypass and has been experiencing loss of appetite Nontoxic multinodular goiter. - She admits to compressive symptoms of difficulty swallowing, voice hoarseness, Difficulty breathing with raising her arms up and lying on her back. She has a surgery coming up and August, I have discussed with the patient to consult with her surgeon again and they states if surgery can be done anytime soon if not then we can consider consultation with a different surgeon. Sleep apnea. - Patient will contact the sleep medicine clinic to obtain CPAP machine. Complications of LA discussed. Moderate Persistent asthma: -Stable at this point, Continue with Symbicort 160/4.5, 2 puff BID and albuterol. Latent TB: Stable. PFTs Will be repeated after the thyroid surgery, Continues to monitor with Ad Writer. Osteoarthritis. - She follows with pain management Acute sinuisits. - Continue on doxycycline 100 mg twice a day, Flonase to be taken as needed and also consider taken Tylenol Hepatitis B carrier. -She recently had a hepatic function tests and her levels are reassuring. Continue to follow with a GI Depression/GILSON. -Her mood is stable on current regimen. She follows with psychiatrist and therapist on a regular basis. We will continue to monitor symptoms Morbid obesity. - She is currently on phentermine 30 mg. Her weight is stable since the last visit. Discussed diet modification and regular exercise. Parkinson's disease/Migraine - She is currently stable on levodopa. She follows with Dr. Parks-neurologist [facility]. Up to date Dermatology. No suspicious lesions at this point She is up-to-date on age-specific screenings and vaccinations. Shingles vaccine is given office today She will also be referred to eligibility counselor for breast and pelvic examination including Pap smear She does have a MANAGER SUMMER who helps her at home with ADLS and IADLs. She uses a walker to ambulate Fall risk precautions discussed Screening blood work before next appointment I have rendered the services for this patient under direct supervision of Dr. Lewis, who did not see the patient but was available upon request 06/02/2025 Dietary counseling and surveillance (ICD-10 - Z71.3) Mrs. Guillaume is a 55-year-old lady With a past medical history of GERD, obesity status post gastric bypass in 2022, hepatitis B carrier, mild asthma, Parkinson's disease, migraine, goiter, depression/GILSON is here for annual physical examination. She also states that 3 days ago she had syncope. Plan as follows Syncope and collapse. -Reports experiencing shortness of breath and palpitations and Transient loss of consciousness for a couple of seconds. She went to the urgent care, EKG was obtained and it was normal. She was diagnosed with bacterial sinusitis and she was started on doxycycline. She did follow with her neurologist and he will obtain EEG. EKG is done in office today With a heart rate of 77 bpm, sinus rhythm. No ST elevation or depression. No bundle branch block. We will also obtain a loop recorder To rule out arrhythmia as she does have history of multinodular goiter We will obtain a stress echo To assess for cardiac function We will obtain blood work to rule out any electrolyte Imbalance, vitamin deficiencies as she has history of gastric bypass and has been experiencing loss of appetite Nontoxic multinodular goiter. - She admits to compressive symptoms of difficulty swallowing, voice hoarseness, Difficulty breathing with raising her arms up and lying on her back. She has a surgery coming up and August, I have discussed with the patient to consult with her surgeon again and they states if surgery can be done anytime soon if not then we can consider consultation with a different surgeon. Sleep apnea. - Patient will contact the sleep medicine clinic to obtain CPAP machine. Complications of LA discussed. Moderate Persistent asthma: -Stable at this point, Continue with Symbicort 160/4.5, 2 puff BID and albuterol. Latent TB: Stable. PFTs Will be repeated after the thyroid surgery, Continues to monitor with Ad Writer. Osteoarthritis. - She follows with pain management Acute sinuisits. - Continue on doxycycline 100 mg twice a day, Flonase to be taken as needed and also consider taken Tylenol Hepatitis B carrier. -She recently had a hepatic function tests and her levels are reassuring. Continue to follow with a GI Depression/GILSON. -Her mood is stable on current regimen. She follows with psychiatrist and therapist on a regular basis. We will continue to monitor symptoms Morbid obesity. - She is currently on phentermine 30 mg. Her weight is stable since the last visit. Discussed diet modification and regular exercise. Parkinson's disease/Migraine - She is currently stable on levodopa. She follows with Dr. Parks-neurologist [facility]. Up to date Dermatology. No suspicious lesions at this point She is up-to-date on age-specific screenings and vaccinations. Shingles vaccine is given office today She will also be referred to eligibility counselor for breast and pelvic examination including Pap smear She does have a MANAGER SUMMER who helps her at home with ADLS and IADLs. She uses a walker to ambulate Fall risk precautions discussed Screening blood work before next appointment I have rendered the services for this patient under direct supervision of Dr. Lewis, who did not see the patient but was available upon request 06/02/2025 Encounter for immunization (ICD-10 - Z23) Mrs. Guillaume is a 55-year-old lady With a past medical history of GERD, obesity status post gastric bypass in 2022, hepatitis B carrier, mild asthma, Parkinson's disease, migraine, goiter, depression/GILSON is here for annual physical examination. She also states that 3 days ago she had syncope. Plan as follows Syncope and collapse. -Reports experiencing shortness of breath and palpitations and Transient loss of consciousness for a couple of seconds. She went to the urgent care, EKG was obtained and it was normal. She was diagnosed with bacterial sinusitis and she was started on doxycycline. She did follow with her neurologist and he will obtain EEG. EKG is done in office today With a heart rate of 77 bpm, sinus rhythm. No ST elevation or depression. No bundle branch block. We will also obtain a loop recorder To rule out arrhythmia as she does have history of multinodular goiter We will obtain a stress echo To assess for cardiac function We will obtain blood work to rule out any electrolyte Imbalance, vitamin deficiencies as she has history of gastric bypass and has been experiencing loss of appetite Nontoxic multinodular goiter. - She admits to compressive symptoms of difficulty swallowing, voice hoarseness, Difficulty breathing with raising her arms up and lying on her back. She has a surgery coming up and August, I have discussed with the patient to consult with her surgeon again and they states if surgery can be done anytime soon if not then we can consider consultation with a different surgeon. Sleep apnea. - Patient will contact the sleep medicine clinic to obtain CPAP machine. Complications of LA discussed. Moderate Persistent asthma: -Stable at this point, Continue with Symbicort 160/4.5, 2 puff BID and albuterol. Latent TB: Stable. PFTs Will be repeated after the thyroid surgery, Continues to monitor with Ad Writer. Osteoarthritis. - She follows with pain management Acute sinuisits. - Continue on doxycycline 100 mg twice a day, Flonase to be taken as needed and also consider taken Tylenol Hepatitis B carrier. -She recently had a hepatic function tests and her levels are reassuring. Continue to follow with a GI Depression/GILSON. -Her mood is stable on current regimen. She follows with psychiatrist and therapist on a regular basis. We will continue to monitor symptoms Morbid obesity. - She is currently on phentermine 30 mg. Her weight is stable since the last visit. Discussed diet modification and regular exercise. Parkinson's disease/Migraine - She is currently stable on levodopa. She follows with Dr. Parks-neurologist [facility]. Up to date Dermatology. No suspicious lesions at this point She is up-to-date on age-specific screenings and vaccinations. Shingles vaccine is given office today She will also be referred to eligibility counselor for breast and pelvic examination including Pap smear She does have a MANAGER SUMMER who helps her at home with ADLS and IADLs. She uses a walker to ambulate Fall risk precautions discussed Screening blood work before next appointment I have rendered the services for this patient under direct supervision of Dr. Lewis, who did not see the patient but was available upon request Plan Of Treatment Pending Test Test Name Order Date X ray : Foot, right 02/04/2019 Echocardiogram 06/02/2025 Iron and TIBC 06/02/2025 TSH 11/17/2017 Vitamin D, 25-Hydroxy 11/17/2017 Vitamin D, 25-Hydroxy 02/16/2018 CCP IgG Antibodies 02/16/2018 CCP IgG Antibodies 09/02/2018 ESTEFANY Comprehensive Panel 09/02/2018 ESTEFANY Comprehensive Panel 02/16/2018 CBC 09/02/2018 CBC 11/17/2017 ESR 09/02/2018 ESR 02/16/2018 25 HYDROXY VITAMIN D2 D3 08/12/2022 COMPREHENSIVE METABOLIC PANEL 08/12/2022 LIPID PANEL 08/12/2022 MICROALBUMIN, URINE 08/12/2022 VITAMIN B12 02/16/2018 COMPREHENSIVE METABOLIC PANEL 11/17/2017 C-reactive protein (CRP) 09/02/2018 C-reactive protein (CRP) 02/16/2018 Electromyography 09/01/2019 RHEUMATOID FACTOR 02/16/2018 URIC ACID 09/02/2018 Stress Echocardiogram 06/30/2025 Rheumatoid Factor (RF) 09/02/2018 Next Appt Details Provider Name:Petey valentine, 08/18/2025 03:00:00 PM, [address] [place] [address], [id number], Insurance Providers Payer Name Payer Address Payer Phone Subscriber Number Group Number Insured Name Patient Relationship to Insured Coverage Start Date Coverage End Date [facility] [address] [address] [place] [address] [id number] Romana Guillaume Self - patient is the insured Medications Administered Medication Instructions Date of Administration Dosage Notes Vitamin B-12 02/16/2018 1 mL Medical (General) History Medical History History ICD Code acid reflux Osteoarthritis Anxiety and depression see Dr Quang Quiroga therapist Asthma, sees Dr. Sarkar at [facility] glaucoma CTS Left Hand and s/p surgery Left Tarsal syndrome and see Dr Quijano S/p COVID-19 x2, 11/2021 lumbar/cervical radiculopathy and she go es to physiatry Dr. Singh migraine headaches and follows up with Maria Esther Talavera bilateral venous insufficiency status po st vein stripping and sees Dr. Cheek hepatitis B carrier and she follows up w ith Dr. Mitchell CKD sees business dean kidney stones sees urologist obesity s/p gastric bypass 11/25/2022, w as [address] Talavera Surgical History Surgery Date(Month/Year) section x2 kidney surgery cholecystectomy broken right arm vascular surgery on legs. bilateral varicose vein stripping by Dr. Cheek bilateral CTS decompression gastric bypass, Dr. Goodman 11/2022 Hospitalization History Reason Date(Month/Year)
--- NOTE | 2025-07-15 09:56 | EEG_ITS ---
History: H/O migraines, asthma, Graves disease, multinodular thyroid, Vit D deficiency, h/o s/p gastric by-pass surgery- pt c/o one witnessed event of dizziness, palpitation for two days followed by near syncopal episode with increased symptoms with visual changes - symptoms resolved with no LOC or confusion during event in Apr 2025- MRI 07/11 showed minimal atrophy,minimal MVD Medication: topiramate, sumatriptan, propranolol, amitriptyline Technical Description Photic Stimulation: Completed Hyperventilation: Performed - fair effort Behavioral State: pleasant State of Consciousness: awake and drowsy Skull Defect: no Sedation: no Handedness: Right Duration:39 mins 33 seconds Last Meal: 07/14/25 @10 pm Time / date of last symptom: exact date unknown - Apr 2025 Description: This is a 16 channel EEG with an EKG lead. Patient is awake and drowsy during the tracing. Background EEG rhytham is 16-20 Hz, 5-70 mV, posteriorly and lower amplitude faster anteriorly. Photic stimulation and hyperventilation did not produce any significant abnormality. During later part the tracing, one 2-3 seconds run of left occipital sharp waves was noted. Cardiac lead did not reveal any significant abnormality. Impression: Mildly abnormal EEG suggestive of left occipital irritability. MTDD
== END 2025-07-15 08:15 | disposition home or self-care (01) ==
LOC: HO.NEURO 08:14
PROVIDERS: PCP Hospitalist; Visit Provider Psychiatry & Neurology Neurology
DX: R55 Syncope and collapse (principal)
CPT/HCPCS: 95816

== ENCOUNTER → 2025-07-15 09:56 | Outpatient (BNV) | payer OTHER, SELFPAY | PROVIDERS: PCP Hospitalist; Visit Provider Psychiatry & Neurology Neurology | DX: R55 Syncope and collapse (principal) | CPT/HCPCS: 95816 ==